=== PATIENT | female | born 1950 | race Caucasian/White ===

== ENCOUNTER 2017-06-20 18:29 | Inpatient (IN) ==
[2017-06-20] MEDS ORDERED: Vancomycin 1,000 MG VIAL IVPB ONE (18:57)
[2017-06-20] MEDS ORDERED: 0.9 % Sodium Chloride 1,000 ML IVC ONE (18:57)
--- NOTE | 2017-06-20 19:04 | Emergency Department Note ---
Disposition Clinical Impression: Cellulitis of left foot, Necrosis of toe Disposition: Admitted As Inpatient Condition: Fair Time of Disposition: 21:27 Extremity Problem HPI - General Chief complaint: ED Extremity Problem,Nontraumatic Stated complaint: LLE Problem Time Seen by Provider: 06/20/17 18:40 Source: patient Mode of arrival: wheelchair Limitations: no limitations Nursing Notes Reviewed: Yes Vital Signs Reviewed: Yes - History of Present Illness HPI Narrative: Mrs. Beltrán, 66 year old female, presents from home for evaluation of left toe infection. Onset 3 weeks ago. Started around the toenail of the second toe. Patient has been self caring at home with interbody ointment. It has never been evaluated by a caregiver. She is concerned as now the second and third toes are black and skin is being torn whenever she is removing adhesive from her bandaging. She has pain at rest and with any weightbearing. PMH: CAD with ACS status post CABG, diabetes with no peripheral neuropathy, hypertension, hyperlipidemia. No history of PAD. Habits: Prior 30+ pack-year history of smoking; quit 10 years ago. ROS: Positive: As above Negative: Fever, chills, ankle pain, knee pain. Pain Scale: 7 - Related Data Home Medications Medication Instructions Recorded Confirmed Alendronate Sodium 70 mg PO QWEEK 01/06/17 06/21/17 Aspirin [Lo-Dose Aspirin EC] 81 mg PO DAILY 01/06/17 06/21/17 Calcium Carbonate/Vitamin D3 1 each PO TID 01/06/17 06/21/17 [Calcium 500-Vit D3 200 Caplet] Clopidogrel Bisulfate [Plavix] 75 mg PO DAILY 01/06/17 06/21/17 Clotrimazole 1% CRM [Lotrimin 1%] 1 appl TD BID 01/06/17 06/21/17 Cyclobenzaprine [Flexeril] 10 mg PO DAILY 01/06/17 06/21/17 Enalapril Maleate [Vasotec] 10 mg PO DAILY 01/06/17 06/21/17 Ergocalciferol (VITAMIN D2) 50,000 unit PO QWEEK 01/06/17 06/21/17 [Vitamin D2] Folic Acid 1 mg PO DAILY 01/06/17 06/21/17 Furosemide [Lasix] 20 mg PO DAILY PRN 01/06/17 06/21/17 Gabapentin [Neurontin] 600 mg PO TID 01/06/17 06/21/17 HYDROcodone/Acet 5/325 mg [[place] 1 tab PO Q8H PRN 01/06/17 06/21/17 5-325 mg] Insulin Glargine,Hum.rec.anlog 43 unit SQ DAILY 01/06/17 06/21/17 [Basaglar Kwikpen U-100] Insulin LISPRO [HumaLOG] 0 units SQ TIDWM PRN 01/06/17 06/21/17 Lovastatin [Mevacor] 20 mg PO DAILY 01/06/17 06/21/17 Metoprolol Tartrate [Lopressor] 50 mg PO DAILY 01/06/17 06/21/17 Nitroglycerin [Nitrostat] 0.4 mg SL Q5-6MIN PRN 01/06/17 06/21/17 Omeprazole [PriLOSEC] 40 mg PO DAILY 01/06/17 06/21/17 Pioglitazone [Actos] 45 mg PO DAILY 01/06/17 06/21/17 SitaGLIPtin [Januvia] 100 mg PO DAILY 01/06/17 06/21/17 Citalopram Hydrobromide 10 mg PO DAILY 06/21/17 06/21/17 [Citalopram HBr] Ferrous Sulfate [Iron] 325 mg PO DAILY 06/21/17 06/21/17 LORazepam [Ativan] 0.5 mg PO DAILY 06/21/17 06/21/17 Meloxicam [Mobic] 7.5 mg PO BID 06/21/17 06/21/17 Metformin HCl [Metformin HCl ER] 1,000 mg PO BID 06/21/17 06/21/17 Previous Rx's Medication Instructions Recorded Isosorbide MONOnitrate (24 HR) 60 mg PO DAILY #30 tab.er.24h 01/06/17 [Imdur] Allergies Allergy/AdvReac Type Severity Reaction Status Date / Time cephalexin [From Keflex] Allergy Hives Verified 06/20/17 18:37 codeine Allergy Headache Verified 06/20/17 18:37 Iodinated Contrast- Oral and Allergy Hives Verified 06/20/17 18:37 IV Dye All systems ED: reviewed and negative except as stated. Review of Systems: As Per HPI Past Medical History - Past Medical History Medical history: Reports: CHF, coronary artery disease, diabetes, GERD, hyperlipidemia, hypertension, kidney stones, myocardial infarction, osteoporosis Surgical history: Reports: angioplasty/stent, appendectomy, cholecystectomy, coronary bypass (CABG) Psychiatric history: Reports: anxiety - Social History Smoking Status: Former smoker Alcohol use: Reports: none Drug use: Reports: none Physical Exam Vital Signs Reviewed General: Patient is alert, oriented, and in no acute distress. Head: atraumatic, normocephalic Eye: normal appearance, PERRL, EOMI, no scleral icterus, no conjunctival injection ENT: mucous membranes moist, normal external ear exam Neck: normal inspection, trachea midline, full ROM Chest: normal inspection, symmetric chest rise Respiratory: Good respiratory effort. Bilateral breath sounds are clear without wheezing, crackles, or rhonchi. Cardiovascular: Regular rate and rhythm. No clicks, rubs, gallops, or murmors. Normal heart sounds. Chronic venous stasis changes bilaterally. Right lower extremity 1+ pitting pedal edema. Abdomen: Bowel sounds present normoactive x-4 quadrants. Abdomen is soft, nondistended, and nontender. No guarding or rebound. No organomegaly noted. Musculoskeletal: Skin: Neuro: Alert and oriented x4. Sensation light touch intact. Psych: Patient's affect is appropriate for situation. - General General appearance: alert, in no apparent distress Course Course Narrative: History clinical exam concerning for infectious necrosis with cellulitis extending several centimeters proximally on the dorsum of her left foot. Will empirically cover for cellulitis and osteomyelitis. X-ray left foot shows no evidence of osteomyelitis. Patient is agreeable to admission for IV antibiotics as well as continued evaluation and management. I discussed the above with the admitting hospitalist, Dr. Connor. He is agreeable to accepting the patient for continued evaluation and management. He prefers to hold on CT left foot pending his evaluation. Foot X-Ray 06/20/17 20:30 IMPRESSION: No radiographic evidence of osteomyelitis. D/ / Nash Yepez MD / Nash Yepez MD Interpreting Provider: Nash Yepez MD Vital Signs Temperature 97.5 F L 06/20/17 18:34 Pulse Rate 95 06/20/17 18:34 Respiratory Rate 16 06/20/17 18:34 Blood Pressure 149/68 06/20/17 18:34 O2 Sat by Pulse Oximetry 95 06/20/17 18:34 Temperature 98.3 F 06/21/17 11:18 Pulse Rate 112 06/21/17 11:18 Respiratory Rate 17 06/21/17 11:18 Blood Pressure 96/60 06/21/17 11:18 O2 Sat by Pulse Oximetry 98 06/21/17 17:08 Oxygen Delivery Oxygen Delivery Room Air Extremity Problem, Nontraumati - Medical Records Medical records reviewed: Yes I reviewed the patient's medical records. - Lab Data Lab results reviewed: Yes I reviewed the patient's lab results. Result diagrams: 06/21/17 04:46 06/21/17 04:45 Lab Results 06/20/17 06/20/17 06/20/17 Range/Units 19:00 19:00 19:00 WBC 13.5 H (4.3-11.1) K/mcL RBC 4.66 (3.82-4.97) M/mcL Hgb 10.3 L (11.5-15.4) g/dL Hct 34.8 L (35.3-44.9) % MCV 74.7 L (83.0-100.0) fL MCH 22.1 L (28.0-33.3) pg MCHC 29.6 L (31.6-35.5) g/dL RDW 19.9 H (11.5-14.5) % Plt Count 355 (140-400) K/mcL MPV 11.0 (9.4-12.4) fL Immature Gran % 0.6 (0-4) % Seg Neutrophils % 82.6 % Lymphocytes % 9.6 % Monocytes % 6.1 % Eosinophils % 0.7 % Basophils % 0.4 % Neutrophils # 11.2 H (1.6-8.9) K/mcL Lymphocytes # 1.3 (0.6-4.6) K/mcL Monocytes # 0.8 (0.0-1.3) K/mcL Eosinophils # 0.1 (0.0-0.6) K/mcL Basophils # 0.1 (0.0-0.2) K/mcL ESR 125 H (0-15) mm/hr Sodium 133 L (136-145) mEq/L Potassium 4.1 (3.5-5.1) mEq/L Chloride 99 (98-107) mEq/L Carbon Dioxide 24 (23-29) mEq/L BUN 11 (8-23) mg/dL Creatinine 0.79 (0.60-1.20) mg/dL Est GFR ( Amer) > 60 (> 60) Est GFR (Non-Af Amer) > 60 (> 60) BUN/Creatinine Ratio 14 (6-26) Glucose 210 H (70-105) mg/dL Calculated Osmolality 282 (280-300) Lactic Acid (0.5-2.2) mmol/L Calcium 9.1 (8.6-10.3) mg/dL C-Reactive Protein (Less than 10) mg/L 06/20/17 06/20/17 Range/Units 19:00 19:00 WBC (4.3-11.1) K/mcL RBC (3.82-4.97) M/mcL Hgb (11.5-15.4) g/dL Hct (35.3-44.9) % MCV (83.0-100.0) fL MCH (28.0-33.3) pg MCHC (31.6-35.5) g/dL RDW (11.5-14.5) % Plt Count (140-400) K/mcL MPV (9.4-12.4) fL Immature Gran % (0-4) % Seg Neutrophils % % Lymphocytes % % Monocytes % % Eosinophils % % Basophils % % Neutrophils # (1.6-8.9) K/mcL Lymphocytes # (0.6-4.6) K/mcL Monocytes # (0.0-1.3) K/mcL Eosinophils # (0.0-0.6) K/mcL Basophils # (0.0-0.2) K/mcL ESR (0-15) mm/hr Sodium (136-145) mEq/L Potassium (3.5-5.1) mEq/L Chloride (98-107) mEq/L Carbon Dioxide (23-29) mEq/L BUN (8-23) mg/dL Creatinine (0.60-1.20) mg/dL Est GFR ( Amer) (> 60) Est GFR (Non-Af Amer) (> 60) BUN/Creatinine Ratio (6-26) Glucose (70-105) mg/dL Calculated Osmolality (280-300) Lactic Acid 2.1 (0.5-2.2) mmol/L Calcium (8.6-10.3) mg/dL C-Reactive Protein 39 H (Less than 10) mg/L - Radiology Data Radiology results reviewed: Yes I reviewed the patient's radiology results. Foot X-Ray 06/20/17 20:30 IMPRESSION: No radiographic evidence of osteomyelitis. D/ / Nash Yepez MD / Nash Yepez MD Interpreting Provider: Nash Yepez MD Attestation Statement - Attestation Attestation: I examined this patient and my medical decision-making was reviewed with the Resident Physician, Dr. Lezama. I agree with the documented findings, disposition and treatment plan as described except to the extent set forth below. Pt is 66 yo wf, hx DM with neuropathy who is brought to the ER by family for L foot infection/necrosis. Pt reports that she began having L toe pain which began at the base of the L 2nd toenail approx 3 weeks ago, and the area was painful and draining yellow DC which progressively worsened to involve multiple toes and the dorsum of the L foot. Pt denies any falls/trauma to the LLE. Pt has been ambulatory at home despite reported infection and has not had this evaluated by a doctor until tonight. Pt denies any F/C, no nausea, no SOB/CP, no diaphoresis, and no incr in her BS's with these foot changes. No LE pain, and only mild edema which is chronic. Pt has been putting dressings over her L foot and changing and cannot recall when her L toes turned black in color, she thinks maybe 3-5 d ago. Pt denies any other complaints. I agree with pt's PE findings as documented. VSS. Pt is in NAD, and denies any pain. Pt with dry necrosis of L toes 2,3,4 with erythema of LLE which extends prox to just below L knee joint. Pt with open ulceration to L dorsal foot with purulent drainage. NVI with palpable pulses in L foot, and dorsal foot TTP. An IV saline well-established vital signs are stable she was hemodynamically stable and are concerned about abscess, underlying osteomyelitis, as patient has erythema of her left lower extremity that extends into the lower leg. She has no calf tenderness she has no joint tenderness Eissler joint swelling or erythema, no fevers or chills and is in no acute distress on arrival here. Patient had lab evaluation including lactate, CRP and sedimentation rate. Labs show an elevated white count with left shift but other labs were unremarkable. Patient was sent for plain film imaging which was negative for any bony injury or early evidence of osteo-. Empiric antibiotics were started for osteomyelitis. Patient's lower extremities are neurovascularly intact she has good palpable pulses good skin color and perfusion with Refill less than 2 seconds. At this time patient will be admitted for ongoing antibiotics, orthopedic consultation and possible CT imaging for further evaluation of what look like necrotic changes on the left foot. Case was discussed with the hospitalist who accepted patient for admission.
[2017-06-20 19:42] LABS: Basophils # 0.1 K/mcL (0.0-0.2); Basophils % 0.4 %; Eosinophils # 0.1 K/mcL (0.0-0.6); Eosinophils % 0.7 %; Hematocrit 34.8 % (35.3-44.9); Hemoglobin 10.3 g/dL (11.5-15.4); Immature Granulocytes % 0.6 % (0-4); Lymphocytes # 1.3 K/mcL (0.6-4.6); Lymphocytes % 9.6 %; Mean Corpuscular HGB Conc 29.6 g/dL (31.6-35.5); Mean Corpuscular Hemoglobin 22.1 pg (28.0-33.3); Mean Corpuscular Volume 74.7 fL (83.0-100.0); Monocytes # 0.8 K/mcL (0.0-1.3); Monocytes % 6.1 %; Neutrophils # 11.2 K/mcL (1.6-8.9); Platelet Count 355 K/mcL (140-400); Red Blood Count 4.66 M/mcL (3.82-4.97); Red Cell Distribution Width 19.9 % (11.5-14.5); Segmented Neutrophils % 82.6 %
[2017-06-20] MEDS ORDERED: *HR* FentaNYL (PF) 100 MCG/2 ML VIAL IVP ONE (19:50)
[2017-06-20 19:56] LABS: BUN/Creatinine Ratio 14 (6-26); Blood Urea Nitrogen 11 mg/dL (8-23); Calcium 9.1 mg/dL (8.6-10.3); Carbon Dioxide 24 mEq/L (23-29); Chloride 99 mEq/L (98-107); Glucose 210 mg/dL (70-105); Osmolality,Calculated 282 (280-300); Potassium 4.1 mEq/L (3.5-5.1); Sodium 133 mEq/L (136-145); eGFR For African Americans > 60 (> 60); eGFR For Non-African Americans > 60 (> 60)
[2017-06-20] MEDS ORDERED: MetroNIDAZOLE 500 MG/100 ML 500 MG/100 ML BAG IVPB ONE (20:30)
--- NOTE | 2017-06-20 21:43 | Internal Med History&Physical ---
Date of Encounter: 06/20/17 Time of Encounter: 21:40 Assessment and Plan (1) Cellulitis of left foot Current visit: Yes Status: Acute IV vanco, trend level, pharmacy to assist IV cipro to cover GN given DM foot (2) Gangrene Current visit: Yes Status: Acute dry gangrene with early proximal injection. d/w dr loco who rec podiatry eval . 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 Beltrán is a 66 year old female of long standing DMII on insulin c/b peripheral neuropathy who presents with acute on subacute infection of left 2nd and 3rd toe with early cellulitis. She has a hx of CAD s/p 4 x, stents, DMII, peripheral neuropathy with numbness of foot and shooting pain. She has had at least several 3-4 weeks of worsening pain and swelling and erythema of left foot. She also had experiencing progressive blackening of the left 2nd and 3rd digits in the last month or so. XR/XR foot 3V LT IMPRESSION: No radiographic evidence of osteomyelitis. Past Med Surg Social Fam HX - Past Medical History Medical history: CHF, coronary artery disease, diabetes, GERD, hyperlipidemia, hypertension, kidney stones, myocardial infarction, osteoporosis Psychiatric history: anxiety - Past Surgical History Surgical History: angioplasty/stent, appendectomy, cholecystectomy, coronary bypass (CABG) - Social History Smoking Status: Former smoker Smokeless Tobacco Status: No Alcohol use: none Drug use: none - Family History Mother Adopted: [place]: Dary Cruz Age: 63 Family Member Ethnicity: Non- Twin of Family Member: Yes, Identical Living Status: Age at : 63 Cause of : Heart complications Hx Family Cardiac Disorders: Yes (MD,HTN, OPEN HEART SX) Hx Family Respiratory Disorders: No Hx Family Cancer: No Hx Family GI Disorders: No Hx Family Genitourinary Disorders: No Hx Family Endocrine Disorder: No Hx Family Musculoskeletal Disorders: No Hx Family Neuromuscular Disorders: No Hx Family Neurologic Disorders: No Hx Family HEENT Disorders: No Hx Family Autoimmune Disorders: No Hx Family Reproductive Disorders: No Hx Family Psychosocial Disorders: No Hx Family Medical Disorders: No Internal Medicine - H&P: Meds Alendronate Sodium 70 mg PO QWEEK 01/06/17 [History] Aspirin [Lo-Dose Aspirin EC] 81 mg PO DAILY 01/06/17 [History] Calcium Carbonate/Vitamin D3 [Calcium 500-Vit D3 200 Caplet] 1 each PO TID 01/06 [History] Clopidogrel Bisulfate [Plavix] 75 mg PO DAILY 01/06/17 [History] Clotrimazole 1% CRM [Lotrimin 1%] 1 appl TD BID 01/06/17 [History] Cyclobenzaprine [Flexeril] 10 mg PO DAILY 01/06/17 [History] Enalapril Maleate [Vasotec] 10 mg PO DAILY 01/06/17 [History] Ergocalciferol (VITAMIN D2) [Vitamin D2] 50,000 unit PO QWEEK 01/06/17 [History] Folic Acid 1 mg PO DAILY 01/06/17 [History] Furosemide [Lasix] 20 mg PO DAILY PRN 01/06/17 [History] Gabapentin [Neurontin] 600 mg PO TID 01/06/17 [History] HYDROcodone/Acet 5/325 mg [[place] 5-325 mg] 1 tab PO Q8H PRN 01/06/17 [History] Insulin Glargine,Hum.rec.anlog [Basaglar Kwikpen U-100] 43 unit SQ DAILY [History] Insulin LISPRO [HumaLOG] 0 units SQ TIDWM PRN 01/06/17 [History] Isosorbide MONOnitrate (24 HR) [Imdur] 60 mg PO DAILY #30 tab.er.24h 01/06/17 [ Rx] Lovastatin [Mevacor] 20 mg PO DAILY 01/06/17 [History] Metoprolol Tartrate [Lopressor] 50 mg PO DAILY 01/06/17 [History] Nitroglycerin [Nitrostat] 0.4 mg SL Q5-6MIN PRN 01/06/17 [History] Omeprazole [PriLOSEC] 40 mg PO DAILY 01/06/17 [History] Pioglitazone [Actos] 45 mg PO DAILY 01/06/17 [History] SitaGLIPtin [Januvia] 100 mg PO DAILY 01/06/17 [History] metFORMIN [Glucophage] 1,000 mg PO BIDWM 01/06/17 [History] 3 Allergy/AdvReac Type Severity Reaction Status Date / Time cephalexin [From Keflex] Allergy Hives Verified 06/20/17 18:37 codeine Allergy Headache Verified 06/20/17 18:37 Iodinated Contrast- Oral and Allergy Hives Verified 06/20/17 18:37 IV Dye All Systems PM: A 10-system review of systems was performed and is negative for pertinent findings except as documented above in the HPI. Review of systems: ROS 14 point review of systems reviewed as best as possible given presentation. Pertinent positive or negative as per HPI or otherwise reviewed as negative - Constitutional Vitals: Temp Pulse Resp BP Pulse Ox 97.5 F L 88 18 142/84 96 06/20/17 18:34 06/20/17 20:36 06/20/17 20:36 06/20/17 20:36 06/20/17 20:36 Exam: General - AAO x 3 Psych - Appropriate affect/speech. No agitation Eyes - KIRT. Eye lids intact. No scleral icterus Heart - Sinus. RRR. S1 and S2 present. No added HS/murmurs appreciated. No elevated JVD appreciated. Lung - Adequate air entry b/l, No crackles/wheezes appreciated GI - Soft, non-tender. No hepatosplenomegaly/ascites. BS+ - No CVA/suprapubic tenderness or palpable bladder distension Skin - Intact. No rash/petechiae/ecchymosis. Warm extremities MSK - Dry gangrene of left 2nd and 3rd toe with early infection changes Internal Med - H&P Results - Labs CBC & Chem 7: 02/11/18 19:00 06/20/17 19:00
[2017-06-20] MEDS ORDERED: *HR* Dextrose 50 % in Water (Syg) 50 ML SYRINGE IVP PRN (21:55)
[2017-06-20] MEDS ORDERED: D5% in Water 1,000 ML IVC PRN (21:55)
[2017-06-20] MEDS ORDERED: Dextrose Gel 15 GM/37.5 ML TUBE PO PRN ×2 (21:55)
[2017-06-20] MEDS ORDERED: Naloxone 0.4 MG/ML INJ IVP PRN (21:56)
[2017-06-20] MEDS ORDERED: Vancomycin 0 MG in D5% in Water 250 ML IVPB SCH (22:00)
[2017-06-20] MEDS ORDERED: NON-FORMULARY MEDICATION 1 EACH EACH (Insulin Glargine,Hum.Rec.Anlog [Basaglar Kwikpen U-1 SQ SCH (22:00)
[2017-06-20] MEDS: *HR* HYDROcodone/Acet 5/325 mg TABLET PO PRN (22:27)
[2017-06-20] MEDS: 0.9 % Sodium Chloride 1,000 ML IVC SCH (22:31)
[2017-06-20] MEDS: Insulin DETEMIR 100 UNIT/ML X5UNITS SQ SCH (22:52)
[2017-06-20] MEDS ORDERED: Vancomycin 1,250 MG in D5% in Water 250 ML IVPB ONE (23:00)
[2017-06-21] MEDS: *HR* FentaNYL (PF) 100 MCG/2 ML VIAL IVP PRN ×3 (00:35→22:23)
[2017-06-21] MEDS ORDERED: *HR* OxyCODONE Immed Rel 5 MG TABLET PO ONE (02:39)
[2017-06-21] MEDS ORDERED: *HR* Metoprolol 5 MG/5 ML VIAL IVP PRN (04:28)
[2017-06-21] MEDS ORDERED: Aspirin 325 MG TABLET PO ONE (04:30)
[2017-06-21] MEDS: Nitroglycerin 0.4 MG TAB.SUBL SL PRN (04:53)
[2017-06-21] MEDS ORDERED: *HR* Heparin 5,000 UNIT/ML VIAL IVP PRN ×2 (04:54)
[2017-06-21] MEDS ORDERED: *HR* Heparin 5,000 UNIT/ML VIAL IVP ONE (04:54)
[2017-06-21 05:14] LABS: Alanine Aminotransferase 6 Units/L (7-52); Albumin/Globulin Ratio 0.8 (1.1-2.2); Alkaline Phosphatase 54 Units/L (34-104); Aspartate Amino Transferase 10 Units/L (13-39); BUN/Creatinine Ratio 11 (6-26); Bilirubin,Total 0.2 mg/dL (0.3-1.0); Blood Urea Nitrogen 8 mg/dL (8-23); Calcium 8.7 mg/dL (8.6-10.3); Carbon Dioxide 23 mEq/L (23-29); Chloride 108 mEq/L (98-107); Globulin 3.9 g/dL (2.4-3.5); Glucose 78 mg/dL (70-105); Osmolality,Calculated 289 (280-300); Potassium 3.3 mEq/L (3.5-5.1); Sodium 141 mEq/L (136-145); Total Protein 6.9 g/dL (6.4-8.9); eGFR For African Americans > 60 (> 60); eGFR For Non-African Americans > 60 (> 60)
[2017-06-21] MEDS ORDERED: Nitroglycerin 25 MG/250 ML INFUS..BTL IVC SCH (05:15)
[2017-06-21 06:00] LABS: Basophils % 0.4 %; Hemoglobin 9.7 g/dL (11.5-15.4); Red Cell Distribution Width 19.5 % (11.5-14.5)
[2017-06-21] MEDS ORDERED: *HR* Enoxaparin 30 MG/0.3 ML SYRINGE SQ SCH (06:00)
[2017-06-21 06:02] LABS: Eosinophils # 0.1 K/mcL (0.0-0.6); Hematocrit 32.9 % (35.3-44.9); Immature Granulocytes % 0.4 % (0-4); Immature Platelets 5.3 % (1.1-6.1); Lymphocytes # 2.3 K/mcL (0.6-4.6); Lymphocytes % 22.4 %; Mean Corpuscular HGB Conc 29.5 g/dL (31.6-35.5); Mean Corpuscular Volume 74.8 fL (83.0-100.0); Mean Platelet Volume 10.8 fL (9.4-12.4); Monocytes # 0.8 K/mcL (0.0-1.3); Monocytes % 7.6 %; Neutrophils # 6.9 K/mcL (1.6-8.9); Platelet Count 335 K/mcL (140-400); Segmented Neutrophils % 68.2 %
[2017-06-21] MEDS: Heparin 25,000 UNIT/500 ML D5W 25,000 UNIT/500 ML BAG IVC SCH (06:39)
[2017-06-21 07:05] LABS: Hemoglobin A1C 6.5 %
[2017-06-21 07:36] LABS: Hypochromasia Present (Not Present); Macrocytosis Present (Not Present); Platelet Estimate Normal (Normal); Polychromasia 1+ (Not Present)
[2017-06-21] MEDS: Insulin LISPRO 300 UNITS/3 ML VIAL SQ SCH ×4 (07:44→22:14)
[2017-06-21] MEDS: Folic Acid 1 MG TABLET PO SCH (08:19)
[2017-06-21] MEDS: Gabapentin 300 MG CAPSULE PO SCH ×3 (08:19→22:13)
[2017-06-21] MEDS: *HR* SitaGLIPtin 100 MG TABLET PO SCH (08:19)
[2017-06-21] MEDS: Aspirin Enteric Coated 81 MG Tablet PO SCH (08:19)
[2017-06-21] MEDS: *HR* HYDROcodone/Acet 5/325 mg TABLET PO PRN ×2 (08:59→20:05)
[2017-06-21] MEDS ORDERED: Isosorbide MONOnitrate (24 HR) 60 MG TAB.ER.24H PO SCH ×2 (09:00→10:15)
[2017-06-21] MEDS ORDERED: Calcium 500-Vit D3 PO SCH (09:00)
[2017-06-21] MEDS: Cholecalciferol (D-3) 1,000 UNIT TABLET PO SCH (09:00)
--- NOTE | 2017-06-21 10:06 | Cardiology Consult Note ---
<Sumanth Alonzo - Last Filed: 06/21/17 10:56> Date of Encounter: 06/21/17 Time of Encounter: 09:30 Assessment and Plan (1) Cellulitis of left foot Current Visit: Yes Status: Acute Per Cardiology: Management per primary. Podiatry consult pending. (2) Necrosis of toe Current Visit: Yes Status: Acute Per Cardiology: Management per primary. Podiatry consult pending. Anticipate may need Vascular C /S. (3) Chest pain Current Visit: Yes Status: Acute Per Cardiology: Developed chest pain symptoms during the night in setting of tachycardia in the 130s and patient reported extreme left foot pain not well controlled. Initial troponins negative, now with troponin mild elevation of 0.07. Currently chest pain-free on IV nitroglycerin drip and heparin drip. ECG with ST depression reviewed with Dr. Elaine, now changes resolved and CP free. Reports better pain control with left foot. Do not suspect non-STEMI, suspected to be an ischemia in setting of tachycardia suspect due to pain. We'll wean off IV nitroglycerin drip. Will increase long-acting nitrate. Continue heparin drip for now. Check limited echo. Discussed with Dr. Elaine. Qualifiers: Qualified Code(s): R07.9 - Chest pain, unspecified (4) CAD (coronary artery disease) Current Visit: Yes Status: Chronic Per Cardiology: History of CAD with CABG x 4 2001 at [place]. Recent heart catheterization December 2016 showed patent GARAY to LAD, patent SVG to OM1, patent sequential SVG to OM 2 , occluded SVG to right PDA. [place] circulation to RCA showed proximal RCA 30%, mid RCA 25%, distal RCA 40% lesions. Abnormal nuclear stress test December 2016 showed findings consistent with reversible myocardial ischemia involving basal apical anterior wall and apical lateral wall. Echo from December 2016 showed EF 60 %, normal LV function, no significant valvular dysfunction, no pulmonary hypertension, NSWMA. On aspirin, Plavix, statin, beta eugenie, JOSE inhibitor, long-acting nitrates. Qualifiers: Coronary Disease-Associated Artery/Lesion type: bypass graft Associated angina: angina presence unspecified Qualified Code(s): I25.810 - Atherosclerosis of coronary artery bypass graft(s) without angina pectoris Discussion w patient/family: The assessment and plan as outlined above was discussed with the patient and/or family members who expressed understanding and agreement. All questions were answered. Thank you for involving us in the care of your patient. Please call with any questions. History of Present Illness Consult date: 06/21/17 Requesting physician: Nara Yadav Consult reason: CP Chief complaint: CP in setting of L foot pain with necrosis History of present illness: Ms. Beltrán is a 66 year old female with a relevant past medical history of CAD with CABG, hypertension, hyperlipidemia, DM2, diastolic dysfunction, GERD. Most recently seen by Dr. Salome Varela February 2017 with cardiology. Cardiology consult for chest pain symptoms. Patient reports extreme left foot pain over the past 3-4 weeks that she "had been ignoring ". Reports blackened second, third, and fourth toe. She reports she came to the ER because her son saw her foot and made her come in. Prior to arrival she denies any chest pain or palpitations. Reports left leg and foot pain. She reports sores of breath at rest about baseline. Yesterday evening around 3 AM she reports difficulty receiving pain medication experienced overall increased left foot pain. Patient reports rapid heart rate with palpitations and sharp stabbing chest pains. Currently chest pain-free and reports improvement with left foot pain control. She denies any active bleeding or blood loss. Denies any recent syncope or falls. Past Med Surg Social Fam HX - Past Medical History Attestation: Yes The following information was validated with the patient. Source: patient, old records reviewed Medical history: CHF, coronary artery disease, diabetes, GERD, hyperlipidemia, hypertension, kidney stones, myocardial infarction, osteoporosis Psychiatric history: anxiety - Past Surgical History Surgical History: angioplasty/stent, appendectomy, cholecystectomy, coronary bypass (CABG) - Social History Smoking Status: Former smoker Smokeless Tobacco Status: No Alcohol use: none Drug use: none - Family History Mother Adopted: [place]: Dary Cruz Age: 63 Family Member Ethnicity: Non- Twin of Family Member: Yes, Identical Living Status: Age at : 63 Cause of : Heart complications Hx Family Cardiac Disorders: Yes (IL,HTN, OPEN HEART SX) Hx Family Respiratory Disorders: No Hx Family Cancer: No Hx Family GI Disorders: No Hx Family Genitourinary Disorders: No Hx Family Endocrine Disorder: No Hx Family Musculoskeletal Disorders: No Hx Family Neuromuscular Disorders: No Hx Family Neurologic Disorders: No Hx Family HEENT Disorders: No Hx Family Autoimmune Disorders: No Hx Family Reproductive Disorders: No Hx Family Psychosocial Disorders: No Hx Family Medical Disorders: No Medications and Allergies Alendronate Sodium 70 mg PO QWEEK 01/06/17 [History] Aspirin [Lo-Dose Aspirin EC] 81 mg PO DAILY 01/06/17 [History] Calcium Carbonate/Vitamin D3 [Calcium 500-Vit D3 200 Caplet] 1 each PO TID 01/06 [History] Clopidogrel Bisulfate [Plavix] 75 mg PO DAILY 01/06/17 [History] Clotrimazole 1% CRM [Lotrimin 1%] 1 appl TD BID 01/06/17 [History] Cyclobenzaprine [Flexeril] 10 mg PO DAILY 01/06/17 [History] Enalapril Maleate [Vasotec] 10 mg PO DAILY 01/06/17 [History] Ergocalciferol (VITAMIN D2) [Vitamin D2] 50,000 unit PO QWEEK 01/06/17 [History] Folic Acid 1 mg PO DAILY 01/06/17 [History] Furosemide [Lasix] 20 mg PO DAILY PRN 01/06/17 [History] Gabapentin [Neurontin] 600 mg PO TID 01/06/17 [History] HYDROcodone/Acet 5/325 mg [[place] 5-325 mg] 1 tab PO Q8H PRN 01/06/17 [History] Insulin Glargine,Hum.rec.anlog [Basaglar Kwikpen U-100] 43 unit SQ DAILY [History] Insulin LISPRO [HumaLOG] 0 units SQ TIDWM PRN 01/06/17 [History] Isosorbide MONOnitrate (24 HR) [Imdur] 60 mg PO DAILY #30 tab.er.24h 01/06/17 [ Rx] Lovastatin [Mevacor] 20 mg PO DAILY 01/06/17 [History] Metoprolol Tartrate [Lopressor] 50 mg PO DAILY 01/06/17 [History] Nitroglycerin [Nitrostat] 0.4 mg SL Q5-6MIN PRN 01/06/17 [History] Omeprazole [PriLOSEC] 40 mg PO DAILY 01/06/17 [History] Pioglitazone [Actos] 45 mg PO DAILY 01/06/17 [History] SitaGLIPtin [Januvia] 100 mg PO DAILY 01/06/17 [History] Citalopram Hydrobromide [Citalopram HBr] 10 mg PO DAILY 06/21/17 [History] Ferrous Sulfate [Iron] 325 mg PO DAILY 06/21/17 [History] LORazepam [Ativan] 0.5 mg PO DAILY 06/21/17 [History] Meloxicam [Mobic] 7.5 mg PO BID 06/21/17 [History] Metformin HCl [Metformin HCl ER] 1,000 mg PO BID 06/21/17 [History] 3 Allergy/AdvReac Type Severity Reaction Status Date / Time cephalexin [From Keflex] Allergy Hives Verified 06/20/17 18:37 codeine Allergy Headache Verified 06/20/17 18:37 Iodinated Contrast- Oral and Allergy Hives Verified 06/20/17 18:37 IV Dye All Systems Review: A 10-system review of systems was performed and is negative for pertinent findings except as documented above in the HPI. - Constitutional Constitutional: fatigue - Cardiovascular Cardiovascular: as per HPI, chest pain at rest, palpitations, rapid heart rate - Musculoskeletal Musculoskeletal: other (Left foot and leg pain) Physical Examination Vital Signs, Last 4 Hours Temp Pulse Resp BP Pulse Ox 06/21/17 09:00 109 126/75 98 06/21/17 07:40 98.3 F 114 15 127/62 99 06/21/17 06:55 114 17 121/70 97 General: Conversant, No Apparent Distress HEENT: Atraumatic, Normocephaly, Mucus Membranes Moist Neck: No JVD, Normal carotid pulses Cardiac: Reg Rate and Rhythm, Normal S1 and S2, No Murmur Lungs: Normal Breath Sounds, No Wheeze, Rales, Rhonchi Neuro: Alert and responsive, No focal deficits noted Abdomen: Soft, Non-Tender Skin: No rashes noted on visualized skin Musculoskeletal: No Chest Wall Tenderness Extremities: No Clubbing, No Cyanosis, Other (Left foot with necrosis to 2nd, 3rd, and 4th toes, left leg erythematous, painful to touch, faint +1 pulses) Results 06/21/17 04:46 06/21/17 04:45 Lab Results Laboratory Tests 06/20/17 06/21/17 06/21/17 19:00 04:45 04:46 WBC 13.5 H AST 10 L ALT 6 L Troponin I < 0.03 06/21/17 09:50 WBC AST ALT Troponin I 0.07 H* ITS Impressions Foot X-Ray 06/20/17 20:30 IMPRESSION: No radiographic evidence of osteomyelitis. D/ / Nash Yepez MD / Nash Yepez MD Interpreting Provider: Nash Yepez MD Active Medications Hydrocodone Bitart/Acetaminophen ([place] 5-325 Mg) 1 tab PO Q4HR PRN PRN Reason: Pain Stop: 12/21/17 00:01 Last Admin: 06/21/17 08:59 Dose: 1 tab Aspirin (Aspirin Ec) 81 mg PO DAILY TINA Stop: 12/21/17 09:01 Last Admin: 06/21/17 08:19 Dose: 81 mg Calcium Carbonate (Tums) 500 mg PO TID TINA PRN Reason: Protocol Stop: 12/21/17 09:01 Last Admin: 06/21/17 08:59 Dose: 500 mg Clopidogrel Bisulfate (Plavix) 75 mg PO DAILY TINA Stop: 12/21/17 09:01 Last Admin: 06/21/17 07:52 Dose: Not Given Cyclobenzaprine HCl (Flexeril) 10 mg PO DAILY TINA Stop: 12/21/17 09:01 Last Admin: 06/21/17 08:19 Dose: 10 mg Dextrose/Water (Dextrose 50% (Syg)) 25 ml IVP AD PRN PRN Reason: Hypoglycemia Stop: 12/20/17 21:56 Fentanyl Citrate (Fentanyl (Pf)) 50 mcg IVP Q4HR PRN PRN Reason: Breakthrough Pain Stop: 06/23/17 21:59 Last Admin: 06/21/17 00:35 Dose: 50 mcg Folic Acid (Folic Acid) 1 mg PO DAILY TINA Stop: 12/21/17 09:01 Last Admin: 06/21/17 08:19 Dose: 1 mg Gabapentin (Neurontin) 600 mg PO TID TINA Stop: 12/21/17 09:01 Last Admin: 06/21/17 08:19 Dose: 600 mg Glucagon (Glucagen) 1 mg IM ONCE PRN PRN Reason: Hypoglycemia Stop: 12/20/17 21:56 Glucose (Gluctose) 15 gm PO ONCE PRN PRN Reason: Hypoglycemia Stop: 12/20/17 21:56 Glucose (Gluctose) 30 gm PO ONCE PRN PRN Reason: Hypoglycemia Stop: 12/20/17 21:56 Heparin Sodium (Porcine) (Heparin) 5,700 unit 70 unit/kg (5700 unit) IVP Q6HR PRN PRN Reason: SEE COMMENTS Stop: 12/21/17 04:55 Heparin Sodium (Porcine) (Heparin) 2,900 unit 35 unit/kg (2900 unit) IVP Q6H PRN PRN Reason: SEE COMMENTS Stop: 12/21/17 04:55 Sodium Chloride (0.9 % Sodium Chloride) 1,000 mls @ 75 mls/hr IVC .[id number] [facility] Stop: 06/22/17 00:39 Last Admin: 06/20/17 22:31 Dose: 75 mls/hr Ciprofloxacin Lactate (Cipro Premix 400 Mg/200 Ml) 400 mg in 200 mls @ 200 mls/ hr IVPB Q12H [facility] Stop: 12/21/17 08:01 Last Admin: 06/21/17 08:18 Dose: 200 mls/hr Dextrose (Dextrose 5%) 1,000 mls @ 100 mls/hr IVC .Q10H PRN PRN Reason: HYPOGLYCEMIA Stop: 12/20/17 21:56 Vancomycin HCl 1,000 mg/ (Dextrose) 250 mls @ 166.667 mls/hr IVPB Q12H [facility] Stop: 12/21/17 11:01 Last Admin: 06/21/17 10:37 Dose: 166.667 mls/hr Heparin Sodium/Dextrose (Heparin 25,000 Unit/500 Ml D5w) 25,000 unit in 500 mls @ 22.861 mls/hr IVC .[id number] [facility]; 14 UNIT/KG/HR PRN Reason: Protocol Stop: 12/21/17 04:46 Last Admin: 06/21/17 06:39 Dose: 14 unit/kg/hr, 22.861 mls/hr Insulin Detemir (Levemir) 43 unit SQ HS [facility] Stop: 12/20/17 22:16 Last Admin: 06/20/17 22:52 Dose: 43 unit Insulin Human Lispro (Humalog) 0 units SQ TIDAC TINA PRN Reason: Protocol Stop: 12/21/17 07:31 Last Admin: 06/21/17 07:44 Dose: Not Given Insulin Human Lispro (Humalog) 0 units SQ HS [facility] PRN Reason: Protocol Stop: 12/21/17 21:01 Isosorbide Mononitrate (Imdur) 120 mg PO DAILY [facility] Stop: 12/22/17 09:01 Lisinopril (Zestril) 10 mg PO DAILY [facility] Stop: 12/21/17 09:01 Last Admin: 06/21/17 07:52 Dose: Not Given Metoprolol Tartrate (Lopressor) 50 mg PO DAILY [facility] Stop: 12/21/17 09:01 Last Admin: 06/21/17 07:52 Dose: Not Given Metoprolol Tartrate (Lopressor) 10 mg IVP Q6HR PRN PRN Reason: Heart Rate- High Stop: 12/21/17 04:29 Last Admin: 06/21/17 04:53 Dose: 10 mg Naloxone HCl (Narcan) 0.4 mg IVP Q2MIN PRN PRN Reason: SEE COMMENTS Stop: 12/20/17 21:57 Nitroglycerin (Nitroglycerin) 0.4 mg SL Q5MIN PRN PRN Reason: Chest Pain Stop: 12/21/17 04:36 Last Admin: 06/21/17 04:53 Dose: 0.4 mg Omeprazole (Prilosec) 40 mg PO 0630 [facility] Stop: 12/21/17 06:31 Last Admin: 06/21/17 05:08 Dose: 40 mg Simvastatin (Zocor) 10 mg PO HS [facility] Stop: 12/21/17 21:01 Sitagliptin Phosphate (Januvia) 100 mg PO DAILY [facility] Stop: 12/21/17 09:01 Last Admin: 06/21/17 08:19 Dose: Not Given Vitamin D (Vitamin D) 1,000 unit PO DAILY [facility] Stop: 12/21/17 09:01 Last Admin: 06/21/17 09:00 Dose: 1,000 unit - Imaging and Cardiology Echo: pending - EKG Interpretation EKG results cardiology: personally reviewed (ST 130's with diffuse ST depression I, AVl, V4-V6, now resolved with SR-ST 90's 100's) Consult Discharge Plan - Plan Referrals: Sammy Pompa MD [Primary Care Provider] - <Daksha Elaine - Last Filed: 06/21/17 12:51> Date of Encounter: 06/21/17 - Attending Attestation I examined this patient and my medical decision-making was reviewed with the [employer]. I agree with the documented findings, disposition and treatment plan as described. Ms. Beltrán presented out of concern for toe pain and toe necrosis. Incidentally developed symptoms of chest discomfort in setting of palpitations and extreme left foot pain. Review of telemetry does not reveal any concerning dysthyrhmia at the time of her discomfort. Initial troponin negative, now at 0.07. Has been chest pain free since this event. Recent cath was performed - no intervention done. Doubt presentation represents ACS. Recommend an echo for review of structure and function. Would trend troponin. Continue medical therapy. Assessment and Plan Discussion w patient/family: The assessment and plan as outlined above was discussed with the patient and/or family members who expressed understanding and agreement. All questions were answered. Thank you for involving us in the care of your patient. Please call with any questions. History of Present Illness History of present illness: Ms. Beltrán is a 66 year old female All Systems Review: A 10-system review of systems was performed and is negative for pertinent findings except as documented above in the HPI. Physical Examination Vital Signs, Last 4 Hours Temp Pulse Resp BP Pulse Ox 06/21/17 11:18 98.3 F 112 17 96/60 98 06/21/17 09:00 109 126/75 98 Results 06/21/17 04:46 06/21/17 04:45 Lab Results 06/21/17 06/21/17 06/21/17 04:45 04:46 04:46 WBC 10.1 Hgb 9.7 L Hct 32.9 L Plt Count 335 APTT Sodium 141 Potassium 3.3 L Chloride 108 H Carbon Dioxide 23 BUN 8 Creatinine 0.71 Glucose 78 Calcium 8.7 Total Bilirubin 0.2 L AST 10 L ALT 6 L Alkaline Phosphatase 54 Troponin I < 0.03 06/21/17 06/21/17 05:03 09:50 WBC Hgb Hct Plt Count APTT 28.7 Sodium Potassium Chloride Carbon Dioxide BUN Creatinine Glucose Calcium Total Bilirubin AST ALT Alkaline Phosphatase Troponin I 0.07 H*
[2017-06-21] MEDS ORDERED: Isosorbide MONOnitrate (24 HR) 60 MG TAB.ER.24H PO ONE (10:30)
[2017-06-21] MEDS: Vancomycin 1,000 MG in D5% in Water 250 ML IVPB SCH ×2 (10:37→22:14)
[2017-06-21] MEDS ORDERED: tiZANidine 4 MG TABLET PO ONE (11:05)
--- NOTE | 2017-06-21 14:40 | Internal Med Progress Note ---
Date of Encounter: 06/21/17 Time of Encounter: 12:05 - Assessment and plan (1) Necrosis of toe Current Visit: Yes Status: Acute Assessment and plan: Podiatry and vascular surgery consulted. Will check ERICK Looks like dry gangrene w superimposed infection continue Abx till seen by podiatry and clear plan in place- will help w superimposed cellulitis as well Likely will need amputation pain control seems adequate (2) Cellulitis of left foot Current Visit: Yes Status: Acute Assessment and plan: Superimposed mild cellulitis of dorsum of foot. 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 Medical management for demand ischemia only at this time. Do not beleove to have true ACS- even though mild trop elevation seen. Pt did have mild Cp w tachycardia this AM which is now resolved will continue IV heparin but pt will e weaned from nitro gtt Per EMR documentation from cards- History of CAD with CABG x 4 2001 at [place]. Recent heart catheterization December 2016 showed patent GARAY to LAD, patent SVG to OM1, patent sequential SVG to OM 2 , occluded SVG to right PDA. [place] circulation to RCA showed proximal RCA 30%, mid RCA 25%, distal RCA 40% lesions. Abnormal nuclear stress test December 2016 showed findings consistent with reversible myocardial ischemia involving basal apical anterior wall and apical lateral wall. Echo from December 2016 showed EF 60 %, normal LV function, no significant valvular dysfunction, no pulmonary hypertension, NSWMA. On aspirin, Plavix, statin, beta eugenie, JOSE inhibitor, long-acting nitrates Qualifiers: Coronary Disease-Associated Artery/Lesion type: bypass graft Associated angina: angina presence unspecified Qualified Code(s): I25.810 - Atherosclerosis of coronary artery bypass graft(s) without angina pectoris - Time Spent With Patient Greater than 35 minutes (More than 50% face to face counselling) - Subjective Interval history: Denies any chest pain, shortness of breath. She does complain of pain in the left foot denies any new fevers chills - Constitutional Vitals: Temp Pulse Resp BP Pulse Ox 98.3 F 112 17 96/60 98 06/21/17 11:18 06/21/17 11:18 06/21/17 11:18 06/21/17 11:18 06/21/17 11:18 Exam: General , Alert , oriented, HEENT- PERRLA. EOMI CVS- S1S2 N, No Murmurs, Rubs, gallops, No JVD RS- CTA Bilaterally. No rales no Rhonchi heard Abdomen- Soft NT ND, bowel sounds heard across all 4 quadrants Neuro- soles of feet are numb, CN 2-12 intact, Motors- power 5/5 UE, 5/5 LE Bilaterally, Extremeties- left foot toes #2 , 3 and medial aspect of #4 gangrenous w some proximal spread of mottling over dorsum of foot. DP dopplerable. Erythema L > R foot. Mild 1+ edema appreciated Internal Medicine: Result - Labs CBC & Chem 7: 06/21/17 04:46 06/21/17 04:45 Labs: Short CBC 06/21/17 Range/Units 04:46 WBC 10.1 (4.3-11.1) K/mcL Hgb 9.7 L (11.5-15.4) g/dL Hct 32.9 L (35.3-44.9) % Plt Count 335 (140-400) K/mcL Neutrophils # 6.9 (1.6-8.9) K/mcL BMP 06/21/17 04:45 Sodium 141 Potassium 3.3 L Chloride 108 H Carbon Dioxide 23 BUN 8 Creatinine 0.71 Glucose 78 Calcium 8.7 Cardiac Enzymes 06/21/17 06/21/17 Range/Units 04:46 09:50 Troponin I < 0.03 0.07 H* (< 0.04) ng/mL Liver Function 06/21/17 Range/Units 04:45 Total Bilirubin 0.2 L (0.3-1.0) mg/dL AST 10 L (13-39) Units/L ALT 6 L (7-52) Units/L Alkaline Phosphatase 54 (34-104) Units/L Albumin 3.0 L (3.5-5.7) g/dL Consult Discharge Plan - Plan Referrals: Sammy Pompa MD [Primary Care Provider] -
--- NOTE | 2017-06-21 15:21 | Podiatry Consult Note ---
Date of Encounter: 06/21/17 Time of Encounter: 12:30 Assessment and Plan (1) Cellulitis of left foot Current visit: Yes Status: Acute Cellulitis of left foot and lower leg secondary to dry gangrene of toes #2, #3 left foot. WBC: 13.5 upon admission and trending down to 10.1 today. Xray of left foot: no evidence of osteomyelitis. Patient started on IV Cipro and Vancomycin. (2) Gangrene Current visit: Yes Status: Acute Dry gangrene to toes #2, #3, #4 left foot, pallor to toes #1 and #4 left foot. Plan: Recommend ABIs of BLE with TCPO2 levels and a Vascular Consult. Will await Vascular recommendations prior to any surgical intervention. Keep toes clean and dry, will write for wound care orders. Will continue to follow patient closely. History of Present Illness HPI: Ms. Beltrán is a 66 year old female admitted to [facility] for cellulitis of the left foot. Patient has a medical history significant for CHF, coronary artery disease, diabetes, GERD, hyperlipidemia, hypertension, kidney stones, myocardial infarction, osteoporosis, anxiety. Patient states she has had a CABG , denies any other surgeries to her legs or feet. Patient states three weeks ago she noticed toes #2 and #3 of the left foot were black. Patient states her left foot is painful. No known injury or trauma. Patient does have have 30 pack + history of smoking and quit 10 years ago. Patient states she lives at home by herself. States she has never been to a [facility]. Patient states she was evaluated in wound care by Dr. Justice in January of 2017 for a venous ulcer to the LLE. Patient states she no longer has an open ulcer to the left lower leg and just has a scab. No c/o fever or chills. Past Med Surg Social Fam HX - Past Medical History Medical history: CHF, coronary artery disease, diabetes, GERD, hyperlipidemia, hypertension, kidney stones, myocardial infarction, osteoporosis Psychiatric history: anxiety - Past Surgical History Surgical History: angioplasty/stent, appendectomy, cholecystectomy, coronary bypass (CABG) - Social History Smoking Status: Former smoker Smokeless Tobacco Status: No Alcohol use: none Drug use: none - Family History Mother Adopted: [place]: Dary Cruz Age: 63 Family Member Ethnicity: Non- Twin of Family Member: Yes, Identical Living Status: Age at : 63 Cause of : Heart complications Hx Family Cardiac Disorders: Yes (PR,HTN, OPEN HEART SX) Hx Family Respiratory Disorders: No Hx Family Cancer: No Hx Family GI Disorders: No Hx Family Genitourinary Disorders: No Hx Family Endocrine Disorder: No Hx Family Musculoskeletal Disorders: No Hx Family Neuromuscular Disorders: No Hx Family Neurologic Disorders: No Hx Family HEENT Disorders: No Hx Family Autoimmune Disorders: No Hx Family Reproductive Disorders: No Hx Family Psychosocial Disorders: No Hx Family Medical Disorders: No Medications and Allergies Alendronate Sodium 70 mg PO QWEEK 01/06/17 [History] Aspirin [Lo-Dose Aspirin EC] 81 mg PO DAILY 01/06/17 [History] Calcium Carbonate/Vitamin D3 [Calcium 500-Vit D3 200 Caplet] 1 each PO TID 01/06 [History] Clopidogrel Bisulfate [Plavix] 75 mg PO DAILY 01/06/17 [History] Clotrimazole 1% CRM [Lotrimin 1%] 1 appl TD BID 01/06/17 [History] Cyclobenzaprine [Flexeril] 10 mg PO DAILY 01/06/17 [History] Enalapril Maleate [Vasotec] 10 mg PO DAILY 01/06/17 [History] Ergocalciferol (VITAMIN D2) [Vitamin D2] 50,000 unit PO QWEEK 01/06/17 [History] Folic Acid 1 mg PO DAILY 01/06/17 [History] Furosemide [Lasix] 20 mg PO DAILY PRN 01/06/17 [History] Gabapentin [Neurontin] 600 mg PO TID 01/06/17 [History] HYDROcodone/Acet 5/325 mg [Van 5-325 mg] 1 tab PO Q8H PRN 01/06/17 [History] Insulin Glargine,Hum.rec.anlog [Basaglar Kwikpen U-100] 43 unit SQ DAILY [History] Insulin LISPRO [HumaLOG] 0 units SQ TIDWM PRN 01/06/17 [History] Isosorbide MONOnitrate (24 HR) [Imdur] 60 mg PO DAILY #30 tab.er.24h 01/06/17 [ Rx] Lovastatin [Mevacor] 20 mg PO DAILY 08/30/17 [History] Metoprolol Tartrate [Lopressor] 50 mg PO DAILY 01/06/17 [History] Nitroglycerin [Nitrostat] 0.4 mg SL Q5-6MIN PRN 01/06/17 [History] Omeprazole [PriLOSEC] 40 mg PO DAILY 01/06/17 [History] Pioglitazone [Actos] 45 mg PO DAILY 01/06/17 [History] SitaGLIPtin [Januvia] 100 mg PO DAILY 01/06/17 [History] Citalopram Hydrobromide [Citalopram HBr] 10 mg PO DAILY 06/21/17 [History] Ferrous Sulfate [Iron] 325 mg PO DAILY 06/21/17 [History] LORazepam [Ativan] 0.5 mg PO DAILY 06/21/17 [History] Meloxicam [Mobic] 7.5 mg PO BID 06/21/17 [History] Metformin HCl [Metformin HCl ER] 1,000 mg PO BID 06/21/17 [History] 3 Allergy/AdvReac Type Severity Reaction Status Date / Time cephalexin [From Keflex] Allergy Hives Verified 06/20/17 18:37 codeine Allergy Headache Verified 06/20/17 18:37 Iodinated Contrast- Oral and Allergy Hives Verified 06/20/17 18:37 IV Dye All Systems Reviewed: A 10-system review of systems was performed and is negative for pertinent findings except as documented above in the HPI. Physical Exam - Constitutional Vitals: Temp Pulse Resp BP Pulse Ox 98.3 F 112 17 96/60 98 06/21/17 11:18 06/21/17 11:18 06/21/17 11:18 06/21/17 11:18 06/21/17 11:18 Exam: General: alert awake oriented X 3. Calm and pleasant, no acute distress. Vascular: Left foot: Pedal pulses, DP palpable, unable to palpate a PT. Edema graded at 1+/4, Skin temperature: toes are cool, dry gangrene to toes #2, #3, medial aspect of toe #4 with pallor to toes #1 and #4. No varicosities or varicose veins noted, Homans Sign negative, capillary refill time is sluggish to the left foot. Neurological: sensation intact to light touch. Muscle strength 5/5 and equal bilaterally. Integument: Skin with decreased turgor, decreased subcutaneous tissue, skin thin and shiny with trophic changes associated with comorbidities as described in history. Dry gangrene to toes #2, #3, medial aspect of toe #4 left foot with pallor to toes #1 and #4, eschar to the dorsum of the left foot 2nd through 4th metatarsal. Periwound erythema ascending to the left anterior tibial region, warm to touch. Dried scab to the posterior left lower leg. Results - Labs Result Diagrams: 06/21/17 04:46 06/21/17 04:45 Labs: Abnormal lab results Hgb 9.7 g/dL (11.5-15.4) L 06/21/17 04:46 Hct 32.9 % (35.3-44.9) L 06/21/17 04:46 MCV 74.8 fL (83.0-100.0) L 06/21/17 04:46 MCH 22.0 pg (28.0-33.3) L 06/21/17 04:46 MCHC 29.5 g/dL (31.6-35.5) L 06/21/17 04:46 RDW 19.5 % (11.5-14.5) H 06/21/17 04:46 Polychromasia 1+ (Not Present) A 06/21/17 04:46 Hypochromasia Present (Not Present) A 06/21/17 04:46 Macrocytosis Present (Not Present) A 06/21/17 04:46 ESR 125 mm/hr (0-15) H 06/20/17 19:00 APTT 54.1 Seconds (26.0-36.0) H D 06/21/17 12:40 Potassium 3.3 mEq/L (3.5-5.1) L 06/21/17 04:45 Chloride 108 mEq/L (98-107) H 06/21/17 04:45 POC Glucose 156 (58-89) H 06/21/17 11:21 Hemoglobin A1c 6.5 % (-5.6) H 06/21/17 04:46 Total Bilirubin 0.2 mg/dL (0.3-1.0) L 06/21/17 04:45 AST 10 Units/L (13-39) L 06/21/17 04:45 ALT 6 Units/L (7-52) L 06/21/17 04:45 Troponin I 0.07 ng/mL (< 0.04) H* 06/21/17 09:50 C-Reactive Protein 39 mg/L (Less than 10) H 06/20/17 19:00 Albumin 3.0 g/dL (3.5-5.7) L 06/21/17 04:45 Globulin 3.9 g/dL (2.4-3.5) H 06/21/17 04:45 Albumin/Globulin Ratio 0.8 (1.1-2.2) L 06/21/17 04:45 H & H 06/21/17 Range/Units 04:46 Hgb 9.7 L (11.5-15.4) g/dL Hct 32.9 L (35.3-44.9) % All other labs normal. Consult Discharge Plan - Plan Referrals: Sammy Pompa MD [Primary Care Provider] -
--- NOTE | 2017-06-21 17:53 | Vascular/Endovasc Consult Note ---
Date of Encounter: 06/22/17 Time of Encounter: 13:20 Assessment and Plan (1) Atherosclerosis of left lower extremity with gangrene Current Visit: Yes Status: Chronic The patient has peripheral vascular disease with left foot gangrene. She has been scheduled for an angiogram tomorrow. The risks, benefits and alternatives were discussed and all questions were answered. She expressed understanding and wishes to proceed. Qualifiers: Peripheral atherosclerosis artery type: upper [place] artery Qualified Code(s): I70.262 - Atherosclerosis of upper [place] arteries of extremities with gangrene, left leg (2) Diabetes mellitus Current Visit: Yes Status: Acute Qualifiers: Diabetes mellitus type: type 2 Diabetes mellitus complication status: with neurologic complications Diabetes mellitus complication detail: with polyneuropathy Diabetes mellitus skilled nursing insulin use: with skilled nursing use Qualified Code(s): E11.42 - Type 2 diabetes mellitus with diabetic polyneuropathy; Z79.4 - longterm (current) use of insulin; Z79.4 - longterm ( current) use of insulin; Z79.4 - longterm (current) use of insulin; Z79.4 - longterm (current) use of insulin (3) CAD (coronary artery disease) Current Visit: Yes Status: Chronic Qualifiers: Coronary Disease-Associated Artery/Lesion type: bypass graft Associated angina: angina presence unspecified Qualified Code(s): I25.810 - Atherosclerosis of coronary artery bypass graft(s) without angina pectoris - History of Present Illness Consult date: 06/21/17 Requesting physician: Juan Mccall Consult reason: Peripheral vascular disease Chief complaint: gangrenous toes History of present illness: Ms. Beltrán is a 66 year old female with a history of coronary artery disease, diabetes, hypertension and hyperlipidemia. The patient presented to [facility] with a left foot infection. She was noted to have gangrene on her left forefoot as well. She was admitted and started on intravenous antibiotics. Vascular surgery was consulted for further evaluation. The patient states that her left foot became discolored several weeks ago. She states that she bandaged it and did not look at it regularly. Past Med Surg Social Fam HX - Past Medical History Medical history: CHF, coronary artery disease, diabetes, GERD, hyperlipidemia, hypertension, kidney stones, myocardial infarction, osteoporosis Psychiatric history: anxiety - Past Surgical History Surgical History: angioplasty/stent, appendectomy, cholecystectomy, coronary bypass (CABG) - Social History Smoking Status: Former smoker Smokeless Tobacco Status: No Alcohol use: none Drug use: none - Family History Mother Adopted: [place]: Dary Cruz Age: 63 Family Member Ethnicity: Non- Twin of Family Member: Yes, Identical Living Status: Age at : 63 Cause of : Heart complications Hx Family Cardiac Disorders: Yes (AZ,HTN, OPEN HEART SX) Hx Family Respiratory Disorders: No Hx Family Cancer: No Hx Family GI Disorders: No Hx Family Genitourinary Disorders: No Hx Family Endocrine Disorder: No Hx Family Musculoskeletal Disorders: No Hx Family Neuromuscular Disorders: No Hx Family Neurologic Disorders: No Hx Family HEENT Disorders: No Hx Family Autoimmune Disorders: No Hx Family Reproductive Disorders: No Hx Family Psychosocial Disorders: No Hx Family Medical Disorders: No Medications and Allergies Alendronate Sodium 70 mg PO QWEEK 01/06/17 [History] Aspirin [Lo-Dose Aspirin EC] 81 mg PO DAILY 01/06/17 [History] Calcium Carbonate/Vitamin D3 [Calcium 500-Vit D3 200 Caplet] 1 each PO TID 01/06 [History] Clopidogrel Bisulfate [Plavix] 75 mg PO DAILY 01/06/17 [History] Clotrimazole 1% CRM [Lotrimin 1%] 1 appl TD BID 01/06/17 [History] Cyclobenzaprine [Flexeril] 10 mg PO DAILY 01/06/17 [History] Enalapril Maleate [Vasotec] 10 mg PO DAILY 01/06/17 [History] Ergocalciferol (VITAMIN D2) [Vitamin D2] 50,000 unit PO QWEEK 01/06/17 [History] Folic Acid 1 mg PO DAILY 01/06/17 [History] Furosemide [Lasix] 20 mg PO DAILY PRN 01/06/17 [History] Gabapentin [Neurontin] 600 mg PO TID 01/06/17 [History] HYDROcodone/Acet 5/325 mg [Celoron 5-325 mg] 1 tab PO Q8H PRN 01/06/17 [History] Insulin Glargine,Hum.rec.anlog [Basaglar Kwikpen U-100] 43 unit SQ DAILY [History] Insulin LISPRO [HumaLOG] 0 units SQ TIDWM PRN 01/06/17 [History] Isosorbide MONOnitrate (24 HR) [Imdur] 60 mg PO DAILY #30 tab.er.24h 01/06/17 [ Rx] Lovastatin [Mevacor] 20 mg PO DAILY 01/06/17 [History] Metoprolol Tartrate [Lopressor] 50 mg PO DAILY 01/06/17 [History] Nitroglycerin [Nitrostat] 0.4 mg SL Q5-6MIN PRN 01/06/17 [History] Omeprazole [PriLOSEC] 40 mg PO DAILY 01/06/17 [History] Pioglitazone [Actos] 45 mg PO DAILY 01/06/17 [History] SitaGLIPtin [Januvia] 100 mg PO DAILY 01/06/17 [History] Citalopram Hydrobromide [Citalopram HBr] 10 mg PO DAILY 06/21/17 [History] Ferrous Sulfate [Iron] 325 mg PO DAILY 06/21/17 [History] LORazepam [Ativan] 0.5 mg PO DAILY 06/21/17 [History] Meloxicam [Mobic] 7.5 mg PO BID 06/21/17 [History] Metformin HCl [Metformin HCl ER] 1,000 mg PO BID 06/21/17 [History] Cszmwogpnlxb-Ozme-Mqyxxfqh,Iso [Zosyn 3.375 gm/50 ml Galaxy] 3.375 gm IV Q8HR # 30 [email or web address] 06/25/17 [Rx] 3 Allergy/AdvReac Type Severity Reaction Status Date / Time cephalexin [From Keflex] Allergy Hives Verified 06/23/17 16:06 codeine Allergy Headache Verified 06/20/17 18:37 Iodinated Contrast- Oral and Allergy Hives Verified 06/23/17 16:06 IV Dye All Systems Review: A 10-system review of systems was performed and is negative for pertinent findings except as documented above in the HPI. Exam Vital Signs, Last 4 Hours Pulse Ox 06/21/17 17:08 98 General: Present: Conversant, No Apparent Distress HEENT: Present: Normocephaly, Pupils equal Neck: Absent: JVD, Lymphadenopathy, Left Carotid bruit, Right Carotid bruit Cardiac: Present: Reg Rate and Rhythm Lungs: Present: Normal Breath Sounds, No Wheeze, Rales, Rhonchi Neuro: Present: Alert and responsive, No focal deficits noted, Motor nerves grossly intact, Sensory nerves grossly intact Abdomen: Present: Soft, Non-tender. Absent: Masses Vascular: Present: Pulse, diminished, Other (forefoot gangrene noted with cellulites in the left foot, no purulanece, no fluctuance). Absent: Edema Musculoskeletal: Present: No Chest Wall Tenderness Consult Discharge Plan - Plan Referrals: wound,care [Other] - 07/07/17 11:15 am (By ER entrance between the doors) Sammy Pompa MD [Primary Care Provider] - 06/28/17 2:15 pm Xu Centeno MD [Partnered Physician] - 07/07/17 9:45 am Prescriptions: Jdmcofkomrnx-Adsf-Dwgvwmzs,Iso [Zosyn 3.375 gm/50 ml Galaxy] 3.375 gm IV Q8HR # 30 [email or web address]
[2017-06-21] MEDS: 0.9 % Sodium Chloride 1,000 ML IVC SCH (20:06)
[2017-06-21] MEDS: Insulin DETEMIR 100 UNIT/ML X5UNITS SQ SCH (22:14)
[2017-06-22] MEDS ORDERED: Ketorolac 30 MG/ML VIAL IVP ONE (00:54)
[2017-06-22] MEDS: Hydrocortisone Sodium Succ 100 MG/2 ML VIAL IVP SCH ×3 (01:17→11:00)
[2017-06-22] MEDS: *HR* FentaNYL (PF) 100 MCG/2 ML VIAL IVP PRN (03:14)
[2017-06-22] MEDS: Heparin 25,000 UNIT/500 ML D5W 25,000 UNIT/500 ML BAG IVC SCH (03:19)
[2017-06-22] MEDS: Insulin LISPRO 300 UNITS/3 ML VIAL SQ SCH ×3 (07:58→17:57)
[2017-06-22] MEDS: Gabapentin 300 MG CAPSULE PO SCH ×3 (07:59→21:12)
[2017-06-22] MEDS: Cholecalciferol (D-3) 1,000 UNIT TABLET PO SCH (07:59)
[2017-06-22] MEDS: Aspirin Enteric Coated 81 MG Tablet PO SCH (08:00)
[2017-06-22] MEDS: Folic Acid 1 MG TABLET PO SCH (08:00)
[2017-06-22] MEDS: Isosorbide MONOnitrate (24 HR) 60 MG TAB.ER.24H PO SCH (08:00)
[2017-06-22] MEDS: *HR* SitaGLIPtin 100 MG TABLET PO SCH (08:00)
--- NOTE | 2017-06-22 08:31 | Cardiology Progress Note ---
Date of Encounter: 06/22/17 Time of Encounter: 08:30 Assessment and Plan (1) Cellulitis of left foot Current Visit: Yes Status: Acute Per Cardiology: Management per primary. Podiatry & Vasc following. (2) Necrosis of toe Current Visit: Yes Status: Acute Per Cardiology: Management per primary. Possible vascular angiogram pending today. Pain better controlled. (3) Chest pain Current Visit: Yes Status: Acute Per Cardiology: Developed chest pain symptoms during the night in setting of tachycardia in the 130s and patient reported extreme left foot pain not well controlled. Initial troponins negative, now with troponin mild elevation peak of 0.09. Currently chest pain-free. EF preserved on echo 60-65%, NSWMA. No further cardiac recommendations. Discussed and reviewed with Dr. Elaine, will s/o, reconsult as needed, follow-up scheduled. All questions answered. Qualifiers: Chest pain type: unspecified Qualified Code(s): R07.9 - Chest pain, unspecified (4) CAD (coronary artery disease) Current Visit: Yes Status: Chronic Per Cardiology: History of CAD with CABG x 4 2001 at [facility]. Abnormal nuclear stress test December 2016 showed findings consistent with reversible myocardial ischemia involving basal apical anterior wall and apical lateral wall. Echo from December 2016 showed EF 60%, normal LV function, no significant valvular dysfunction, no pulmonary hypertension, NSWMA. Recent heart catheterization December 2016 showed patent GARAY to LAD, patent SVG to OM1, patent sequential SVG to OM 2, occluded SVG to right PDA. Minto circulation to RCA showed proximal RCA 30%, mid RCA 25% , distal RCA 40% lesions. On aspirin, Plavix, statin, beta eugenie, JOSE inhibitor, long-acting nitrates. Qualifiers: Coronary Disease-Associated Artery/Lesion type: bypass graft Associated angina: angina presence unspecified Qualified Code(s): I25.810 - Atherosclerosis of coronary artery bypass graft(s) without angina pectoris Discussion w patient/family: The assessment and plan as outlined above was discussed with the patient and/or family members who expressed understanding and agreement. All questions were answered. Thank you for involving us in the care of your patient. Please call with any questions. Subjective Principal diagnosis: CP Interval history: Denies any further recurrence of chest pain. Reports better improvement of left foot pain. Patient to family report potential vascular procedure today. Objective Vital Signs, Last 4 Hours Temp Pulse Resp BP Pulse Ox 06/22/17 07:12 97.8 F 100 17 127/57 96 General: Conversant, No Apparent Distress HEENT: Atraumatic, Normocephaly, Mucus Membranes Moist Neck: No JVD, Normal carotid pulses Cardiac: Reg Rate and Rhythm, Normal S1 and S2, No Murmur Lungs: Normal Breath Sounds, No Wheeze, Rales, Rhonchi Neuro: Alert and responsive, No focal deficits noted Results 06/21/17 04:46 06/21/17 04:45 Lab Results Laboratory Tests 06/21/17 06/21/17 06/21/17 04:46 09:50 17:09 Troponin I < 0.03 0.07 H* 0.09 H* Impressions Echocardiogram Limited Views 06/21/17 10:08 Impressions: LVEF 60-65%. Normal LV chamber size, wall thickness and function. Atypical septal motion consistent with post-operative status. Aneurysmal appearing interatrial septum. Suboptimal image quality with agitated saline. There appeared to be a few bubbles in the left ventricle, which suggests a right to left shunt such as a small PFO. Left Ventricular Wall Motion: Rest Echo Findings All wall segments showed normal motion. Findings: Study Quality * Technically adequate exam. ECG Findings * Normal sinus rhythm. Left Ventricle * LVEF 60-65%. * Normal LV chamber size, wall thickness and function. * Atypical septal motion consistent with post-operative status. Right Ventricle * Normal right ventricular structure and function. Left Atrium * Mildly dilated left atrium. Right Atrium * Normal right atrial size. Interatrial Septum * Aneurysmal appearing interatrial septum. Suboptimal image quality. There appeared to be a few bubbles in the left ventricle, which suggests a right to left shunt such as a small PFO. Pericardium * The pericardium appears normal. IVC * Normal IVC dimensions and inspiratory collapse. Active Medications Hydrocodone Bitart/Acetaminophen ([place] 5-325 Mg) 1 tab PO Q4HR PRN PRN Reason: Pain Stop: 12/21/17 00:01 Last Admin: 06/21/17 20:05 Dose: 1 tab Aspirin (Aspirin Ec) 81 mg PO DAILY TINA Stop: 12/21/17 09:01 Last Admin: 06/22/17 08:00 Dose: 81 mg Calcium Carbonate (Tums) 500 mg PO TID TINA PRN Reason: Protocol Stop: 12/21/17 09:01 Last Admin: 06/22/17 07:59 Dose: 500 mg Clopidogrel Bisulfate (Plavix) 75 mg PO DAILY [facility] Stop: 12/21/17 09:01 Last Admin: 06/22/17 07:59 Dose: 75 mg Cyclobenzaprine HCl (Flexeril) 10 mg PO DAILY TINA Stop: 12/21/17 09:01 Last Admin: 06/22/17 07:59 Dose: 10 mg Dextrose/Water (Dextrose 50% (Syg)) 25 ml IVP AD PRN PRN Reason: Hypoglycemia Stop: 12/20/17 21:56 Diphenhydramine HCl (Benadryl) 50 mg IVP ONCE ONE Stop: 06/22/17 14:01 Fentanyl Citrate (Fentanyl (Pf)) 50 mcg IVP Q4HR PRN PRN Reason: Breakthrough Pain Stop: 06/23/17 21:59 Last Admin: 06/22/17 03:14 Dose: 50 mcg Folic Acid (Folic Acid) 1 mg PO DAILY [facility] Stop: 12/21/17 09:01 Last Admin: 06/22/17 08:00 Dose: 1 mg Gabapentin (Neurontin) 600 mg PO TID [facility] Stop: 12/21/17 09:01 Last Admin: 06/22/17 07:59 Dose: 600 mg Glucagon (Glucagen) 1 mg IM ONCE PRN PRN Reason: Hypoglycemia Stop: 12/20/17 21:56 Glucose (Gluctose) 15 gm PO ONCE PRN PRN Reason: Hypoglycemia Stop: 12/20/17 21:56 Glucose (Gluctose) 30 gm PO ONCE PRN PRN Reason: Hypoglycemia Stop: 12/20/17 21:56 Heparin Sodium (Porcine) (Heparin) 5,700 unit 70 unit/kg (5700 unit) IVP Q6HR PRN PRN Reason: SEE COMMENTS Stop: 12/21/17 04:55 Heparin Sodium (Porcine) (Heparin) 2,900 unit 35 unit/kg (2900 unit) IVP Q6H PRN PRN Reason: SEE COMMENTS Stop: 12/21/17 04:55 Last Admin: 06/21/17 13:16 Dose: 2,900 unit Hydrocortisone Sodium Succinate (Solu-Cortef) 100 mg IVP Q6H [facility] Stop: 06/22/17 14:01 Last Admin: 02/13/18 07:59 Dose: 100 mg Ciprofloxacin Lactate (Cipro Premix 400 Mg/200 Ml) 400 mg in 200 mls @ 200 mls/ hr IVPB Q12H [facility] Stop: 12/21/17 08:01 Last Admin: 06/22/17 07:59 Dose: 200 mls/hr Dextrose (Dextrose 5%) 1,000 mls @ 100 mls/hr IVC .Q10H PRN PRN Reason: HYPOGLYCEMIA Stop: 12/20/17 21:56 Vancomycin HCl 1,000 mg/ (Dextrose) 250 mls @ 166.667 mls/hr IVPB Q12H [facility] Stop: 12/21/17 11:01 Last Infusion: 06/21/17 23:50 Dose: Infused Heparin Sodium/Dextrose (Heparin 25,000 Unit/500 Ml D5w) 25,000 unit in 500 mls @ 22.861 mls/hr IVC .[id number] TINA; 14 UNIT/KG/HR PRN Reason: Protocol Stop: 12/21/17 04:46 Last Admin: 06/22/17 03:19 Dose: 15.79 unit/kg/hr, 25.8 mls/hr Insulin Detemir (Levemir) 43 unit SQ HS [facility] Stop: 12/20/17 22:16 Last Admin: 06/21/17 22:14 Dose: 43 unit Insulin Human Lispro (Humalog) 0 units SQ TIDAC [facility] PRN Reason: Protocol Stop: 12/21/17 07:31 Last Admin: 06/22/17 07:58 Dose: 4 units Insulin Human Lispro (Humalog) 0 units SQ HS [facility] PRN Reason: Protocol Stop: 12/21/17 21:01 Last Admin: 06/21/17 22:14 Dose: 4 units Isosorbide Mononitrate (Imdur) 120 mg PO DAILY [facility] Stop: 12/22/17 09:01 Last Admin: 06/22/17 08:00 Dose: 120 mg Lisinopril (Zestril) 10 mg PO DAILY [facility] Stop: 12/21/17 09:01 Last Admin: 06/22/17 07:59 Dose: 10 mg Metoprolol Tartrate (Lopressor) 50 mg PO DAILY [facility] Stop: 12/21/17 09:01 Last Admin: 06/22/17 07:59 Dose: 50 mg Metoprolol Tartrate (Lopressor) 10 mg IVP Q6HR PRN PRN Reason: Heart Rate- High Stop: 12/21/17 04:29 Last Admin: 06/21/17 04:53 Dose: 10 mg Naloxone HCl (Narcan) 0.4 mg IVP Q2MIN PRN PRN Reason: SEE COMMENTS Stop: 12/20/17 21:57 Nitroglycerin (Nitroglycerin) 0.4 mg SL Q5MIN PRN PRN Reason: Chest Pain Stop: 12/21/17 04:36 Last Admin: 06/21/17 04:53 Dose: 0.4 mg Omeprazole (Prilosec) 40 mg PO 0630 [facility] Stop: 12/21/17 06:31 Last Admin: 06/22/17 04:34 Dose: Not Given Simvastatin (Zocor) 10 mg PO HS [facility] Stop: 12/21/17 21:01 Last Admin: 06/21/17 22:13 Dose: 10 mg Sitagliptin Phosphate (Januvia) 100 mg PO DAILY [facility] Stop: 12/21/17 09:01 Last Admin: 06/22/17 08:00 Dose: 100 mg Vitamin D (Vitamin D) 1,000 unit PO DAILY [facility] Stop: 12/21/17 09:01 Last Admin: 06/22/17 07:59 Dose: 1,000 unit - Imaging and Cardiology Echo: report reviewed - EKG Interpretation EKG results cardiology: other (Telemetry reviewed with average heart rate 102 the past 12 hours currently sinus rhythm in the 90s, no significant events noted ) Consult Discharge Plan - Plan Referrals: Sammy Pompa MD [Primary Care Provider] -
[2017-06-22 09:30] LABS: INR 1.2
[2017-06-22 10:46] LABS: Alanine Aminotransferase 7 Units/L (7-52); Albumin 2.8 g/dL (3.5-5.7); Albumin/Globulin Ratio 0.8 (1.1-2.2); Alkaline Phosphatase 48 Units/L (34-104); Aspartate Amino Transferase 17 Units/L (13-39); BUN/Creatinine Ratio 7 (6-26); Bilirubin,Total 0.2 mg/dL (0.3-1.0); Blood Urea Nitrogen 4 mg/dL (8-23); Calcium 8.2 mg/dL (8.6-10.3); Carbon Dioxide 21 mEq/L (23-29); Chloride 111 mEq/L (98-107); Globulin 3.6 g/dL (2.4-3.5); Glucose 202 mg/dL (70-105); Osmolality,Calculated 295 (280-300); Potassium 3.1 mEq/L (3.5-5.1); Sodium 141 mEq/L (136-145); Total Protein 6.4 g/dL (6.4-8.9); eGFR For African Americans > 60 (> 60); eGFR For Non-African Americans > 60 (> 60)
[2017-06-22] MEDS ORDERED: 0.9 % Sodium Chloride 1,000 ML ONE ×2 (11:20→11:51)
[2017-06-22] MEDS ORDERED: Heparin 1,000 UNITS/500 mL 500 ML ONE ×2 (11:20→13:00)
[2017-06-22] MEDS ORDERED: *HR* Heparin 10,000 UNIT/10 ML VIAL ONE ×2 (11:20→12:33)
[2017-06-22] MEDS ORDERED: Isovue-300 200 mL Infus..BTL IV ONE ×3 (11:20→12:55)
[2017-06-22] MEDS ORDERED: *HR* FentaNYL (PF) 100 MCG/2 ML VIAL ONE ×2 (11:50→13:03)
[2017-06-22] MEDS ORDERED: *HR* Midazolam HCl 2 MG/2 ML VIAL ONE ×2 (11:50→12:34)
[2017-06-22] MEDS ORDERED: Acetaminophen 325 MG TABLET PO PRN (13:18)
[2017-06-22] MEDS ORDERED: Ondansetron 4 MG/2 ML VIAL IVP PRN (13:18)
--- NOTE | 2017-06-22 13:18 | Procedure Note ---
Date of procedure: 06/22/17 Pre-op diagnosis: PAD/gangrene Post-op diagnosis: same Procedure: Abdominal aortogram Aortogram with runoff bilaterally Balloon angioplasty of left proximal superficial femoral artery, proximal and mid popliteal artery, and distal posterior tibial artery Anesthesia: MAC Surgeon: Xu Centeno Was there an retail store assistant present: No Estimated blood loss (cc): 0 Specimen: 0 Condition: stable Disposition: floor
--- NOTE | 2017-06-22 15:33 | Internal Med Progress Note ---
Date of Encounter: 06/22/17 Time of Encounter: 10:00 - Assessment and plan (1) Necrosis of toe Current Visit: Yes Status: Acute Assessment and plan: Podiatry and vascular surgery consulted. Will check ERICK Looks like dry gangrene w superimposed infection continue Abx till seen by podiatry and clear plan in place- will help w superimposed cellulitis as well Likely will need amputation pain control seems adequate 06/22/17 await angiogram today as per vascular surgery podiatry to decide based on angiogram on the extent of amputation will follow closely. Pain control seems adequate. Continue current management with antibiotics (2) Cellulitis of left foot Current Visit: Yes Status: Acute Assessment and plan: Superimposed mild cellulitis of dorsum of foot. 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 Medical management for demand ischemia only at this time. Do not beleove to have true ACS- even though mild trop elevation seen. Pt did have mild Cp w tachycardia this AM which is now resolved will continue IV heparin but pt will e weaned from nitro gtt Per EMR documentation from cards- History of CAD with CABG x 4 2001 at [facility]. Recent heart catheterization December 2016 showed patent GARAY to LAD, patent SVG to OM1, patent sequential SVG to OM 2 , occluded SVG to right PDA. [place] circulation to RCA showed proximal RCA 30%, mid RCA 25%, distal RCA 40% lesions. Abnormal nuclear stress test December 2016 showed findings consistent with reversible myocardial ischemia involving basal apical anterior wall and apical lateral wall. Echo from December 2016 showed EF 60 %, normal LV function, no significant valvular dysfunction, no pulmonary hypertension, NSWMA. On aspirin, Plavix, statin, beta eugenie, JOSE inhibitor, long-acting nitrates Qualifiers: Coronary Disease-Associated Artery/Lesion type: bypass graft Associated angina: angina presence unspecified Qualified Code(s): I25.810 - Atherosclerosis of coronary artery bypass graft(s) without angina pectoris - Subjective Interval history: Denies any chest pain, shortness of breath. Denies any new fevers or chills. Awaiting vascular study - Constitutional Vitals: Temp Pulse Resp BP Pulse Ox 97.8 F 65 15 137/65 96 06/22/17 10:44 06/22/17 10:44 06/22/17 10:44 06/22/17 10:44 06/22/17 10:44 Exam: General , Alert , oriented, moderate distress HEENT- PERRLA. EOMI CVS- S1S2 N, No Murmurs, Rubs, gallops, No JVD RS- CTA Bilaterally. No rales no Rhonchi heard Abdomen- Soft NT ND, bowel sounds heard across all 4 quadrants Neuro- No Focal deficits appreciated, CN 2-12 intact, Motors- power 5/5 UE, 5/5 LE Bilaterally, Sensations intact Extremeties- left foot toes #2 , 3 and medial aspect of #4 gangrenous w some proximal spread of mottling over dorsum of foot. DP dopplerable. Erythema L > R foot. Mild 1+ edema appreciated Internal Medicine: Result - Labs CBC & Chem 7: 06/21/17 04:46 06/22/17 10:08 Labs: BMP 06/22/17 10:08 Sodium 141 Potassium 3.1 L Chloride 111 H Carbon Dioxide 21 L BUN 4 L Creatinine 0.61 Glucose 202 H Calcium 8.2 L Cardiac Enzymes 06/21/17 Range/Units 17:09 Troponin I 0.09 H* (< 0.04) ng/mL Liver Function 06/22/17 Range/Units 10:08 Total Bilirubin 0.2 L (0.3-1.0) mg/dL AST 17 (13-39) Units/L ALT 7 (7-52) Units/L Alkaline Phosphatase 48 (34-104) Units/L Albumin 2.8 L (3.5-5.7) g/dL - ABG Interpretation ABG results: PT/INR, D-dimer PT 13.0 Seconds (9.4-12.1) H 06/22/17 08:17 - Impressions Impressions Echocardiogram Limited Views 06/21/17 10:08 Impressions: LVEF 60-65%. Normal LV chamber size, wall thickness and function. Atypical septal motion consistent with post-operative status. Aneurysmal appearing interatrial septum. Suboptimal image quality with agitated saline. There appeared to be a few bubbles in the left ventricle, which suggests a right to left shunt such as a small PFO. Left Ventricular Wall Motion: Rest Echo Findings All wall segments showed normal motion. Findings: Study Quality * Technically adequate exam. ECG Findings * Normal sinus rhythm. Left Ventricle * LVEF 60-65%. * Normal LV chamber size, wall thickness and function. * Atypical septal motion consistent with post-operative status. Right Ventricle * Normal right ventricular structure and function. Left Atrium * Mildly dilated left atrium. Right Atrium * Normal right atrial size. Interatrial Septum * Aneurysmal appearing interatrial septum. Suboptimal image quality. There appeared to be a few bubbles in the left ventricle, which suggests a right to left shunt such as a small PFO. Pericardium * The pericardium appears normal. IVC * Normal IVC dimensions and inspiratory collapse. Consult Discharge Plan - Plan Referrals: Sammy Pompa MD [Primary Care Provider] -
--- NOTE | 2017-06-22 17:39 | Invasive Diagnostic Lab Proc ---
Name: Eileen Beltrán Date of Study: 06/22/2017 Date: 1950 Ht: 155.0 in Medical Record#: [id number] Age: 66 Wt: 98 lb Gender: Female BSA: 1.95 Order #: [id number] BMI: 40.79 Physicians Performing MD: Xu Centeno MD, FACS Referring MD: Sammy Pompa M.D. Referring MD: Salome Varela MD, MERGED WITH [facility] Staff Name Position Time In [place] Component Technician Ye Hanna RT (R) Monitor Sites, Allyssa RT (R) Scrub Indications Gangrene Procedures Performed AORTOGRAPHY, ABDOMINAL S&I AORTOGRAPHY EXT Bilat S&I FEM/POPL REVAS W/TLA TIB/PER REVASC W/TLA Pre-Procedure Checklist Informed consent is complete signed and on chart. H&P is on chart. ID band is on and ID verified with patient. Patient NPO for procedure The procedure was described for the patient and questions were answered. Blood Pressure: 180/84 ECG is on chart. Rhythm: NSR Plan of Care Patient will tolerate the procedure without complications. Adequate level of comfort will be maintained. Hemodynamics will remain stable Patient will recover from procedure without complications. Respiratory function will be maintained. Cardiac rhythm will remain stable. Patient temperature will be maintained. Patient and/or family have verbalized understanding of the procedure. Patient Education Chief Complaint/Reason for Test: Peripheral angiogram Developmental Category: Geriatric (65+ years) Learning Barriers: None Education Needs: Procedure Education Method: Verbal Information Taught: Peripheral angiogram Educational Evaluation: Able to repeat information Intravenous Access Time IV Size Location DC'd Fluid/Drip Rate Units RN 13:00 20g 1 1/4" Patent On Arrival Lt Antecubital 0.9NaCl ml/hr Bijal Perales RN 14:38 Started with 20g 1 1/4" Lt Wrist 0.9NaCl 25 ml/hr Helena Salas RN Allergies Iodinated Contrast- Oral and IV Dye codeine cephalexin KEFLEX, COEDINE, IVP DYE Vital Signs Time BP Systolic BP Diastolic HR O2 Sats ASA 11:55 AM 12:24 PM 171 84 96 97 12:29 PM 172 82 95 99 12:34 PM 175 87 95 99 12:39 PM 179 82 94 99 12:45 PM 174 79 95 93 12:49 PM 167 81 95 95 12:54 PM 177 80 96 97 12:59 PM 176 84 96 99 01:05 PM 176 85 96 99 01:09 PM 168 92 96 99 11:55 AM 180 84 97 96 11:59 AM 170 92 97 96 12:04 PM 165 79 95 95 12:09 PM 170 76 96 96 12:14 PM 166 81 96 97 12:19 PM 169 78 96 97 01:14 PM 168 138 98 01:35 PM 146 65 94 94 02:00 PM 160 70 93 97 02:15 PM 149 73 92 98 02:39 PM 144 69 90 99 02:45 PM 149 71 92 95 03:00 PM 146 71 92 95 03:45 PM 153 72 91 97 04:00 PM 150 71 92 97 04:39 PM 147 65 71 95 05:17 PM 135 62 99 96 Procedure Medications Time Medication Dose Units Method Route 11:55 AM Oxygen 2 L/min nasal cannula 11:56 AM Versed 1 mg Intravenous 11:56 AM Fentanyl 50 mcg Intravenous 12:00 PM Versed 1 mg Intravenous 12:01 PM Lidocaine 2% 10 ml Subcutaneous 12:04 PM Oxygen 4 L/min nasal cannula 12:31 PM Heparin 5000 units Intravenous 12:33 PM Versed 1 mg Intravenous 12:41 PM Fentanyl 50 mcg Intravenous 12:55 PM Versed 1 mg Intravenous 01:04 PM Fentanyl 50 mcg Intravenous 01:11 PM Plavix 75 mg Orally ASA Classification: CLASS III- Severe systemic disease (i.e. prior AMI, diabetes with vascular complications, morbid obesity) Yang Score Preprocedure Postprocedure Activity 2- Moves 4 extremities sustained head lift Activity 2- Moves 4 extremities sustained head lift Circulation 2- SBP +/= 20 points of pre-anesthetic level Circulation 2- SBP +/= 20 points of pre-anesthetic level Consciousness 2- Awake and alert oriented x 3 Consciousness 2- Awake and alert oriented x 3 O2 Saturation 2- Able to maintain O2 satruation of 92% on room air O2 Saturation 2- Able to maintain O2 satruation of 92% on room air Respiratory 2- Able to deep breathe and cough well Respiratory 2- Able to deep breathe and cough well Total Score 10 Total Score 10 Contrast: Isovue 300- 150ml Contrast Amount: 170 ml Fluoro Dose: 655 mGy Activated Clotting Time Time Drawn ACT (sec) 01:16 PM 230 02:45 PM 167 03:00 PM 140 Procedure Log Time Note Entered By 11:18 AM Bijal Perales RN Position: Component Technician Time in: :18 2 11:18 AM Ye Hanna RT (R) Position: Monitor Time in: :18 2 11:19 AM Allyssa Hanna RT (R) Position: Scrub Time in: 11:18 2 11:19 AM Patient charges- Angio tray pack, Pulse Oximetry and ACIST tubing and transducer [email or web address] 11:49 AM Pt arrived to hemodialysis lab technician 1 at 11:49 [email or web address] 11:49 AM Case delayed: No [email or web address] 11:49 AM Physician arrived 11:49 [email or web address] 11:49 AM Meet and milad completed [email or web address] 11:49 AM Sign in performed according to hospital policy. [email or web address] 11:50 AM Procedure start 11:49 [email or web address] 11:50 AM ASA Class CLASS III- Severe systemic disease (i.e. prior AMI, diabetes with vascular complications, morbid obesity) [facility] 11:55 AM Hair removed from procedure site in procedure lab using clippers. Bilateral groin prepped with Chloraprep by Zayra Gautam RT (R), safety strap applied then patient was draped. Skin intact. [email or web address] 11:55 AM 11:55 Oxygen at 2 L/min per nasal cannula by Bijal Perales RN [facility] 11:55 AM Time: 11:55 Is patient comfortable and pain free?: Yes [facility] 11:55 AM Time: 11:55LOC: 5 = Fully awake and oriented or at pre-proc level [email or web address] 11:56 AM 11:56 Versed 1 mg Intravenous Given by Bijal Perales RN [email or web address] 11:57 AM 11:56 Fentanyl 50 mcg Intravenous Given by Bijal Perales RN [email or web address] 12:00 PM 12:00 Versed 1 mg Intravenous Given by Bijal Perales RN [email or web address] 12:00 PM Time out perfomed [email or web address] 12:01 PM 12:01 10 ml Lidocaine 2% to right groin Subcutaneous Given By Xu Centeno MD, FACS [email or web address] 12:03 PM Access obtained in the right femoral artery by percutaneous puncture. 5 Fr. 10 cm Terumo [place] sheath placed in right femoral artery [email or web address] 12:04 PM 12:04 Oxygen at 4 L/min per nasal cannula by Bijal Perales RN [email or web address] 12:04 PM 0.035 145cm J-wire wire utilized to assist with catheter placement [email or web address] 12:05 PM 5Fr Short pigtail catheter [email or web address] 12:05 PM Abdominal aorta angiography performed in AP contrast injected 10/25 mls. [email or web address] 12:06 PM Abdominal aorta angiography performed in AP contrast injected 10/25 mls. [email or web address] 12:07 PM Catheter repositioned for runoff. [email or web address] 12:07 PM Setting up for stepping [email or web address] 12:07 PM Abdominal angiogram with runoff completed: 5 ml/sec for a total of 50 mls [email or web address] 12:10 PM Physician reviewing films. [email or web address] 12:11 PM Catheter removed [email or web address] 12:13 PM 5Fr Omniflush catheter inserted [email or web address] 12:17 PM Wire removed [email or web address] 12:17 PM 0.035 260cm [place]-angled wire utilized to assist with catheter placement [email or web address] 12:19 PM Wire removed [email or web address] 12:19 PM J-wire reinserted. [email or web address] 12:21 PM Abdominal angiogram with runoff completed: 4 ml/sec for a total of 20 mls [email or web address] 12:21 PM Wire removed [email or web address] 12:27 PM Phyician reviewing films. [email or web address] 12:28 PM Catheter removed [email or web address] 12:28 PM Intervention started at this time [email or web address] 12:29 PM Sheath exchanged for a 6 Fr 45 cm Terumo Destination sheath inserted into right femoral artery [email or web address] 12:30 PM Long glidewire re-inserted. [email or web address] 12:31 PM 12:31 Heparin 5000 units Intravenous by Bijal Perales RN [email or web address] 12:31 PM 3 mls of contrast injected into LCFA. [email or web address] 12:32 PM 4 mls of contrast injected into SFA. [email or web address] 12:33 PM Inflation device [email or web address] 12:33 PM 4 mm x 20 mm Cloth Shrinking Tester balloon catheter placed into left superficial femoral [email or web address] 12:33 PM 12:33 Versed 1 mg Intravenous Given by Bijal Perales RN [email or web address] 12:36 PM Balloon inflated @ 20 nalini for 60 seconds [email or web address] 12:38 PM Balloon removed intact [email or web address] 12:38 PM 3 mls of contrast injected into LSFA. [email or web address] 12:41 PM 12:41 Fentanyl 50 mcg Intravenous Given by Bijal Perales RN [email or web address] 12:43 PM Balloon inflated @ 16 nalini for 60 seconds [email or web address] 12:43 PM Balloon inflated @ 16 nalini for 60 seconds [email or web address] 12:49 PM 3 mls of contrast injected into Tibial Trunk [email or web address] 12:54 PM Balloon removed intact [email or web address] 12:54 PM 4Fr 150cm Mariner Berenstein guide catheter advanced to target vessel [email or web address] 12:55 PM 12:55 Versed 1 mg Intravenous Given by Bijal Perales RN [email or web address] 12:59 PM 0.014 Journey 300cm guidewire . [email or web address] 01:03 PM 3 mm x 20 mm [place] balloon catheter placed into left posterior tibial [email or web address] 01:04 PM 13:04 Fentanyl 50 mcg Intravenous Given by Bijal Perales RN [email or web address] 01:07 PM 3 mls of contrast injected into Lt distal AGENCY TRAINER. [email or web address] 01:08 PM Guide wire removed intact [email or web address] 01:08 PM Balloon removed intact [email or web address] 01:09 PM 2 mls of contrast [email or web address] 01:12 PM Time: 13:11 Plavix 75 mg Orally Given by Bijal Perales RN [email or web address] 01:14 PM Procedure completed at 13:14 [email or web address] 01:16 PM Sign Out completed: Radiation Dose 655.52 mGy Fluoro Time: 14.6 minutes. Isovue 300- 150ml contrast 160 ml given by Xu Centeno MD, FACS. Complications: None. Confirmed administered medications:Yes [email or web address] 01:16 PM Isovue 300- 150ml,1 bottle(s) used. [email or web address] 01:16 PM Sheath left in place to be pulled on floor/holding areaV+Pad [email or web address] 01:17 PM Estimated Blood Loss: minimal [email or web address] 01:18 PM Post Blood Pressure: 168/92 [email or web address] 01:18 PM Post EKG: NSR [email or web address] 01:18 PM Information taught: Peripheral angiogram and AGENCY TRAINER [email or web address] 01:18 PM Education needs: Procedure, Plan of Care, and Disease Process 01:18 PM Learning barriers: None :18 PM Education methods: Verbal :18 PM Education evaluation: Able to repeat information 01:18 PM Patient pain level 0/10 3 01:18 PM Site status No bleeding/hematoma - Rt Groin as reported by Ye Hanna RT (R) at 13:18 3 :18 PM Opsite applied :19 PM Delay to floor: Bed availability :19 PM Family placed in consult room. :19 PM Complications: None :19 PM Fluoro Time: 14.6 minutes :19 PM Isovue 300- 150ml contrast 170 ml given by Xu Centeno MD, FACS [facility]:19 PM Radiation Dose 655.52 mGy 01:22 PM Diagram Region: Lower Extremity Arteries Anatomical Region: LE-Art95% Lesion in Proximal Left Superficial Femoral Intervention done: 1 (1=yes, 0=no) 01:22 PM Diagram Region: Lower Extremity Arteries Anatomical Region: LE-Art80% Lesion in Mid Left Popliteal Intervention done: 1 (1=yes, 0=no) :22 PM Diagram Region: Lower Extremity Arteries Anatomical Region: LE-Art90% Lesion in Distal Left Post. Tibial Intervention done: 1 (1=yes, 0=no) [email or web address] 11:52 AM PVIStat 11:53 AM Vitals capture started with the following parameters, Patient=Adult, Interval=5 min, Initial Aeizvmxc=621 mmHg, Deflation Rate=5 mmHg, Cuff placed on Right Arm 11:54 AM Recorded ECG: HR=96 Condition=Condition 1 11:55 AM HR=97 bpm, ZHRP=013/84 mmhg, SpO2=96.0 %, Resp=17 B/min 11:59 AM HR=97 bpm, VBTE=277/92 mmhg, SpO2=96.0 %, Resp=20 B/min, Comment=nsr 12:00 PM Recorded ECG: HR=99 Condition=Condition 1 12:04 PM HR=95 bpm, RPJL=357/79 mmhg, SpO2=95.0 %, Resp=23 B/min 12:09 PM HR=96 bpm, PHEJ=460/76 mmhg, SpO2=96.0 %, Resp=20 B/min 12:14 PM HR=96 bpm, TWLJ=053/81 mmhg, SpO2=97.0 %, Resp=27 B/min, Comment=nsr 12:19 PM HR=96 bpm, GZHQ=729/78 mmhg, SpO2=97.0 %, Resp=17 B/min, Comment=nsr 12:24 PM HR=96 bpm, JSRD=360/84 mmhg, SpO2=97.0 %, Resp=31 B/min, Comment=nsr 12:27 PM Recorded ECG: HR=95 Condition=Condition 1 12:29 PM HR=95 bpm, EZNP=300/82 mmhg, SpO2=99.0 %, Resp=14 B/min, Comment=nsr 12:34 PM HR=95 bpm, UYRG=276/87 mmhg, SpO2=99.0 %, Resp=18 B/min, Comment=nsr 12:37 PM Recorded ECG: HR=96 Condition=Condition 1 12:39 PM HR=94 bpm, VYMB=596/82 mmhg, SpO2=99.0 %, Resp=12 B/min, Comment=nsr 12:45 PM HR=95 bpm, DNIW=711/79 mmhg, SpO2=93.0 %, Resp=22 B/min, Comment=nsr 12:49 PM HR=95 bpm, AADY=061/81 mmhg, SpO2=95.0 %, Resp=22 B/min, Comment=nsr 12:54 PM HR=96 bpm, INID=705/80 mmhg, SpO2=97.0 %, Resp=21 B/min, Comment=nsr 12:59 PM HR=96 bpm, DBYQ=987/84 mmhg, SpO2=99.0 %, Resp=21 B/min, Comment=nsr 01:05 PM HR=96 bpm, LWVQ=087/85 mmhg, SpO2=99.0 %, Resp=17 B/min, Comment=nsr 01:09 PM HR=96 bpm, AQRF=754/92 mmhg, SpO2=99.0 %, Resp=22 B/min, Comment=nsr 01:14 PM HR=98 bpm, WSLW=175/138 mmhg, Resp=18 B/min, Comment=nsr 01:25 PM Report given to Helena VALADEZ. Pt taken to Holding room, Room # 14 13:25 [email or web address] 01:25 PM Patient out of room 13:25 [email or web address] 01:25 PM Complications: None [email or web address] 01:33 PM voided approximately 300ml of urine per bedpan [email or web address] 02:37 PM pt voided per bedpan, pt got dizzy and started dry heaving after rolling. 4mg of IV Zofran give by ALLYSON [email or web address] 02:38 PM both IV's infiltrated, IVs removed and new IV started by ALLYSON [email or web address] 04:05 PM Arterial sheath pulled using manual compression and V+Pad for 15 minutes by Katiana Ruggiero [email or web address] 04:05 PM Opsite applied [email or web address] 04:05 PM Site status No bleeding/hematoma - Rt Groin as reported by Katiana Ruggiero RN at 16:05 [email or web address] 04:07 PM tray ordered [email or web address] 05:18 PM Report called to An VALADEZ. Pt transported to [address] [place] [address] Peripheral Anatomy Vessel Pathology Lesion Stenosis Aneurysm Diameter Thrombus Type Left Superficial Femoral Lesion 95 Left Popliteal Lesion 80 Left Post. Tibial Lesion 90 Left anterior tibial artery Lesion 100 Left dorsalis pedis artery Lesion 100 Right anterior tibial artery Lesion 100 Right dorsalis pedis artery Lesion 100 Right superficial femoral artery Lesion 80 Peripheral Intervention Anatomical Region:LE-Art Vessel Segment:Undefined Bookmark: [email or web address] Pathology Type:Lesion Pre-Stenosis:95 Post-Stenosis:10 Peripheral Intervention Anatomical Region:LE-Art Vessel Segment:Undefined Bookmark: [email or web address] Pathology Type:Lesion Pre-Stenosis:80 Post-Stenosis:0 Peripheral Intervention Anatomical Region:LE-Art Vessel Segment:Undefined Bookmark: [email or web address] Pathology Type:Lesion Pre-Stenosis:90 Post-Stenosis:0 Post Procedure Information Blood Pressure: 168/92 mmHg Rhythm: NSR Report Given To: Lazaro Espinosa Checks Time Location Status Staff Sheath In? Note 4:05:00 PM Rt Groin No bleeding/ No Hematoma Katiana Ruggiero RN 06/22/2017 1:34:00 PM Rt Groin No bleeding/ No Hematoma Jessie Echavarria RN 06/22/2017 1:45:00 PM Rt Groin No bleeding/ No Hematoma Helena Salas RN 06/22/2017 2:00:00 PM Rt Groin No bleeding/ No Hematoma Helena Salas RN 06/22/2017 2:15:00 PM Rt Groin No bleeding/ No Hematoma Katiana Ruggiero RN 06/22/2017 2:38:00 PM Rt Groin No bleeding/ No Hematoma Katiana Ruggiero RN 06/22/2017 2:45:00 PM Rt Groin No bleeding/ No Hematoma Helena Salas RN 06/22/2017 3:00:00 PM Rt Groin No bleeding/ No Hematoma Helena Salas RN 06/22/2017 3:15:00 PM Rt Groin No bleeding/ No Hematoma Helena Salas RN 06/22/2017 3:30:00 PM Rt Groin No bleeding/ No Hematoma Helena Salas RN 06/22/2017 3:45:00 PM Rt Groin No bleeding/ No Hematoma Katiana Ruggiero RN 06/22/2017 4:00:00 PM Rt Groin No bleeding/ No Hematoma Katiana Ruggiero RN 06/22/2017 4:38:00 PM Rt Groin No bleeding/ No Hematoma Katiana Ruggiero RN 06/22/2017 5:17:00 PM Rt Groin No bleeding/ No Hematoma Sites, Allyssa RT (R) Pulses Time Site Pre Procedure Post Procedure Note Bilateral radial 2+ Lt DP/pt Doppler Rt DP 1+ 06/22/2017 1:34:00 PM Rt DP 1+ 06/22/2017 1:35:00 PM Rt PT None 06/22/2017 4:38:00 PM Rt DP 1+ 06/22/2017 4:39:00 PM Rt PT None 06/22/2017 5:17:00 PM Rt PT None 06/22/2017 5:17:00 PM Rt DP 1+ Updated by Bijal Perales, ALLYSON on 06/22/2017 5:32:38 PM electronically signed on 06/22/2017 5:33:29 PM with status of Final
[2017-06-23] MEDS: Insulin LISPRO 300 UNITS/3 ML VIAL SQ SCH ×5 (00:30→20:25)
[2017-06-23] MEDS: Insulin DETEMIR 100 UNIT/ML X5UNITS SQ SCH ×2 (00:30→20:29)
[2017-06-23] MEDS: *HR* HYDROcodone/Acet 5/325 mg TABLET PO PRN ×3 (04:18→20:25)
[2017-06-23] MEDS: *HR* SitaGLIPtin 100 MG TABLET PO SCH (08:35)
[2017-06-23] MEDS: Cholecalciferol (D-3) 1,000 UNIT TABLET PO SCH (08:35)
[2017-06-23] MEDS: Aspirin Enteric Coated 81 MG Tablet PO SCH (08:35)
[2017-06-23] MEDS: Folic Acid 1 MG TABLET PO SCH (08:35)
[2017-06-23] MEDS: Gabapentin 300 MG CAPSULE PO SCH ×3 (08:35→20:26)
[2017-06-23] MEDS: Isosorbide MONOnitrate (24 HR) 60 MG TAB.ER.24H PO SCH (08:35)
[2017-06-23] MEDS: Heparin 25,000 UNIT/500 ML D5W 25,000 UNIT/500 ML BAG IVC SCH (08:36)
[2017-06-23 09:58] LABS: Basophils % 0.5 %; Immature Granulocytes % 0.7 % (0-4); Red Cell Distribution Width 19.7 % (11.5-14.5)
[2017-06-23 10:00] LABS: Eosinophils # 0.2 K/mcL (0.0-0.6); Eosinophils % 2.2 %; Hematocrit 32.9 % (35.3-44.9); Hemoglobin 9.4 g/dL (11.5-15.4); Lymphocytes # 1.6 K/mcL (0.6-4.6); Lymphocytes % 19.7 %; Mean Corpuscular HGB Conc 28.6 g/dL (31.6-35.5); Mean Corpuscular Volume 76.9 fL (83.0-100.0); Mean Platelet Volume 11.5 fL (9.4-12.4); Monocytes # 0.5 K/mcL (0.0-1.3); Monocytes % 6.4 %; Neutrophils # 5.7 K/mcL (1.6-8.9); Platelet Count 294 K/mcL (140-400); Red Blood Count 4.28 M/mcL (3.82-4.97); Segmented Neutrophils % 70.5 %
[2017-06-23 10:14] LABS: BUN/Creatinine Ratio 5 (6-26); Blood Urea Nitrogen 3 mg/dL (8-23); Calcium 8.3 mg/dL (8.6-10.3); Carbon Dioxide 23 mEq/L (23-29); Chloride 111 mEq/L (98-107); Glucose 116 mg/dL (70-105); Osmolality,Calculated 294 (280-300); Potassium 2.6 mEq/L (3.5-5.1); Sodium 143 mEq/L (136-145); eGFR For African Americans > 60 (> 60); eGFR For Non-African Americans > 60 (> 60)
[2017-06-23 10:55] LABS: Anisocytosis 1+ (Not Present); Platelet Estimate Normal (Normal); Polychromasia 1+ (Not Present); Toxic Granulation Present (Not Present)
--- NOTE | 2017-06-23 13:14 | Podiatry Progress Note ---
Date of Encounter: 06/23/17 Time of Encounter: 10:30 - Assessment and Plan (1) Cellulitis of left foot Current Visit: Yes Status: Acute continue current antibiotic therapy per internal medicine for cellulitis of the LLE (2) Necrosis of toe Current Visit: Yes Status: Acute After assessment today will continue local wound care with betadine and dry dressing and may send home when medically cleared Please provide post op shoe for protection and ambulation Will need follow up appointment with next week, wednesday, with in wound care center. Subjective Principal diagnosis: CP Interval history: Patient admitted for dry gangrene of left foot toes #2 #3 #4 of left. Patient underwent Abdominal aortogram, Aortogram with runoff bilaterally Balloon angioplasty of left proximal superficial femoral artery, proximal and mid popliteal artery, and distal posterior tibial artery per Jacobo on 06/22/17- per Jacobo patient does have sufficient blood flow to supply area- notes possible glynn bite as cause however patient states she has not been outside but is a poor historian and there is no family at bedside. Patient resting comfortably on arrival. States she has pain intermittently to toes. Denies any fevers or chills, n/v or flu like symptoms. WBC 8.3 today, afebrile Objective - Vital Signs Vital Signs: Vital Signs Temp Pulse Resp BP Pulse Ox 06/23/17 11:34 97.7 F 80 18 109/48 96 06/23/17 07:31 97.7 F 94 16 127/57 97 06/23/17 04:12 98.0 F 62 19 138/52 98 06/22/17 23:29 97.8 F 95 18 145/33 97 06/22/17 20:45 106 136/68 06/22/17 19:45 60 145/52 98 06/22/17 19:00 97.7 F 84 17 131/64 97 06/22/17 18:45 66 136/53 96 06/22/17 18:26 102 16 152/83 95 06/22/17 17:45 100 113/60 98 06/22/17 17:30 102 146/74 97 06/22/17 17:26 97.8 F 103 19 139/79 98 06/22/17 17:20 102 139/79 97 Intake and Output 0206/23/17 06/23/17 23:59 07:59 15:59 Intake Total 450 / 450 0 / 0 250 / 250 Output Total 1100 / 1100 Balance -650 / -650 0 / 0 250 / 250 Intake: IV Fluids 450 / 450 200 / 200 Cipro Premix 400 MG/200 ML 400 200 / 200 200 / 200 mg In 200 ml @ 200 mls/hr IVPB Q12H [facility] Rx#:[id number] Vancocin 1,500 MG In 0.9 % 250 / 250 Sodium Chloride 250 ML @ 166.67 mls/hr IVPB Q24H [facility] Rx#: [id number] Oral 0 / 0 0 / 0 50 / 50 Output: Urine 1100 / 1100 Other: Stool Size Small Stool Consistency loose Stool Characteristics Normal for Patient Stool Color Brown # Voids 1 Weight 96.8 kg Blood Glucose* 204 112 115 Patient Weight 06/23/17 23:59 Weight 96.8 kg - Exam Exam: Awake, alert and oriented Pedal pulses faintly palpable Warm toes to tibia with exception of necrotic toes. No calf pain with manual compression Cap refill <3 seconds with exception of necrotic toes Minimal sensation to foot Left foot- Necrosis, dry gangrene noted to toes #2 #3 and extending onto medial border of toe #4. Necrosis surrounding plantar aspect of toes as well. Does not extend past MTP joint of toes. There is also dry scaling skin and probable necrosis of dorsal aspect of foot just proximal to toes #2 #3 in area of [id number]. Warm and there are small areas of healthy tissue within wound. Will await demarcation of skin to determine extent of necrosis. Moderate surrounding edema and erythema of foot and leg which has regressed since initial assessment. Moderate warmth noted. All consistent with known cellulitis of foot. - Lab Result Diagrams: 06/28/17 01:20 06/28/17 01:20 Labs: Abnormal lab results Hgb 9.4 g/dL (11.5-15.4) L 06/23/17 09:04 Hct 32.9 % (35.3-44.9) L 06/23/17 09:04 MCV 76.9 fL (83.0-100.0) L 06/23/17 09:04 MCH 22.0 pg (28.0-33.3) L 06/23/17 09:04 MCHC 28.6 g/dL (31.6-35.5) L 06/23/17 09:04 RDW 19.7 % (11.5-14.5) H 06/23/17 09:04 Toxic Granulation Present (Not Present) A 06/23/17 09:04 Polychromasia 1+ (Not Present) A 06/23/17 09:04 Hypochromasia Present (Not Present) A 06/21/17 04:46 Anisocytosis 1+ (Not Present) A 06/23/17 09:04 Macrocytosis Present (Not Present) A 06/21/17 04:46 ESR 125 mm/hr (0-15) H 06/20/17 19:00 PT 13.0 Seconds (9.4-12.1) H 06/22/17 08:17 Potassium 2.6 mEq/L (3.5-5.1) L 06/23/17 09:04 Chloride 111 mEq/L (98-107) H 06/23/17 09:04 BUN 3 mg/dL (8-23) L 06/23/17 09:04 BUN/Creatinine Ratio 5 (6-26) L 06/23/17 09:04 Glucose 116 mg/dL (70-105) H 06/23/17 09:04 POC Glucose 204 (58-89) H 06/22/17 19:03 Hemoglobin A1c 6.5 % (-5.6) H 06/21/17 04:46 Calcium 8.3 mg/dL (8.6-10.3) L 06/23/17 09:04 Total Bilirubin 0.2 mg/dL (0.3-1.0) L 06/22/17 10:08 Troponin I 0.09 ng/mL (< 0.04) H* 06/21/17 17:09 C-Reactive Protein 39 mg/L (Less than 10) H 06/20/17 19:00 Albumin 2.8 g/dL (3.5-5.7) L 06/22/17 10:08 Globulin 3.6 g/dL (2.4-3.5) H 06/22/17 10:08 Albumin/Globulin Ratio 0.8 (1.1-2.2) L 06/22/17 10:08 Consult Discharge Plan - Plan Referrals: wound,care [Other] - 07/07/17 11:15 am (By ER entrance between the doors) Sammy Pmopa MD [Primary Care Provider] - 06/28/17 2:15 pm Xu Centeno MD [Partnered Physician] - 07/07/17 9:45 am Prescriptions: [id number]-Hlfg-Jcyfmfrs,Iso [Zosyn 3.375 gm/50 ml Galaxy] 3.375 gm IV Q8HR # 30 [email or web address]
--- NOTE | 2017-06-23 18:28 | Internal Med Progress Note ---
Date of Encounter: 06/23/17 Time of Encounter: 11:00 - Assessment and plan (1) Cellulitis of left foot Current Visit: Yes Status: Acute Assessment and plan: -Patient placed on vancomycin and Zosyn to cover for Pseudomonas (given diabetes ) and Staphylococcus -Will discuss with podiatry for further guidance of outpatient antibiotics. (2) Necrosis of toe Current Visit: Yes Status: Acute Assessment and plan: Podiatry recommendations for continued local wound care with betadine without any surgical intervention at this time (3) Atherosclerosis of left lower extremity with gangrene Current Visit: Yes Status: Chronic Assessment and plan: -Vascular surgery consulted and a Balloon angioplasty of left proximal superficial femoral artery, proximal and mid popliteal artery, and distal posterior tibial artery was done Qualifiers: Peripheral atherosclerosis artery type: [place] artery Qualified Code(s): I70.262 - Atherosclerosis of [place] arteries of extremities with gangrene, left leg (4) Diabetes mellitus Current Visit: Yes Status: Acute Assessment and plan: continue SSI and accuchecks q AC HS Qualifiers: Diabetes mellitus type: type 2 Diabetes mellitus complication status: with neurologic complications Diabetes mellitus complication detail: with polyneuropathy Diabetes mellitus trial paralegal insulin use: with senior living use Qualified Code(s): E11.42 - Type 2 diabetes mellitus with diabetic polyneuropathy; Z79.4 - speech professor (current) use of insulin; Z79.4 - speech professor ( current) use of insulin; Z79.4 - speech professor (current) use of insulin; Z79.4 - jail (current) use of insulin (5) CAD (coronary artery disease) Current Visit: Yes Status: Chronic Assessment and plan: cardiology with recommendations for medical management for demand ischemia; no further intervention Per EMR documentation from cards- History of CAD with CABG x 4 2001 at [place]. Recent heart catheterization December 2016 showed patent GARAY to LAD, patent SVG to OM1, patent sequential SVG to OM 2 , occluded SVG to right PDA. [place] circulation to RCA showed proximal RCA 30%, mid RCA 25%, distal RCA 40% lesions. Abnormal nuclear stress test December 2016 showed findings consistent with reversible myocardial ischemia involving basal apical anterior wall and apical lateral wall. Echo from December 2016 showed EF 60 %, normal LV function, no significant valvular dysfunction, no pulmonary hypertension, NSWMA. On aspirin, Plavix, statin, beta eugenie, JOSE inhibitor, long-acting nitrates Qualifiers: Coronary Disease-Associated Artery/Lesion type: bypass graft Associated angina: angina presence unspecified Qualified Code(s): I25.810 - Atherosclerosis of coronary artery bypass graft(s) without angina pectoris - Subjective Interval history: Patient without any complaints or issues overnight - Constitutional Vitals: Temp Pulse Resp BP Pulse Ox 97.7 F 83 18 120/60 92 06/23/17 16:10 06/23/17 16:10 06/23/17 16:10 06/23/17 16:10 06/23/17 16:10 - Respiratory Respiratory exam: Present: CTAB. Absent: accessory muscle use, rales, rhonchi, wheezes - Cardiovascular Cardiovascular exam: Present: RRR, +S1, +S2. Absent: diastolic murmur, gallop, rubs, systolic murmur Internal Medicine: Result - Labs CBC & Chem 7: 06/23/17 09:04 06/23/17 09:04 Labs: Short CBC 06/23/17 Range/Units 09:04 WBC 8.1 (4.3-11.1) K/mcL Hgb 9.4 L (11.5-15.4) g/dL Hct 32.9 L (35.3-44.9) % Plt Count 294 (140-400) K/mcL Neutrophils # 5.7 (1.6-8.9) K/mcL BMP 06/23/17 09:04 Sodium 143 Potassium 2.6 L Chloride 111 H Carbon Dioxide 23 BUN 3 L Creatinine 0.61 Glucose 116 H Calcium 8.3 L - ABG Interpretation ABG results: PT/INR, D-dimer PT 13.0 Seconds (9.4-12.1) H 06/22/17 08:17 Consult Discharge Plan - Plan Referrals: Sammy Pompa MD [Primary Care Provider] - 06/28/17 2:15 pm Xu Centeno MD [Partnered Physician] - 07/07/17 9:45 am
[2017-06-24] MEDS: Heparin 25,000 UNIT/500 ML D5W 25,000 UNIT/500 ML BAG IVC SCH (01:20)
[2017-06-24] MEDS: *HR* HYDROcodone/Acet 5/325 mg TABLET PO PRN ×5 (02:03→20:56)
[2017-06-24] MEDS: Gabapentin 300 MG CAPSULE PO SCH ×3 (07:55→20:56)
[2017-06-24] MEDS: Aspirin Enteric Coated 81 MG Tablet PO SCH (07:55)
[2017-06-24] MEDS: Cholecalciferol (D-3) 1,000 UNIT TABLET PO SCH (07:56)
[2017-06-24] MEDS: Isosorbide MONOnitrate (24 HR) 60 MG TAB.ER.24H PO SCH (07:56)
[2017-06-24] MEDS: *HR* SitaGLIPtin 100 MG TABLET PO SCH (07:56)
[2017-06-24] MEDS: Folic Acid 1 MG TABLET PO SCH (07:56)
[2017-06-24] MEDS: Insulin LISPRO 300 UNITS/3 ML VIAL SQ SCH ×4 (07:57→20:59)
[2017-06-24] MEDS ORDERED: Aminoglycoside Consult 1 EACH MC ONE (08:12)
[2017-06-24 10:31] LABS: Mean Platelet Volume 11.1 fL (9.4-12.4)
[2017-06-24 10:33] LABS: Hematocrit 32.2 % (35.3-44.9); Mean Corpuscular Hemoglobin 21.8 pg (28.0-33.3); Nucleated Red Blood Cells 0.6 /100 WBC (0); Platelet Count 354 K/mcL (140-400); Red Blood Count 4.13 M/mcL (3.82-4.97); Red Cell Distribution Width 19.7 % (11.5-14.5)
[2017-06-24 12:06] LABS: Eosinophils # 0.4 K/mcL (0.0-0.6); Lymphocytes # 1.6 K/mcL (0.6-4.6); Monocytes # 0.5 K/mcL (0.0-1.3); Neutrophils # 6.4 K/mcL (1.6-8.9)
[2017-06-24 12:07] LABS: Platelet Estimate Normal (Normal)
--- NOTE | 2017-06-24 15:35 | Internal Med History&Physical ---
Date of Encounter: 06/24/17 Assessment and Plan (1) Cellulitis of left foot Current visit: Yes Status: Acute (2) Gangrene Current visit: Yes Status: Acute (3) Diabetes mellitus Current visit: Yes Status: Acute Qualifiers: Diabetes mellitus type: type 2 Diabetes mellitus complication status: with neurologic complications Diabetes mellitus complication detail: with polyneuropathy Diabetes mellitus correction insulin use: with correction use Qualified Code(s): E11.42 - Type 2 diabetes mellitus with diabetic polyneuropathy; Z79.4 - manufacturing engineer supervisor (current) use of insulin; Z79.4 - manufacturing engineer supervisor ( current) use of insulin; Z79.4 - assisted (current) use of insulin; Z79.4 - manufacturing engineer supervisor (current) use of insulin (4) Peripheral neuropathy Current visit: Yes Status: Acute Qualifiers: Qualified Code(s): G62.9 - Polyneuropathy, unspecified Internal Medicine - H&P: HPI History of present illness: Ms. Beltrán is a 66 year old female Past Med Surg Social Fam HX - Past Medical History Medical history: CHF, coronary artery disease, diabetes, GERD, hyperlipidemia, hypertension, kidney stones, myocardial infarction, osteoporosis Psychiatric history: anxiety - Past Surgical History Surgical History: angioplasty/stent, appendectomy, cholecystectomy, coronary bypass (CABG) - Social History Smoking Status: Former smoker Smokeless Tobacco Status: No Alcohol use: none Drug use: none - Family History Mother Adopted: [place]: Dary Cruz Age: 63 Family Member Ethnicity: Non- Twin of Family Member: Yes, Identical Living Status: Age at : 63 Cause of : Heart complications Hx Family Cardiac Disorders: Yes (DC,HTN, OPEN HEART SX) Hx Family Respiratory Disorders: No Hx Family Cancer: No Hx Family GI Disorders: No Hx Family Genitourinary Disorders: No Hx Family Endocrine Disorder: No Hx Family Musculoskeletal Disorders: No Hx Family Neuromuscular Disorders: No Hx Family Neurologic Disorders: No Hx Family HEENT Disorders: No Hx Family Autoimmune Disorders: No Hx Family Reproductive Disorders: No Hx Family Psychosocial Disorders: No Hx Family Medical Disorders: No Internal Medicine - H&P: Meds Alendronate Sodium 70 mg PO QWEEK 01/06/17 [History] Aspirin [Lo-Dose Aspirin EC] 81 mg PO DAILY 01/06/17 [History] Calcium Carbonate/Vitamin D3 [Calcium 500-Vit D3 200 Caplet] 1 each PO TID 01/06 [History] Clopidogrel Bisulfate [Plavix] 75 mg PO DAILY 01/06/17 [History] Clotrimazole 1% CRM [Lotrimin 1%] 1 appl TD BID 01/06/17 [History] Cyclobenzaprine [Flexeril] 10 mg PO DAILY 01/06/17 [History] Enalapril Maleate [Vasotec] 10 mg PO DAILY 01/06/17 [History] Ergocalciferol (VITAMIN D2) [Vitamin D2] 50,000 unit PO QWEEK 01/06/17 [History] Folic Acid 1 mg PO DAILY 01/06/17 [History] Furosemide [Lasix] 20 mg PO DAILY PRN 01/06/17 [History] Gabapentin [Neurontin] 600 mg PO TID 01/06/17 [History] HYDROcodone/Acet 5/325 mg [[place] 5-325 mg] 1 tab PO Q8H PRN 01/06/17 [History] Insulin Glargine,Hum.rec.anlog [Basaglar Kwikpen U-100] 43 unit SQ DAILY [History] Insulin LISPRO [HumaLOG] 0 units SQ TIDWM PRN 01/06/17 [History] Isosorbide MONOnitrate (24 HR) [Imdur] 60 mg PO DAILY #30 tab.er.24h 01/06/17 [ Rx] Lovastatin [Mevacor] 20 mg PO DAILY 01/06/17 [History] Metoprolol Tartrate [Lopressor] 50 mg PO DAILY 01/06/17 [History] Nitroglycerin [Nitrostat] 0.4 mg SL Q5-6MIN PRN 01/06/17 [History] Omeprazole [PriLOSEC] 40 mg PO DAILY 01/06/17 [History] Pioglitazone [Actos] 45 mg PO DAILY 01/06/17 [History] SitaGLIPtin [Januvia] 100 mg PO DAILY 01/06/17 [History] Citalopram Hydrobromide [Citalopram HBr] 10 mg PO DAILY 06/21/17 [History] Ferrous Sulfate [Iron] 325 mg PO DAILY 06/21/17 [History] LORazepam [Ativan] 0.5 mg PO DAILY 06/21/17 [History] Meloxicam [Mobic] 7.5 mg PO BID 06/21/17 [History] Metformin HCl [Metformin HCl ER] 1,000 mg PO BID 06/21/17 [History] 3 Allergy/AdvReac Type Severity Reaction Status Date / Time cephalexin [From Keflex] Allergy Hives Verified 06/23/17 16:06 codeine Allergy Headache Verified 06/20/17 18:37 Iodinated Contrast- Oral and Allergy Hives Verified 06/23/17 16:06 IV Dye All Systems PM: A 10-system review of systems was performed and is negative for pertinent findings except as documented above in the HPI. - Constitutional Vitals: Temp Pulse Resp BP Pulse Ox 97.5 F L 91 18 99/43 93 06/24/17 10:56 06/24/17 10:56 06/24/17 10:56 06/24/17 10:56 06/24/17 10:56 Internal Med - H&P Results - Labs CBC & Chem 7: 06/24/17 10:13 06/23/17 09:04 Labs: Short CBC 06/24/17 Range/Units 10:13 WBC 8.9 (4.3-11.1) K/mcL Hgb 9.0 L (11.5-15.4) g/dL Hct 32.2 L (35.3-44.9) % Plt Count 354 (140-400) K/mcL Neutrophils # 6.4 (1.6-8.9) K/mcL - Impressions ITS Impressions Echocardiogram Limited Views 06/21/17 10:08 Impressions: LVEF 60-65%. Normal LV chamber size, wall thickness and function. Atypical septal motion consistent with post-operative status. Aneurysmal appearing interatrial septum. Suboptimal image quality with agitated saline. There appeared to be a few bubbles in the left ventricle, which suggests a right to left shunt such as a small PFO. Left Ventricular Wall Motion: Rest Echo Findings All wall segments showed normal motion. Findings: Study Quality * Technically adequate exam. ECG Findings * Normal sinus rhythm. Left Ventricle * LVEF 60-65%. * Normal LV chamber size, wall thickness and function. * Atypical septal motion consistent with post-operative status. Right Ventricle * Normal right ventricular structure and function. Left Atrium * Mildly dilated left atrium. Right Atrium * Normal right atrial size. Interatrial Septum * Aneurysmal appearing interatrial septum. Suboptimal image quality. There appeared to be a few bubbles in the left ventricle, which suggests a right to left shunt such as a small PFO. Pericardium * The pericardium appears normal. IVC * Normal IVC dimensions and inspiratory collapse.
[2017-06-24 15:52] LABS: BUN/Creatinine Ratio 10 (6-26); Blood Urea Nitrogen 9 mg/dL (8-23); Calcium 8.6 mg/dL (8.6-10.3); Carbon Dioxide 24 mEq/L (23-29); Chloride 111 mEq/L (98-107); Glucose 161 mg/dL (70-105); Osmolality,Calculated 298 (280-300); Potassium 3.4 mEq/L (3.5-5.1); Sodium 143 mEq/L (136-145); eGFR For African Americans > 60 (> 60); eGFR For Non-African Americans > 60 (> 60)
--- NOTE | 2017-06-24 18:47 | Internal Med Progress Note ---
Date of Encounter: 06/24/17 Time of Encounter: 11:00 - Assessment and plan (1) Cellulitis of left foot Current Visit: Yes Status: Acute Assessment and plan: -Patient placed on vancomycin and Zosyn to cover for Pseudomonas (given diabetes ) and Staphylococcus -Will set up for home IV antibiotic administration for total of 5 days with IV ceftriaxone for discharge on 06/25/17 (2) Necrosis of toe Current Visit: Yes Status: Acute Assessment and plan: Podiatry recommendations for continued local wound care with betadine without any surgical intervention at this time (3) Atherosclerosis of left lower extremity with gangrene Current Visit: Yes Status: Chronic Assessment and plan: -Vascular surgery consulted and a Balloon angioplasty of left proximal superficial femoral artery, proximal and mid popliteal artery, and distal posterior tibial artery was done Qualifiers: Peripheral atherosclerosis artery type: [place] artery Qualified Code(s): I70.262 - Atherosclerosis of [place] arteries of extremities with gangrene, left leg (4) Diabetes mellitus Current Visit: Yes Status: Acute Assessment and plan: continue SSI and accuchecks q AC HS Qualifiers: Diabetes mellitus type: type 2 Diabetes mellitus complication status: with neurologic complications Diabetes mellitus complication detail: with polyneuropathy Diabetes mellitus energy efficiency finance manager insulin use: with energy efficiency finance manager use Qualified Code(s): E11.42 - Type 2 diabetes mellitus with diabetic polyneuropathy; Z79.4 - regional geodetic advisor (current) use of insulin; Z79.4 - regional geodetic advisor ( current) use of insulin; Z79.4 - regional geodetic advisor (current) use of insulin; Z79.4 - snf (current) use of insulin (5) CAD (coronary artery disease) Current Visit: Yes Status: Chronic Assessment and plan: cardiology with recommendations for medical management for demand ischemia; no further intervention Per EMR documentation from cards- History of CAD with CABG x 4 2001 at [place]. Recent heart catheterization December 2016 showed patent GARAY to LAD, patent SVG to OM1, patent sequential SVG to OM 2 , occluded SVG to right PDA. [place] circulation to RCA showed proximal RCA 30%, mid RCA 25%, distal RCA 40% lesions. Abnormal nuclear stress test December 2016 showed findings consistent with reversible myocardial ischemia involving basal apical anterior wall and apical lateral wall. Echo from December 2016 showed EF 60 %, normal LV function, no significant valvular dysfunction, no pulmonary hypertension, NSWMA. On aspirin, Plavix, statin, beta eugenie, JOSE inhibitor, long-acting nitrates Qualifiers: Coronary Disease-Associated Artery/Lesion type: bypass graft Associated angina: angina presence unspecified Qualified Code(s): I25.810 - Atherosclerosis of coronary artery bypass graft(s) without angina pectoris - Subjective Interval history: Patient without any complaints or issues overnight Will set up for home IV antibiotic administration for total of 5 days with IV ceftriaxone for discharge on 06/25/17 - Constitutional Vitals: Temp Pulse Resp BP Pulse Ox 98.2 F 97 20 143/75 98 06/24/17 18:29 06/24/17 18:29 06/24/17 18:29 06/24/17 18:29 06/24/17 18:29 - Respiratory Respiratory exam: Present: CTAB. Absent: accessory muscle use, rales, rhonchi, wheezes - Cardiovascular Cardiovascular exam: Present: RRR, +S1, +S2. Absent: diastolic murmur, gallop, rubs, systolic murmur Internal Medicine: Result - Labs CBC & Chem 7: 06/24/17 10:13 06/24/17 14:39 Labs: Short CBC 06/24/17 Range/Units 10:13 WBC 8.9 (4.3-11.1) K/mcL Hgb 9.0 L (11.5-15.4) g/dL Hct 32.2 L (35.3-44.9) % Plt Count 354 (140-400) K/mcL Neutrophils # 6.4 (1.6-8.9) K/mcL BMP 06/24/17 14:39 Sodium 143 Potassium 3.4 L Chloride 111 H Carbon Dioxide 24 BUN 9 Creatinine 0.93 Glucose 161 H Calcium 8.6 - ABG Interpretation ABG results: PT/INR, D-dimer PT 13.0 Seconds (9.4-12.1) H 06/22/17 08:17 Consult Discharge Plan - Plan Referrals: wound,care [Other] - 07/07/17 11:15 am (By ER entrance between the doors) Sammy Pompa MD [Primary Care Provider] - 06/28/17 2:15 pm Xu Centeno MD [Partnered Physician] - 07/07/17 9:45 am
[2017-06-24] MEDS: Insulin DETEMIR 100 UNIT/ML X5UNITS SQ SCH (20:57)
[2017-06-25] MEDS: Gabapentin 300 MG CAPSULE PO SCH ×3 (07:58→21:19)
[2017-06-25] MEDS: Folic Acid 1 MG TABLET PO SCH (07:58)
[2017-06-25] MEDS: Isosorbide MONOnitrate (24 HR) 60 MG TAB.ER.24H PO SCH (07:58)
[2017-06-25] MEDS: Aspirin Enteric Coated 81 MG Tablet PO SCH (07:59)
[2017-06-25] MEDS: Cholecalciferol (D-3) 1,000 UNIT TABLET PO SCH (07:59)
[2017-06-25] MEDS: *HR* SitaGLIPtin 100 MG TABLET PO SCH (07:59)
[2017-06-25] MEDS: Insulin LISPRO 300 UNITS/3 ML VIAL SQ SCH ×3 (08:01→16:49)
[2017-06-25] MEDS: *HR* HYDROcodone/Acet 5/325 mg TABLET PO PRN ×2 (15:22→21:11)
--- NOTE | 2017-06-25 18:17 | Internal Med Progress Note ---
Date of Encounter: 06/25/17 Time of Encounter: 11:00 - Assessment and plan (1) Cellulitis of left foot Current Visit: Yes Status: Acute Assessment and plan: -Patient placed on vancomycin and Zosyn to cover for Pseudomonas (given diabetes ) and Staphylococcus -Will repeat a 5 day course of IV ceftriaxone (2) Necrosis of toe Current Visit: Yes Status: Acute Assessment and plan: Podiatry recommendations for continued local wound care with betadine without any surgical intervention at this time (3) Atherosclerosis of left lower extremity with gangrene Current Visit: Yes Status: Chronic Assessment and plan: -Vascular surgery consulted and a Balloon angioplasty of left proximal superficial femoral artery, proximal and mid popliteal artery, and distal posterior tibial artery was done Qualifiers: Peripheral atherosclerosis artery type: [place] artery Qualified Code(s): I70.262 - Atherosclerosis of [place] arteries of extremities with gangrene, left leg (4) Diabetes mellitus Current Visit: Yes Status: Acute Assessment and plan: continue SSI and accuchecks q AC HS Qualifiers: Diabetes mellitus type: type 2 Diabetes mellitus complication status: with neurologic complications Diabetes mellitus complication detail: with polyneuropathy Diabetes mellitus fdc insulin use: with personnel recruiter use Qualified Code(s): E11.42 - Type 2 diabetes mellitus with diabetic polyneuropathy; Z79.4 - [facility] (current) use of insulin; Z79.4 - [facility] ( current) use of insulin; Z79.4 - plumbing foreman (current) use of insulin; Z79.4 - [facility] (current) use of insulin (5) CAD (coronary artery disease) Current Visit: Yes Status: Chronic Assessment and plan: cardiology with recommendations for medical management for demand ischemia; no further intervention Per EMR documentation from cards- History of CAD with CABG x 4 2001 at [place]. Recent heart catheterization December 2016 showed patent GARAY to LAD, patent SVG to OM1, patent sequential SVG to OM 2 , occluded SVG to right PDA. [place] circulation to RCA showed proximal RCA 30%, mid RCA 25%, distal RCA 40% lesions. Abnormal nuclear stress test December 2016 showed findings consistent with reversible myocardial ischemia involving basal apical anterior wall and apical lateral wall. Echo from December 2016 showed EF 60 %, normal LV function, no significant valvular dysfunction, no pulmonary hypertension, NSWMA. On aspirin, Plavix, statin, beta eugenie, JOSE inhibitor, long-acting nitrates Qualifiers: Coronary Disease-Associated Artery/Lesion type: bypass graft Associated angina: angina presence unspecified Qualified Code(s): I25.810 - Atherosclerosis of coronary artery bypass graft(s) without angina pectoris - Subjective Interval history: Per nursing, family concern about patient going home and requesting evaluation for care home facility placement Will completed 5 day course of IV ceftriaxone for discharge - Constitutional Vitals: Temp Pulse Resp BP Pulse Ox 97.7 F 69 16 135/75 97 06/25/17 16:11 06/25/17 16:11 06/25/17 16:11 06/25/17 16:11 06/25/17 16:11 - Respiratory Respiratory exam: Present: CTAB. Absent: accessory muscle use, rales, rhonchi, wheezes - Cardiovascular Cardiovascular exam: Present: RRR, +S1, +S2. Absent: diastolic murmur, gallop, rubs, systolic murmur Internal Medicine: Result - Labs CBC & Chem 7: 06/24/17 10:13 06/24/17 14:39 - ABG Interpretation ABG results: PT/INR, D-dimer PT 13.0 Seconds (9.4-12.1) H 06/22/17 08:17 Consult Discharge Plan - Plan Referrals: wound,care [Other] - 07/07/17 11:15 am (By ER entrance between the doors) Sammy Pompa MD [Primary Care Provider] - 06/28/17 2:15 pm Xu Centeno MD [Partnered Physician] - 07/07/17 9:45 am Prescriptions: Gbjgzwgnpaku-Yrjb-Udefnydy,Iso [Zosyn 3.375 gm/50 ml Galaxy] 3.375 gm IV Q8HR # 30 nathalia
[2017-06-25] MEDS: Insulin DETEMIR 100 UNIT/ML X5UNITS SQ SCH (21:17)
[2017-06-26] MEDS: Insulin LISPRO 300 UNITS/3 ML VIAL SQ SCH ×5 (01:16→21:10)
[2017-06-26 08:59] LABS: Eosinophils % 4.2 %
[2017-06-26 09:00] LABS: Basophils % 0.4 %; Eosinophils # 0.4 K/mcL (0.0-0.6); Hematocrit 29.3 % (35.3-44.9); Hemoglobin 8.5 g/dL (11.5-15.4); Immature Granulocytes % 0.6 % (0-4); Lymphocytes # 1.5 K/mcL (0.6-4.6); Lymphocytes % 17.9 %; Mean Corpuscular Hemoglobin 22.2 pg (28.0-33.3); Mean Corpuscular Volume 76.5 fL (83.0-100.0); Mean Platelet Volume 10.9 fL (9.4-12.4); Monocytes # 0.7 K/mcL (0.0-1.3); Monocytes % 7.9 %; Neutrophils # 5.7 K/mcL (1.6-8.9); Platelet Count 289 K/mcL (140-400); Red Blood Count 3.83 M/mcL (3.82-4.97); Red Cell Distribution Width 19.4 % (11.5-14.5)
[2017-06-26 09:31] LABS: BUN/Creatinine Ratio 11 (6-26); Blood Urea Nitrogen 7 mg/dL (8-23); Calcium 8.3 mg/dL (8.6-10.3); Carbon Dioxide 27 mEq/L (23-29); Chloride 108 mEq/L (98-107); Glucose 83 mg/dL (70-105); Osmolality,Calculated 291 (280-300); Sodium 142 mEq/L (136-145); eGFR For African Americans > 60 (> 60); eGFR For Non-African Americans > 60 (> 60)
[2017-06-26] MEDS: *HR* SitaGLIPtin 100 MG TABLET PO SCH (09:34)
[2017-06-26] MEDS: Aspirin Enteric Coated 81 MG Tablet PO SCH (09:34)
[2017-06-26] MEDS: Cholecalciferol (D-3) 1,000 UNIT TABLET PO SCH (09:34)
[2017-06-26] MEDS: Folic Acid 1 MG TABLET PO SCH (09:34)
[2017-06-26] MEDS: Gabapentin 300 MG CAPSULE PO SCH ×3 (09:34→21:09)
[2017-06-26] MEDS: *HR* HYDROcodone/Acet 5/325 mg TABLET PO PRN ×3 (09:40→21:09)
[2017-06-26 09:50] LABS: Anisocytosis 1+ (Not Present); Hypochromasia Present (Not Present); Microcytosis Present (Not Present)
[2017-06-26 09:51] LABS: Platelet Estimate Normal (Normal); Polychromasia 1+ (Not Present)
[2017-06-26] MEDS: *HR* Heparin 5,000 UNIT/ML VIAL SQ SCH ×2 (14:52→21:09)
--- NOTE | 2017-06-26 15:11 | Internal Med Progress Note ---
Date of Encounter: 06/26/17 Time of Encounter: 11:00 - Assessment and plan (1) Cellulitis of left foot Current Visit: Yes Status: Acute Assessment and plan: Wound cultures on left foot positive for Pseudomonas aeruginosa, Escherichia coli and Staphylococcus aureus; sensitivities pending. Blood cultures negative Patient is afebrile and without leukocytosis Will continue Zosyn until sensitivities known Per nursing, family concern about patient going home and requesting evaluation for custodial facility placement (2) Necrosis of toe Current Visit: Yes Status: Acute Assessment and plan: Podiatry recommendations for continued local wound care with betadine without any surgical intervention at this time (3) Atherosclerosis of left lower extremity with gangrene Current Visit: Yes Status: Chronic Assessment and plan: -Vascular surgery consulted and a Balloon angioplasty of left proximal superficial femoral artery, proximal and mid popliteal artery, and distal posterior tibial artery was done Qualifiers: Peripheral atherosclerosis artery type: [place] artery Qualified Code(s): I70.262 - Atherosclerosis of [place] arteries of extremities with gangrene, left leg (4) Diabetes mellitus Current Visit: Yes Status: Acute Assessment and plan: Controlled; continue Januvia with SSI and accuchecks q AC HS Qualifiers: Diabetes mellitus type: type 2 Diabetes mellitus complication status: with neurologic complications Diabetes mellitus complication detail: with polyneuropathy Diabetes mellitus research and development scientist insulin use: with research and development scientist use Qualified Code(s): E11.42 - Type 2 diabetes mellitus with diabetic polyneuropathy; Z79.4 - mycologist (current) use of insulin; Z79.4 - detention ( current) use of insulin; Z79.4 - mycologist (current) use of insulin; Z79.4 - mycologist (current) use of insulin (5) CAD (coronary artery disease) Current Visit: Yes Status: Chronic Assessment and plan: cardiology with recommendations for medical management for demand ischemia; no further intervention Per EMR documentation from cards- History of CAD with CABG x 4 2001 at [place]. Recent heart catheterization December 2016 showed patent GARAY to LAD, patent SVG to OM1, patent sequential SVG to OM 2 , occluded SVG to right PDA. [place] circulation to RCA showed proximal RCA 30%, mid RCA 25%, distal RCA 40% lesions. Abnormal nuclear stress test December 2016 showed findings consistent with reversible myocardial ischemia involving basal apical anterior wall and apical lateral wall. Echo from December 2016 showed EF 60 %, normal LV function, no significant valvular dysfunction, no pulmonary hypertension, NSWMA. On aspirin, Plavix, statin, beta eugenie, JOSE inhibitor, long-acting nitrates Qualifiers: Coronary Disease-Associated Artery/Lesion type: bypass graft Associated angina: angina presence unspecified Qualified Code(s): I25.810 - Atherosclerosis of coronary artery bypass graft(s) without angina pectoris - Subjective Interval history: Wound cultures on left foot positive for Pseudomonas aeruginosa, Escherichia coli and Staphylococcus aureus; blood cultures negative Per nursing, family concern about patient going home and requesting evaluation for custodial facility placement - Constitutional Vitals: Temp Pulse Resp BP Pulse Ox 98.4 F 61 17 143/76 99 06/26/17 11:21 06/26/17 11:21 06/26/17 11:21 06/26/17 11:21 06/26/17 11:21 - Cardiovascular Cardiovascular exam: Present: RRR, +S1, +S2. Absent: diastolic murmur, gallop, rubs, systolic murmur Internal Medicine: Result - Labs CBC & Chem 7: 06/26/17 08:37 06/26/17 08:37 Labs: Short CBC 06/26/17 Range/Units 08:37 WBC 8.3 (4.3-11.1) K/mcL Hgb 8.5 L (11.5-15.4) g/dL Hct 29.3 L (35.3-44.9) % Plt Count 289 (140-400) K/mcL Neutrophils # 5.7 (1.6-8.9) K/mcL BMP 06/26/17 08:37 Sodium 142 Potassium 3.0 L Chloride 108 H Carbon Dioxide 27 BUN 7 L Creatinine 0.63 Glucose 83 Calcium 8.3 L - ABG Interpretation ABG results: PT/INR, D-dimer PT 13.0 Seconds (9.4-12.1) H 06/22/17 08:17 - VTE Documentation of Mechanical Device: Venous foot pump, device Consult Discharge Plan - Plan Referrals: wound,care [Other] - 07/07/17 11:15 am (By ER entrance between the doors) Sammy Pompa MD [Primary Care Provider] - 06/28/17 2:15 pm Xu Centeno MD [Partnered Physician] - 02/28/18 9:45 am Prescriptions: Mciqlpbshqyb-Putd-Ohocxhwd,Iso [Zosyn 3.375 gm/50 ml Galaxy] 3.375 gm IV Q8HR # 30 nathalia
[2017-06-26] MEDS: Isosorbide MONOnitrate (24 HR) 60 MG TAB.ER.24H PO SCH (17:05)
[2017-06-26] MEDS: Insulin DETEMIR 100 UNIT/ML X5UNITS SQ SCH (21:10)
[2017-06-27] MEDS: *HR* Heparin 5,000 UNIT/ML VIAL SQ SCH ×3 (06:24→22:27)
[2017-06-27] MEDS: Nitroglycerin 0.4 MG TAB.SUBL SL PRN ×2 (06:28→06:36)
[2017-06-27 06:59] LABS: Hemoglobin 8.8 g/dL (11.5-15.4); Mean Corpuscular HGB Conc 28.4 g/dL (31.6-35.5)
[2017-06-27 07:00] LABS: Mean Corpuscular Hemoglobin 21.6 pg (28.0-33.3); Platelet Count 305 K/mcL (140-400); Red Blood Count 4.08 M/mcL (3.82-4.97); Red Cell Distribution Width 19.5 % (11.5-14.5)
[2017-06-27 07:05] LABS: BUN/Creatinine Ratio 9 (6-26); Blood Urea Nitrogen 7 mg/dL (8-23); Calcium 8.4 mg/dL (8.6-10.3); Carbon Dioxide 30 mEq/L (23-29); Chloride 106 mEq/L (98-107); Glucose 72 mg/dL (70-105); Osmolality,Calculated 291 (280-300); Potassium 2.9 mEq/L (3.5-5.1); Sodium 142 mEq/L (136-145); eGFR For African Americans > 60 (> 60); eGFR For Non-African Americans > 60 (> 60)
[2017-06-27] MEDS: Insulin LISPRO 300 UNITS/3 ML VIAL SQ SCH ×4 (07:43→22:28)
[2017-06-27] MEDS: Isosorbide MONOnitrate (24 HR) 60 MG TAB.ER.24H PO SCH (08:10)
[2017-06-27] MEDS: Cholecalciferol (D-3) 1,000 UNIT TABLET PO SCH (08:11)
[2017-06-27] MEDS: *HR* SitaGLIPtin 100 MG TABLET PO SCH (08:11)
[2017-06-27] MEDS: Aspirin Enteric Coated 81 MG Tablet PO SCH (08:11)
[2017-06-27] MEDS: Gabapentin 300 MG CAPSULE PO SCH ×3 (08:11→22:27)
[2017-06-27] MEDS: Folic Acid 1 MG TABLET PO SCH (08:11)
[2017-06-27 08:53] LABS: Eosinophils # 0.4 K/mcL (0.0-0.6); Lymphocytes # 2.6 K/mcL (0.6-4.6); Monocytes # 0.5 K/mcL (0.0-1.3); Neutrophils # 5.3 K/mcL (1.6-8.9); Platelet Estimate Normal (Normal)
[2017-06-27 08:54] LABS: Anisocytosis 1+ (Not Present); Polychromasia 1+ (Not Present)
[2017-06-27 08:55] LABS: Reactive Lymphocytes Present (Not Present)
[2017-06-27] MEDS: *HR* HYDROcodone/Acet 5/325 mg TABLET PO PRN ×3 (09:55→18:35)
--- NOTE | 2017-06-27 16:16 | Internal Med Progress Note ---
Date of Encounter: 06/27/17 Time of Encounter: 11:00 - Assessment and plan (1) Cellulitis of left foot Current Visit: Yes Status: Acute Assessment and plan: Patient presented with left lower extremity cellulitis and found to have necrotic toe Wound cultures on left foot positive for Pseudomonas aeruginosa, Escherichia coli and Staphylococcus aureus; sensitivities pending Blood cultures negative Per nursing, family concern about patient going home and requesting evaluation for snf facility placement (2) Necrosis of toe Current Visit: Yes Status: Acute Assessment and plan: Podiatry recommendations for continued local wound care with betadine without any surgical intervention at this time (3) Atherosclerosis of left lower extremity with gangrene Current Visit: Yes Status: Chronic Assessment and plan: -Vascular surgery consulted and a Balloon angioplasty of left proximal superficial femoral artery, proximal and mid popliteal artery, and distal posterior tibial artery was done Qualifiers: Peripheral atherosclerosis artery type: [place] artery Qualified Code(s): I70.262 - Atherosclerosis of [place] arteries of extremities with gangrene, left leg (4) Diabetes mellitus Current Visit: Yes Status: Acute Assessment and plan: Controlled; continue Januvia with SSI and accuchecks q AC HS Qualifiers: Diabetes mellitus type: type 2 Diabetes mellitus complication status: with neurologic complications Diabetes mellitus complication detail: with polyneuropathy Diabetes mellitus terminal carman insulin use: with terminal carman use Qualified Code(s): E11.42 - Type 2 diabetes mellitus with diabetic polyneuropathy; Z79.4 - technician terminal and repeater (current) use of insulin; Z79.4 - technician terminal and repeater ( current) use of insulin; Z79.4 - penitentiary (current) use of insulin; Z79.4 - penitentiary (current) use of insulin (5) CAD (coronary artery disease) Current Visit: Yes Status: Chronic Assessment and plan: cardiology with recommendations for medical management for demand ischemia; no further intervention History of CAD with CABG x 4 2001 at [place]. Recent heart catheterization December 2016 showed patent GARAY to LAD, patent SVG to OM1, patent sequential SVG to OM 2 , occluded SVG to right PDA. [place] circulation to RCA showed proximal RCA 30%, mid RCA 25%, distal RCA 40% lesions. Abnormal nuclear stress test December 2016 showed findings consistent with reversible myocardial ischemia involving basal apical anterior wall and apical lateral wall. Echo from December 2016 showed EF 60 %, normal LV function, no significant valvular dysfunction, no pulmonary hypertension, NSWMA. On aspirin, Plavix, statin, beta eugenie, JOSE inhibitor, long-acting nitrates Qualifiers: Coronary Disease-Associated Artery/Lesion type: bypass graft Associated angina: angina presence unspecified Qualified Code(s): I25.810 - Atherosclerosis of coronary artery bypass graft(s) without angina pectoris (6) Hypertension Current Visit: Yes Status: Acute Assessment and plan: Controlled; continue JOSE inhibitor and beta eugenie Qualifiers: Hypertension type: essential hypertension Qualified Code(s): I10 - Essential (primary) hypertension (7) GERD (gastroesophageal reflux disease) Current Visit: Yes Status: Acute Assessment and plan: Continue PPI Qualifiers: Esophagitis presence: esophagitis presence not specified Qualified Code(s) : K21.9 - Gastro-esophageal reflux disease without esophagitis (8) DVT prophylaxis Current Visit: Yes Status: Acute Assessment and plan: Subcutaneous heparin - Subjective Interval history: Patient presented with left lower extremity cellulitis and found to have necrotic toe Wound cultures on left foot positive for Pseudomonas aeruginosa, Escherichia coli and Staphylococcus aureus; sensitivities pending Blood cultures negative Per nursing, family concern about patient going home and requesting evaluation for snf facility placement - Constitutional Vitals: Temp Pulse Resp BP Pulse Ox 98.2 F 73 15 127/84 97 06/27/17 15:52 06/27/17 15:52 06/27/17 15:52 06/27/17 15:52 06/27/17 15:52 General appearance: Present: A&O X 3 - Respiratory Respiratory exam: Present: CTAB. Absent: accessory muscle use, rales, rhonchi, wheezes - Cardiovascular Cardiovascular exam: Present: RRR, +S1, +S2. Absent: diastolic murmur, gallop, rubs, systolic murmur Internal Medicine: Result - Labs CBC & Chem 7: 06/27/17 06:30 06/27/17 06:30 Labs: Short CBC 06/27/17 Range/Units 06:30 WBC 8.8 (4.3-11.1) K/mcL Hgb 8.8 L (11.5-15.4) g/dL Hct 31.0 L (35.3-44.9) % Plt Count 305 (140-400) K/mcL Neutrophils # 5.3 (1.6-8.9) K/mcL BMP 06/27/17 06:30 Sodium 142 Potassium 2.9 L Chloride 106 Carbon Dioxide 30 H BUN 7 L Creatinine 0.74 Glucose 72 Calcium 8.4 L Cardiac Enzymes 06/27/17 Range/Units 06:39 Troponin I < 0.03 (< 0.04) ng/mL - ABG Interpretation ABG results: PT/INR, D-dimer PT 13.0 Seconds (9.4-12.1) H 06/22/17 08:17 - VTE Documentation of Mechanical Device: Venous foot pump, device Consult Discharge Plan - Plan Referrals: wound,care [Other] - 07/07/17 11:15 am (By ER entrance between the doors) Sammy Pompa MD [Primary Care Provider] - 06/28/17 2:15 pm Xu Centeno MD [Partnered Physician] - 07/07/17 9:45 am Prescriptions: Sneyalodmkuv-Shhf-Mqyrbvvd,Iso [Zosyn 3.375 gm/50 ml Galaxy] 3.375 gm IV Q8HR # 30 nathalia
[2017-06-27] MEDS: Insulin DETEMIR 100 UNIT/ML X5UNITS SQ SCH (22:28)
[2017-06-28] MEDS ORDERED: GuaiFENesin Liq 200 MG/10 ML UDC PO PRN (01:11)
[2017-06-28] MEDS: Ipratropium/Albuterol Neb 3 ML IH PRN (01:29)
[2017-06-28 01:30] LABS: Basophils % 0.4 %; Eosinophils # 0.4 K/mcL (0.0-0.6); Eosinophils % 4.8 %; Hematocrit 29.1 % (35.3-44.9); Hemoglobin 8.5 g/dL (11.5-15.4); Immature Granulocytes % 0.7 % (0-4); Lymphocytes % 11.4 %; Mean Corpuscular HGB Conc 29.2 g/dL (31.6-35.5); Mean Corpuscular Volume 75.4 fL (83.0-100.0); Mean Platelet Volume 10.3 fL (9.4-12.4); Monocytes # 0.7 K/mcL (0.0-1.3); Monocytes % 7.5 %; Neutrophils # 6.9 K/mcL (1.6-8.9); Platelet Count 287 K/mcL (140-400); Red Blood Count 3.86 M/mcL (3.82-4.97); Red Cell Distribution Width 19.3 % (11.5-14.5); Segmented Neutrophils % 75.2 %
[2017-06-28] MEDS: Nitroglycerin 0.4 MG TAB.SUBL SL PRN ×2 (01:53→01:58)
[2017-06-28 02:05] LABS: BUN/Creatinine Ratio 11 (6-26); Blood Urea Nitrogen 8 mg/dL (8-23); Calcium 8.2 mg/dL (8.6-10.3); Carbon Dioxide 30 mEq/L (23-29); Chloride 104 mEq/L (98-107); Glucose 132 mg/dL (70-105); Osmolality,Calculated 288 (280-300); Potassium 3.5 mEq/L (3.5-5.1); Sodium 139 mEq/L (136-145); eGFR For African Americans > 60 (> 60); eGFR For Non-African Americans > 60 (> 60)
[2017-06-28] MEDS: GI Cocktail 40 ML EACH PO ONE ×2 (02:25→02:46)
[2017-06-28] MEDS ORDERED: *HR* HYDROcodone/Acet 10/325 mg TABLET PO ONE (02:28)
[2017-06-28] MEDS: *HR* Heparin 5,000 UNIT/ML VIAL SQ SCH ×3 (06:26→23:39)
[2017-06-28] MEDS: Cholecalciferol (D-3) 1,000 UNIT TABLET PO SCH (08:39)
[2017-06-28] MEDS: Gabapentin 300 MG CAPSULE PO SCH ×3 (08:39→23:39)
[2017-06-28] MEDS: Aspirin Enteric Coated 81 MG Tablet PO SCH (08:40)
[2017-06-28] MEDS: Isosorbide MONOnitrate (24 HR) 60 MG TAB.ER.24H PO SCH (08:40)
[2017-06-28] MEDS: Folic Acid 1 MG TABLET PO SCH (08:40)
[2017-06-28] MEDS: Insulin LISPRO 300 UNITS/3 ML VIAL SQ SCH ×4 (08:43→23:44)
[2017-06-28] MEDS: *HR* SitaGLIPtin 100 MG TABLET PO SCH (08:57)
[2017-06-28] MEDS: *HR* HYDROcodone/Acet 5/325 mg TABLET PO PRN ×2 (16:28→23:57)
--- NOTE | 2017-06-28 17:10 | Infectious Disease Consult ---
Date of Encounter: 06/28/17 Time of Encounter: 17:04 Assessment and Plan (1) Sepsis Status: Acute Assessment and plan: The patient had two SIRS criteria on admission. Likely secondary to left foot cellulitis and wound infection. Improved. WBC has normalized. Tachycardia has improved. Blood cultures drawn 06/20/17 are negative x 2 sets. Lactic acid on admission normal. The patient has started to spike low-grade fevers. Repeat blood cultures x 2 sets now. Check flu PCR stat. Qualifiers: Sepsis type: sepsis due to unspecified organism Qualified Code(s): A41.9 - Sepsis, unspecified organism (2) Left foot infection Status: Acute Assessment and plan: Causative organism: MSSA, E. coli, PSEA. Secondary to left foot second toe wound. Foot x-ray negative for OM, but ESR and CRP are very elevated. ESR 125, CRP 39. Podiatry consulted and following. No surgical intervention at this time. Concerned that the lack of blood flow to the toes will hinder the patient's ability to get adequate antibiotic penetration to the tissue and will therefore not clear the infection. Will discuss with podiatry. Wound care and activity restrictions per the podiatry team. Continue Zosyn 3.375 grams IV Q8H for now. Duration of treatment depends on the clinical picture. Monitor renal function and dose-adjust antibiotics. (3) Cellulitis of left foot Status: Acute Assessment and plan: Location: Left foot. Causative organism: MSSA, E. coli, and PSEA. Likely secondary to left foot wound infection. Improved per patient report. Continue antibiotics as above. (4) Necrosis of toe Status: Acute Assessment and plan: Location: Left foot toe #3 and #4 with some necrosis noted to the 1st and 4th toes. Secondary to infection vs. ischemia. Podiatry consulted and following. No surgical intervention at this time. Wound care per the podiatry team. (5) Gangrene Status: Acute (6) Diabetes mellitus Status: Acute Assessment and plan: Controlled. HgbA1C 6.5%. Recommend aggressive glucose monitoring and control to promote wound healing and prevent re-infection. Management per the primary team. Qualifiers: Diabetes mellitus type: type 2 Diabetes mellitus complication status: with neurologic complications Diabetes mellitus complication detail: with polyneuropathy Diabetes mellitus half-way insulin use: with intermission coordinator use Qualified Code(s): E11.42 - Type 2 diabetes mellitus with diabetic polyneuropathy; Z79.4 - intermission coordinator (current) use of insulin; Z79.4 - halfway ( current) use of insulin; Z79.4 - halfway (current) use of insulin; Z79.4 - intermission coordinator (current) use of insulin (7) Peripheral neuropathy Status: Acute Assessment and plan: Secondary to diabetes. Qualifiers: Peripheral neuropathy type: polyneuropathy, unspecified Qualified Code(s): G62.9 - Polyneuropathy, unspecified (8) CAD (coronary artery disease) Status: Chronic Assessment and plan: Cardiology consulted and following. Qualifiers: Coronary Disease-Associated Artery/Lesion type: bypass graft Associated angina: angina presence unspecified Qualified Code(s): I25.810 - Atherosclerosis of coronary artery bypass graft(s) without angina pectoris (9) Chest pain Status: Acute Assessment and plan: Cardiology consulted. Likely demand ischemia from tachycardia d/t pain. Troponins mildly elevated initially, but now normal. CXR this AM negative. Qualifiers: Chest pain type: unspecified Qualified Code(s): R07.9 - Chest pain, unspecified (10) Atherosclerosis of left lower extremity with gangrene Status: Chronic Assessment and plan: Vascular surgery consulted. Status post angiogram 06/22/[address] Centeno with balloon angioplasty of the left SFA, left popliteal, and left posterior tibial. Right anterior tibial, left anterior tibial, right dorsalis pedis, and left dorsalis pedis occluded. Qualifiers: Peripheral atherosclerosis artery type: [place] artery Qualified Code(s): I70.262 - Atherosclerosis of [place] arteries of extremities with gangrene, left leg (11) Hypertension Status: Acute Qualifiers: Hypertension type: essential hypertension Qualified Code(s): I10 - Essential (primary) hypertension Infectious Disease HPI - Data of Consult Patient: new to practice Consult date: 06/28/17 Requesting Physician: Farhad Casas Primary Care Provider: Sammy Pompa MD - Consult Narrative Reason for consult: Left foot infection History of present illness: Ms. Beltrán is a 66 year old female with a past medical of CAD with ACS s/p CABG, DM on oral antihyperglycemics and insulin, HTN, HLD, and DC. The patient was admitted to the hospital 06/20/17 for left foot necrosis and cellulitis. We are consulted 06/28/17 for antibiotic recommendations for left foot infection. Briefly, the patient is a 66-year-old female with a past medical history as stated above. The patient presented to the emergency department with complaints of left foot second and third toe necrosis that started about 3 weeks prior to presentation. She states she noticed an ulceration to the nail bed of her second toe and she has been treating it with antibiotic salve home, but it continued to worsen and her toes began to turn [place] she came to the emergency department. Upon arrival, the patient was afebrile, was tachycardic and had leukocytosis. Her ESR was elevated at 125 with a CRP of 39. Showed a left foot x-ray that was negative. A wound culture obtained in the emergency department grew out Pseudomonas, Escherichia coli, and MSSA. She was started empiric Willie IV antibiotics and admitted to the hospital for further evaluation. Since admission, the patient has been evaluated by podiatry who has opted to not pursue surgical intervention at this time. She underwent TCP O2 monitoring that was consistent with healing bilaterally. Vascular surgery was consulted and performed an angiogram on June 22. She had angioplasty to the left SFA and left popliteal and left posterior tibial. Angiogram showed occlusion of the right anterior tibial, left anterior tibial, right dorsalis pedis, and left dorsalis pedis. The patient was also evaluated by cardiology due to positive troponins and chest pain, but this was deemed likely due to ischemia from tachycardia secondary to left foot pain. A transthoracic echo showed an EF of 60-65% and findings consistent with a possible small PFO. Since being in the hospital, the patient's leukocytosis has resolved. She did have a low-grade fever this morning of 100. She has also developed some congestion and a cough, but chest x-ray was negative. Currently, the patient is on IV Zosyn. We have been asked to evaluate and make further recommendations. During my exam today, the patient endorses a history as stated above. She states that she was not feeling well overall home, but denies any fevers or chills or rigors. She denies a headache or neck pain. She reports congestion with clear drainage and nonproductive cough. She denies any chest pain or shortness of breath. She denies any earache or sore throat. She denies any nausea or vomiting. She does report some diarrhea since starting on the antibiotics, but C. difficile was negative. She complains of pain in the left foot. She states that the ulceration to the dorsal aspect of her foot is from the tape peeling off her skin. She denies any pain up the leg or in the ankle. She denies oral thrush or new skin lesions. The patient lives at home alone. She denies any tobacco, alcohol, or illicit drug use. She denies any recent travel. She does not currently work outside the home. CC: Farhad Casas Past Med Surg Social Fam HX - Past Medical History Attestation: Yes The following information was validated with the patient. Source: patient, old records reviewed, nursing notes reviewed Medical history: CHF, coronary artery disease, diabetes, GERD, hyperlipidemia, hypertension, kidney stones, myocardial infarction, osteoporosis Psychiatric history: anxiety - Past Surgical History Surgical History: angioplasty/stent, appendectomy, cholecystectomy, coronary bypass (CABG) - Social History Smoking Status: Former smoker Smokeless Tobacco Status: No Alcohol use: none Drug use: none Occupational status: retired Current living situation: Home - Independent Activity Level: Independent ambulation Recent Out of Country Travel Within the Last 8 Weeks: No Exposure or Possible Exposure to Illness During Travel: No - Family History Mother Adopted: [place]: Dary Cruz Age: 63 Family Member Ethnicity: Non- Twin of Family Member: Yes, Identical Living Status: Age at : 63 Cause of : Heart complications Hx Family Cardiac Disorders: Yes (DC,HTN, OPEN HEART SX) Hx Family Respiratory Disorders: No Hx Family Cancer: No Hx Family GI Disorders: No Hx Family Genitourinary Disorders: No Hx Family Endocrine Disorder: No Hx Family Musculoskeletal Disorders: No Hx Family Neuromuscular Disorders: No Hx Family Neurologic Disorders: No Hx Family HEENT Disorders: No Hx Family Autoimmune Disorders: No Hx Family Reproductive Disorders: No Hx Family Psychosocial Disorders: No Hx Family Medical Disorders: No Infectious Disease-CN:Meds Alendronate Sodium 70 mg PO QWEEK 01/06/17 [History] Aspirin [Lo-Dose Aspirin EC] 81 mg PO DAILY 01/06/17 [History] Calcium Carbonate/Vitamin D3 [Calcium 500-Vit D3 200 Caplet] 1 each PO TID 01/06 [History] Clopidogrel Bisulfate [Plavix] 75 mg PO DAILY 01/06/17 [History] Clotrimazole 1% CRM [Lotrimin 1%] 1 appl TD BID 01/06/17 [History] Cyclobenzaprine [Flexeril] 10 mg PO DAILY 01/06/17 [History] Enalapril Maleate [Vasotec] 10 mg PO DAILY 01/06/17 [History] Ergocalciferol (VITAMIN D2) [Vitamin D2] 50,000 unit PO QWEEK 01/06/17 [History] Folic Acid 1 mg PO DAILY 01/06/17 [History] Furosemide [Lasix] 20 mg PO DAILY PRN 01/06/17 [History] Gabapentin [Neurontin] 600 mg PO TID 01/06/17 [History] HYDROcodone/Acet 5/325 mg [Anson 5-325 mg] 1 tab PO Q8H PRN 01/06/17 [History] Insulin Glargine,Hum.rec.anlog [Basaglar Kwikpen U-100] 43 unit SQ DAILY [History] Insulin LISPRO [HumaLOG] 0 units SQ TIDWM PRN 01/06/17 [History] Isosorbide MONOnitrate (24 HR) [Imdur] 60 mg PO DAILY #30 tab.er.24h 01/06/17 [ Rx] Lovastatin [Mevacor] 20 mg PO DAILY 01/06/17 [History] Metoprolol Tartrate [Lopressor] 50 mg PO DAILY 01/06/17 [History] Nitroglycerin [Nitrostat] 0.4 mg SL Q5-6MIN PRN 01/06/17 [History] Omeprazole [PriLOSEC] 40 mg PO DAILY 01/06/17 [History] Pioglitazone [Actos] 45 mg PO DAILY 01/06/17 [History] SitaGLIPtin [Januvia] 100 mg PO DAILY 01/06/17 [History] Citalopram Hydrobromide [Citalopram HBr] 10 mg PO DAILY 06/21/17 [History] Ferrous Sulfate [Iron] 325 mg PO DAILY 06/21/17 [History] LORazepam [Ativan] 0.5 mg PO DAILY 06/21/17 [History] Meloxicam [Mobic] 7.5 mg PO BID 06/21/17 [History] Metformin HCl [Metformin HCl ER] 1,000 mg PO BID 06/21/17 [History] Ecgyjagrpoyl-Yvsp-Luhmibvi,Iso [Zosyn 3.375 gm/50 ml Galaxy] 3.375 gm IV Q8HR # 30 frovanessagy 06/25/17 [Rx] 3 Allergy/AdvReac Type Severity Reaction Status Date / Time cephalexin [From Keflex] Allergy Hives Verified 06/23/17 16:06 codeine Allergy Headache Verified 06/20/17 18:37 Iodinated Contrast- Oral and Allergy Hives Verified 06/23/17 16:06 IV Dye All systems: reviewed and no additional remarkable complaints except as stated Exam - Constitutional Vitals: Temp Pulse Resp BP Pulse Ox 100.6 F H 97 16 132/75 93 06/28/17 16:18 06/28/17 16:18 06/28/17 16:18 06/28/17 16:18 06/28/17 16:18 General appearance: average body habitus, cooperative, no acute distress - Head Head exam: Present: atraumatic, normal inspection, normocephalic - Eye Eye exam: Present: EOMI, normal appearance, PERRL Pupils: Present: normal accommodation - ENT ENT exam: Present: mucous membranes moist - Neck Neck exam: Present: normal inspection - Respiratory Respiratory exam: Present: wheezes ( Fine expiratory wheezes throughout). Absent: rales, respiratory distress, rhonchi - Cardiovascular Cardiovascular exam: Present: RRR, +S1, +S2 - GI/Abdominal GI/Abdominal exam: Present: normal bowel sounds, soft. Absent: distended, tenderness - Extremities Exam Extremities exam: Present: tenderness (Left foot). Absent: pedal edema Additional comments: Necrosis noted to the lateral aspect of left toe #1, toes #2, toe #3, and medial aspect of toe #4. Necrotic, scabbed lesion noted to the dorsal aspect of the left foot. Purulent drainage noted to an ulceration on the medial aspect of the toe #2. Foul odor noted. - Neurological Exam Neurological exam: Present: alert, oriented X3, no focal deficits - Psychiatric Psychiatric exam: Present: normal affect, normal mood - Skin Skin exam: Present: dry, intact, normal color, warm Infectious Disease CN: Results - Labs CBC & Chem 7: 06/28/17 01:20 06/28/17 01:20 Cultures: Cultures 06/20/17 19:27 Blood Culture - Final Peripheral Venipuncture No growth. 06/20/17 19:00 Blood Culture - Final Peripheral Venipuncture No growth. 06/20/17 19:20 Wound Culture - Final Left Foot Pseudomonas aeruginosa Escherichia coli Staphylococcus aureus Serology: Serology 06/24/17 Range/Units 19:53 Stl C. diff Tox B Gene Negative (Negative) - VTE Documentation of Mechanical Device: Venous foot pump, device Consult Discharge Plan - Plan Referrals: wound,care [Other] - 07/07/17 11:15 am (By ER entrance between the doors) Sammy Pompa MD [Primary Care Provider] - 06/28/17 2:15 pm Xu Centeno MD [Partnered Physician] - 07/07/17 9:45 am Prescriptions: Cpqehecqnxac-Avsv-Wmmjfsdl,Iso [Zosyn 3.375 gm/50 ml Galaxy] 3.375 gm IV Q8HR # 30 froz.piggy - Attending Attestation I examined this patient and my medical decision-making was reviewed with the Resident Physician. I agree with the documented findings, disposition and treatment plan as described except to the extent set forth below. Patient is a 66-year-old woman who has an extensive past medical history mentioned below including diabetes mellitus, hypertension, hyperlipidemia and coronary artery disease who came into the ER on Wednesday with left foot cellulitis and necrotic toes 1 through 4. Patient apparently had no fever in the emergency department had to SIRS criteria including leukocytosis and tachycardia and labs revealed a ESR of 125 and a CRP of 31. Patient had a foot x -ray in the emergency department which was negative. Wound cultures were obtained and there were positive for pseudomonas aeruginosa that was pansensitive, Escherichia coli and MSSA. Patient was initially started on vancomycin and Cipro. Patient also had chest pain during the hospital stay and with EKG changes and mild troponin leak. Currently patient is comfortable sitting up at the side of the bed. No acute distress. Patient is having loose stool. She had 3 loose movements a day. Patient denies any current chest pain or shortness of breath or dyspnea on exertion. Patient had an angioplasty done on 06/22/2017 left SFA, left popliteal and left posterior tibial. Patient also has a lot of occlusion in the anterior side. Patient's antibiotics were switched to Zosyn. She also chest x-ray which was negative and his C. difficile which was negative. We were asked to evaluate the patient and make further recommendation Assessment and plan: #1 sepsis #2 left foot gangrene #3 Severe peripheral vascular disease At this point we will continue with Zosyn which should cover MSSA, Pseudomonas and Escherichia coli. Patient is allergic to cephalexin but has tolerated Zosyn so far I will have to discuss with podiatry because I am worried that if she doesn't have adequate perfusion to the foot then Zosyn will not work effectively. I understand that they did not want to do any surgery at this time but we will discuss with them and go further. Monitor labs and for drug toxicity, dose adjust Zosyn based on creatinine clearance.
--- NOTE | 2017-06-28 19:13 | Internal Med Progress Note ---
Date of Encounter: 06/28/17 Time of Encounter: 11:00 - Assessment and plan (1) Cellulitis of left foot Current Visit: Yes Status: Acute Assessment and plan: Patient presented with left lower extremity cellulitis and found to have necrotic toe Wound cultures on left foot positive for Pseudomonas aeruginosa, Escherichia coli and Staphylococcus aureus Blood cultures negative Infectious disease consult for recommendations for IV antibiotic and duration Per nursing, family concern about patient going home and requesting evaluation for fpc facility placement (2) Necrosis of toe Current Visit: Yes Status: Acute Assessment and plan: Podiatry recommendations for continued local wound care with betadine without any surgical intervention at this time (3) Atherosclerosis of left lower extremity with gangrene Current Visit: Yes Status: Chronic Assessment and plan: -Vascular surgery consulted and a Balloon angioplasty of left proximal superficial femoral artery, proximal and mid popliteal artery, and distal posterior tibial artery was done Qualifiers: Peripheral atherosclerosis artery type: [place] artery Qualified Code(s): I70.262 - Atherosclerosis of [place] arteries of extremities with gangrene, left leg (4) Diabetes mellitus Current Visit: Yes Status: Acute Assessment and plan: Controlled; continue Januvia with SSI and accuchecks q AC HS Qualifiers: Diabetes mellitus type: type 2 Diabetes mellitus complication status: with neurologic complications Diabetes mellitus complication detail: with polyneuropathy Diabetes mellitus chcf insulin use: with chcf use Qualified Code(s): E11.42 - Type 2 diabetes mellitus with diabetic polyneuropathy; Z79.4 - [facility] (current) use of insulin; 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 Recent heart catheterization December 2016 showed patent GARAY to LAD, patent SVG to OM1, patent sequential SVG to OM 2 , occluded SVG to right PDA. [place] circulation to RCA showed proximal RCA 30%, mid RCA 25%, distal RCA 40% lesions. Abnormal nuclear stress test December 2016 showed findings consistent with reversible myocardial ischemia involving basal apical anterior wall and apical lateral wall. Echo from December 2016 showed EF 60 %, normal LV function, no significant valvular dysfunction, no pulmonary hypertension, NSWMA. On aspirin, Plavix, statin, beta eugenie, JOSE inhibitor, long-acting nitrates Qualifiers: Coronary Disease-Associated Artery/Lesion type: bypass graft Associated angina: angina presence unspecified Qualified Code(s): I25.810 - Atherosclerosis of coronary artery bypass graft(s) without angina pectoris (6) Hypertension Current Visit: Yes Status: Acute Assessment and plan: Controlled; continue JOSE inhibitor and beta eugenie Qualifiers: Hypertension type: essential hypertension Qualified Code(s): I10 - Essential (primary) hypertension (7) GERD (gastroesophageal reflux disease) Current Visit: Yes Status: Acute Assessment and plan: Continue PPI Qualifiers: Esophagitis presence: esophagitis presence not specified Qualified Code(s) : K21.9 - Gastro-esophageal reflux disease without esophagitis (8) DVT prophylaxis Current Visit: Yes Status: Acute Assessment and plan: Subcutaneous heparin - Subjective Interval history: Patient presented with left lower extremity cellulitis and found to have necrotic toe Wound cultures on left foot positive for Pseudomonas aeruginosa, Escherichia coli and Staphylococcus aureus; sensitivities pending Blood cultures negative Per nursing, family concern about patient going home and requesting evaluation for fpc facility placement - Constitutional Vitals: Temp Pulse Resp BP Pulse Ox 100.6 F H 97 16 132/75 93 06/28/17 16:18 06/28/17 16:18 06/28/17 16:18 06/28/17 16:18 06/28/17 16:18 General appearance: Present: A&O X 3 - Respiratory Respiratory exam: Present: CTAB. Absent: accessory muscle use, rales, rhonchi, wheezes - Cardiovascular Cardiovascular exam: Present: RRR, +S1, +S2. Absent: diastolic murmur, gallop, rubs, systolic murmur Internal Medicine: Result - Labs CBC & Chem 7: 06/28/17 01:20 06/28/17 01:20 Labs: Short CBC 06/28/17 Range/Units 01:20 WBC 9.1 (4.3-11.1) K/mcL Hgb 8.5 L (11.5-15.4) g/dL Hct 29.1 L (35.3-44.9) % Plt Count 287 (140-400) K/mcL Neutrophils # 6.9 (1.6-8.9) K/mcL BMP 06/27/17 06/28/17 20:03 01:20 Sodium 139 Potassium 3.7 D 3.5 Chloride 104 Carbon Dioxide 30 H BUN 8 Creatinine 0.76 Glucose 132 H Calcium 8.2 L Cardiac Enzymes 06/28/17 06/28/17 Range/Units 01:20 03:45 Troponin I < 0.03 < 0.03 (< 0.04) ng/mL - ABG Interpretation ABG results: PT/INR, D-dimer PT 13.0 Seconds (9.4-12.1) H 06/22/17 08:17 - Impressions Impressions Chest X-Ray 06/28/17 01:10 IMPRESSION: No acute disease. D/ / Vik Gayle MD / Vik Gayle MD Interpreting Provider: Vik Gayle MD - VTE Documentation of Mechanical Device: Venous foot pump, device Consult Discharge Plan - Plan Referrals: wound,care [Other] - 07/07/17 11:15 am (By ER entrance between the doors) Sammy Pompa MD [Primary Care Provider] - 06/28/17 2:15 pm Xu Centeno MD [Partnered Physician] - 07/07/17 9:45 am Prescriptions: Zvnamfbnedqc-Qttr-Qnclbugc,Iso [Zosyn 3.375 gm/50 ml Galaxy] 3.375 gm IV Q8HR # 30 frozbrad
[2017-06-28] MEDS: Insulin DETEMIR 100 UNIT/ML X5UNITS SQ SCH (23:43)
[2017-06-29] MEDS: *HR* Heparin 5,000 UNIT/ML VIAL SQ SCH ×3 (06:39→21:51)
[2017-06-29] MEDS: Insulin LISPRO 300 UNITS/3 ML VIAL SQ SCH ×4 (07:25→21:52)
[2017-06-29] MEDS: Aspirin Enteric Coated 81 MG Tablet PO SCH (09:26)
[2017-06-29] MEDS: Folic Acid 1 MG TABLET PO SCH (09:27)
[2017-06-29] MEDS: Cholecalciferol (D-3) 1,000 UNIT TABLET PO SCH (09:27)
[2017-06-29] MEDS: Isosorbide MONOnitrate (24 HR) 60 MG TAB.ER.24H PO SCH (09:27)
[2017-06-29] MEDS: *HR* SitaGLIPtin 100 MG TABLET PO SCH (09:27)
[2017-06-29] MEDS: Gabapentin 300 MG CAPSULE PO SCH ×3 (09:27→21:50)
[2017-06-29] MEDS: *HR* HYDROcodone/Acet 5/325 mg TABLET PO PRN ×3 (09:32→22:30)
--- NOTE | 2017-06-29 12:00 | Infectious Disease Progress No ---
Date of Encounter: 06/29/17 Time of Encounter: 11:58 - Assessment and Plan (1) Sepsis Current Visit: Yes Status: Acute The patient had two SIRS criteria on admission. Likely secondary to left foot cellulitis and wound infection. Improved. WBC has normalized. She started having fevers and tachycardia again overnight. Blood cultures drawn 06/20/17 are negative x 2 sets. Lactic acid on admission normal. Repeat blood cultures x 2 sets drawn 06/28/17 are pending. Flu A antigen positive. Qualifiers: Sepsis type: sepsis due to unspecified organism Qualified Code(s): A41.9 - Sepsis, unspecified organism (2) Influenza A Current Visit: Yes Status: Acute Influenza A antigen positive. Droplet precautions. Continue Tamiflu 75mg PO BID x 5 days. Supportive care. (3) Left foot infection Current Visit: Yes Status: Acute Causative organism: MSSA, E. coli, PSEA. Secondary to left foot second toe wound. Foot x-ray negative for OM, but ESR and CRP are very elevated. ESR 125, CRP 39. Podiatry consulted and following. No surgical intervention at this time. Concerned that the lack of blood flow to the toes will hinder the patient's ability to get adequate antibiotic penetration to the tissue and will therefore not clear the infection. Will discuss with podiatry. Wound care and activity restrictions per the podiatry team. Continue Zosyn 3.375 grams IV Q8H for now. Duration of treatment depends on the clinical picture. Monitor renal function and dose-adjust antibiotics. (4) Cellulitis of left foot Current Visit: Yes Status: Acute Location: Left foot. Causative organism: MSSA, E. coli, and PSEA. Likely secondary to left foot wound infection. Improved per patient report. Continue antibiotics as above. (5) Necrosis of toe Current Visit: Yes Status: Acute Location: Left foot toe #3 and #4 with some necrosis noted to the 1st and 4th toes. Secondary to infection vs. ischemia. Podiatry consulted and following. No surgical intervention at this time. Wound care per the podiatry team. (6) Gangrene Current Visit: Yes Status: Acute (7) Diabetes mellitus Current Visit: Yes Status: Acute Controlled. HgbA1C 6.5%. Recommend aggressive glucose monitoring and control to promote wound healing and prevent re-infection. Management per the primary team. Qualifiers: Diabetes mellitus type: type 2 Diabetes mellitus complication status: with neurologic complications Diabetes mellitus complication detail: with polyneuropathy Diabetes mellitus nursing home insulin use: with nursing home use Qualified Code(s): E11.42 - Type 2 diabetes mellitus with diabetic polyneuropathy; Z79.4 - intermediate accountant (current) use of insulin; Z79.4 - intermediate accountant ( current) use of insulin; Z79.4 - intermediate accountant (current) use of insulin; Z79.4 - assisted (current) use of insulin (8) Peripheral neuropathy Current Visit: Yes Status: Acute Qualifiers: Peripheral neuropathy type: polyneuropathy, unspecified Qualified Code(s): G62.9 - Polyneuropathy, unspecified (9) CAD (coronary artery disease) Current Visit: Yes Status: Chronic Qualifiers: Coronary Disease-Associated Artery/Lesion type: bypass graft Associated angina: angina presence unspecified Qualified Code(s): I25.810 - Atherosclerosis of coronary artery bypass graft(s) without angina pectoris (10) Chest pain Current Visit: Yes Status: Acute Cardiology consulted. Likely demand ischemia from tachycardia d/t pain. Troponins mildly elevated initially, but now normal. CXR negative. Qualifiers: Chest pain type: unspecified Qualified Code(s): R07.9 - Chest pain, unspecified (11) Atherosclerosis of left lower extremity with gangrene Current Visit: Yes Status: Chronic Vascular surgery consulted. Status post angiogram 06/22/[address] Centeno with balloon angioplasty of the left SFA, left popliteal, and left posterior tibial. Right anterior tibial, left anterior tibial, right dorsalis pedis, and left dorsalis pedis occluded. Qualifiers: Peripheral atherosclerosis artery type: [place] artery Qualified Code(s): I70.262 - Atherosclerosis of [place] arteries of extremities with gangrene, left leg (12) Hypertension Current Visit: Yes Status: Acute Qualifiers: Hypertension type: essential hypertension Qualified Code(s): I10 - Essential (primary) hypertension - Subjective Interval history: He should seen and examined. No acute events noted overnight. Patient continues to have fevers and tachycardia. She does test positive for influenza A. She continues to report some chills overnight. She also complains of chest congestion causing discomfort in her chest and her back. She denies any shortness of breath. She reports a cough productive of clear sputum. She denies any nausea or vomiting, however she states she doesn't have much of an appetite. She does report diarrhea and states she had 2 loose stools yesterday. She denies any abdominal pain or urinary complaints. She does not report any pain in her left foot today. She denies any oral thrush or new skin lesions. Infect Dis PN-Objective Data - Labs CBC & Chem 7: 06/28/17 01:20 06/28/17 01:20 Labs: Laboratory Results - last 24 hr 06/28/17 06/28/17 06/28/17 06:35 12:30 16:21 POC Glucose 148 H 87 99 H 06/28/17 06/29/17 06/29/17 21:15 06:46 09:25 POC Glucose 109 H 67 93 H Cultures: Cultures 06/28/17 18:45 Influenza Types A,B Antigen (ISABELA) - Final Nasopharyngeal Serology 06/24/17 Range/Units 19:53 Stl C. diff Tox B Gene Negative (Negative) Exam - Constitutional Vitals: Temp Pulse Resp BP Pulse Ox 99.2 F 106 16 161/76 93 06/29/17 06:42 06/29/17 06:42 06/29/17 06:42 06/29/17 06:42 06/29/17 06:42 General appearance: average body habitus, cooperative, no acute distress - Head Head exam: Present: atraumatic, normal inspection, normocephalic - Eye Eye exam: Present: EOMI, normal appearance, PERRL Pupils: Present: normal accommodation - ENT ENT exam: Present: mucous membranes moist - Neck Neck exam: Present: normal inspection - Respiratory Respiratory exam: Present: wheezes (Fine expiratory wheezes throughout). Absent : rales, respiratory distress, rhonchi - Cardiovascular Cardiovascular exam: Present: RRR, +S1, +S2 - GI/Abdominal GI/Abdominal exam: Present: normal bowel sounds, soft. Absent: distended, tenderness - Extremities Exam Extremities exam: Absent: joint swelling, pedal edema, tenderness Additional comments: Left foot dressing C/D/I. - Neurological Exam Neurological exam: Present: alert, oriented X3, no focal deficits - Psychiatric Psychiatric exam: Present: normal affect, normal mood - Skin Skin exam: Present: dry, intact, normal color, warm - VTE Documentation of Mechanical Device: Venous foot pump, device Consult Discharge Plan - Plan Referrals: wound,care [Other] - 07/07/17 11:15 am (By ER entrance between the doors) Sammy Pompa MD [Primary Care Provider] - 06/28/17 2:15 pm Xu Centeno MD [Partnered Physician] - 07/07/17 9:45 am Prescriptions: Ljstcvtfvmvi-Loio-Hwjdbqlm,Iso [Zosyn 3.375 gm/50 ml Galaxy] 3.375 gm IV Q8HR # 30 [email or web address] - Attending Attestation I examined this patient and my medical decision-making was reviewed with the Resident Physician. I agree with the documented findings, disposition and treatment plan as described except to the extent set forth below.
--- NOTE | 2017-06-29 17:00 | Internal Med Progress Note ---
<Tramaine Hammer Yoni - Last Filed: 06/29/17 18:08> Date of Encounter: 06/29/17 - Constitutional Vitals: Temp Pulse Resp BP Pulse Ox 100.1 F H 78 15 124/65 96 06/29/17 16:04 06/29/17 16:04 06/29/17 16:04 06/29/17 16:04 06/29/17 16:04 Internal Medicine: Result - Labs CBC & Chem 7: 06/28/17 01:20 06/28/17 01:20 - ABG Interpretation ABG results: PT/INR, D-dimer PT 13.0 Seconds (9.4-12.1) H 06/22/17 08:17 Consult Discharge Plan - Plan Referrals: wound,care [Other] - 07/07/17 11:15 am (By ER entrance between the doors) Sammy Pompa MD [Primary Care Provider] - 06/28/17 2:15 pm Xu Centeno MD [Partnered Physician] - 07/07/17 9:45 am Prescriptions: Alucslcjrwde-Cmft-Hxavjplv,Iso [Zosyn 3.375 gm/50 ml Galaxy] 3.375 gm IV Q8HR # 30 [email or web address] - Attending Attestation I personally interviewed and examined this patient. I agree with the findings, assessment, and plan of Dr. Harper, internal medicine internal combustion engine subassembler. Infectious disease input also appreciated, as well as podiatry. She continues on Zosyn for now. Cultures are pending. All else as outlined above. <Rafael Harper - Last Filed: 06/29/17 18:58> Date of Encounter: 06/29/17 Time of Encounter: 18:49 - Assessment and plan (1) Cellulitis of left foot Current Visit: Yes Status: Acute Assessment and plan: Patient presented with left lower extremity cellulitis and found to have necrotic toe Wound cultures on left foot positive for Pseudomonas aeruginosa, Escherichia coli and Staphylococcus aureus Initial blood cultures negative Infectious disease consult for recommendations for IV antibiotic and duration. Repeat blood cultures drawn on 06/28/17 are pending. Recommend continuing Zosyn. Duration of tx depends on clinical picture. ID to discuss with podiatry concern for antibiotic penetration to the toes. Continue wound care per podiatry. Monitor Renal function and dose-adjust antibiotics Per nursing, family concern about patient going home and requesting evaluation for senior living facility placement (2) Necrosis of toe Current Visit: Yes Status: Acute Assessment and plan: Podiatry recommendations for continued local wound care with betadine without any surgical intervention at this time. (3) Atherosclerosis of left lower extremity with gangrene Current Visit: Yes Status: Chronic Assessment and plan: -Vascular surgery consult in the balloon angioplasty of the left proximal superficial femoral artery, proximal and mid popliteal artery, and distal posterior tibial artery. According to note by podiatry Dr. Centeno with Vascular Surgery states that this patient does have sufficient blood flow to supply the area. Qualifiers: Peripheral atherosclerosis artery type: [place] artery Qualified Code(s): I70.262 - Atherosclerosis of [place] arteries of extremities with gangrene, left leg (4) Diabetes mellitus Current Visit: Yes Status: Acute Assessment and plan: Controlled; continue Januvia with sliding scale insulin patient is on medium dose. Qualifiers: Diabetes mellitus type: type 2 Diabetes mellitus complication status: with neurologic complications Diabetes mellitus complication detail: with polyneuropathy Diabetes mellitus joint terminal attack controller insulin use: with fpc use Qualified Code(s): E11.42 - Type 2 diabetes mellitus with diabetic polyneuropathy; Z79.4 - emt intermediate (current) use of insulin; Z79.4 - correction ( current) use of insulin; Z79.4 - emt intermediate (current) use of insulin; Z79.4 - emt intermediate (current) use of insulin (5) CAD (coronary artery disease) Current Visit: Yes Status: Chronic Assessment and plan: Patient has history of CAD with CABG 4 in 2001 at [place]. Abnormal nuclear stress test in 2017 consistent with reversible myocardial ischemia. Echo done in December 2016 showed an EF of 60%, normal LV function, no significant valvular dysfunction, no pulmonary hypertension,NSWMA. Recent heart catheter done in Recent heart cath in December of 2016. On aspirin, Plavix, statin, beta eugenie, JOSE inhibitor, long-acting nitrates. Patient experienced an episode of chest pain symptoms during the night on 06/20/17 and the setting of tachycardia which she attributed to her extreme left foot pain. She did have a troponin with mild elevation peak of 0.09. Limited echo was ordered and showed LVEF of 60-65 % with normal LV chamber size with all wall segment showing normal motion. She is chest pain-free. Cardiology saw the patient, no further recommendations were made at this time. Attributed elevated troponin to demand ischemia secondary to the pain the patient was experiencing. Plan for f/u outpatient.. Qualifiers: Coronary Disease-Associated Artery/Lesion type: bypass graft [place] vs. transplanted heart: [place] heart Associated angina: angina presence unspecified Qualified Code(s): I25.810 - Atherosclerosis of coronary artery bypass graft(s) without angina pectoris (6) Hypertension Current Visit: Yes Status: Acute Assessment and plan: Controlled; continue JOSE inhibitor and beta eugenie Qualifiers: Hypertension type: essential hypertension Qualified Code(s): I10 - Essential (primary) hypertension (7) GERD (gastroesophageal reflux disease) Current Visit: Yes Status: Acute Assessment and plan: Continue PPI Qualifiers: Esophagitis presence: esophagitis presence not specified Qualified Code(s) : K21.9 - Gastro-esophageal reflux disease without esophagitis (8) DVT prophylaxis Current Visit: Yes Status: Acute Assessment and plan: Subcutaneous heparin (9) Influenza A Current Visit: Yes Status: Acute Assessment and plan: Influenza A positive. Droplet precautions. Continue Tamiflu 75 mg by mouth twice a day 5 days. - Subjective Interval history: Patient is a 66 her old female with long sitting history of, CAD status post 4 stents, CABG, CHF, hyperlipidemia, hypertension type 2 diabetes on insulin and peripheral neuropathy who presents for infection of the second and third left toe. The toe was evaluated by podiatry and cultures were sent with sensitivities returned. The patient was initiated on appropriate antibiotics. Vascular surgery was also consulted to evaluate the arterial support for the affected toes and it was determined that the patient is receiving enough blood supply to the toes for treatment. The patient also experienced an episode of chest pain during her stay in which she had an elevated troponin and some ST elevation, however this was evaluated by cardiology and it was attributed to demand ischemia. Patient was educated for follow-up with photo printer outpatient. At this time repeat blood cultures are pending. Infectious disease was consulted for duration of antibiotic treatment and estimated that will depend on clinical picture and every consulted podiatry with the concern that the toes will not receive enough vascular supply for antibiotic penetration. - Constitutional Vitals: Temp Pulse Resp BP Pulse Ox 100.1 F H 78 15 124/65 96 06/29/17 16:04 06/29/17 16:04 06/29/17 16:04 06/29/17 16:04 06/29/17 16:04 General appearance: Present: A&O X 3, pleasant, no acute distress Exam: Upon entry to the room the patient is sitting up eating dinner. Her vital signs are currently stable. She is on 2 L of nasal cannula satting at 95%. States she has oxygen at home and uses it intermittently - Head Head exam: Present: atraumatic, normal inspection, normocephalic - Eye Eye exam: Present: normal appearance, PERRL - Neck Neck exam general surgery: Present: normal inspection - Respiratory Respiratory exam: Present: CTAB. Absent: rales, rhonchi, stridor, wheezes - Cardiovascular Cardiovascular exam: Present: RRR, +S1, +S2 - GI/Abdominal GI/Abdominal exam: Present: normal bowel sounds, soft, no peritoneal signs. Absent: guarding - Extremities Exam Extremities exam: Present: normal capillary refill. Absent: calf tenderness Additional comments: Patient's LLE was evaluated by podiatry and vascular surgery. Patient foot recently bandaged. Patient does have some erythema surrounding the top of her sock line, however she states of these are chronic changes may occur whenever she is sitting upwards with her feet on the ground. Consistent with chronic venous stasis changes. - Back Exam Back exam: Present: full ROM, normal inspection - Neurological Exam Neurological exam: Present: alert, oriented X3, no focal deficits - Psychiatric Psychiatric exam: Present: normal affect, normal mood - Skin Skin exam: Present: dry, intact, normal color. Absent: rash Internal Medicine: Result - Labs CBC & Chem 7: 06/28/17 01:20 06/28/17 01:20 - ABG Interpretation ABG results: PT/INR, D-dimer PT 13.0 Seconds (9.4-12.1) H 06/22/17 08:17 - VTE Documentation of Mechanical Device: Venous foot pump, device
[2017-06-29] MEDS: Insulin DETEMIR 100 UNIT/ML X5UNITS SQ SCH (22:07)
[2017-06-29 22:17] LABS: Bilirubin,Urine Negative (Negative); Blood,Urine Negative (Negative); Clarity,Urine Clear (Clear); Color,Urine Yellow (Yellow); Glucose,Urine (UA) Normal (Normal); Ketones,Urine Negative (Negative); Leukocyte Esterase,Urine Negative (Negative); Nitrite,Urine Negative (Negative); Protein,Urine 30 mg/dL (Neg-Trace); Specific Gravity,Urine 1.022 (1.010-1.025); Urobilinogen,Urine Normal (Normal)
[2017-06-29 22:24] LABS: Bacteria,Urine None Seen per hpf (None-Few); Hyaline Casts,Urine None Seen per lpf (None-Few); RBC,Urine 0-3 per hpf (0-3); Squamous Epithelial Cell,Urine Many per lpf (None-Few)
[2017-06-30] MEDS: *HR* HYDROcodone/Acet 5/325 mg TABLET PO PRN ×3 (05:02→22:00)
[2017-06-30] MEDS: *HR* Heparin 5,000 UNIT/ML VIAL SQ SCH ×3 (05:03→22:00)
[2017-06-30] MEDS: Isosorbide MONOnitrate (24 HR) 60 MG TAB.ER.24H PO SCH (07:53)
[2017-06-30] MEDS: Aspirin Enteric Coated 81 MG Tablet PO SCH (07:53)
[2017-06-30] MEDS: Gabapentin 300 MG CAPSULE PO SCH ×3 (07:54→22:00)
[2017-06-30] MEDS: *HR* SitaGLIPtin 100 MG TABLET PO SCH (07:54)
[2017-06-30] MEDS: Insulin LISPRO 300 UNITS/3 ML VIAL SQ SCH ×4 (07:54→22:05)
[2017-06-30] MEDS: Cholecalciferol (D-3) 1,000 UNIT TABLET PO SCH (07:54)
[2017-06-30] MEDS: Folic Acid 1 MG TABLET PO SCH (07:54)
--- NOTE | 2017-06-30 12:52 | Podiatry Progress Note ---
Date of Encounter: 06/30/17 Time of Encounter: 12:00 - Assessment and Plan (1) Cellulitis of left foot Current Visit: Yes Status: Acute Infectious disease following and appreciated WBC 9.2 today and afebrile Admit ESR 125 CRP 39 Currently on Zosyn Q8H Cellulitis has improved in appearance (2) Necrosis of toe Current Visit: Yes Status: Acute Assessed at bedside There is worsening of appearance of necrosis, most notably to the dorsal foot wound. There is noted white drainage to wound margins. There is also expansion of necrosis extending unto toe #1 and further unto toe #4. Spoke with , states he is going to contact jacobo regarding findings in angiogram and inquire about healing of possible TMA Erlinda will go to bedside tonight to speak with patient about options, options of : 1)follow medically and see in wound care next week 2) amputation of toes # 2 #3 #4 with graft jacket placement, 3)TMA possible BKA in future if non healing is a issue. If patient opts not to have surgery, will be clear for discharge and follow in wound care center with in clinic next wednesday. Continue daily betadine and dry dressing changes daily Cleanse with mild soap and water Keep elevated. Call with any increased erythema or edema, fevers chills n/v or flu like symptoms. Subjective Principal diagnosis: CP Interval history: Patient admitted for dry gangrene of left foot toes #2 #3 #4 of left. Patient underwent Abdominal aortogram, Aortogram with runoff bilaterally Balloon angioplasty of left proximal superficial femoral artery, proximal and mid popliteal artery, and distal posterior tibial artery per Jacobo on 06/22/17- per Jacobo patient does have sufficient blood flow to supply area- Patient resting comfortably on arrival. States she has pain intermittently to toes. Denies any fevers or chills, n/v or flu like symptoms. WBC 9.2 today, afebrile. Patient was last seen last week and cleared for discharge to follow up in wound care center with . patient has stayed inpatient due to the flu. Dry dressing intact to foot. Objective - Vital Signs Vital Signs: Vital Signs Temp Pulse Resp BP Pulse Ox 06/30/17 11:20 98.0 F 67 101/50 95 06/30/17 08:07 94 06/30/17 06:34 98.4 F 83 16 134/83 98 06/30/17 04:57 98.7 F 86 16 136/76 97 06/30/17 00:35 98.3 F 78 16 117/61 94 06/29/17 19:51 98.8 F 79 18 122/68 93 06/29/17 18:12 98.2 F 06/29/17 16:04 100.1 F H 78 15 124/65 96 Intake and Output 06/29/17 06/30/17 06/30/17 23:59 07:59 15:59 Intake Total 280 / 280 550 / 550 240 / 240 Output Total 0 / 0 450 / 450 400 / 400 Balance 280 / 280 100 / 100 -160 / -160 Intake: IV Fluids 100 / 100 100 / 100 Zosyn 3.375 GM In 0.9 % Sodium 100 / 100 100 / 100 Chloride 100 ML @ 25 mls/hr IVPB Q8H [facility] Rx#:[id number] Oral 180 / 180 450 / 450 240 / 240 Output: Urine 0 / 0 450 / 450 400 / 400 Other: Meal Dinner Breakfast Percent of Meal Consumed 55% 60% Stool Size Small Small Stool Consistency loose soft Stool Color Brown Brown # Voids 1 1 # Bowel Movements 1 1 Blood Glucose* 144 60 148 - Exam Exam: Awake, alert and oriented x3 Foot warm toes to tibia excluding toes #2 #3 Cap refill <3 seconds to dorsal aspect of foot, sluggish to toes #1 #4 and absent to #2 #3 which are necrotic Movement to ankle intact- minimal movement of toes No sensation to moderate touch Wound appearance There is complete necrosis/dry gangrene to toes #2 #3 with expanding necrosis to more than 50% of toe #4 and now extending unto medial aspect of toe #1. Necrosis to plantar aspect of toes does not extend past MTP joint. There is noted yellow drainage to wound margins surrounding toes. Patients great toe nail has avulsed and there is now white drainage noted to nail base. There is dry unstageable necrosis noted to dorsal aspect of foot which has worsened in appearance since last assessed. There is lifting of wound margins with white drainage noted under. No odor. Erythema and edema has improved in appearance surrounding wound. No pain with palpation. - Lab Result Diagrams: 06/28/17 01:20 06/28/17 01:20 Labs: Abnormal lab results Hgb 8.5 g/dL (11.5-15.4) L 06/28/17 01:20 Hct 29.1 % (35.3-44.9) L 06/28/17 01:20 MCV 75.4 fL (83.0-100.0) L 06/28/17 01:20 MCH 22.0 pg (28.0-33.3) L 06/28/17 01:20 MCHC 29.2 g/dL (31.6-35.5) L 06/28/17 01:20 RDW 19.3 % (11.5-14.5) H 06/28/17 01:20 Nucleated RBCs/100 WBC 0.6 /100 WBC (0) H 06/24/17 10:13 Reactive Lymphocytes Present (Not Present) A 06/27/17 06:30 Toxic Granulation Present (Not Present) A 06/23/17 09:04 Polychromasia 1+ (Not Present) A 06/27/17 06:30 Hypochromasia Present (Not Present) A 06/26/17 08:37 Anisocytosis 1+ (Not Present) A 06/27/17 06:30 Microcytosis Present (Not Present) A 06/26/17 08:37 Macrocytosis Present (Not Present) A 06/21/17 04:46 ESR 125 mm/hr (0-15) H 06/20/17 19:00 PT 13.0 Seconds (9.4-12.1) H 06/22/17 08:17 Carbon Dioxide 30 mEq/L (23-29) H 06/28/17 01:20 Glucose 132 mg/dL (70-105) H 06/28/17 01:20 POC Glucose 144 (58-89) H 06/29/17 20:49 Hemoglobin A1c 6.5 % (-5.6) H 06/21/17 04:46 Calcium 8.2 mg/dL (8.6-10.3) L 06/28/17 01:20 Total Bilirubin 0.2 mg/dL (0.3-1.0) L 06/22/17 10:08 C-Reactive Protein 39 mg/L (Less than 10) H 06/20/17 19:00 Albumin 2.8 g/dL (3.5-5.7) L 06/22/17 10:08 Globulin 3.6 g/dL (2.4-3.5) H 06/22/17 10:08 Albumin/Globulin Ratio 0.8 (1.1-2.2) L 06/22/17 10:08 Urine Protein 30 mg/dL (Neg-Trace) H 06/29/17 21:50 Urine Microscopic WBC 5-15 per hpf (0-3) H 06/29/17 21:50 Ur Squamous Epith Cells Many per lpf (None-Few) H 06/29/17 21:50 Microbiology, Last 48 Hours 06/28/17 18:50 Blood Culture - Preliminary Peripheral Venipuncture No growth. 06/28/17 18:47 Blood Culture - Preliminary Peripheral Venipuncture No growth. 06/28/17 18:45 Influenza Types A,B Antigen (ISABELA) - Final Nasopharyngeal - VTE Documentation of Mechanical Device: Venous foot pump, device Consult Discharge Plan - Plan Referrals: wound,care [Other] - 07/07/17 11:15 am (By ER entrance between the doors) Sammy Pompa MD [Primary Care Provider] - 06/28/17 2:15 pm Xu Centeno MD [Partnered Physician] - 07/07/17 9:45 am Prescriptions: Yodiypjstrcy-Qiyw-Eldxfbwt,Iso [Zosyn 3.375 gm/50 ml Galaxy] 3.375 gm IV Q8HR # 30 [email or web address]
--- NOTE | 2017-06-30 14:53 | Infectious Disease Progress No ---
Date of Encounter: 06/30/17 Time of Encounter: 14:51 - Assessment and Plan (1) Sepsis Current Visit: Yes Status: Acute The patient had two SIRS criteria on admission. Likely secondary to left foot cellulitis and wound infection. Improved. WBC has normalized. She has been afebrile. Tachycardia has resolved. Blood cultures drawn 06/20/17 are negative x 2 sets. Lactic acid on admission normal. Repeat blood cultures x 2 sets drawn 06/28/17 are NGTD. Flu A antigen positive. Qualifiers: Sepsis type: sepsis due to unspecified organism Qualified Code(s): A41.9 - Sepsis, unspecified organism (2) Influenza A Current Visit: Yes Status: Acute Influenza A antigen positive. Droplet precautions. Continue Tamiflu 75mg PO BID x 5 days. Supportive care. (3) Left foot infection Current Visit: Yes Status: Acute Causative organism: MSSA, E. coli, PSEA. Secondary to left foot second toe wound. Foot x-ray negative for OM, but ESR and CRP are very elevated. ESR 125, CRP 39. Podiatry consulted and following. No surgical intervention at this time. Concerned that the lack of blood flow to the toes will hinder the patient's ability to get adequate antibiotic penetration to the tissue and will therefore not clear the infection, but she did have balloon angioplasty. Will discuss with podiatry. Wound care and activity restrictions per the podiatry team. Continue Zosyn 3.375 grams IV Q8H for now. Duration of treatment depends on the clinical picture. Monitor renal function and dose-adjust antibiotics. (4) Cellulitis of left foot Current Visit: Yes Status: Acute Location: Left foot. Causative organism: MSSA, E. coli, and PSEA. Likely secondary to left foot wound infection. Improved per patient report. Continue antibiotics as above. (5) Necrosis of toe Current Visit: Yes Status: Acute Location: Left foot toe #3 and #4 with some necrosis noted to the 1st and 4th toes. Secondary to infection vs. ischemia. Podiatry consulted and following. No surgical intervention at this time. Wound care per the podiatry team. (6) Gangrene Current Visit: Yes Status: Acute (7) Diabetes mellitus Current Visit: Yes Status: Acute Controlled. HgbA1C 6.5%. Recommend aggressive glucose monitoring and control to promote wound healing and prevent re-infection. Management per the primary team. Qualifiers: Diabetes mellitus type: type 2 Diabetes mellitus complication status: with neurologic complications Diabetes mellitus complication detail: with polyneuropathy Diabetes mellitus extermination supervisor insulin use: with group home use Qualified Code(s): E11.42 - Type 2 diabetes mellitus with diabetic polyneuropathy; Z79.4 - snf (current) use of insulin; Z79.4 - snf ( current) use of insulin; Z79.4 - supervisor intermediates (current) use of insulin; Z79.4 - snf (current) use of insulin (8) Peripheral neuropathy Current Visit: Yes Status: Acute Qualifiers: Peripheral neuropathy type: polyneuropathy, unspecified Qualified Code(s): G62.9 - Polyneuropathy, unspecified (9) CAD (coronary artery disease) Current Visit: Yes Status: Chronic Qualifiers: Coronary Disease-Associated Artery/Lesion type: bypass graft [place] vs. transplanted heart: [place] heart Associated angina: angina presence unspecified Qualified Code(s): I25.810 - Atherosclerosis of coronary artery bypass graft(s) without angina pectoris (10) Chest pain Current Visit: Yes Status: Resolved Cardiology consulted. Likely demand ischemia from tachycardia d/t pain. Troponins mildly elevated initially, but now normal. CXR negative. Qualifiers: Chest pain type: unspecified Qualified Code(s): R07.9 - Chest pain, unspecified (11) Atherosclerosis of left lower extremity with gangrene Current Visit: Yes Status: Chronic Vascular surgery consulted. Status post angiogram 06/22/[address] Centeno with balloon angioplasty of the left SFA, left popliteal, and left posterior tibial. Right anterior tibial, left anterior tibial, right dorsalis pedis, and left dorsalis pedis occluded. Qualifiers: Peripheral atherosclerosis artery type: [place] artery Qualified Code(s): I70.262 - Atherosclerosis of [place] arteries of extremities with gangrene, left leg (12) Hypertension Current Visit: Yes Status: Acute Qualifiers: Hypertension type: essential hypertension Qualified Code(s): I10 - Essential (primary) hypertension - Subjective Interval history: Patient seen and examined. No acute events noted overnight. Patient was afebrile overnight and tachycardia has resolved. She states she feels a little better this morning. States she still has chest congestion, but denies chest or back pain. She denies any shortness of breath. She reports a cough productive of clear sputum. She denies any nausea or vomiting and states her appetite is better. She does report diarrhea and states she had 3 loose stools yesterday. She denies any abdominal pain or urinary complaints. She does report pain in her left foot today. She denies any oral thrush or new skin lesions. Infect Dis PN-Objective Data - Labs CBC & Chem 7: 06/28/17 01:20 06/28/17 01:20 Labs: Laboratory Results - last 24 hr 06/29/17 06/29/17 06/29/17 16:07 20:49 21:50 POC Glucose 116 H 144 H Urine Color Yellow Urine Clarity Clear Urine pH 6.0 Ur Specific [place] 1.022 Urine Protein 30 H Urine Glucose (UA) Normal Urine Ketones Negative Urine Blood Negative Urine Nitrite Negative Urine Bilirubin Negative Urine Urobilinogen Normal Ur Leukocyte Esterase Negative Urine Microscopic RBC 0-3 Urine Microscopic WBC 5-15 H Ur Squamous Epith Cells Many H Urine Bacteria None Seen Hyaline Casts None Seen Ur Culture Indicated? NO Cultures: Cultures 06/28/17 18:50 Blood Culture - Preliminary Peripheral Venipuncture No growth. 06/28/17 18:47 Blood Culture - Preliminary Peripheral Venipuncture No growth. 06/28/17 18:45 Influenza Types A,B Antigen (ISABELA) - Final Nasopharyngeal Serology 06/29/17 06/24/17 Range/Units 21:50 19:53 Urine Color Yellow (Yellow) Urine Clarity Clear (Clear) Urine pH 6.0 (5.0-8.0) pH Units Ur Specific [place] 1.022 (1.010-1.025) Urine Protein 30 H (Neg-Trace) mg/dL Urine Glucose (UA) Normal (Normal) mg/dL Urine Ketones Negative (Negative) mg/dL Urine Blood Negative (Negative) Urine Nitrite Negative (Negative) Urine Bilirubin Negative (Negative) Urine Urobilinogen Normal (Normal) mg/dL Ur Leukocyte Esterase Negative (Negative) Urine Microscopic RBC 0-3 (0-3) per hpf Urine Microscopic WBC 5-15 H (0-3) per hpf Ur Squamous Epith Cells Many H (None-Few) per lpf Urine Bacteria None Seen (None-Few) per hpf Hyaline Casts None Seen (None-Few) per lpf Ur Culture Indicated? NO (NO) Stl C. diff Tox B Gene Negative (Negative) Exam - Constitutional Vitals: Temp Pulse Resp BP Pulse Ox 98.0 F 67 16 101/50 95 06/30/17 11:20 06/30/17 11:20 06/30/17 06:34 06/30/17 11:20 06/30/17 11:20 General appearance: average body habitus, cooperative, no acute distress - Head Head exam: Present: atraumatic, normal inspection, normocephalic - Eye Eye exam: Present: EOMI, normal appearance, PERRL Pupils: Present: normal accommodation - ENT ENT exam: Present: mucous membranes moist - Neck Neck exam: Present: normal inspection - Respiratory Respiratory exam: Present: CTAB. Absent: rales, respiratory distress, rhonchi, wheezes - Cardiovascular Cardiovascular exam: Present: RRR, +S1, +S2 - GI/Abdominal GI/Abdominal exam: Present: normal bowel sounds, soft. Absent: distended, tenderness - Extremities Exam Extremities exam: Present: normal inspection. Absent: joint swelling, pedal edema, tenderness Additional comments: Left foot dressing C/D/I. - Neurological Exam Neurological exam: Present: alert, oriented X3, no focal deficits - Psychiatric Psychiatric exam: Present: normal affect, normal mood - Skin Skin exam: Present: dry, intact, normal color, warm - VTE Documentation of Mechanical Device: Venous foot pump, device Consult Discharge Plan - Plan Referrals: wound,care [Other] - 07/07/17 11:15 am (By ER entrance between the doors) Sammy Pompa MD [Primary Care Provider] - 06/28/17 2:15 pm Xu Centeno MD [Partnered Physician] - 07/07/17 9:45 am Prescriptions: Npwlwbnvepin-Pxmn-Hisyyabj,Iso [Zosyn 3.375 gm/50 ml Galaxy] 3.375 gm IV Q8HR # 30 [email or web address]
--- NOTE | 2017-06-30 16:00 | Internal Med Progress Note ---
<Rafael Harper - Last Filed: 06/30/17 15:58> Date of Encounter: 06/30/17 Time of Encounter: 15:59 - Assessment and plan (1) Cellulitis of left foot Current Visit: Yes Status: Acute (2) Necrosis of toe Current Visit: Yes Status: Acute (3) Atherosclerosis of left lower extremity with gangrene Current Visit: Yes Status: Chronic Qualifiers: Peripheral atherosclerosis artery type: [place] artery Qualified Code(s): I70.262 - Atherosclerosis of [place] arteries of extremities with gangrene, left leg (4) Diabetes mellitus Current Visit: Yes Status: Acute Qualifiers: Diabetes mellitus type: type 2 Diabetes mellitus complication status: with neurologic complications Diabetes mellitus complication detail: with polyneuropathy Diabetes mellitus technician terminal and repeater insulin use: with technician terminal and repeater use Qualified Code(s): E11.42 - Type 2 diabetes mellitus with diabetic polyneuropathy; Z79.4 - local company intermodal truck driver (current) use of insulin; Z79.4 - [facility] ( current) use of insulin; Z79.4 - [facility] (current) use of insulin; Z79.4 - 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 transplanted heart: [place] heart Associated angina: angina presence unspecified Qualified Code(s): I25.810 - Atherosclerosis of coronary artery bypass graft(s) without angina pectoris (6) Hypertension Current Visit: Yes Status: Acute Qualifiers: Hypertension type: essential hypertension Qualified Code(s): I10 - Essential (primary) hypertension (7) GERD (gastroesophageal reflux disease) Current Visit: Yes Status: Acute Qualifiers: Esophagitis presence: esophagitis presence not specified Qualified Code(s) : K21.9 - Gastro-esophageal reflux disease without esophagitis (8) DVT prophylaxis Current Visit: Yes Status: Acute (9) Influenza A Current Visit: Yes Status: Acute - Subjective Interval history: Patient is a 66 her old female with long sitting history of, CAD status post 4 stents, CABG, CHF, hyperlipidemia, hypertension type 2 diabetes on insulin and peripheral neuropathy who presents for infection of the second and third left toe. The toe was evaluated by podiatry and cultures were sent with sensitivities returned. The patient was initiated on appropriate antibiotics. Vascular surgery was also consulted to evaluate the arterial support for the affected toes and it was determined that the patient is receiving enough blood supply to the toes for treatment. The patient also experienced an episode of chest pain during her stay in which she had an elevated troponin and some ST elevation, however this was evaluated by cardiology and it was attributed to demand ischemia. Patient was educated for follow-up with supervisor printing shop outpatient. At this time repeat blood cultures are pending. Infectious disease was consulted for duration of antibiotic treatment and estimated that will depend on clinical picture and every consulted podiatry with the concern that the toes will not receive enough vascular supply for antibiotic penetration. - Constitutional Vitals: Temp Pulse Resp BP Pulse Ox 98.3 F 79 16 104/58 95 06/30/17 14:15 06/30/17 14:15 06/30/17 14:15 06/30/17 14:15 06/30/17 14:15 General appearance: Present: A&O X 3, pleasant, no acute distress Internal Medicine: Result - Labs CBC & Chem 7: 06/28/17 01:20 06/28/17 01:20 Labs: Urine 06/29/17 Range/Units 21:50 Urine Color Yellow (Yellow) Urine Clarity Clear (Clear) Urine pH 6.0 (5.0-8.0) pH Units Ur Specific [place] 1.022 (1.010-1.025) Urine Protein 30 H (Neg-Trace) mg/dL Urine Glucose (UA) Normal (Normal) mg/dL - ABG Interpretation ABG results: PT/INR, D-dimer PT 13.0 Seconds (9.4-12.1) H 06/22/17 08:17 - VTE Documentation of Mechanical Device: Venous foot pump, device Consult Discharge Plan - Plan Referrals: wound,care [Other] - 07/07/17 11:15 am (By ER entrance between the doors) Sammy Pompa MD [Primary Care Provider] - 06/28/17 2:15 pm Xu Centeno MD [Partnered Physician] - 07/07/17 9:45 am Prescriptions: Cyhrqqfueoyn-Mogp-Gjpxltom,Iso [Zosyn 3.375 gm/50 ml Galaxy] 3.375 gm IV Q8HR # 30 froz.piggy <Tramaine Hammer R - Last Filed: 06/30/17 17:17> Date of Encounter: 06/30/17 - Constitutional Vitals: Temp Pulse Resp BP Pulse Ox 98.3 F 79 16 104/58 95 06/30/17 14:15 06/30/17 14:15 06/30/17 14:15 06/30/17 14:15 06/30/17 14:15 Internal Medicine: Result - Labs CBC & Chem 7: 06/28/17 01:20 06/28/17 01:20 Labs: Urine 06/29/17 Range/Units 21:50 Urine Color Yellow (Yellow) Urine Clarity Clear (Clear) Urine pH 6.0 (5.0-8.0) pH Units Ur Specific [place] 1.022 (1.010-1.025) Urine Protein 30 H (Neg-Trace) mg/dL Urine Glucose (UA) Normal (Normal) mg/dL - ABG Interpretation ABG results: PT/INR, D-dimer PT 13.0 Seconds (9.4-12.1) H 06/22/17 08:17 - Attending Attestation I personally interviewed and examined this patient. I reviewed with the findings, assessment, and plan of Dr. Harper, internal medicine process engineering intern. Infection was disease input is appreciated and patient continues on Zosyn for now. Duration of therapy yet to be determined. We will pursue disposition with long-term IV antibiotics. All else as outlined above.
--- NOTE | 2017-06-30 17:25 | Internal Med Progress Note ---
Date of Encounter: 06/30/17 Time of Encounter: 09:00 - Assessment and plan (1) Cellulitis of left foot Current Visit: Yes Status: Acute Assessment and plan: Patient presented with left lower extremity cellulitis and found to have necrotic toe Wound cultures on left foot positive for Pseudomonas aeruginosa, Escherichia coli and Staphylococcus aureus Initial blood cultures negative Infectious disease consult for recommendations for IV antibiotic and duration, currently agree with Zosyn. Repeat blood cultures drawn on 06/28/17 are negative. Recommend continuing Zosyn. Duration of tx depends on clinical picture. Continue wound care per podiatry. Monitor Renal function and dose-adjust antibiotics Per nursing, family concern about patient going home and requesting evaluation for penitentiary facility placement (2) Necrosis of toe Current Visit: Yes Status: Acute Assessment and plan: Podiatry recommendations for continued local wound care with betadine without any surgical intervention at this time. Podiatry to speak with patient tonight regarding options for further management and treatment of the patient's left second and third necrotic toes. (3) Atherosclerosis of left lower extremity with gangrene Current Visit: Yes Status: Chronic Assessment and plan: -Vascular surgery consult in the balloon angioplasty of the left proximal superficial femoral artery, proximal and mid popliteal artery, and distal posterior tibial artery. According to note by podiatry Dr. Centeno with Vascular Surgery states that this patient does have sufficient blood flow to supply the area. Qualifiers: Peripheral atherosclerosis artery type: [place] artery Qualified Code(s): I70.262 - Atherosclerosis of [place] arteries of extremities with gangrene, left leg (4) Diabetes mellitus Current Visit: Yes Status: Acute Assessment and plan: Controlled; continue Januvia with sliding scale insulin patient is on medium dose. Qualifiers: Diabetes mellitus type: type 2 Diabetes mellitus complication status: with neurologic complications Diabetes mellitus complication detail: with polyneuropathy Diabetes mellitus termination clerk insulin use: with termination clerk use Qualified Code(s): E11.42 - Type 2 diabetes mellitus with diabetic polyneuropathy; Z79.4 - detention (current) use of insulin; Z79.4 - detention ( current) use of insulin; Z79.4 - long term care phlebotomist (current) use of insulin; Z79.4 - long term care phlebotomist (current) use of insulin (5) CAD (coronary artery disease) Current Visit: Yes Status: Chronic Assessment and plan: Patient has history of CAD with CABG 4 in 2001 at [place]. Abnormal nuclear stress test in 2017 consistent with reversible myocardial ischemia. Echo done in December 2016 showed an EF of 60%, normal LV function, no significant valvular dysfunction, no pulmonary hypertension,NSWMA. Recent heart catheter done in Recent heart cath in December of 2016. On aspirin, Plavix, statin, beta eugenie, JOSE inhibitor, long-acting nitrates. Patient experienced an episode of chest pain symptoms during the night on 06/20/17 and the setting of tachycardia which she attributed to her extreme left foot pain. She did have a troponin with mild elevation peak of 0.09. Limited echo was ordered and showed LVEF of 60-65 % with normal LV chamber size with all wall segment showing normal motion. She is chest pain-free. Cardiology saw the patient, no further recommendations were made at this time. Attributed elevated troponin to demand ischemia secondary to the pain the patient was experiencing. Plan for f/u outpatient.. Qualifiers: Coronary Disease-Associated Artery/Lesion type: bypass graft [place] vs. transplanted heart: [place] heart Associated angina: angina presence unspecified Qualified Code(s): I25.810 - Atherosclerosis of coronary artery bypass graft(s) without angina pectoris (6) Hypertension Current Visit: Yes Status: Acute Assessment and plan: Controlled; continue JOSE inhibitor and beta eugenie Qualifiers: Hypertension type: essential hypertension Qualified Code(s): I10 - Essential (primary) hypertension (7) GERD (gastroesophageal reflux disease) Current Visit: Yes Status: Acute Assessment and plan: Continue PPI Qualifiers: Esophagitis presence: esophagitis presence not specified Qualified Code(s) : K21.9 - Gastro-esophageal reflux disease without esophagitis (8) Influenza A Current Visit: Yes Status: Acute Assessment and plan: Influenza A positive. Droplet precautions. Continue Tamiflu 75 mg by mouth twice a day 5 days. (9) DVT prophylaxis Current Visit: Yes Status: Acute Assessment and plan: Subcutaneous heparin - Subjective Interval history: Patient is a 66 her old female with long sitting history of, CAD status post 4 stents, CABG, CHF, hyperlipidemia, hypertension type 2 diabetes on insulin and peripheral neuropathy who presents for infection of the second and third left toe. The toe was evaluated by podiatry and cultures were sent with sensitivities returned. The patient was initiated on appropriate antibiotics. Vascular surgery was also consulted to evaluate the arterial support for the affected toes and it was determined that the patient is receiving enough blood supply to the toes for treatment. The patient also experienced an episode of chest pain during her stay in which she had an elevated troponin and some ST elevation, however this was evaluated by cardiology and it was attributed to demand ischemia. Patient was educated for follow-up with inseam trimmer outpatient. At this time repeat blood cultures are pending. Infectious disease was consulted for duration of antibiotic treatment and estimated that will depend on clinical picture and every consulted podiatry with the concern that the toes will not receive enough vascular supply for antibiotic penetration. Patient was seen by infectious disease and podiatry today. Plan is for podiatry to have a discussion with the patient this evening to determine the course of treatment whether it will be to follow medically with wound care or surgical amputation of her toes. - Constitutional Vitals: Temp Pulse Resp BP Pulse Ox 98.3 F 79 16 104/58 95 06/30/17 14:15 06/30/17 14:15 06/30/17 14:15 06/30/17 14:15 06/30/17 14:15 General appearance: Present: A&O X 3, pleasant, no acute distress - Head Head exam: Present: atraumatic, normal inspection, normocephalic - Eye Eye exam: Present: normal appearance, PERRL - Neck Neck exam general surgery: Present: normal inspection - Respiratory Respiratory exam: Present: CTAB - Cardiovascular Cardiovascular exam: Present: RRR, +S1, +S2 - GI/Abdominal GI/Abdominal exam: Present: soft, no peritoneal signs. Absent: distended, guarding, rebound, tenderness - Extremities Exam Extremities exam: Present: normal inspection, warm. Absent: tenderness Additional comments: Dorsum is evaluated by podiatry today. Patient has worsening necrosis of the left toe plan for discussions with patient tonight on definitive management. - Back Exam Back exam: Present: full ROM, normal inspection - Neurological Exam Neurological exam: Present: alert, oriented X3, no focal deficits - Psychiatric Psychiatric exam: Present: normal affect, normal mood - Skin Skin exam: Present: intact, warm Internal Medicine: Result - Labs CBC & Chem 7: 06/28/17 01:20 06/28/17 01:20 Labs: Urine 06/29/17 Range/Units 21:50 Urine Color Yellow (Yellow) Urine Clarity Clear (Clear) Urine pH 6.0 (5.0-8.0) pH Units Ur Specific [place] 1.022 (1.010-1.025) Urine Protein 30 H (Neg-Trace) mg/dL Urine Glucose (UA) Normal (Normal) mg/dL - ABG Interpretation ABG results: PT/INR, D-dimer PT 13.0 Seconds (9.4-12.1) H 06/22/17 08:17 - VTE Documentation of Mechanical Device: Venous foot pump, device Consult Discharge Plan - Plan Referrals: wound,care [Other] - 07/07/17 11:15 am (By ER entrance between the doors) Sammy Pompa MD [Primary Care Provider] - 06/28/17 2:15 pm Xu Centeno MD [Partnered Physician] - 07/07/17 9:45 am Prescriptions: Xprtgsvxsqlv-Oofv-Nlwhinop,Iso [Zosyn 3.375 gm/50 ml Galaxy] 3.375 gm IV Q8HR # 30 nathalia
[2017-06-30] MEDS: Insulin DETEMIR 100 UNIT/ML X5UNITS SQ SCH (22:24)
[2017-07-01] MEDS: *HR* Heparin 5,000 UNIT/ML VIAL SQ SCH ×3 (06:27→20:40)
[2017-07-01 06:36] LABS: Hemoglobin 8.7 g/dL (11.5-15.4)
[2017-07-01 06:37] LABS: Hematocrit 29.7 % (35.3-44.9); Mean Corpuscular HGB Conc 29.3 g/dL (31.6-35.5); Mean Corpuscular Hemoglobin 22.1 pg (28.0-33.3); Mean Corpuscular Volume 75.6 fL (83.0-100.0); Mean Platelet Volume 10.8 fL (9.4-12.4); Platelet Count 257 K/mcL (140-400); Red Blood Count 3.93 M/mcL (3.82-4.97); Red Cell Distribution Width 19.7 % (11.5-14.5)
[2017-07-01 06:44] LABS: BUN/Creatinine Ratio 7 (6-26); Blood Urea Nitrogen 5 mg/dL (8-23); Calcium 8.6 mg/dL (8.6-10.3); Carbon Dioxide 29 mEq/L (23-29); Chloride 103 mEq/L (98-107); Glucose 54 mg/dL (70-105); Osmolality,Calculated 287 (280-300); Potassium 2.7 mEq/L (3.5-5.1); Sodium 141 mEq/L (136-145); eGFR For African Americans > 60 (> 60); eGFR For Non-African Americans > 60 (> 60)
[2017-07-01] MEDS: Aspirin Enteric Coated 81 MG Tablet PO SCH (08:14)
[2017-07-01] MEDS: Isosorbide MONOnitrate (24 HR) 60 MG TAB.ER.24H PO SCH (08:14)
[2017-07-01] MEDS: Cholecalciferol (D-3) 1,000 UNIT TABLET PO SCH (08:14)
[2017-07-01] MEDS: Gabapentin 300 MG CAPSULE PO SCH ×3 (08:14→20:40)
[2017-07-01] MEDS: Folic Acid 1 MG TABLET PO SCH (08:15)
[2017-07-01] MEDS: *HR* SitaGLIPtin 100 MG TABLET PO SCH (08:15)
[2017-07-01] MEDS: Insulin LISPRO 300 UNITS/3 ML VIAL SQ SCH ×4 (08:16→20:39)
[2017-07-01 08:36] LABS: Anisocytosis 1+ (Not Present); Monocytes # 0.4 K/mcL (0.0-1.3); Reactive Lymphocytes Present (Not Present)
[2017-07-01 08:37] LABS: Hypochromasia Present (Not Present); Microcytosis Present (Not Present)
[2017-07-01 08:38] LABS: Platelet Estimate Normal (Normal); Polychromasia 1+ (Not Present)
--- NOTE | 2017-07-01 09:23 | Internal Med Progress Note ---
<Tramaine Hammer - Last Filed: 07/01/17 15:56> Date of Encounter: 07/01/17 - Subjective Interval history: Other than HPI a 10 pt ROS is negative - Constitutional Vitals: Temp Pulse Resp BP Pulse Ox 98.4 F 65 16 131/67 95 07/01/17 11:41 07/01/17 11:41 07/01/17 11:41 07/01/17 11:41 07/01/17 11:41 Internal Medicine: Result - Labs CBC & Chem 7: 07/01/17 06:00 07/01/17 06:00 Labs: Short CBC 07/01/17 Range/Units 06:00 WBC 5.4 (4.3-11.1) K/mcL Hgb 8.7 L (11.5-15.4) g/dL Hct 29.7 L (35.3-44.9) % Plt Count 257 (140-400) K/mcL Neutrophils # 4.0 (1.6-8.9) K/mcL BMP 07/01/17 06:00 Sodium 141 Potassium 2.7 L Chloride 103 Carbon Dioxide 29 BUN 5 L Creatinine 0.69 Glucose 54 L Calcium 8.6 - ABG Interpretation ABG results: PT/INR, D-dimer PT 13.0 Seconds (9.4-12.1) H 06/22/17 08:17 Consult Discharge Plan - Plan Referrals: wound,care [Other] - 07/07/17 11:15 am (By ER entrance between the doors) Sammy Pompa MD [Primary Care Provider] - 07/08/17 2:15 pm Xu Centeno MD [Partnered Physician] - 07/07/17 9:45 am Prescriptions: Ajuondwhtmol-Rbvf-Clyienwh,Iso [Zosyn 3.375 gm/50 ml Galaxy] 3.375 gm IV Q8HR # 30 froz.piggy - Attending Attestation I personally interviwed and examined this pt. I agree wiht the findings, assessment and plan of Dr. Harper, Internal Medicine Crankshaft Balancer. Infectious disease input is appreciated. Patient continues on Zosyn for left foot infection, as of yet for an indeterminate amount of time. Still awaiting final decision on for future surgery. All other issues are stable at this point. All else as outlined above <Rafael Harper - Last Filed: 07/01/17 17:15> Date of Encounter: 07/01/17 Time of Encounter: 17:12 - Assessment and plan (1) Cellulitis of left foot Current Visit: Yes Status: Acute Assessment and plan: Patient presented with left lower extremity cellulitis and found to have necrotic toe Wound cultures on left foot positive for Pseudomonas aeruginosa, Escherichia coli and Staphylococcus aureus Initial blood cultures and repeat blood cultures were negative. Continuing on Zosyn, duration of treatment to be determined Continue wound care per podiatry. Monitor Renal function and dose-adjust antibiotics Per nursing, family concern about patient going home and requesting evaluation for [facility] facility placement (2) Necrosis of toe Current Visit: Yes Status: Acute Assessment and plan: Podiatry recommendations for continued local wound care with betadine without any surgical intervention at this time. Podiatry to speak with patient today regarding options for further management and treatment of the patient's left second and third necrotic toes. (3) Atherosclerosis of left lower extremity with gangrene Current Visit: Yes Status: Chronic Assessment and plan: Vascular surgery consult patient underwent balloon angioplasty of the left lower extremity. According to note by podiatry Dr. Centeno with Vascular Surgery states that this patient does have sufficient blood flow to supply the area. 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 transplanted heart: [place] heart Associated angina: angina presence unspecified Qualified Code(s): I25.810 - Atherosclerosis of coronary artery bypass graft(s) without angina pectoris (6) Hypertension Current Visit: Yes Status: Acute Qualifiers: Hypertension type: essential hypertension Qualified Code(s): I10 - Essential (primary) hypertension (7) GERD (gastroesophageal reflux disease) Current Visit: Yes Status: Acute Qualifiers: Esophagitis presence: esophagitis presence not specified Qualified Code(s) : K21.9 - Gastro-esophageal reflux disease without esophagitis (8) Influenza A Current Visit: Yes Status: Acute (9) DVT prophylaxis Current Visit: Yes Status: Acute - Subjective Interval history: Patient is a 66 her old female with long sitting history of, CAD status post 4 stents, CABG, CHF, hyperlipidemia, hypertension type 2 diabetes on insulin and peripheral neuropathy who presents for infection of the second and third left toe. The toe was evaluated by podiatry and cultures were sent with sensitivities returned. The patient was initiated on appropriate antibiotics. Vascular surgery was also consulted to evaluate the arterial support for the affected toes and it was determined that the patient is receiving enough blood supply to the toes for treatment. The patient also experienced an episode of chest pain during her stay in which she had an elevated troponin and some ST elevation, however this was evaluated by cardiology and it was attributed to demand ischemia. Patient was educated for follow-up with new home sales consultant outpatient. At this time repeat blood cultures are pending. Infectious disease was consulted for duration of antibiotic treatment and estimated that will depend on clinical picture and every consulted podiatry with the concern that the toes will not receive enough vascular supply for antibiotic penetration. Awaiting podiatry to consult with patient for treatment options. Patient is continuing to do well. - Constitutional Vitals: Temp Pulse Resp BP Pulse Ox 97.6 F 75 20 144/61 96 07/01/17 07:07 07/01/17 07:07 07/01/17 07:07 07/01/17 07:07 07/01/17 08:32 General appearance: Present: A&O X 3, pleasant, no acute distress - Head Head exam: Present: atraumatic, normal inspection, normocephalic - Eye Eye exam: Present: normal appearance, PERRL - Neck Neck exam general surgery: Present: normal inspection - Respiratory Respiratory exam: Present: CTAB. Absent: rales, respiratory distress, wheezes - Cardiovascular Cardiovascular exam: Present: RRR, +S1, +S2 - GI/Abdominal GI/Abdominal exam: Present: normal bowel sounds, soft, no peritoneal signs - Extremities Exam Extremities exam: Present: normal capillary refill, normal inspection Additional comments: Lower extremities is wrapped. Evaluated by podiatry today. See Podiatry note. - Back Exam Back exam: Present: normal inspection - Neurological Exam Neurological exam: Present: alert, oriented X3, no focal deficits - Psychiatric Psychiatric exam: Present: normal affect, normal mood - Skin Skin exam: Present: intact, normal color, rash Internal Medicine: Result - Labs CBC & Chem 7: 07/01/17 06:00 07/01/17 06:00 Labs: Short CBC 07/01/17 Range/Units 06:00 WBC 5.4 (4.3-11.1) K/mcL Hgb 8.7 L (11.5-15.4) g/dL Hct 29.7 L (35.3-44.9) % Plt Count 257 (140-400) K/mcL Neutrophils # 4.0 (1.6-8.9) K/mcL BMP 07/01/17 06:00 Sodium 141 Potassium 2.7 L Chloride 103 Carbon Dioxide 29 BUN 5 L Creatinine 0.69 Glucose 54 L Calcium 8.6 - ABG Interpretation ABG results: PT/INR, D-dimer PT 13.0 Seconds (9.4-12.1) H 06/22/17 08:17 - VTE Documentation of Mechanical Device: Venous foot pump, device
[2017-07-01] MEDS ORDERED: Potassium Chloride Elixir 20 MEQ/15 ML UDC PO ONE ×4 (09:25→16:00)
[2017-07-01] MEDS: *HR* HYDROcodone/Acet 5/325 mg TABLET PO PRN ×3 (12:12→20:40)
--- NOTE | 2017-07-01 13:38 | Infectious Disease Progress No ---
Date of Encounter: 07/01/17 Time of Encounter: 13:36 - Assessment and Plan (1) Sepsis Current Visit: Yes Status: Acute The patient had two SIRS criteria on admission. Likely secondary to left foot cellulitis and wound infection. Improved. WBC has normalized. She has been afebrile. Tachycardia has resolved. Blood cultures drawn 06/20/17 are negative x 2 sets. Lactic acid on admission normal. Repeat blood cultures x 2 sets drawn 06/28/17 are NGTD. Flu A antigen positive. Qualifiers: Sepsis type: sepsis due to unspecified organism Qualified Code(s): A41.9 - Sepsis, unspecified organism (2) Influenza A Current Visit: Yes Status: Acute Influenza A antigen positive. Droplet precautions. Continue Tamiflu 75mg PO BID x 5 days. Supportive care. (3) Left foot infection Current Visit: Yes Status: Acute Causative organism: MSSA, E. coli, PSEA. Secondary to left foot second toe wound. Foot x-ray negative for OM, but ESR and CRP are very elevated. ESR 125, CRP 39. Podiatry consulted and following. No surgical intervention at this time. Concerned that the lack of blood flow to the toes will hinder the patient's ability to get adequate antibiotic penetration to the tissue and will therefore not clear the infection, but she did have balloon angioplasty. Case discussed with Dr. Coffey and Dr. Centeno. Await their final recommendations regarding further surgical intervention. Wound care and activity restrictions per the podiatry team. Continue Zosyn 3.375 grams IV Q8H for now. Duration of treatment depends on the clinical picture. Monitor renal function and dose-adjust antibiotics. (4) Cellulitis of left foot Current Visit: Yes Status: Acute Location: Left foot. Causative organism: MSSA, E. coli, and PSEA. Likely secondary to left foot wound infection. Improved per patient report. Continue antibiotics as above. (5) Necrosis of toe Current Visit: Yes Status: Acute Location: Left foot toe #3 and #4 with some necrosis noted to the 1st and 4th toes. Secondary to infection vs. ischemia. Podiatry consulted and following. No surgical intervention at this time. Wound care per the podiatry team. (6) Gangrene Current Visit: Yes Status: Acute (7) Diabetes mellitus Current Visit: Yes Status: Acute Controlled. HgbA1C 6.5%. Recommend aggressive glucose monitoring and control to promote wound healing and prevent re-infection. Management per the primary team. 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: with intermediate use Qualified Code(s): E11.42 - Type 2 diabetes mellitus with diabetic polyneuropathy; Z79.4 - long term (current) use of insulin; Z79.4 - long term ( current) use of insulin; Z79.4 - long term (current) use of insulin; Z79.4 - long term (current) use of insulin (8) Peripheral neuropathy Current Visit: Yes Status: Acute Qualifiers: Peripheral neuropathy type: polyneuropathy, unspecified Qualified Code(s): G62.9 - Polyneuropathy, unspecified (9) CAD (coronary artery disease) Current Visit: Yes Status: Chronic Qualifiers: Coronary Disease-Associated Artery/Lesion type: bypass graft [place] vs. transplanted heart: [place] heart Associated angina: angina presence unspecified Qualified Code(s): I25.810 - Atherosclerosis of coronary artery bypass graft(s) without angina pectoris (10) Chest pain Current Visit: Yes Status: Resolved Cardiology consulted. Likely demand ischemia from tachycardia d/t pain. Troponins mildly elevated initially, but now normal. CXR negative. Qualifiers: Chest pain type: unspecified Qualified Code(s): R07.9 - Chest pain, unspecified (11) Atherosclerosis of left lower extremity with gangrene Current Visit: Yes Status: Chronic Vascular surgery consulted. Status post angiogram 06/22/[address] Centeno with balloon angioplasty of the left SFA, left popliteal, and left posterior tibial. Right anterior tibial, left anterior tibial, right dorsalis pedis, and left dorsalis pedis occluded. Qualifiers: Peripheral atherosclerosis artery type: [place] artery Qualified Code(s): I70.262 - Atherosclerosis of [place] arteries of extremities with gangrene, left leg (12) Hypertension Current Visit: Yes Status: Acute Qualifiers: Hypertension type: essential hypertension Qualified Code(s): I10 - Essential (primary) hypertension - Subjective Interval history: Patient seen and examined. No acute events noted overnight. Patient was afebrile overnight and tachycardia has resolved. She states she feels a little better this morning. States she still has chest congestion, but denies chest or back pain. She denies any shortness of breath. She reports a cough productive of clear sputum. She denies any nausea or vomiting and states her appetite is better. She does report diarrhea and states she had 2 loose stools yesterday. She denies any abdominal pain or urinary complaints. She does reports pain in her left foot today. She denies any oral thrush or new skin lesions. Infect Dis PN-Objective Data - Labs CBC & Chem 7: 07/02/17 09:35 07/02/17 09:35 Labs: Laboratory Results - last 24 hr 06/30/17 06/30/17 06/30/17 07:52 09:18 11:19 WBC RBC Hgb Hct MCV MCH MCHC RDW Plt Count MPV Seg Neutrophils % Band Neutrophils % Lymphocytes % Monocytes % Neutrophils # Lymphocytes # Monocytes # Reactive Lymphocytes Platelet Estimate Polychromasia Hypochromasia Anisocytosis Microcytosis Sodium Potassium Chloride Carbon Dioxide BUN Creatinine Est GFR ( Amer) Est GFR (Non-Af Amer) BUN/Creatinine Ratio Glucose POC Glucose 60 137 H 148 H Calculated Osmolality Calcium 06/30/17 06/30/17 07/01/17 16:31 21:14 06:00 WBC 5.4 RBC 3.93 Hgb 8.7 L Hct 29.7 L MCV 75.6 L MCH 22.1 L MCHC 29.3 L RDW 19.7 H Plt Count 257 MPV 10.8 Seg Neutrophils % 70.0 Band Neutrophils % 4.0 Lymphocytes % 18.0 Monocytes % 8.0 Neutrophils # 4.0 Lymphocytes # 1.0 Monocytes # 0.4 Reactive Lymphocytes Present A Platelet Estimate Normal Polychromasia 1+ A Hypochromasia Present A Anisocytosis 1+ A Microcytosis Present A Sodium Potassium Chloride Carbon Dioxide BUN Creatinine Est GFR ( Amer) Est GFR (Non-Af Amer) BUN/Creatinine Ratio Glucose POC Glucose 89 126 H Calculated Osmolality Calcium 07/01/17 07/01/17 07/01/17 06:00 07:18 11:44 WBC RBC Hgb Hct MCV MCH MCHC RDW Plt Count MPV Seg Neutrophils % Band Neutrophils % Lymphocytes % Monocytes % Neutrophils # Lymphocytes # Monocytes # Reactive Lymphocytes Platelet Estimate Polychromasia Hypochromasia Anisocytosis Microcytosis Sodium 141 Potassium 2.7 L Chloride 103 Carbon Dioxide 29 BUN 5 L Creatinine 0.69 Est GFR ( Amer) > 60 Est GFR (Non-Af Amer) > 60 BUN/Creatinine Ratio 7 Glucose 54 L POC Glucose 62 120 H Calculated Osmolality 287 Calcium 8.6 Cultures: Cultures 06/28/17 18:50 Blood Culture - Preliminary Peripheral Venipuncture No growth. 06/28/17 18:47 Blood Culture - Preliminary Peripheral Venipuncture No growth. 06/28/17 18:45 Influenza Types A,B Antigen (ISABELA) - Final Nasopharyngeal Serology 06/29/17 06/24/17 Range/Units 21:50 19:53 Urine Color Yellow (Yellow) Urine Clarity Clear (Clear) Urine pH 6.0 (5.0-8.0) pH Units Ur Specific [place] 1.022 (1.010-1.025) Urine Protein 30 H (Neg-Trace) mg/dL Urine Glucose (UA) Normal (Normal) mg/dL Urine Ketones Negative (Negative) mg/dL Urine Blood Negative (Negative) Urine Nitrite Negative (Negative) Urine Bilirubin Negative (Negative) Urine Urobilinogen Normal (Normal) mg/dL Ur Leukocyte Esterase Negative (Negative) Urine Microscopic RBC 0-3 (0-3) per hpf Urine Microscopic WBC 5-15 H (0-3) per hpf Ur Squamous Epith Cells Many H (None-Few) per lpf Urine Bacteria None Seen (None-Few) per hpf Hyaline Casts None Seen (None-Few) per lpf Ur Culture Indicated? NO (NO) Stl C. diff Tox B Gene Negative (Negative) Exam - Constitutional Vitals: Temp Pulse Resp BP Pulse Ox 98.4 F 65 16 131/67 95 07/01/17 11:41 07/01/17 11:41 07/01/17 11:41 07/01/17 11:41 07/01/17 11:41 General appearance: average body habitus, cooperative, no acute distress - Head Head exam: Present: atraumatic, normal inspection, normocephalic - Eye Eye exam: Present: EOMI, normal appearance, PERRL Pupils: Present: normal accommodation - ENT ENT exam: Present: mucous membranes moist - Neck Neck exam: Present: normal inspection - Respiratory Respiratory exam: Present: CTAB. Absent: rales, respiratory distress, rhonchi, wheezes - Cardiovascular Cardiovascular exam: Present: RRR, +S1, +S2 - GI/Abdominal GI/Abdominal exam: Present: normal bowel sounds, soft. Absent: distended, tenderness - Extremities Exam Extremities exam: Absent: joint swelling, pedal edema, tenderness Additional comments: Left foot dressing C/D/I. - Neurological Exam Neurological exam: Present: alert, oriented X3, no focal deficits - Psychiatric Psychiatric exam: Present: normal affect, normal mood - Skin Skin exam: Present: dry, intact, normal color, warm - VTE Documentation of Mechanical Device: Venous foot pump, device Consult Discharge Plan - Plan Referrals: wound,care [Other] - 07/07/17 11:15 am (By ER entrance between the doors) Sammy Pompa MD [Primary Care Provider] - 07/08/17 2:15 pm Xu Centeno MD [Partnered Physician] - 07/07/17 9:45 am Prescriptions: Wigemyqaufrq-Iipa-Occpxqrr,Iso [Zosyn 3.375 gm/50 ml Galaxy] 3.375 gm IV Q8HR # 30 froz.piggy - Attending Attestation I examined this patient and my medical decision-making was reviewed with the Resident Physician. I agree with the documented findings, disposition and treatment plan as described except to the extent set forth below.
--- NOTE | 2017-07-01 16:36 | Podiatry Progress Note ---
Date of Encounter: 07/01/17 Time of Encounter: 16:20 - Assessment and Plan (1) Cellulitis of left foot Current Visit: Yes Status: Acute Infectious disease following and appreciated WBC 5.4 today and afebrile Admit ESR 125 CRP 39 Microbiology 06/20/17 19:27 Peripheral Venipuncture Blood Culture - Final No growth. 06/20/17 19:00 Peripheral Venipuncture Blood Culture - Final No growth. 06/20/17 19:20 Left Foot Wound Culture - Final Pseudomonas aeruginosa Escherichia coli Staphylococcus aureus Currently on Zosyn Q8H (2) Gangrene Current Visit: Yes Status: Acute (3) Necrosis of toe Current Visit: Yes Status: Acute Dr. Coffey spoke with patient this morning in regards to treatment plan. Patients options: 1) follow medically and see in wound care next week 2) TMA, possible BKA in future if non healing is a issue. Discussed with patient that she will ultimately need to have surgery, if not during this admission it would be at a later date. Patient states she will wait until her son arrives this evening and discuss it with him If patient moves forward with surgery during this admission, Dr. Coffey can take her to the OR tomorrow (07/02/17) later afternoon or Wednesday (07/03/17) in the morning. If patient opts not to have surgery, will be clear for discharge and follow in wound care center with in clinic next Wednesday. Continue daily betadine and dry dressing changes daily Cleanse with mild soap and water Keep elevated. Call with any increased erythema or edema, fevers chills n/v or flu like symptoms. (4) Atherosclerosis of left lower extremity with gangrene Current Visit: Yes Status: Chronic S/p Abdominal aortogram, Aortogram with runoff bilaterally, Balloon angioplasty of left proximal superficial femoral artery, proximal and mid popliteal artery, and distal posterior tibial artery by Dr. Centeno on 06/22/17. Qualifiers: Peripheral atherosclerosis artery type: [place] artery Qualified Code(s): I70.262 - Atherosclerosis of [place] arteries of extremities with gangrene, left leg Subjective Principal diagnosis: CP Interval history: Patient is s/p Abdominal aortogram, Aortogram with runoff bilaterally, Balloon angioplasty of left proximal superficial femoral artery, proximal and mid popliteal artery, and distal posterior tibial artery by Dr. Centeno on 06/22/17. Patient sitting up in bed. Denies any fevers or chills. Patient states she spoke with Dr. Coffey this morning about her treatment options for the necrosis of her left foot. Patient states she was concerned because another Doctor came in today and told her she would need to have a BKA and she states she became very tearful when she was told that. Discussed patients options: 1) follow medically and see in wound care next week 2) TMA, possible BKA in future if non healing is a issue. Discussed with patient that she will ultimately need to have surgery, if not during this admission it would be at a later date. Patient states she will wait until her son arrives this evening and discuss it with him. Dry dressing intact to left foot. Objective - Vital Signs Vital Signs: Vital Signs Temp Pulse Resp BP Pulse Ox 07/01/17 16:10 97.5 F L 70 16 121/70 96 07/01/17 11:41 98.4 F 65 16 131/67 95 07/01/17 08:32 96 07/01/17 07:07 97.6 F 75 20 144/61 96 07/01/17 03:49 98.5 F 68 14 124/68 97 06/30/17 23:07 99.5 F 81 18 133/72 96 06/30/17 19:01 99.1 F 77 16 153/70 97 Intake and Output 07/01/17 07/01/17 07/01/17 07:59 15:59 23:59 Intake Total 700 / 700 100 / 100 Balance 700 / 700 100 / 100 Intake: IV Fluids 100 / 100 100 / 100 Zosyn 3.375 GM In 0.9 % Sodium 100 / 100 100 / 100 Chloride 100 ML @ 25 mls/hr IVPB Q8H [facility] Rx#:[id number] Oral 600 / 600 Other: Stool Size Small Stool Consistency loose Stool Characteristics Normal for Patient Stool Color Brown # Voids 1 # Bowel Movements 1 Blood Glucose* 62 120 88 - Exam Exam: General: A&O x3, calm and cooperative. Integument: Dressing dry and intact to the left foot. No erythema ascending from dressing. - Lab Result Diagrams: 07/01/17 06:00 07/01/17 06:00 Labs: Abnormal lab results Hgb 8.7 g/dL (11.5-15.4) L 07/01/17 06:00 Hct 29.7 % (35.3-44.9) L 07/01/17 06:00 MCV 75.6 fL (83.0-100.0) L 07/01/17 06:00 MCH 22.1 pg (28.0-33.3) L 07/01/17 06:00 MCHC 29.3 g/dL (31.6-35.5) L 07/01/17 06:00 RDW 19.7 % (11.5-14.5) H 07/01/17 06:00 Nucleated RBCs/100 WBC 0.6 /100 WBC (0) H 06/24/17 10:13 Reactive Lymphocytes Present (Not Present) A 07/01/17 06:00 Toxic Granulation Present (Not Present) A 06/23/17 09:04 Polychromasia 1+ (Not Present) A 07/01/17 06:00 Hypochromasia Present (Not Present) A 07/01/17 06:00 Anisocytosis 1+ (Not Present) A 07/01/17 06:00 Microcytosis Present (Not Present) A 07/01/17 06:00 Macrocytosis Present (Not Present) A 06/21/17 04:46 ESR 125 mm/hr (0-15) H 06/20/17 19:00 PT 13.0 Seconds (9.4-12.1) H 06/22/17 08:17 Potassium 2.7 mEq/L (3.5-5.1) L 07/01/17 06:00 BUN 5 mg/dL (8-23) L 07/01/17 06:00 Glucose 54 mg/dL (70-105) L 07/01/17 06:00 Hemoglobin A1c 6.5 % (-5.6) H 06/21/17 04:46 Total Bilirubin 0.2 mg/dL (0.3-1.0) L 06/22/17 10:08 C-Reactive Protein 39 mg/L (Less than 10) H 06/20/17 19:00 Albumin 2.8 g/dL (3.5-5.7) L 06/22/17 10:08 Globulin 3.6 g/dL (2.4-3.5) H 06/22/17 10:08 Albumin/Globulin Ratio 0.8 (1.1-2.2) L 06/22/17 10:08 Urine Protein 30 mg/dL (Neg-Trace) H 06/29/17 21:50 Urine Microscopic WBC 5-15 per hpf (0-3) H 06/29/17 21:50 Ur Squamous Epith Cells Many per lpf (None-Few) H 06/29/17 21:50 Microbiology, Last 48 Hours 06/28/17 18:50 Blood Culture - Preliminary Peripheral Venipuncture No growth. 06/28/17 18:47 Blood Culture - Preliminary Peripheral Venipuncture No growth. - VTE Documentation of Mechanical Device: Venous foot pump, device Consult Discharge Plan - Plan Referrals: wound,care [Other] - 07/07/17 11:15 am (By ER entrance between the doors) Sammy Pompa MD [Primary Care Provider] - 07/08/17 2:15 pm Xu Centeno MD [Partnered Physician] - 07/07/17 9:45 am Prescriptions: Wledzjxmuvnp-Qhxk-Ficpqygc,Iso [Zosyn 3.375 gm/50 ml Galaxy] 3.375 gm IV Q8HR # 30 [email or web address]
[2017-07-01 18:07] LABS: Magnesium 1.7 mg/dL (1.6-2.6)
[2017-07-01] MEDS: Insulin DETEMIR 100 UNIT/ML X5UNITS SQ SCH (20:41)
[2017-07-02] MEDS: Ipratropium/Albuterol Neb 3 ML IH PRN ×2 (05:28→18:10)
[2017-07-02] MEDS: *HR* Heparin 5,000 UNIT/ML VIAL SQ SCH ×2 (05:41→12:20)
[2017-07-02] MEDS: Insulin LISPRO 300 UNITS/3 ML VIAL SQ SCH ×3 (07:31→16:42)
[2017-07-02] MEDS: Isosorbide MONOnitrate (24 HR) 60 MG TAB.ER.24H PO SCH (08:00)
[2017-07-02] MEDS: Aspirin Enteric Coated 81 MG Tablet PO SCH (08:01)
[2017-07-02] MEDS: Folic Acid 1 MG TABLET PO SCH (08:01)
[2017-07-02] MEDS: Cholecalciferol (D-3) 1,000 UNIT TABLET PO SCH (08:01)
[2017-07-02] MEDS: *HR* HYDROcodone/Acet 5/325 mg TABLET PO PRN (08:01)
[2017-07-02] MEDS: *HR* SitaGLIPtin 100 MG TABLET PO SCH (08:02)
[2017-07-02] MEDS: Gabapentin 300 MG CAPSULE PO SCH ×2 (08:02→14:28)
--- NOTE | 2017-07-02 09:16 | Electrocardiograph Report ---
[address] [place], [place] [address] Test Date: 2017-06-27 Pat Name: Eileen Beltrán Department: 114 [facility] Gender: F Batter Mixer: : [id number] Requested By: Farhad Casas Order Number: [id number] Reading MD: Quinn Frausto DO Measurements Intervals [place] Rate: 105 P: 78 MO: 170 QRS: -4 QRSD: 104 T: -60 QT: 341 QTc: 402 Interpretive Statements SINUS TACHYCARDIA INCOMPLETE RIGHT BUNDLE BRANCH BLOCK ST DEVIATION AND MODERATE T-WAVE ABNORMALITY, CONSIDER ANTEROLATERAL ISCHEMIA Electronically Signed On 07-02-2017 9:14:19 EST by Quinn Frausto DO
--- NOTE | 2017-07-02 09:46 | Podiatry Consult Note ---
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 Those options include autoamputation provided she does not convert to what gangrene which may take a size 6 months to a year #3 transmetatarsal amputation with placement of graft if necessary and wound VAC. This may or may not heal depending upon her perfusion and that we cannot predict us to the success rate given her history and recent arteriogram #4 discussed the possibility of below-knee amputation which she has flatly refused. I explained to her that this may be an option if she proceeds with transmetatarsal amputation and it is not successful the only option left would be to perform a below-knee amputation as a life-saving measure versus limb salvage of the remainder of her leg. #5 discussed the risks versus the benefits as well as alternatives to surgical intervention. Those risks include but are not limited to bleeding, infection, pain, need for further surgery, failure of procedure to produce desired results. DVT/blood clots. Patient had ample opportunity to ask questions about those options. Those questions are answered her satisfaction. Patient will be given 24 hours 2 discussed this with family members and come to a decision as to course of treatment has been recommended and options. Qualifiers: Peripheral atherosclerosis artery type: [place]' artery Qualified Code(s): I70.262 - Atherosclerosis of [place] arteries of extremities with gangrene, left leg History of Present Illness Chief complaint: Necrotic left forefoot HPI: Ms. Beltrán is a 66 year old female, who was admitted with ischemic necrosis of the left forefoot with long history of diabetes and remote history of smoking. The patient subsequently underwent evaluation and angiogram per past surgical services. She is placed on empiric antibiotic therapy has undergone local wound care since admission. She is essentially maximized/optimized her arterial perfusion. Endo vascular intervention per Dr. Centeno. They have nothing more to offer her. Past Med Surg Social Fam HX - Past Medical History Medical history: CHF, coronary artery disease, diabetes, GERD, hyperlipidemia, hypertension, kidney stones, myocardial infarction, osteoporosis Psychiatric history: anxiety - Past Surgical History Surgical History: angioplasty/stent, appendectomy, cholecystectomy, coronary bypass (CABG) - Social History Smoking Status: Former smoker Smokeless Tobacco Status: No Alcohol use: none Drug use: none - Family History Mother Adopted: [place]: Dary Cruz Age: 63 Family Member Ethnicity: Non- Twin of Family Member: Yes, Identical Living Status: Age at : 63 Cause of : Heart complications Hx Family Cardiac Disorders: Yes (GA,HTN, OPEN HEART SX) Hx Family Respiratory Disorders: No Hx Family Cancer: No Hx Family GI Disorders: No Hx Family Genitourinary Disorders: No Hx Family Endocrine Disorder: No Hx Family Musculoskeletal Disorders: No Hx Family Neuromuscular Disorders: No Hx Family Neurologic Disorders: No Hx Family HEENT Disorders: No Hx Family Autoimmune Disorders: No Hx Family Reproductive Disorders: No Hx Family Psychosocial Disorders: No Hx Family Medical Disorders: No Medications and Allergies Alendronate Sodium 70 mg PO QWEEK 01/06/17 [History] Aspirin [Lo-Dose Aspirin EC] 81 mg PO DAILY 01/06/17 [History] Calcium Carbonate/Vitamin D3 [Calcium 500-Vit D3 200 Caplet] 1 each PO TID 01/06 [History] Clopidogrel Bisulfate [Plavix] 75 mg PO DAILY 01/06/17 [History] Clotrimazole 1% CRM [Lotrimin 1%] 1 appl TD BID 01/06/17 [History] Cyclobenzaprine [Flexeril] 10 mg PO DAILY 01/06/17 [History] Enalapril Maleate [Vasotec] 10 mg PO DAILY 01/06/17 [History] Ergocalciferol (VITAMIN D2) [Vitamin D2] 50,000 unit PO QWEEK 01/06/17 [History] Folic Acid 1 mg PO DAILY 01/06/17 [History] Furosemide [Lasix] 20 mg PO DAILY PRN 01/06/17 [History] Gabapentin [Neurontin] 600 mg PO TID 01/06/17 [History] HYDROcodone/Acet 5/325 mg [[place] 5-325 mg] 1 tab PO Q8H PRN 01/06/17 [History] Insulin Glargine,Hum.rec.anlog [Basaglar Kwikpen U-100] 43 unit SQ DAILY [History] Insulin LISPRO [HumaLOG] 0 units SQ TIDWM PRN 01/06/17 [History] Isosorbide MONOnitrate (24 HR) [Imdur] 60 mg PO DAILY #30 tab.er.24h 01/06/17 [ Rx] Lovastatin [Mevacor] 20 mg PO DAILY 01/06/17 [History] Metoprolol Tartrate [Lopressor] 50 mg PO DAILY 01/06/17 [History] Nitroglycerin [Nitrostat] 0.4 mg SL Q5-6MIN PRN 01/06/17 [History] Omeprazole [PriLOSEC] 40 mg PO DAILY 01/06/17 [History] Pioglitazone [Actos] 45 mg PO DAILY 01/06/17 [History] SitaGLIPtin [Januvia] 100 mg PO DAILY 01/06/17 [History] Citalopram Hydrobromide [Citalopram HBr] 10 mg PO DAILY 06/21/17 [History] Ferrous Sulfate [Iron] 325 mg PO DAILY 06/21/17 [History] LORazepam [Ativan] 0.5 mg PO DAILY 06/21/17 [History] Meloxicam [Mobic] 7.5 mg PO BID 06/21/17 [History] Metformin HCl [Metformin HCl ER] 1,000 mg PO BID 06/21/17 [History] Zjomjnmspest-Qula-Pqrtyvwt,Iso [Zosyn 3.375 gm/50 ml Galaxy] 3.375 gm IV Q8HR # 30 froz.piggy 06/25/17 [Rx] 3 Allergy/AdvReac Type Severity Reaction Status Date / Time cephalexin [From Keflex] Allergy Hives Verified 06/23/17 16:06 codeine Allergy Headache Verified 06/20/17 18:37 Iodinated Contrast- Oral and Allergy Hives Verified 06/23/17 16:06 IV Dye All Systems Reviewed: The remainder of the systems were reviewed and are negative Physical Exam - Constitutional Vitals: Temp Pulse Resp BP Pulse Ox 98.0 F 91 16 118/70 100 07/02/17 06:49 07/02/17 06:49 07/02/17 06:49 07/02/17 06:49 07/02/17 06:49 General appearance: average body habitus, cooperative, no acute distress - Expanded Lower Extremities Exam Foot/Toe exam: Present: deformity (Necrosis of toes #123 and 4 and necrotic ulceration of the dorsal aspect of her left foot of uncertain depth) - Neurological Exam Neurological exam: Present: abnormal gait Additional comments: Neurologically she has loss of protective sensation 2 pt discrimination, light touch and vibration from toes to tibia bilaterally - Vascular Capillary Refill: sluggish Lower Extremity Vascular: pulse deficit, sensory deficit Results - Labs Result Diagrams: 07/01/17 06:00 07/01/17 06:00 Labs: Abnormal lab results Hgb 8.7 g/dL (11.5-15.4) L 07/01/17 06:00 Hct 29.7 % (35.3-44.9) L 07/01/17 06:00 MCV 75.6 fL (83.0-100.0) L 07/01/17 06:00 MCH 22.1 pg (28.0-33.3) L 07/01/17 06:00 MCHC 29.3 g/dL (31.6-35.5) L 07/01/17 06:00 RDW 19.7 % (11.5-14.5) H 07/01/17 06:00 Nucleated RBCs/100 WBC 0.6 /100 WBC (0) H 06/24/17 10:13 Reactive Lymphocytes Present (Not Present) A 07/01/17 06:00 Toxic Granulation Present (Not Present) A 06/23/17 09:04 Polychromasia 1+ (Not Present) A 07/01/17 06:00 Hypochromasia Present (Not Present) A 07/01/17 06:00 Anisocytosis 1+ (Not Present) A 07/01/17 06:00 Microcytosis Present (Not Present) A 07/01/17 06:00 Macrocytosis Present (Not Present) A 06/21/17 04:46 ESR 125 mm/hr (0-15) H 06/20/17 19:00 PT 13.0 Seconds (9.4-12.1) H 06/22/17 08:17 Potassium 2.7 mEq/L (3.5-5.1) L 07/01/17 06:00 BUN 5 mg/dL (8-23) L 07/01/17 06:00 Glucose 54 mg/dL (70-105) L 07/01/17 06:00 Hemoglobin A1c 6.5 % (-5.6) H 06/21/17 04:46 Total Bilirubin 0.2 mg/dL (0.3-1.0) L 06/22/17 10:08 C-Reactive Protein 39 mg/L (Less than 10) H 06/20/17 19:00 Albumin 2.8 g/dL (3.5-5.7) L 06/22/17 10:08 Globulin 3.6 g/dL (2.4-3.5) H 06/22/17 10:08 Albumin/Globulin Ratio 0.8 (1.1-2.2) L 06/22/17 10:08 Urine Protein 30 mg/dL (Neg-Trace) H 06/29/17 21:50 Urine Microscopic WBC 5-15 per hpf (0-3) H 06/29/17 21:50 Ur Squamous Epith Cells Many per lpf (None-Few) H 06/29/17 21:50 All other labs normal. - Diagnostic results Ankle/Foot x-ray: image reviewed Consult Discharge Plan - Plan Referrals: wound,care [Other] - 07/07/17 11:15 am (By ER entrance between the doors) Sammy Pompa MD [Primary Care Provider] - 07/08/17 2:15 pm Xu Centeno MD [Partnered Physician] - 07/07/17 9:45 am Prescriptions: [id number]-Mzsr-Jnrtkxda,Iso [Zosyn 3.375 gm/50 ml Galaxy] 3.375 gm IV Q8HR # 30 froz.piggy
--- NOTE | 2017-07-02 09:47 | Infectious Disease Progress No ---
Date of Encounter: 07/02/17 Time of Encounter: 09:45 - Assessment and Plan (1) Sepsis Current Visit: Yes Status: Acute The patient had two SIRS criteria on admission. Likely secondary to left foot cellulitis and wound infection. Improved. WBC has normalized. She has been afebrile. Tachycardia has resolved. Blood cultures drawn 06/20/17 are negative x 2 sets. Lactic acid on admission normal. Repeat blood cultures x 2 sets drawn 06/28/17 are NGTD. Flu A antigen positive. Qualifiers: Qualified Code(s): A41.9 - Sepsis, unspecified organism (2) Influenza A Current Visit: Yes Status: Acute Influenza A antigen positive. Droplet precautions. Continue Tamiflu 75mg PO BID x 5 days (day 4). Supportive care. (3) Left foot infection Current Visit: Yes Status: Acute Causative organism: MSSA, E. coli, PSEA. Secondary to left foot second toe wound. Foot x-ray negative for OM, but ESR and CRP are very elevated. ESR 125, CRP 39. Podiatry consulted and following. Patient has opted for TMA and will go to surgery today. If wound healing is impaired, the patient will likely need a BKA. Wound care and activity restrictions per the podiatry team. Continue Zosyn 3.375 grams IV Q8H for now. Duration of treatment depends on the clinical picture. Will await intra-op findings before we decide if the patient will need antibiotics post-op. Monitor renal function and dose-adjust antibiotics. (4) Cellulitis of left foot Current Visit: Yes Status: Acute Location: Left foot. Causative organism: MSSA, E. coli, and PSEA. Likely secondary to left foot wound infection. Improved per patient report. Continue antibiotics as above. (5) Necrosis of toe Current Visit: Yes Status: Acute Location: Left foot toe #3 and #4 with some necrosis noted to the 1st and 4th toes. Secondary to infection vs. ischemia. Podiatry consulted and following. Planning for TMA later today. Wound care per the podiatry team. (6) Gangrene Current Visit: Yes Status: Acute (7) Diabetes mellitus Current Visit: Yes Status: Acute Controlled. HgbA1C 6.5%. Recommend aggressive glucose monitoring and control to promote wound healing and prevent re-infection. Management per the primary team. Qualifiers: Qualified Code(s): E11.42 - Type 2 diabetes mellitus with diabetic polyneuropathy; Z79.4 - care home (current) use of insulin; Z79.4 - long term care administrator ( current) use of insulin; Z79.4 - care home (current) use of insulin; Z79.4 - care home (current) use of insulin (8) Peripheral neuropathy Current Visit: Yes Status: Acute Qualifiers: Qualified Code(s): G62.9 - Polyneuropathy, unspecified (9) CAD (coronary artery disease) Current Visit: Yes Status: Chronic Qualifiers: Qualified Code(s): I25.810 - Atherosclerosis of coronary artery bypass graft( s) without angina pectoris (10) Chest pain Current Visit: Yes Status: Resolved Cardiology consulted. Likely demand ischemia from tachycardia d/t pain. Troponins mildly elevated initially, but now normal. CXR negative. Qualifiers: Qualified Code(s): R07.9 - Chest pain, unspecified (11) Atherosclerosis of left lower extremity with gangrene Current Visit: Yes Status: Chronic Vascular surgery consulted. Status post angiogram 06/22/[address] Centeno with balloon angioplasty of the left SFA, left popliteal, and left posterior tibial. Right anterior tibial, left anterior tibial, right dorsalis pedis, and left dorsalis pedis occluded. Qualifiers: Qualified Code(s): I70.262 - Atherosclerosis of [place] arteries of extremities with gangrene, left leg (12) Hypertension Current Visit: Yes Status: Acute Qualifiers: Qualified Code(s): I10 - Essential (primary) hypertension - Subjective Interval history: Patient seen and examined. No acute events noted overnight. Patient was afebrile overnight and tachycardia has resolved. She states she feels a little better this morning, but is nervous about her surgery. States she still has chest congestion, but denies chest or back pain. She denies any shortness of breath. She reports a cough that is now non-productive. She denies any nausea or vomiting and states her appetite is better. She does report diarrhea and states she had 3 loose stools yesterday. She denies any abdominal pain or urinary complaints. She does reports pain in her left foot today. She denies any oral thrush or new skin lesions. Infect Dis PN-Objective Data - Labs CBC & Chem 7: 07/02/17 09:35 07/02/17 09:35 Labs: Laboratory Results - last 24 hr 06/30/17 06/30/17 06/30/17 07:52 09:18 11:19 Sodium Potassium Chloride Carbon Dioxide BUN Creatinine Est GFR ( Amer) Est GFR (Non-Af Amer) BUN/Creatinine Ratio Glucose POC Glucose 60 137 H 148 H Calculated Osmolality Calcium Magnesium 06/30/17 07/01/17 07/01/17 16:31 06:00 11:44 Sodium 141 Potassium 2.7 L Chloride 103 Carbon Dioxide 29 BUN 5 L Creatinine 0.69 Est GFR ( Amer) > 60 Est GFR (Non-Af Amer) > 60 BUN/Creatinine Ratio 7 Glucose 54 L POC Glucose 89 120 H Calculated Osmolality 287 Calcium 8.6 Magnesium 1.7 07/01/17 16:12 Sodium Potassium Chloride Carbon Dioxide BUN Creatinine Est GFR ( Amer) Est GFR (Non-Af Amer) BUN/Creatinine Ratio Glucose POC Glucose 88 Calculated Osmolality Calcium Magnesium Cultures: Cultures 06/28/17 18:50 Blood Culture - Preliminary Peripheral Venipuncture No growth. 06/28/17 18:47 Blood Culture - Preliminary Peripheral Venipuncture No growth. 06/28/17 18:45 Influenza Types A,B Antigen (ISABELA) - Final Nasopharyngeal Serology 06/29/17 06/24/17 Range/Units 21:50 19:53 Urine Color Yellow (Yellow) Urine Clarity Clear (Clear) Urine pH 6.0 (5.0-8.0) pH Units Ur Specific [place] 1.022 (1.010-1.025) Urine Protein 30 H (Neg-Trace) mg/dL Urine Glucose (UA) Normal (Normal) mg/dL Urine Ketones Negative (Negative) mg/dL Urine Blood Negative (Negative) Urine Nitrite Negative (Negative) Urine Bilirubin Negative (Negative) Urine Urobilinogen Normal (Normal) mg/dL Ur Leukocyte Esterase Negative (Negative) Urine Microscopic RBC 0-3 (0-3) per hpf Urine Microscopic WBC 5-15 H (0-3) per hpf Ur Squamous Epith Cells Many H (None-Few) per lpf Urine Bacteria None Seen (None-Few) per hpf Hyaline Casts None Seen (None-Few) per lpf Ur Culture Indicated? NO (NO) Stl C. diff Tox B Gene Negative (Negative) Exam - Constitutional Vitals: Temp Pulse Resp BP Pulse Ox 98.0 F 91 16 118/70 100 07/02/17 06:49 07/02/17 06:49 07/02/17 06:49 07/02/17 06:49 07/02/17 06:49 General appearance: average body habitus, cooperative, no acute distress - Head Head exam: Present: atraumatic, normal inspection, normocephalic - Eye Eye exam: Present: EOMI, normal appearance, PERRL Pupils: Present: normal accommodation - ENT ENT exam: Present: mucous membranes moist - Neck Neck exam: Present: normal inspection - Respiratory Respiratory exam: Present: CTAB, wheezes (Fine expiratory wheezes, RUL). Absent : rales, respiratory distress, rhonchi - Cardiovascular Cardiovascular exam: Present: RRR, +S1, +S2 - GI/Abdominal GI/Abdominal exam: Present: normal bowel sounds, soft. Absent: distended, tenderness - Extremities Exam Extremities exam: Present: pedal edema (1+ LLE), tenderness (left foot) Additional comments: Left foot dressing C/D/I. - Neurological Exam Neurological exam: Present: alert, oriented X3, no focal deficits - Psychiatric Psychiatric exam: Present: normal affect, normal mood - Skin Skin exam: Present: dry, intact, normal color, warm - VTE Documentation of Mechanical Device: Venous foot pump, device Consult Discharge Plan - Plan Referrals: wound,care [Other] - 07/07/17 11:15 am (By ER entrance between the doors) Sammy Pompa MD [Primary Care Provider] - 07/08/17 2:15 pm Xu Centeno MD [Partnered Physician] - 07/07/17 9:45 am Prescriptions: [id number]-[id number],Iso [Zosyn 3.375 gm/50 ml Galaxy] 3.375 gm IV Q8HR # 30 froz.piggy - Attending Attestation I examined this patient and my medical decision-making was reviewed with the Resident Physician. I agree with the documented findings, disposition and treatment plan as described except to the extent set forth below.
[2017-07-02 09:49] LABS: Basophils % 0.3 %; Eosinophils # 0.2 K/mcL (0.0-0.6); Eosinophils % 3.6 %; Hematocrit 26.7 % (35.3-44.9); Hemoglobin 7.8 g/dL (11.5-15.4); Immature Granulocytes % 0.5 % (0-4); Lymphocytes % 14.9 %; Mean Corpuscular HGB Conc 29.2 g/dL (31.6-35.5); Mean Corpuscular Hemoglobin 22.2 pg (28.0-33.3); Mean Corpuscular Volume 75.9 fL (83.0-100.0); Mean Platelet Volume 10.1 fL (9.4-12.4); Monocytes # 0.4 K/mcL (0.0-1.3); Monocytes % 6.3 %; Platelet Count 230 K/mcL (140-400); Red Blood Count 3.52 M/mcL (3.82-4.97); Red Cell Distribution Width 19.9 % (11.5-14.5); Segmented Neutrophils % 74.4 %
[2017-07-02 10:05] LABS: BUN/Creatinine Ratio 5 (6-26); Blood Urea Nitrogen 4 mg/dL (8-23); Calcium 8.4 mg/dL (8.6-10.3); Carbon Dioxide 32 mEq/L (23-29); Chloride 105 mEq/L (98-107); Glucose 66 mg/dL (70-105); Osmolality,Calculated 291 (280-300); Potassium 2.9 mEq/L (3.5-5.1); Sodium 143 mEq/L (136-145); eGFR For African Americans > 60 (> 60); eGFR For Non-African Americans > 60 (> 60)
--- NOTE | 2017-07-02 10:16 | Internal Med Progress Note ---
<Rafael Harper - Last Filed: 07/02/17 15:14> Date of Encounter: 07/02/17 Time of Encounter: 10:10 - Assessment and plan (1) Cellulitis of left foot Current Visit: Yes Status: Acute Assessment and plan: Patient presented with left lower extremity cellulitis and found to have necrotic toe Wound cultures on left foot positive for Pseudomonas aeruginosa, Escherichia coli and Staphylococcus aureus Initial blood cultures and repeat blood cultures were negative. Continuing on Zosyn, Day 7. ID to determine length of antibiotic course S/P surgery Most recent hemoglobin was 7.8, patient has been very slowly downtrending over the past few days. We will recheck status post surgery. Pending BMP result will replace electrolytes if needed. Podiatry to take patient to surgery later this afternoon, nothing by mouth. Plan for SNF status post surgery. (2) Necrosis of toe Current Visit: Yes Status: Acute Assessment and plan: Plan for TMA this afternoon with Dr. Coffey. Replacing electrolytes will recheck in the morning. (3) Atherosclerosis of left lower extremity with gangrene Current Visit: Yes Status: Chronic Assessment and plan: Vascular surgery consult patient underwent balloon angioplasty of the left lower extremity. According to note by podiatry Dr. Centeno with Vascular Surgery states that this patient does have sufficient blood flow to supply the area. Qualifiers: Peripheral atherosclerosis artery type: ute artery Qualified Code(s): I70.262 - Atherosclerosis of ute arteries of extremities with gangrene, left leg (4) Diabetes mellitus Current Visit: Yes Status: Acute Assessment and plan: Controlled; continue Januvia with sliding scale insulin patient is on medium dose. Qualifiers: Diabetes mellitus type: type 2 Diabetes mellitus complication status: with neurologic complications Diabetes mellitus complication detail: with polyneuropathy Diabetes mellitus fdc insulin use: with fdc use Qualified Code(s): E11.42 - Type 2 diabetes mellitus with diabetic polyneuropathy; Z79.4 - lobsterman (current) use of insulin; Z79.4 - lobsterman ( current) use of insulin; Z79.4 - custodial (current) use of insulin; Z79.4 - custodial (current) use of insulin (5) CAD (coronary artery disease) Current Visit: Yes Status: Chronic Assessment and plan: Patient has history of CAD with CABG 4 in 2001 at [facility]. Abnormal nuclear stress test in 2017 consistent with reversible myocardial ischemia. Echo done in December 2016 showed an EF of 60%, normal LV function, no significant valvular dysfunction, no pulmonary hypertension,NSWMA. Recent heart catheter done in Recent heart cath in December of 2016. On aspirin, Plavix, statin, beta eugenie, JOSE inhibitor, long-acting nitrates. Patient experienced an episode of chest pain symptoms during the night on 06/20/17 and the setting of tachycardia which she attributed to her extreme left foot pain. She did have a troponin with mild elevation peak of 0.09. Limited echo was ordered and showed LVEF of 60-65 % with normal LV chamber size with all wall segment showing normal motion. She is chest pain-free. Cardiology saw the patient, no further recommendations were made at this time. Attributed elevated troponin to demand ischemia secondary to the pain the patient was experiencing. Plan for f/u outpatient. Qualifiers: Coronary Disease-Associated Artery/Lesion type: bypass graft [place] vs. transplanted heart: ute heart Associated angina: angina presence unspecified Qualified Code(s): I25.810 - Atherosclerosis of coronary artery bypass graft(s) without angina pectoris (6) Hypertension Current Visit: Yes Status: Acute Assessment and plan: Controlled; continue JOSE inhibitor and beta eugenie Qualifiers: Hypertension type: essential hypertension Qualified Code(s): I10 - Essential (primary) hypertension (7) GERD (gastroesophageal reflux disease) Current Visit: Yes Status: Acute Assessment and plan: Continue PPI Qualifiers: Esophagitis presence: esophagitis presence not specified Qualified Code(s) : K21.9 - Gastro-esophageal reflux disease without esophagitis (8) Influenza A Current Visit: Yes Status: Acute Assessment and plan: Influenza A positive. Droplet precautions. Continue Tamiflu 75 mg by mouth twice a day 5 days. Currently on day 4. (9) DVT prophylaxis Current Visit: Yes Status: Acute Assessment and plan: Subcutaneous heparin - Subjective Interval history: Patient is a 66 her old female with long sitting history of, CAD status post 4 stents, CABG, CHF, hyperlipidemia, hypertension type 2 diabetes on insulin and peripheral neuropathy who presents for infection of the second and third left toe. The toe was evaluated by podiatry and cultures were sent with sensitivities returned. The patient was initiated on appropriate antibiotics. Vascular surgery was also consulted to evaluate the arterial support for the affected toes and it was determined that the patient is receiving enough blood supply to the toes for treatment. The patient also experienced an episode of chest pain during her stay in which she had an elevated troponin and some ST elevation, however this was evaluated by cardiology and it was attributed to demand ischemia. Patient was educated for follow-up with color finisher outpatient. At this time repeat blood cultures are pending. Patient had discussions with podiatry this morning in which they decided to go forward with a transmetatarsal amputation of the left foot. I spoke with CMAILLE Saab with infectious disease and she states the antibiotic course will be determined status post surgery today. Patient states she otherwise feels fine at this time no concerns. Patient will be nothing by mouth. Other than HPI a 10 pt ROS is negative - Constitutional Vitals: Temp Pulse Resp BP Pulse Ox 98.0 F 91 16 118/70 100 07/02/17 06:49 07/02/17 06:49 07/02/17 06:49 07/02/17 06:49 07/02/17 06:49 General appearance: Present: A&O X 3, pleasant, no acute distress - Head Head exam: Present: atraumatic, normal inspection - Eye Eye exam: Present: normal appearance, PERRL - Neck Neck exam general surgery: Present: normal inspection - Respiratory Respiratory exam: Present: CTAB. Absent: respiratory distress - Cardiovascular Cardiovascular exam: Present: RRR, +S1, +S2 - GI/Abdominal GI/Abdominal exam: Present: normal bowel sounds - Extremities Exam Extremities exam: Absent: pedal edema, tenderness, warm Additional comments: Skin around the lower extremity appears normal for patient. No signs of erythema or infection. Patient is complaining of tenderness to the distal toes of her left foot, however surgery for transmetatarsal amputation is occurring later today. Followed by podiatry. - Back Exam Back exam: Present: normal inspection - Neurological Exam Neurological exam: Present: alert, oriented X3 - Psychiatric Psychiatric exam: Present: normal affect, normal mood - Skin Skin exam: Present: dry, intact, normal color, warm Internal Medicine: Result - Labs CBC & Chem 7: 07/02/17 09:35 07/02/17 09:35 Labs: Short CBC 07/02/17 Range/Units 09:35 WBC 6.7 (4.3-11.1) K/mcL Hgb 7.8 L (11.5-15.4) g/dL Hct 26.7 L (35.3-44.9) % Plt Count 230 (140-400) K/mcL Neutrophils # 5.0 (1.6-8.9) K/mcL [facility] 07/01/17 07/02/17 06:00 09:35 Sodium 141 143 Potassium 2.7 L 2.9 L Chloride 103 105 Carbon Dioxide 29 32 H BUN 5 L 4 L Creatinine 0.69 0.73 Glucose 54 L 66 L Calcium 8.6 8.4 L - ABG Interpretation ABG results: PT/INR, D-dimer PT 13.0 Seconds (9.4-12.1) H 06/22/17 08:17 - VTE Documentation of Mechanical Device: Venous foot pump, device Consult Discharge Plan - Plan Referrals: wound,care [Other] - 07/07/17 11:15 am (By ER entrance between the doors) Sammy Pompa MD [Primary Care Provider] - 07/08/17 2:15 pm Xu Centeno MD [Partnered Physician] - 07/07/17 9:45 am Prescriptions: Tifblsqhnzzr-Wlna-Svgcplua,Iso [Zosyn 3.375 gm/50 ml Galaxy] 3.375 gm IV Q8HR # 30 froz.piggy <Tramaine Hammer R - Last Filed: 07/02/17 15:22> Date of Encounter: 07/02/17 - Constitutional Vitals: Temp Pulse Resp BP Pulse Ox 98.8 F 67 16 124/64 95 07/02/17 11:22 07/02/17 11:22 07/02/17 11:22 07/02/17 11:22 07/02/17 11:22 Internal Medicine: Result - Labs CBC & Chem 7: 07/02/17 09:35 07/02/17 09:35 Labs: Short CBC 07/02/17 Range/Units 09:35 WBC 6.7 (4.3-11.1) K/mcL Hgb 7.8 L (11.5-15.4) g/dL Hct 26.7 L (35.3-44.9) % Plt Count 230 (140-400) K/mcL Neutrophils # 5.0 (1.6-8.9) K/mcL [facility] 07/01/17 07/02/17 06:00 09:35 Sodium 141 143 Potassium 2.7 L 2.9 L Chloride 103 105 Carbon Dioxide 29 32 H BUN 5 L 4 L Creatinine 0.69 0.73 Glucose 54 L 66 L Calcium 8.6 8.4 L - ABG Interpretation ABG results: PT/INR, D-dimer PT 13.0 Seconds (9.4-12.1) H 06/22/17 08:17 - Attending Attestation I personally interviewed and examined this patient. I agree with the findings, assessment, and plan of Dr. Harper, internal medicine regulatory intern. Infectious disease input appreciated. Dietary input appreciated. Patient to have a TMA this afternoon. Further decision on antibiotics pending outcome of surgery. All else as outlined above.
[2017-07-02] MEDS ORDERED: Bupivacaine/Clonidine Syringe 1 EACH SYRINGE ONE ×2 (16:33→19:12)
--- NOTE | 2017-07-02 18:03 | Anesthesia Evaluation PreOp ---
Date of Encounter: 07/02/17 Time of Encounter: 18:01 - Past History Planned Operation: Left foot transmetatarsal amputation Cardiac History: HTN, Hyperlipidemia, Cardiac Surgery (CABD), Cardiac Stent (x2 Indications: Abnormal Test - Stress Impressions: There is severe three vessel coronary artery disease. The left ventricle is normal and has normal contractility EF 55% Severely elevated LVEDP. S/P CABG 3 of 4 patent bypass grafts. Previously stented RCA patent. Recommendations: Optimal medical therapy of patient's disease. Aggressive risk factor modification.), Other (ER #: [id number] EV/EV limited echocardiogram Impressions: LVEF 60-65%. Normal LV chamber size, wall thickness and function. Atypical septal motion consistent with post-operative status. Aneurysmal appearing interatrial septum. Suboptimal image quality with agitated saline. There appeared to be a few bubbles in the left ventricle, which suggests a right to left shunt such as a small PFO.) Pulmonary History: Former smoker, Asthma, COPD [employer] History: Denies Any Significant HX Other Medical History: Renal (stones), Diabetes Type II, Other (anemia) Anesthesia History: No Prior Anesthetic Complications, Past Anesthesia ( angioplasty/stent, appendectomy, cholecystectomy, coronary bypass (CABG)) Alcohol Use: none Drug use: none Medications and Allergies Alendronate Sodium 70 mg PO QWEEK 01/06/17 [History] Aspirin [Lo-Dose Aspirin EC] 81 mg PO DAILY 01/06/17 [History] Calcium Carbonate/Vitamin D3 [Calcium 500-Vit D3 200 Caplet] 1 each PO TID 01/06 [History] Clopidogrel Bisulfate [Plavix] 75 mg PO DAILY 01/06/17 [History] Clotrimazole 1% CRM [Lotrimin 1%] 1 appl TD BID 01/06/17 [History] Cyclobenzaprine [Flexeril] 10 mg PO DAILY 01/06/17 [History] Enalapril Maleate [Vasotec] 10 mg PO DAILY 01/06/17 [History] Ergocalciferol (VITAMIN D2) [Vitamin D2] 50,000 unit PO QWEEK 01/06/17 [History] Folic Acid 1 mg PO DAILY 01/06/17 [History] Furosemide [Lasix] 20 mg PO DAILY PRN 01/06/17 [History] Gabapentin [Neurontin] 600 mg PO TID 01/06/17 [History] HYDROcodone/Acet 5/325 mg [[place] 5-325 mg] 1 tab PO Q8H PRN 01/06/17 [History] Insulin Glargine,Hum.rec.anlog [Basaglar Kwikpen U-100] 43 unit SQ DAILY [History] Insulin LISPRO [HumaLOG] 0 units SQ TIDWM PRN 01/06/17 [History] Isosorbide MONOnitrate (24 HR) [Imdur] 60 mg PO DAILY #30 tab.er.24h 01/06/17 [ Rx] Lovastatin [Mevacor] 20 mg PO DAILY 01/06/17 [History] Metoprolol Tartrate [Lopressor] 50 mg PO DAILY 01/06/17 [History] Nitroglycerin [Nitrostat] 0.4 mg SL Q5-6MIN PRN 01/06/17 [History] Omeprazole [PriLOSEC] 40 mg PO DAILY 01/06/17 [History] Pioglitazone [Actos] 45 mg PO DAILY 01/06/17 [History] SitaGLIPtin [Januvia] 100 mg PO DAILY 01/06/17 [History] Citalopram Hydrobromide [Citalopram HBr] 10 mg PO DAILY 06/21/17 [History] Ferrous Sulfate [Iron] 325 mg PO DAILY 06/21/17 [History] LORazepam [Ativan] 0.5 mg PO DAILY 06/21/17 [History] Meloxicam [Mobic] 7.5 mg PO BID 06/21/17 [History] Metformin HCl [Metformin HCl ER] 1,000 mg PO BID 06/21/17 [History] Rxeikqngpish-Zarg-Zebxxaxn,Iso [Zosyn 3.375 gm/50 ml Galaxy] 3.375 gm IV Q8HR # 30 froz.piggy 06/25/17 [Rx] 3 Allergy/AdvReac Type Severity Reaction Status Date / Time cephalexin [From Keflex] Allergy Hives Verified 06/23/17 16:06 codeine Allergy Headache Verified 06/20/17 18:37 Iodinated Contrast- Oral and Allergy Hives Verified 06/23/17 16:06 IV Dye - Meds/Allergy Pre-op Review Medications Reviewed: Yes Allergies Reviewed: Yes Beta Blockers on Current Med List: No Anesthesia Results - Labs 07/02/17 09:35 07/02/17 09:35 - Imaging EKG: report reviewed ( Interpretive Statements SINUS TACHYCARDIA INCOMPLETE RIGHT BUNDLE BRANCH BLOCK ST DEVIATION AND MODERATE T-WAVE ABNORMALITY, CONSIDER ANTEROLATERAL ISCHEMIA Electronically Signed On 07-02-2017 9:14:19 EST by Quinn Frausto DO) Anesthesia Exam Vital Signs/O2 Sat, Most Current Temp Pulse Resp BP Pulse Ox 98.1 F 76 15 127/61 93 07/02/17 15:06 07/02/17 15:06 07/02/17 15:06 07/02/17 15:06 07/02/17 15:06 Height: 1.55m Weight: 66kg NPO (# of Hours): >8 - HEENT Pupil (Motor): Pupils equal, EOMI Mallampati: II Teeth: Edentulous Oral Opening: Greater than 3 - [employer] LOC: Oriented [employer] Motor: Normal RUE, Normal LUE, Normal Face, Deficit RLE (numbness and tingling), Deficit LLE (numbness and tingling) [employer] Sensory: Normal: RUE, LUE, RLE, LLE, Face - Cardiac Rhythm: Regular - Pulmonary Respiratory Effort: Symmetrical (wheezes saad) Anesthesia Assess/Plan ASA Score: 3 Anesthetic Plan: General (plan b), MAC Monitoring Plan: Standard Monitors Recovery Plan: PACU
[2017-07-02] MEDS ORDERED: Albuterol 2.5 MG/3 ML NEBULIZER IH ONE (18:05)
[2017-07-02] MEDS ORDERED: Ondansetron 4 MG/2 ML VIAL ONE (19:09)
[2017-07-02] MEDS ORDERED: Lidocaine -MPF 2% 2 ML VIAL ONE (19:09)
[2017-07-02] MEDS ORDERED: Propofol 500 MG/50 ML INFUS..BTL ONE (19:09)
[2017-07-02] MEDS ORDERED: *HR* FentaNYL (PF) 100 MCG/2 ML VIAL ONE (19:21)
--- NOTE | 2017-07-02 21:39 | Orthopedic Operative Note ---
Date of procedure: 07/02/17 Pre-op diagnosis: Gangrene left forefoot Post-op diagnosis: same Procedure: 07/02/17 21:32 #1 transmetatarsal amputation #2 surgical wound bed preparation of ulcer dorsal aspect of left foot with application of skin substitute/graft jacket and wound VAC Implants: Graft jacket Complications: None Anesthesia: MAC, local Local Anesthetics: 0.25% Sensorcaine HCL SubQ (cc) Surgeon: Rivera Coffey Was there an assistant professor of mathematics present: No Estimated blood loss (cc): 30 Tourniquet Time (Minutes): 0 Specimen: Left forefoot toes in respective metatarsal Condition: stable Disposition: floor Procedure in Detail: 07/02/17 21:33 Details in summary of procedure. The patient was brought to the surgical suite. A sign in procedure was performed. The patient was then transferred to the surgical table and positioned properly safely securely. Anesthetic timeout was taken. Left foot was elevated on a foam block. No tourniquet was used. The left ankle was prepped with alcohol 3 times. A ankle block was then carried out without difficulty or complication. The left foot was then prepped and draped usual sterile manner. Surgical timeout was taken. Large eschar proximally 5 cm x 5 cm was noted over the central dorsal portion of the left foot. This eschar was should debrided down to the subcutaneous tissue. Underlying tissue was noted to bleed freely without necessitating use of Bovie ligature. At that point we transmetatarsal amputation incisions were drawn with a skin scribe. Satisfied that we had adequate skin margins #15 scalpel blade was then used to make an incision on the medial aspect first metatarsal directly down to the bone and brought distally and then transversely just proximal to the toes at the level of the MTPJ's to the lateral aspect of the fifth metatarsal and a linear fashion along the lateral midline of the metatarsal. The second incision was then begun medial aspect of the first metatarsal phalangeal joint and brought plantarly and then transversely just proximal to the sulcus to the level of the fifth metatarsal on the lateral aspect of distal metatarsal conjoining the dorsal incision. Incision was deepened through sharp dissection with a #15 scalpel blade dividing the capsular structures dorsally medially and laterally and then plantarly. Flexor extensor tendons were divided cleanly. Forefoot was then disarticulated placed in a basin. At that point periosteal dissection was carried out first second third fourth and fifth metatarsals from distal to proximal with a #15 scalpel blade dorsally and plantarly. A McGlamry elevator was then used to reflect soft tissue away from the metatarsals #1 through 5 respectively and in that order. At that juncture a TPS sagittal saw was used to divide metatarsals in sequence #1 through 5 from distal dorsal to plantar proximal. Metatarsals were then resected from proximal to distal without difficulty using a Quintana scissor. At that point the wound was flushed with copious sterile saline. There is no active bleeding necessitated use of Bovie ligature. The wound did bleed and so to the skin edges. Was thoroughly irrigated. At that point a [employer] ultrasonic debrider was used to debride the wound on the dorsal aspect of the foot . Dimensions of the wound 5 cm x 5 cm x 0.2 cm deep down to the subcutaneous level, saline soaked-soaked sponge was placed over the wound. The sesamoid apparatus was also removed without difficulty. The flexor hallucis tendon was then sewn to the periosteum of the first metatarsal, with 3-0 Vicryl sutures were then placed in the second and fourth plantar capsular structures were sewn to the respective metatarsals 2 and 4 of the periosteum to create less stress on the incision postoperatively and to close the wound deeply to avoid hematoma. At that point a TLS drain was placed proximal and plantar and exiting the distal dorsal medial aspect of the dorsal flap. That point his skin was sutured with 3-0 Prolene. The graft jacket 5 cm by 5 cm, then pie crusted and placed on the wound of the dorsal aspect of the left foot covering the ulceration this was anchored with 3-0 Prolene as well. At that point the wound was sprayed with PRP. Graft jacket was rehydrated was more sterile saline and then PRP as well prior to placement. At that juncture Adaptic was placed over the graft and a wound VAC was then applied over the graft itself and then along the incision medially and laterally. Soft tissue was protected with drape. The wound VAC was noted to function properly. TLS drain was functioning properly. Estimated blood loss less than 30 mL. Complications none. The patient tolerated the anesthesia and the procedure without difficulty. Patient was then sent to holding room in good condition and onto the floor. 07/07/17 07:41
[2017-07-02] MEDS ORDERED: GuaiFENesin Liq 200 MG/10 ML UDC PO PRN (22:08)
[2017-07-02] MEDS ORDERED: D5% in Water 1,000 ML IVC PRN (22:08)
[2017-07-02] MEDS ORDERED: Dextrose Gel 15 GM/37.5 ML TUBE PO PRN ×2 (22:08)
[2017-07-02] MEDS ORDERED: Ipratropium/Albuterol Neb 3 ML IH PRN (22:08)
[2017-07-02] MEDS ORDERED: Naloxone 0.4 MG/ML INJ IVP PRN (22:08)
[2017-07-02] MEDS ORDERED: Ondansetron 4 MG/2 ML VIAL IVP PRN (22:08)
[2017-07-02] MEDS ORDERED: *HR* Dextrose 50 % in Water (Syg) 50 ML SYRINGE IVP PRN (22:08)
[2017-07-02] MEDS ORDERED: Nitroglycerin 0.4 MG TAB.SUBL SL PRN (22:08)
[2017-07-02] MEDS ORDERED: Nitroglycerin 1 INCH/GM PACKET TP ONE (22:12)
--- NOTE | 2017-07-02 23:00 | Event Note ---
<Anjum Rader - Last Filed: 07/03/17 01:12> Date of Encounter: 07/03/17 Time of Encounter: 22:59 at 21:50 alerted by nursing that patient had returned from PACU s/p partial amputation L foot and that en route to [facility] patient developed chest pain and tightness. Anesthesiologist present in room upon arrival. He had ordered a type and cross and an EKG as the patient was anemic prior to surgery and had soem blood loss during surgery. I reveiwed EKG which showed some ischemic changes in the lateral leads. Patient's chest pain was resolving. Ordered 2 units of PRBC to be transfused, ordered a stat troponin and a second to be drawn in 6 hours. Ordered NG paste, but patient's chest pain resolved prior to administration. Patient was also noted to be hypokalemic to 2.9 but did not receive her repletion prior to surgery because she was NPO. Ordered 40mg PO stat and another 40mg for an hour later. Also ordered repeat EKG for an hour after the stat one. Reviewed second EKG which showed slight improvement from prior. At this time patient is asymptomatic and first unit is of PRBC is being transfused. Orders given for lasix after transfusion 2/2 to CHF. H/H to be checked after transfusion. <Ashish Rae - Last Filed: 07/03/17 22:27> Date of Encounter: 07/03/[address] Rader and I saw patient independently as well. When I saw her, she was chest pain free. I agree with his care.
[2017-07-03] LABS: Hematocrit 26.5 % (35.3-44.9); Hemoglobin 7.5 g/dL (11.5-15.4)
[2017-07-03] MEDS: Piperacillin/Tazobactam 3.375 GM in 0.9 % Sodium Chloride Mini Bag 100 ML IVPB SCH ×3 (00:33→17:03)
[2017-07-03] MEDS ORDERED: Piperacillin/Tazobactam 3.375 GM in 0.9 % Sodium Chloride Mini Bag 100 ML IVPB SCH ×2 (01:00)
[2017-07-03] MEDS ORDERED: 0.9 % Sodium Chloride 250 ML ONE ×2 (01:03→05:02)
[2017-07-03] MEDS: *HR* HYDROcodone/Acet 5/325 mg TABLET PO PRN ×5 (02:31→20:06)
[2017-07-03] MEDS ORDERED: *HR* HYDROmorphone 2 MG TABLET PO PRN ×2 (03:41→03:47)
[2017-07-03] MEDS ORDERED: *HR* OxyCODONE Immed Rel 5 MG TABLET PO PRN (03:45)
[2017-07-03] MEDS: Furosemide 20 MG/2 ML VIAL IVP PRN ×2 (05:28→09:43)
[2017-07-03] MEDS: *HR* Heparin 5,000 UNIT/ML VIAL SQ SCH ×3 (05:29→22:07)
[2017-07-03] MEDS: Cholecalciferol (D-3) 1,000 UNIT TABLET PO SCH (07:23)
[2017-07-03] MEDS: Isosorbide MONOnitrate (24 HR) 60 MG TAB.ER.24H PO SCH (07:23)
[2017-07-03] MEDS: Aspirin Enteric Coated 81 MG Tablet PO SCH (07:23)
[2017-07-03] MEDS: Gabapentin 300 MG CAPSULE PO SCH ×3 (07:23→19:58)
[2017-07-03] MEDS: Acetaminophen 325 MG TABLET PO PRN (07:24)
[2017-07-03] MEDS: Folic Acid 1 MG TABLET PO SCH (07:24)
[2017-07-03 07:39] LABS: BUN/Creatinine Ratio 6 (6-26); Blood Urea Nitrogen 4 mg/dL (8-23); Calcium 8.6 mg/dL (8.6-10.3); Carbon Dioxide 26 mEq/L (23-29); Chloride 102 mEq/L (98-107); Glucose 117 mg/dL (70-105); Osmolality,Calculated 286 (280-300); Sodium 139 mEq/L (136-145); eGFR For African Americans > 60 (> 60); eGFR For Non-African Americans > 60 (> 60)
[2017-07-03] MEDS: Insulin LISPRO 300 UNITS/3 ML VIAL SQ SCH ×4 (07:47→22:06)
--- NOTE | 2017-07-03 08:57 | Internal Med Progress Note ---
<Kimberly Guzman - Last Filed: 07/03/17 10:34> Date of Encounter: 07/03/17 Time of Encounter: 09:45 - Assessment and plan (1) Cellulitis of left foot Current Visit: Yes Status: Acute Assessment and plan: Patient presented with left lower extremity cellulitis and found to have necrotic toe. Wound cultures on left foot positive for Pseudomonas aeruginosa, Escherichia coli and Staphylococcus aureus. Initial blood cultures and repeat blood cultures were negative.ID to determine length of antibiotic course S/P surgery. Plan: - Continuing on Zosyn, Day 8, discuss with surgery about continuing antibiotic use -Plan for SNF status post surgery. (2) Necrosis of toe Current Visit: Yes Status: Acute Assessment and plan: POD#1 of transmet[address]arsal amputation with Dr. Coffey. Will discuss with Dr. Coffey about desire for continued antibiotics or not. Plan: - pain control: Enigma 5-325 Q4hr, - for now continue zosyn day 8 (3) Diabetes mellitus Current Visit: Yes Status: Acute Assessment and plan: Controlled; continue Januvia with sliding scale insulin patient is on medium dose. 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 Abnormal nuclear stress test in 2017 consistent with reversible myocardial ischemia. Echo done in December 2016 showed an EF of 60%, normal LV function, no significant valvular dysfunction, no pulmonary hypertension,NSWMA. Recent heart catheter done in Recent heart cath in December of 2016. On aspirin, Plavix, statin, beta eugenie, JOSE inhibitor, long-acting nitrates. Patient experienced an episode of chest pain symptoms during the night on 06/20/17 and the setting of tachycardia which she attributed to her extreme left foot pain. She did have a troponin with mild elevation peak of 0.09 at admission. Limited echo was ordered and showed LVEF of 60-65% with normal LV chamber size with all wall segment showing normal motion. Cardiology saw the patient, no further recommendations were made at this time. Attributed elevated troponin to demand ischemia secondary to the pain the patient was experiencing. Plan for f/u outpatient. Overnight (07/02/17) patient was having chest pain s/p surgery, Troponin neg, EKG showed lateral ischemia and had a hemoglobin 7.5 therefore patient was transfused 2 units. Patient is currently not have chest pain, sob, dizziness. Continue to monitor. Plan: - continue Asa, plavix, statin, beta eugenie, JOSE, long-acting nitrates - f/u with cardiology outpatient Qualifiers: Coronary Disease-Associated Artery/Lesion type: bypass graft [place] vs. 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 Droplet precautions. Continue Tamiflu 75 mg by mouth twice a day 5 days. Currently on day 4. (7) DVT prophylaxis Current Visit: Yes Status: Acute Assessment and plan: Subcutaneous heparin (8) Anemia following surgery Current Visit: Yes Status: Acute Assessment and plan: Given 2 units of PRBC. Repeat CBC this morning pending. Asymptomatic at this time. - Subjective Interval history: Ms. Beltrán is a 66 y/o female who was admitted for left lower extremity infection with necrosis of her second and third toe who is POD#1 transmetatarsal amputation. Overnight had an episode of chest pain as patient was being transferred from the PACU to the room, EKG showed lateral ischemic changes but troponin was negative, so this was attributed to demand ischemia. Hemoglobin was 7.7 s/p surgery, so patient was transfused with 2 units fo PRBCs. Potassium was also given as patient's K = 2.9. Stay patient states she is not having any chest pain, shortness of breath, dizziness, lightheadedness. Does admit to loose stool since arrival in the hospital. She has not noted and new symptoms difference after having 2 units of packed red blood cells. Her foot pain as a 10/10. She admits to positive flatus, voiding. No BM since surgery. Patient has been able to eat without N/V. - Constitutional Vitals: Temp Pulse Resp BP Pulse Ox 97.4 F L 85 18 128/61 94 07/03/17 07:31 07/03/17 07:31 07/03/17 07:31 07/03/17 07:31 07/03/17 07:31 General appearance: Present: A&O X 3, pleasant, no acute distress Exam: Constitutional: Alert, in no acute distress Head: Normocephalic, atraumatic, Heart: Normal, regular rate and rhythm, no murmurs Lungs: Clear to auscultation, no wheezes, rales, or rhonchi Abdomen: Soft, nondistended, nontender, , no guarding or rigidity. Extremities: left foot dressed with serosanguinous fluid drainage, no signs of infection around dressing, powerglide present in R arm radial pulse +2/4, capillary refill <2sec. Skin: Skin warm and dry, no jaundice Neurologic: Cranial nerves II through XII grossly intact, no focal deficits, strength 5/5 in all extremities Psych: Cooperative with exam, good eye contact, cognitive function intact, judgment good insight good, speech clear, thought process logical, and goal directed Internal Medicine: Result - Labs CBC & Chem 7: 07/02/17 22:05 07/03/17 06:44 Labs: Short CBC 07/02/17 07/02/17 Range/Units 09:35 22:05 WBC 6.7 (4.3-11.1) K/mcL Hgb 7.8 L 7.5 L (11.5-15.4) g/dL Hct 26.7 L 26.5 L (35.3-44.9) % Plt Count 230 (140-400) K/mcL Neutrophils # 5.0 (1.6-8.9) K/mcL BMP 07/02/17 07/03/17 09:35 06:44 Sodium 143 139 Potassium 2.9 L 4.0 D Chloride 105 102 Carbon Dioxide 32 H 26 BUN 4 L 4 L Creatinine 0.73 0.72 Glucose 66 L 117 H Calcium 8.4 L 8.6 Cardiac Enzymes 07/02/17 07/03/17 Range/Units 22:05 06:44 Troponin I < 0.03 < 0.03 (< 0.04) ng/mL - ABG Interpretation ABG results: PT/INR, D-dimer PT 13.0 Seconds (9.4-12.1) H 06/22/17 08:17 - Impressions Impressions Foot X-Ray 07/02/17 21:27 IMPRESSION: Postoperative changes related to transmetatarsal amputation of the left foot. No acute osseous abnormality. D/ / Lior Mckinney MD / Lior Mckinney MD Interpreting Provider: Lior Mckinney MD - VTE Documentation of Mechanical Device: Intermittent pneumatic compression device Consult Discharge Plan - Plan Referrals: wound,care [Other] - 07/07/17 11:15 am (By ER entrance between the doors) Sammy Pompa MD [Primary Care Provider] - 07/08/17 2:15 pm Xu Centeno MD [Partnered Physician] - 07/07/17 9:45 am Prescriptions: Hiapjvuluqbl-Niue-Xcqgddwp,Iso [Zosyn 3.375 gm/50 ml Galaxy] 3.375 gm IV Q8HR # 30 [email or web address] <Tramaine Hammer - Last Filed: 07/03/17 16:04> Date of Encounter: 07/03/17 - Constitutional Vitals: Temp Pulse Resp BP Pulse Ox 97.7 F 70 18 107/65 94 07/03/17 14:32 07/03/17 14:32 07/03/17 14:32 07/03/17 14:32 07/03/17 14:32 Internal Medicine: Result - Labs CBC & Chem 7: 07/03/17 11:03 07/03/17 06:44 Labs: Short CBC 07/02/17 07/03/17 Range/Units 22:05 11:03 WBC 8.9 (4.3-11.1) K/mcL Hgb 7.5 L 10.1 L D (11.5-15.4) g/dL Hct 26.5 L 33.0 L (35.3-44.9) % Plt Count 237 (140-400) K/mcL Neutrophils # 6.8 (1.6-8.9) K/mcL BMP 07/03/17 06:44 Sodium 139 Potassium 4.0 D Chloride 102 Carbon Dioxide 26 BUN 4 L Creatinine 0.72 Glucose 117 H Calcium 8.6 Cardiac Enzymes 07/02/17 07/03/17 Range/Units 22:05 06:44 Troponin I < 0.03 < 0.03 (< 0.04) ng/mL - ABG Interpretation ABG results: PT/INR, D-dimer PT 13.0 Seconds (9.4-12.1) H 06/22/17 08:17 - Impressions Impressions Foot X-Ray 07/02/17 21:27 IMPRESSION: Postoperative changes related to transmetatarsal amputation of the left foot. No acute osseous abnormality. D/ / Lior Mckinney MD / Lior Mckinney MD Interpreting Provider: Lior Mckinney MD - Attending Attestation I performed an independent interview and examination of this patient. I agree with the findings, assessment, and plan of Dr. Ahn, internal medicine manufacturing intern. Physiatry input is also noted. We are awaiting infectious disease input regarding antibiotic decision. Patient remains hemodynamically stable. She is having pain and we did increase her Enigma today. Overnight patient did have acute blood loss anemia, likely related to perioperative losses for which she received 2 units of packed red blood cells. Her repeat hemoglobin came back at 10.1. She remains hemodynamically stable. Will repeat hemoglobin in the morning, monitor. Patient is currently day 4 of a planned 5 day course of Tamiflu for influenza A infection. All else as outlined above.
[2017-07-03] MEDS: *HR* SitaGLIPtin 100 MG TABLET PO SCH (09:42)
[2017-07-03 11:12] LABS: Basophils % 0.3 %; Eosinophils # 0.2 K/mcL (0.0-0.6); Eosinophils % 2.5 %; Immature Granulocytes % 0.7 % (0-4); Lymphocytes # 1.1 K/mcL (0.6-4.6); Lymphocytes % 11.9 %; Mean Corpuscular HGB Conc 30.6 g/dL (31.6-35.5); Mean Corpuscular Hemoglobin 24.2 pg (28.0-33.3); Mean Corpuscular Volume 79.1 fL (83.0-100.0); Mean Platelet Volume 10.6 fL (9.4-12.4); Monocytes # 0.7 K/mcL (0.0-1.3); Monocytes % 7.6 %; Neutrophils # 6.8 K/mcL (1.6-8.9); Platelet Count 237 K/mcL (140-400); Red Blood Count 4.17 M/mcL (3.82-4.97); Red Cell Distribution Width 19.3 % (11.5-14.5)
[2017-07-03 11:32] LABS: Hemoglobin 10.1 g/dL (11.5-15.4)
--- NOTE | 2017-07-03 13:52 | Podiatry Progress Note ---
Date of Encounter: 07/03/17 Time of Encounter: 11:30 - Assessment and Plan (1) Gangrene Current Visit: Yes Status: Acute s/p Left TMA with application of graft and wound vac. next wound vac change will be wednesday. leave drain in place. patient appears stable at this time. Subjective Principal diagnosis: CP Interval history: s/p left TMA and application of graft and wound vac. drain is in place. says her foot hurts. she has also had a transfusion overnight and overnight complained of chest pain managed by medical team and currently she is not having chest pain and is afebrile. Objective - Vital Signs Vital Signs: Vital Signs Temp Pulse Resp BP Pulse Ox 07/03/17 11:23 97.6 F 65 16 132/74 95 07/03/17 08:40 97.9 F 82 16 123/72 94 07/03/17 07:31 97.4 F L 85 18 128/61 94 07/03/17 05:28 98.3 F 85 20 158/78 92 07/03/17 04:55 98.1 F 82 19 135/70 93 07/03/17 04:30 98.1 F 82 19 135/70 93 07/03/17 01:38 97.6 F 78 16 155/73 95 07/03/17 01:23 98.9 F 77 18 156/70 95 07/02/17 23:47 98.4 F 84 17 147/71 92 07/02/17 22:00 98.5 F 72 18 135/67 93 07/02/17 15:06 98.1 F 76 15 127/61 93 Intake and Output 07/02/17 07/03/17 07/03/17 23:59 07:59 15:59 Intake Total 865 / 865 300 / 300 Output Total 855 / 855 5 / 5 Balance -30 / -30 10 295 / 295 Intake: IV Fluids 100 / 100 Zosyn 3.375 GM In 0.9 % Sodium 100 / 100 Chloride (Mini-Bag +) 100 ML @ 25 mls/hr IVPB Q8H [facility] Rx#: [id number] Oral 500 / 500 Blood Product 265 / 265 300 / 300 Rbcs Leuko Poor As-1 Unit 265 / 265 [id number] Rbcs Leuko Poor As-1 Unit 0 / 0 300 / 300 [id number] Output: Urine 850 / 850 Estimated Blood Loss 30 / 30 Wound Drainage 0 / 0 5 / 5 5 / 5 Left Foot 5 / 5 0 / 0 Left Foot 2 0 / 0 0 / 0 5 / 5 Other: Stool Size Moderate Stool Consistency liquid Stool Characteristics Foamy # Bowel Movements 1 Blood Glucose* 104 125 178 - Exam Exam: ankle is warm to touch. wound vac in place and functioning at 125 mm Hg, no leak. the drain is about 25% full with bloody drainage. - Lab Result Diagrams: 07/03/17 11:03 07/03/17 06:44 Labs: Abnormal lab results Hgb 10.1 g/dL (11.5-15.4) L D 07/03/17 11:03 Hct 33.0 % (35.3-44.9) L 07/03/17 11:03 MCV 79.1 fL (83.0-100.0) L 07/03/17 11:03 MCH 24.2 pg (28.0-33.3) L 07/03/17 11:03 MCHC 30.6 g/dL (31.6-35.5) L 07/03/17 11:03 RDW 19.3 % (11.5-14.5) H 07/03/17 11:03 Nucleated RBCs/100 WBC 0.6 /100 WBC (0) H 06/24/17 10:13 Reactive Lymphocytes Present (Not Present) A 07/01/17 06:00 Toxic Granulation Present (Not Present) A 06/23/17 09:04 Polychromasia 1+ (Not Present) A 07/01/17 06:00 Hypochromasia Present (Not Present) A 07/01/17 06:00 Anisocytosis 1+ (Not Present) A 07/01/17 06:00 Microcytosis Present (Not Present) A 07/01/17 06:00 Macrocytosis Present (Not Present) A 06/21/17 04:46 ESR 125 mm/hr (0-15) H 06/20/17 19:00 PT 13.0 Seconds (9.4-12.1) H 06/22/17 08:17 BUN 4 mg/dL (8-23) L 07/03/17 06:44 Glucose 117 mg/dL (70-105) H 07/03/17 06:44 POC Glucose 125 (58-89) H 07/03/17 07:35 Hemoglobin A1c 6.5 % (-5.6) H 06/21/17 04:46 Total Bilirubin 0.2 mg/dL (0.3-1.0) L 06/22/17 10:08 C-Reactive Protein 39 mg/L (Less than 10) H 06/20/17 19:00 Albumin 2.8 g/dL (3.5-5.7) L 06/22/17 10:08 Globulin 3.6 g/dL (2.4-3.5) H 06/22/17 10:08 Albumin/Globulin Ratio 0.8 (1.1-2.2) L 06/22/17 10:08 Urine Protein 30 mg/dL (Neg-Trace) H 06/29/17 21:50 Urine Microscopic WBC 5-15 per hpf (0-3) H 06/29/17 21:50 Ur Squamous Epith Cells Many per lpf (None-Few) H 06/29/17 21:50 - VTE Documentation of Mechanical Device: Intermittent pneumatic compression device Consult Discharge Plan - Plan Referrals: wound,care [Other] - 07/07/17 11:15 am (By ER entrance between the doors) Sammy Pompa MD [Primary Care Provider] - 07/08/17 2:15 pm Xu Centeno MD [Partnered Physician] - 07/07/17 9:45 am Prescriptions: Rtxoetdemisv-Wxpj-Xxngzhya,Iso [Zosyn 3.375 gm/50 ml Galaxy] 3.375 gm IV Q8HR # 30 [email or web address]
[2017-07-03] MEDS ORDERED: Insulin DETEMIR 100 UNIT/ML X5UNITS SQ SCH (21:00)
[2017-07-04] MEDS: Piperacillin/Tazobactam 3.375 GM in 0.9 % Sodium Chloride Mini Bag 100 ML IVPB SCH ×3 (00:45→16:28)
[2017-07-04] MEDS: *HR* HYDROcodone/Acet 5/325 mg TABLET PO PRN ×5 (00:51→20:48)
[2017-07-04 01:55] LABS: Bilirubin,Urine Negative (Negative); Blood,Urine Negative (Negative); Clarity,Urine Clear (Clear); Color,Urine Yellow (Yellow); Glucose,Urine (UA) Normal (Normal); Ketones,Urine Negative (Negative); Leukocyte Esterase,Urine Negative (Negative); Nitrite,Urine Negative (Negative); PH,Urine 6.5 pH Units (5.0-8.0); Protein,Urine Negative (Neg-Trace); Specific Gravity,Urine 1.016 (1.010-1.025); Urobilinogen,Urine Normal (Normal)
[2017-07-04 04:38] LABS: Basophils % 0.3 %; Eosinophils # 0.3 K/mcL (0.0-0.6); Eosinophils % 3.1 %; Hematocrit 32.6 % (35.3-44.9); Hemoglobin 9.7 g/dL (11.5-15.4); Immature Granulocytes % 0.6 % (0-4); Lymphocytes # 1.2 K/mcL (0.6-4.6); Lymphocytes % 13.5 %; Mean Corpuscular HGB Conc 29.8 g/dL (31.6-35.5); Mean Corpuscular Hemoglobin 23.5 pg (28.0-33.3); Mean Corpuscular Volume 78.9 fL (83.0-100.0); Mean Platelet Volume 10.7 fL (9.4-12.4); Monocytes # 0.6 K/mcL (0.0-1.3); Monocytes % 7.2 %; Neutrophils # 6.5 K/mcL (1.6-8.9); Platelet Count 222 K/mcL (140-400); Red Blood Count 4.13 M/mcL (3.82-4.97); Red Cell Distribution Width 19.9 % (11.5-14.5); Segmented Neutrophils % 75.3 %
[2017-07-04 04:50] LABS: BUN/Creatinine Ratio 9 (6-26); Blood Urea Nitrogen 8 mg/dL (8-23); Calcium 8.4 mg/dL (8.6-10.3); Carbon Dioxide 31 mEq/L (23-29); Chloride 104 mEq/L (98-107); Glucose 46 mg/dL (70-105); Osmolality,Calculated 283 (280-300); Potassium 3.9 mEq/L (3.5-5.1); Sodium 139 mEq/L (136-145); eGFR For African Americans > 60 (> 60); eGFR For Non-African Americans > 60 (> 60)
[2017-07-04] MEDS: *HR* Heparin 5,000 UNIT/ML VIAL SQ SCH ×3 (06:14→20:49)
[2017-07-04] MEDS: Gabapentin 300 MG CAPSULE PO SCH ×3 (07:33→20:49)
[2017-07-04] MEDS: Cholecalciferol (D-3) 1,000 UNIT TABLET PO SCH (07:33)
[2017-07-04] MEDS: Aspirin Enteric Coated 81 MG Tablet PO SCH (07:34)
[2017-07-04] MEDS: Isosorbide MONOnitrate (24 HR) 60 MG TAB.ER.24H PO SCH (07:34)
[2017-07-04] MEDS: Folic Acid 1 MG TABLET PO SCH (07:34)
[2017-07-04] MEDS: Insulin LISPRO 300 UNITS/3 ML VIAL SQ SCH ×4 (07:37→20:49)
[2017-07-04] MEDS: *HR* SitaGLIPtin 100 MG TABLET PO SCH (07:37)
--- NOTE | 2017-07-04 09:05 | Internal Med Progress Note ---
<Tramaine Hammer R - Last Filed: 07/04/17 12:24> Date of Encounter: 07/04/17 - Constitutional Vitals: Temp Pulse Resp BP Pulse Ox 97.9 F 78 16 91/54 96 07/04/17 10:48 07/04/17 10:48 07/04/17 10:48 07/04/17 10:48 07/04/17 10:48 Internal Medicine: Result - Labs CBC & Chem 7: 07/04/17 04:09 07/04/17 04:09 Labs: Short CBC 07/04/17 Range/Units 04:09 WBC 8.6 (4.3-11.1) K/mcL Hgb 9.7 L (11.5-15.4) g/dL Hct 32.6 L (35.3-44.9) % Plt Count 222 (140-400) K/mcL Neutrophils # 6.5 (1.6-8.9) K/mcL BMP 07/04/17 04:09 Sodium 139 Potassium 3.9 Chloride 104 Carbon Dioxide 31 H BUN 8 Creatinine 0.93 Glucose 46 L Calcium 8.4 L Urine 07/04/17 Range/Units 01:30 Urine Color Yellow (Yellow) Urine Clarity Clear (Clear) Urine pH 6.5 (5.0-8.0) pH Units Ur Specific [place] 1.016 (1.010-1.025) Urine Protein Negative (Neg-Trace) mg/dL Urine Glucose (UA) Normal (Normal) mg/dL - ABG Interpretation ABG results: PT/INR, D-dimer PT 13.0 Seconds (9.4-12.1) H 06/22/17 08:17 Consult Discharge Plan - Plan Referrals: wound,care [Other] - 07/07/17 11:15 am (By ER entrance between the doors) Sammy Pompa MD [Primary Care Provider] - 07/08/17 2:15 pm Xu Centeno MD [Partnered Physician] - 07/07/17 9:45 am Prescriptions: Erkollxtppij-Heen-Gcllemfu,Iso [Zosyn 3.375 gm/50 ml Galaxy] 3.375 gm IV Q8HR # 30 [email or web address] - Attending Attestation I performed an independent history and examination of this patient. I am in agreement with the findings, assessment, and plan of Dr. Guzman, internal medicine rn internship. Podiatry input noted. Patient is currently day 9 of IV Zosyn. Exercise he is is following and will need to discuss with them further recommendations for antibiotics if at all. Await further podiatry input. Patient has completed Tamiflu for influenza infection. Patient's hemoglobin has remained stable since transfusion on every 2017. This was likely due to perioperative blood loss anemia. No obvious other source of bleeding identified. Patient remained hemodynamically stable. All else as outlined above. Disposition once further surgical plans are known, and decision regarding need for further IV antibiotics. <Kimberly Guzman - Last Filed: 07/04/17 13:56> Date of Encounter: 07/04/17 Time of Encounter: 09:40 - Assessment and plan (1) Cellulitis of left foot Current Visit: Yes Status: Acute Assessment and plan: Patient presented with left lower extremity cellulitis and found to have necrotic toe. Wound cultures on left foot positive for Pseudomonas aeruginosa, Escherichia coli and Staphylococcus aureus. Initial blood cultures and repeat blood cultures were negative.ID to determine length of antibiotic course S/P surgery. Plan: - Continuing on Zosyn, Day 9, discuss with surgery about continuing antibiotic use -wound vac change on wednesday, possible discharge after that -Plan for SNF status post surgery (2) Necrosis of toe Current Visit: Yes Status: Acute Assessment and plan: POD#1 of transmetatarsal amputation with Dr. Coffey. Will discuss with Dr. Coffey about desire for continued antibiotics or not. Plan: - pain control: Fellows 5-325 Q4hr, - for now continue zosyn day 9 (3) Diabetes mellitus Current Visit: Yes Status: Acute Assessment and plan: Controlled; continue Januvia with sliding scale insulin patient is on medium dose. Qualifiers: Diabetes mellitus type: type 2 Diabetes mellitus complication status: with neurologic complications Diabetes mellitus complication detail: with polyneuropathy Diabetes mellitus senior living insulin use: with senior living use Qualified Code(s): E11.42 - Type 2 diabetes mellitus with diabetic polyneuropathy; Z79.4 - rn psych (current) use of insulin; Z79.4 - jail ( current) use of insulin; Z79.4 - jail (current) use of insulin; Z79.4 - rn psych (current) use of insulin (4) CAD (coronary artery disease) Current Visit: Yes Status: Chronic Assessment and plan: Patient has history of CAD with CABG 4 in 2001 at [place]. Abnormal nuclear stress test in 2017 consistent with reversible myocardial ischemia. Echo done in December 2016 showed an EF of 60%, normal LV function, no significant valvular dysfunction, no pulmonary hypertension,NSWMA. Recent heart catheter done in Recent heart cath in December of 2016. On aspirin, Plavix, statin, beta eugenie, JOSE inhibitor, long-acting nitrates. Patient experienced an episode of chest pain symptoms during the night on 06/20/17 and the setting of tachycardia which she attributed to her extreme left foot pain. She did have a troponin with mild elevation peak of 0.09 at admission. Limited echo was ordered and showed LVEF of 60-65% with normal LV chamber size with all wall segment showing normal motion. Cardiology saw the patient, no further recommendations were made at this time. Attributed elevated troponin to demand ischemia secondary to the pain the patient was experiencing. Plan for f/u outpatient. Overnight (07/02/17) patient was having chest pain s/p surgery, Troponin neg, EKG showed lateral ischemia and had a hemoglobin 7.5 therefore patient was transfused 2 units. Patient is currently not have chest pain, sob, dizziness. Continue to monitor. Plan: - continue Asa, plavix, statin, beta eugenie, JOSE, long-acting nitrates - f/u with cardiology outpatient Qualifiers: Coronary Disease-Associated Artery/Lesion type: bypass graft [place] vs. 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 Droplet precautions. Completed full course of Tamiflu x5 days.. (7) DVT prophylaxis Current Visit: Yes Status: Acute Assessment and plan: Subcutaneous heparin (8) Anemia following surgery Current Visit: Yes Status: Acute Assessment and plan: Given 2 units of PRBC 07/03/17. Asymptomatic at this time. stable hemoglobin. - Subjective Interval history: Ms. Beltrán is a 66 y/o female who was admitted for left lower extremity infection with necrosis of her second and third toe who is POD#1 transmetatarsal amputation. 07/02/17: Overnighthad an episode of chest pain as patient was being transferred from the PACU to the room, EKG showed lateral ischemic changes but troponin was negative, so this was attributed to demand ischemia. Hemoglobin was 7.7 s/p surgery, so patient was transfused with 2 units fo PRBCs. Potassium was also given as patient's K = 2.9. Today, patient says she is doing better as pain is well-controlled. Patient states she is not having any chest pain, shortness of breath, dizziness, lightheadedness. Does admit to loose stool since arrival in the hospital. - Constitutional Vitals: Temp Pulse Resp BP Pulse Ox 98.2 F 76 18 129/68 94 07/04/17 06:35 07/04/17 06:35 07/04/17 06:35 07/04/17 06:35 07/04/17 06:35 General appearance: Present: A&O X 3, pleasant, no acute distress Exam: Constitutional: Alert, in no acute distress Head: Normocephalic, atraumatic, Heart: Normal, regular rate and rhythm, no murmurs Lungs: Clear to auscultation, no wheezes, rales, or rhonchi Abdomen: Soft, nondistended, nontender, , no guarding or rigidity. Extremities: left foot dressed with serosanguinous fluid drainage, no signs of infection around dressing, powerglide present in R arm radial pulse +2/4, capillary refill <2sec. Skin: Skin warm and dry, no jaundice Neurologic: Cranial nerves II through XII grossly intact, no focal deficits, strength 5/5 in all extremities Psych: Cooperative with exam, good eye contact, cognitive function intact, judgment good insight good, speech clear, thought process logical, and goal directed Internal Medicine: Result - Labs CBC & Chem 7: 07/04/17 04:09 07/04/17 04:09 Labs: Short CBC 07/03/17 07/04/17 Range/Units 11:03 04:09 WBC 8.9 8.6 (4.3-11.1) K/mcL Hgb 10.1 L D 9.7 L (11.5-15.4) g/dL Hct 33.0 L 32.6 L (35.3-44.9) % Plt Count 237 222 (140-400) K/mcL Neutrophils # 6.8 6.5 (1.6-8.9) K/mcL BMP 07/04/17 04:09 Sodium 139 Potassium 3.9 Chloride 104 Carbon Dioxide 31 H BUN 8 Creatinine 0.93 Glucose 46 L Calcium 8.4 L Urine 07/04/17 Range/Units 01:30 Urine Color Yellow (Yellow) Urine Clarity Clear (Clear) Urine pH 6.5 (5.0-8.0) pH Units Ur Specific [place] 1.016 (1.010-1.025) Urine Protein Negative (Neg-Trace) mg/dL Urine Glucose (UA) Normal (Normal) mg/dL - ABG Interpretation ABG results: PT/INR, D-dimer PT 13.0 Seconds (9.4-12.1) H 06/22/17 08:17 - VTE Documentation of Mechanical Device: Intermittent pneumatic compression device
[2017-07-04] MEDS ORDERED: Insulin DETEMIR 100 UNIT/ML X5UNITS SQ SCH (15:05)
[2017-07-04] MEDS: Acetaminophen 325 MG TABLET PO PRN (18:39)
[2017-07-05] MEDS: Piperacillin/Tazobactam 3.375 GM in 0.9 % Sodium Chloride Mini Bag 100 ML IVPB SCH ×2 (01:58→07:46)
[2017-07-05] MEDS: *HR* HYDROcodone/Acet 5/325 mg TABLET PO PRN ×4 (02:01→18:28)
[2017-07-05 05:57] LABS: Hematocrit 32.3 % (35.3-44.9); Hemoglobin 9.5 g/dL (11.5-15.4); Mean Corpuscular HGB Conc 29.4 g/dL (31.6-35.5); Mean Corpuscular Hemoglobin 23.6 pg (28.0-33.3); Mean Corpuscular Volume 80.1 fL (83.0-100.0); Platelet Count 235 K/mcL (140-400); Red Blood Count 4.03 M/mcL (3.82-4.97); Red Cell Distribution Width 20.9 % (11.5-14.5)
[2017-07-05] MEDS: *HR* Heparin 5,000 UNIT/ML VIAL SQ SCH ×2 (06:44→14:27)
[2017-07-05] MEDS: Insulin LISPRO 300 UNITS/3 ML VIAL SQ SCH ×3 (07:42→16:10)
[2017-07-05] MEDS: Isosorbide MONOnitrate (24 HR) 60 MG TAB.ER.24H PO SCH (07:44)
[2017-07-05] MEDS: Gabapentin 300 MG CAPSULE PO SCH ×2 (07:45→14:27)
[2017-07-05] MEDS: Aspirin Enteric Coated 81 MG Tablet PO SCH (07:45)
[2017-07-05] MEDS: Folic Acid 1 MG TABLET PO SCH (07:45)
[2017-07-05] MEDS: Cholecalciferol (D-3) 1,000 UNIT TABLET PO SCH (07:46)
[2017-07-05] MEDS ORDERED: *HR* SitaGLIPtin 25 MG TABLET PO SCH (09:00)
--- NOTE | 2017-07-05 12:02 | Infectious Disease Progress No ---
Date of Encounter: 07/05/17 Time of Encounter: 12:00 - Assessment and Plan (1) Sepsis Current Visit: Yes Status: Acute The patient had two SIRS criteria on admission. Likely secondary to left foot cellulitis and wound infection. Improved. WBC has normalized. She has been afebrile. Tachycardia has resolved. Blood cultures drawn 06/20/17 are negative x 2 sets. Lactic acid on admission normal. Repeat blood cultures x 2 sets drawn 06/28/17 are negative. Flu A antigen positive. Qualifiers: Sepsis type: sepsis due to unspecified organism Qualified Code(s): A41.9 - Sepsis, unspecified organism (2) Influenza A Current Visit: Yes Status: Resolved Influenza A antigen positive. Completed 5 days of Tamiflu. Clinically improved. Supportive care. (3) Left foot infection Current Visit: Yes Status: Acute Causative organism: MSSA, E. coli, PSEA. Secondary to left foot second toe wound. Foot x-ray negative for OM, but ESR and CRP are very elevated. ESR 125, CRP 39. Podiatry consulted and following. Status post left TMA 07/02/[address] Coffey. Operative note reviewed. Discussed with Dr. Coffey. No evidence on infection intra-op, only dry necrosis. Wound care and activity restrictions per the podiatry team. The patient has received 13 days of IV antibiotics. Given that there was no evidence of infection intra-op and the patient had an aggressive amputation of all the necrotic tissue, will discontinue antibiotics today. Discontinue Zosyn. (4) Cellulitis of left foot Current Visit: Yes Status: Resolved Location: Left foot. Causative organism: MSSA, E. coli, and PSEA. Likely secondary to left foot wound infection. Resolved. (5) Necrosis of toe Current Visit: Yes Status: Acute Location: Left foot toe #3 and #4 with some necrosis noted to the 1st and 4th toes. Secondary to infection vs. ischemia. Podiatry consulted and following. Status post left TMA 07/02/[address] Coffey. Wound care per the podiatry team. (6) Gangrene Current Visit: Yes Status: Acute (7) Diabetes mellitus Current Visit: Yes Status: Acute Controlled. HgbA1C 6.5%. Recommend aggressive glucose monitoring and control to promote wound healing and prevent re-infection. Management per the primary team. Qualifiers: Diabetes mellitus type: type 2 Diabetes mellitus complication status: with neurologic complications Diabetes mellitus complication detail: with polyneuropathy Diabetes mellitus terminal operator insulin use: with longterm use Qualified Code(s): E11.42 - Type 2 diabetes mellitus with diabetic polyneuropathy; Z79.4 - medical terminologist (current) use of insulin; Z79.4 - medical terminologist ( current) use of insulin; Z79.4 - intermediate (current) use of insulin; Z79.4 - intermediate (current) use of insulin (8) Peripheral neuropathy Current Visit: Yes Status: Acute Qualifiers: Peripheral neuropathy type: polyneuropathy, unspecified Qualified Code(s): G62.9 - Polyneuropathy, unspecified (9) CAD (coronary artery disease) Current Visit: Yes Status: Chronic Qualifiers: Coronary Disease-Associated Artery/Lesion type: bypass graft [place] vs. transplanted heart: [place] heart Associated angina: angina presence unspecified Qualified Code(s): I25.810 - Atherosclerosis of coronary artery bypass graft(s) without angina pectoris (10) Chest pain Current Visit: Yes Status: Resolved Cardiology consulted. Likely demand ischemia from tachycardia d/t pain. Troponins mildly elevated initially, but now normal. CXR negative. Qualifiers: Chest pain type: unspecified Qualified Code(s): R07.9 - Chest pain, unspecified (11) Atherosclerosis of left lower extremity with gangrene Current Visit: Yes Status: Chronic Vascular surgery consulted. Status post angiogram 06/22/[address] Centeno with balloon angioplasty of the left SFA, left popliteal, and left posterior tibial. Right anterior tibial, left anterior tibial, right dorsalis pedis, and left dorsalis pedis occluded. Qualifiers: Peripheral atherosclerosis artery type: [place] artery Qualified Code(s): I70.262 - Atherosclerosis of [place] arteries of extremities with gangrene, left leg (12) Hypertension Current Visit: Yes Status: Acute Qualifiers: Hypertension type: essential hypertension Qualified Code(s): I10 - Essential (primary) hypertension - Subjective Interval history: Patient seen and examined. Weekend notes reviewed. No acute events noted overnight. Patient sitting up in bedside chair. She states she feels a little better this morning. States she still has a dry cough and some chest congestion , but denies chest or back pain. She denies any shortness of breath. She denies any nausea or vomiting and states her appetite is better. She does report diarrhea and states she had 3 loose stools yesterday. She denies any abdominal pain or urinary complaints. She does reports pain in her left foot today. She denies any oral thrush or new skin lesions. Infect Dis PN-Objective Data - Labs CBC & Chem 7: 07/05/17 04:29 07/04/17 04:09 Labs: Laboratory Results - last 24 hr 07/04/17 07/04/17 07/05/17 16:27 20:04 04:29 WBC 7.1 RBC 4.03 Hgb 9.5 L Hct 32.3 L MCV 80.1 L MCH 23.6 L MCHC 29.4 L RDW 20.9 H Plt Count 235 MPV 11.0 POC Glucose 76 135 H Cultures: Cultures 06/28/17 18:47 Blood Culture - Final Peripheral Venipuncture No growth. 06/28/17 18:50 Blood Culture - Final Peripheral Venipuncture No growth. 06/28/17 18:45 Influenza Types A,B Antigen (ISABELA) - Final Nasopharyngeal Serology 07/04/17 06/29/17 06/24/17 Range/Units 01:30 21:50 19:53 Urine Color Yellow Yellow (Yellow) Urine Clarity Clear Clear (Clear) Urine pH 6.5 6.0 (5.0-8.0) pH Units Ur Specific [place] 1.016 1.022 (1.010-1.025) Urine Protein Negative 30 H (Neg-Trace) mg/dL Urine Glucose (UA) Normal Normal (Normal) mg/dL Urine Ketones Negative Negative (Negative) mg/dL Urine Blood Negative Negative (Negative) Urine Nitrite Negative Negative (Negative) Urine Bilirubin Negative Negative (Negative) Urine Urobilinogen Normal Normal (Normal) mg/dL Ur Leukocyte Esterase Negative Negative (Negative) Urine Microscopic RBC 0-3 (0-3) per hpf Urine Microscopic WBC 5-15 H (0-3) per hpf Ur Squamous Epith Cells Many H (None-Few) per lpf Urine Bacteria None Seen (None-Few) per hpf Hyaline Casts None Seen (None-Few) per lpf Ur Culture Indicated? NO NO (NO) Stl C. diff Tox B Gene Negative (Negative) Exam - Constitutional Vitals: Temp Pulse Resp BP Pulse Ox 98.0 F 69 18 130/79 96 07/05/17 11:08 07/05/17 11:08 07/05/17 11:08 07/05/17 11:08 07/05/17 11:08 General appearance: average body habitus, cooperative, no acute distress - Head Head exam: Present: atraumatic, normal inspection, normocephalic - Eye Eye exam: Present: EOMI, normal appearance, PERRL Pupils: Present: normal accommodation - ENT ENT exam: Present: mucous membranes moist - Neck Neck exam: Present: normal inspection - Respiratory Respiratory exam: Present: CTAB. Absent: rales, respiratory distress, rhonchi, wheezes - Cardiovascular Cardiovascular exam: Present: RRR, +S1, +S2 - GI/Abdominal GI/Abdominal exam: Present: normal bowel sounds, soft. Absent: distended, tenderness - Extremities Exam Extremities exam: Present: normal inspection. Absent: joint swelling, pedal edema, tenderness Additional comments: Left foot dressing intact with wound VAC noted. Scant serosanguinous drainage noted in the wound VAC canister. - Neurological Exam Neurological exam: Present: alert, oriented X3, no focal deficits - Psychiatric Psychiatric exam: Present: normal affect, normal mood - Skin Skin exam: Present: dry, intact, normal color, warm - VTE Documentation of Mechanical Device: Intermittent pneumatic compression device Consult Discharge Plan - Plan Referrals: wound,care [Other] - 07/07/17 11:15 am (By ER entrance between the doors) Sammy Pompa MD [Primary Care Provider] - 07/08/17 2:15 pm Xu Centeno MD [Partnered Physician] - 07/07/17 9:45 am Prescriptions: [id number]-[id number],Iso [Zosyn 3.375 gm/50 ml Galaxy] 3.375 gm IV Q8HR # 30 [email or web address] - Attending Attestation I examined this patient and my medical decision-making was reviewed with the Resident Physician. I agree with the documented findings, disposition and treatment plan as described except to the extent set forth below.
--- NOTE | 2017-07-05 13:03 | Podiatry Progress Note ---
Date of Encounter: 07/05/17 Time of Encounter: 12:30 - Assessment and Plan (1) Cellulitis of left foot Current Visit: Yes Status: Resolved S/p transmetatarsal amputation and surgical wound bed preparation of ulcer dorsal aspect of left foot with application of skin substitute/graft jacket and wound VAC by Dr. Coffey on 07/02/17. WBC 7.1 today and afebrile, H&H: 9.5, 32.3 Admit ESR 125 CRP 39 Microbiology 06/20/17 19:27 Peripheral Venipuncture Blood Culture - Final No growth. 06/20/17 19:00 Peripheral Venipuncture Blood Culture - Final No growth. 06/20/17 19:20 Left Foot Wound Culture - Final Pseudomonas aeruginosa Escherichia coli Staphylococcus aureus Zosyn discontinued by Infectious Disease. No evidence of infection intra -op, all necrotic tissue removed in surgery. (2) Gangrene Current Visit: Yes Status: Acute (3) Necrosis of toe Current Visit: Yes Status: Acute S/p transmetatarsal amputation and surgical wound bed preparation of ulcer dorsal aspect of left foot with application of skin substitute/graft jacket and wound VAC by Dr. Coffey on 07/02/17. WBC 7.1 today and afebrile. H&H: 9.5, 32.3 Admit ESR 125 CRP 39 Microbiology 06/20/17 19:27 Peripheral Venipuncture Blood Culture - Final No growth. 06/20/17 19:00 Peripheral Venipuncture Blood Culture - Final No growth. 06/20/17 19:20 Left Foot Wound Culture - Final Pseudomonas aeruginosa Escherichia coli Staphylococcus aureus Plan: Zosyn discontinued by Infectious Disease. No evidence of infection intra -op, all necrotic tissue removed in surgery. Wound vac removed and TLS drain discontinued. Patient will require a wound vac upon discharge to full thickness wound of the left foot. Full thickness wound to the dorsum of the left foot measuring 5cm in length x 5 cm in width x 0.2 cm in depth with a graft jacket in place. Apply small black [place] wound vac sponge over adaptic to the wound on the dorsum of the left foot. Please apply adaptic to graft jacket prior to application of black sponge. Prep all surrounding skin with Allkare protective barrier wipe. Avoid drape to incision line. Connect sponge to low continuous suction at 125 mmhg. Apply adaptic to incision line with 4x4 dry sterile gauze and wrap with kerlix. Change every M-W-. Follow up with Dr. Coffey in wound care one week after discharge from the hospital. NWB to left foot. Patient accepted at [facility]. (4) Atherosclerosis of left lower extremity with gangrene Current Visit: Yes Status: Chronic S/p Abdominal aortogram, Aortogram with runoff bilaterally, Balloon angioplasty of left proximal superficial femoral artery, proximal and mid popliteal artery, and distal posterior tibial artery by Dr. Centeno on 06/22/17. Qualifiers: Peripheral atherosclerosis artery type: [place] artery Qualified Code(s): I70.262 - Atherosclerosis of [place] arteries of extremities with gangrene, left leg Subjective Principal diagnosis: CP Interval history: Patient is s/p Abdominal aortogram, Aortogram with runoff bilaterally, Balloon angioplasty of left proximal superficial femoral artery, proximal and mid popliteal artery, and distal posterior tibial artery by Dr. Centeno on 06/22/17. S /p transmetatarsal amputation and surgical wound bed preparation of ulcer dorsal aspect of left foot with application of skin substitute/graft jacket and wound VAC by Dr. Coffey on 07/02/17. Patient sitting up in chair eating lunch with family at bedside. Denies any fevers or chills. Rates pain to left foot at a 7 out of 10. Patient has been accepted to [facility]. Objective - Vital Signs Vital Signs: Vital Signs Temp Pulse Resp BP Pulse Ox 07/05/17 11:08 98.0 F 69 18 130/79 96 07/05/17 08:03 93 07/05/17 06:41 98.5 F 77 18 134/73 93 07/05/17 04:13 98.3 F 73 15 128/75 96 07/05/17 00:02 98.1 F 73 18 120/80 98 07/04/17 20:14 98.0 F 76 18 121/80 98 07/04/17 14:52 98.3 F 71 20 102/61 93 Intake and Output 07/04/17 07/05/17 07/05/17 23:59 07:59 15:59 Intake Total 500 / 500 100 / 100 200 / 200 Output Total 0 / 0 0 / 0 0 / 0 Balance 500 / 500 100 / 100 200 / 200 Intake: IV Fluids 100 / 100 100 / 100 Zosyn 3.375 GM In 0.9 % Sodium 100 / 100 100 / 100 Chloride (Mini-Bag +) 100 ML @ 25 mls/hr IVPB Q8H [facility] Rx#: [id number] Oral 400 / 400 200 / 200 Output: Wound Drainage 0 / 0 0 / 0 0 / 0 Left Foot 2 0 / 0 0 / 0 0 / 0 Other: Meal Breakfast Percent of Meal Consumed 95% # Voids 1 # Bowel Movements 1 Blood Glucose* 135 51 125 - Exam Exam: General appearance: alert awake oriented X 3. Calm and pleasant, no acute distress.. Vascular: pedal pulses faintly palpable. No evidence of cyanosis, pallor or rubor, Edema graded at 1+/4, Skin Temperature warm, No calf pain with manual compression. capillary refill time is immediate. Neurologic: Sensation intact with light touch to foot. . Postop Exam: S/P Wound vac removed, Sutures intact to incision line, no signs of dehiscence. Full thickness wound to the dorsum of the left foot measuring 5 cm in length x 5 cm in width x 0.2 cm in depth with graft jacket in place, light periwound erythema, no streaking. Minimal edema. No pus, odor. TLS drain intact with 4 cc of serosanguineous drainage observed to vacutainer. No drainage observe to canister. - Lab Result Diagrams: 07/05/17 04:29 07/04/17 04:09 Labs: Abnormal lab results Hgb 9.5 g/dL (11.5-15.4) L 07/05/17 04:29 Hct 32.3 % (35.3-44.9) L 07/05/17 04:29 MCV 80.1 fL (83.0-100.0) L 07/05/17 04:29 MCH 23.6 pg (28.0-33.3) L 07/05/17 04:29 MCHC 29.4 g/dL (31.6-35.5) L 07/05/17 04:29 RDW 20.9 % (11.5-14.5) H 07/05/17 04:29 Nucleated RBCs/100 WBC 0.6 /100 WBC (0) H 06/24/17 10:13 Reactive Lymphocytes Present (Not Present) A 07/01/17 06:00 Toxic Granulation Present (Not Present) A 06/23/17 09:04 Polychromasia 1+ (Not Present) A 07/01/17 06:00 Hypochromasia Present (Not Present) A 07/01/17 06:00 Anisocytosis 1+ (Not Present) A 07/01/17 06:00 Microcytosis Present (Not Present) A 07/01/17 06:00 Macrocytosis Present (Not Present) A 06/21/17 04:46 ESR 125 mm/hr (0-15) H 06/20/17 19:00 PT 13.0 Seconds (9.4-12.1) H 06/22/17 08:17 Carbon Dioxide 31 mEq/L (23-29) H 07/04/17 04:09 Glucose 46 mg/dL (70-105) L 07/04/17 04:09 POC Glucose 135 (58-89) H 07/04/17 20:04 Hemoglobin A1c 6.5 % (-5.6) H 06/21/17 04:46 Calcium 8.4 mg/dL (8.6-10.3) L 07/04/17 04:09 Total Bilirubin 0.2 mg/dL (0.3-1.0) L 06/22/17 10:08 C-Reactive Protein 39 mg/L (Less than 10) H 06/20/17 19:00 Albumin 2.8 g/dL (3.5-5.7) L 06/22/17 10:08 Globulin 3.6 g/dL (2.4-3.5) H 06/22/17 10:08 Albumin/Globulin Ratio 0.8 (1.1-2.2) L 06/22/17 10:08 Urine Microscopic WBC 5-15 per hpf (0-3) H 06/29/17 21:50 Ur Squamous Epith Cells Many per lpf (None-Few) H 06/29/17 21:50 Microbiology, Last 48 Hours 06/28/17 18:47 Blood Culture - Final Peripheral Venipuncture No growth. 06/28/17 18:50 Blood Culture - Final Peripheral Venipuncture No growth. - VTE Documentation of Mechanical Device: Intermittent pneumatic compression device Consult Discharge Plan - Plan Referrals: wound,care [Other] - 07/07/17 11:15 am (By ER entrance between the doors) Sammy Pompa MD [Primary Care Provider] - 07/08/17 2:15 pm Xu Centeno MD [Partnered Physician] - 07/07/17 9:45 am
[2017-07-05 14:59] VITALS: BP 124/74
[2017-07-05] MEDS ORDERED: Furosemide 20 MG/2 ML VIAL IVP ONE (15:59)
--- NOTE | 2017-07-05 16:16 | Discharge Summary ---
- NOTES TO OUTPATIENT PROVIDER Notes to Outpatient Provider: Follow up JAJA, SATNAM Date of Encounter: 07/05/17 Time of Encounter: 16:01 - Discharge Diagnosis (1) Cellulitis of left foot Priority: Primary Status: Resolved (2) Necrosis of toe Priority: Primary Status: Acute (3) Diabetes mellitus Priority: Secondary Status: Acute Qualifiers: Diabetes mellitus type: type 2 Diabetes mellitus complication status: with neurologic complications Diabetes mellitus complication detail: with polyneuropathy Diabetes mellitus intermediate insulin use: with intermediate project manager use Qualified Code(s): E11.42 - Type 2 diabetes mellitus with diabetic polyneuropathy; Z79.4 - termite inspector (current) use of insulin; Z79.4 - shelter ( current) use of insulin; Z79.4 - termite inspector (current) use of insulin; Z79.4 - shelter (current) use of insulin (4) Peripheral neuropathy Priority: Secondary Status: Acute Qualifiers: Peripheral neuropathy type: polyneuropathy associated with underlying disease Qualified Code(s): G63 - Polyneuropathy in diseases classified elsewhere (5) CAD (coronary artery disease) Priority: Secondary Status: Chronic Qualifiers: Coronary Disease-Associated Artery/Lesion type: bypass graft [place] vs. transplanted heart: [place] heart Associated angina: angina presence unspecified Qualified Code(s): I25.810 - Atherosclerosis of coronary artery bypass graft(s) without angina pectoris (6) Chest pain Priority: Secondary Status: Resolved Qualifiers: Chest pain type: chest pain due to myocardial ischemia Qualified Code(s): I20.9 - Angina pectoris, unspecified (7) Atherosclerosis of left lower extremity with gangrene Priority: Secondary Status: Chronic Qualifiers: Peripheral atherosclerosis artery type: [place] artery Qualified Code(s): I70.262 - Atherosclerosis of [place] arteries of extremities with gangrene, left leg (8) Anemia following surgery Priority: Secondary Status: Acute Hospital course: Ms. Beltrán is a 66 year old female was admitted with left orbital cellulitis and gangrene. He was seen by orthopedics and had anterior metatarsal amputation done on 07/02/17. She was on IV Zosyn. She was followed by infectious disease. IV Zosyn was discontinued on the day of discharge since no cultures are positive. She is being discharged to SNF. She has diabetes mellitus type 2 with diabetic peripheral neuropathy which made her "ulcer and infection get worse. She had evidence of atherosclerosis of the lower extremity. Post surgery she had a drop in her hemoglobin and received 2 units of blood transfusion. She also had an episode of chest pain after surgery which was felt secondary to demand ischemia associated with open precipitated by anemia. She is on home oxygen 2 L/m and she is being discharged on 2 L/m oxygen. She did have a prolonged hospital stay because of the initial left foot cellulitis treatment and then she had amputation, with complicated postop blood loss anemia and may not due to demand ischemia. Please review the daily progress notes for detail. - Time Spent with Patient Total time spent providing and/or coordinating discharge services: - Discharge Medications Home Medications: Alendronate Sodium 70 mg PO QWEEK 01/06/17 [History] Calcium Carbonate/Vitamin D3 [Calcium 500-Vit D3 200 Caplet] 1 each PO TID 01/06 [History] Clopidogrel Bisulfate [Plavix] 75 mg PO DAILY 01/06/17 [History] Clotrimazole 1% CRM [Lotrimin 1%] 1 appl TD BID 01/06/17 [History] Cyclobenzaprine [Flexeril] 10 mg PO DAILY 01/06/17 [History] Enalapril Maleate [Vasotec] 10 mg PO DAILY 01/06/17 [History] Ergocalciferol (VITAMIN D2) [Vitamin D2] 50,000 unit PO QWEEK 01/06/17 [History] Folic Acid 1 mg PO DAILY 01/06/17 [History] Furosemide [Lasix] 20 mg PO DAILY PRN 01/06/17 [History] Gabapentin [Neurontin] 600 mg PO TID 01/06/17 [History] HYDROcodone/Acet 5/325 mg [[place] 5-325 mg] 1 tab PO Q8H PRN 01/06/17 [History] Insulin LISPRO [HumaLOG] 0 units SQ TIDWM PRN 01/06/17 [History] Isosorbide MONOnitrate (24 HR) [Imdur] 60 mg PO DAILY #30 tab.er.24h 01/06/17 [ Rx] Lovastatin [Mevacor] 20 mg PO DAILY 01/06/17 [History] Metoprolol Tartrate [Lopressor] 50 mg PO DAILY 01/06/17 [History] Nitroglycerin [Nitrostat] 0.4 mg SL Q5-6MIN PRN 01/06/17 [History] Omeprazole [PriLOSEC] 40 mg PO DAILY 01/06/17 [History] Citalopram Hydrobromide [Citalopram HBr] 10 mg PO DAILY 06/21/17 [History] Ferrous Sulfate [Iron] 325 mg PO DAILY 06/21/17 [History] LORazepam [Ativan] 0.5 mg PO DAILY 06/21/17 [History] Metformin HCl [Metformin HCl ER] 1,000 mg PO BID 06/21/17 [History] Aspirin Enteric Coated [Aspirin EC] 81 mg PO DAILY tablet. 07/05/17 [Rx] Glucagon, Human Recombinant [Glucagen] 1 mg IM ONCE PRN vial 07/05/17 [Rx] Heparin 5,000 unit SQ Q8HCO vial 07/05/17 [Rx] Insulin DETEMIR [Levemir] 25 unit SQ HS [id number] 07/05/17 [Rx] Ipratropium/Albuterol Neb [Duoneb] 3 ml IH [id number] PRN inhsol 07/05/17 [Rx] SitaGLIPtin [Januvia] 50 mg PO DAILY tablet 07/05/17 [Rx] Allergies/Adverse Reactions: 3 Allergy/AdvReac Type Severity Reaction Status Date / Time cephalexin [From Keflex] Allergy Hives Verified 06/23/17 16:06 codeine Allergy Headache Verified 06/20/17 18:37 Iodinated Contrast- Oral and Allergy Hives Verified 06/23/17 16:06 IV Dye Date of admission: 06/20/17 21:56 Primary care physician: Sammy Pompa MD Consults: 06/20/17 21:58 Consult to Podiatry [CONS] Routine Consulting Provider: Pod[facility] Reason for Consult: foot gangrene dry Call Completed: Yes 06/21/17 05:13 Consult to Cardiology [CONS] Routine Comment: Consulting Provider: [facility] Reason for Consult: NSTEMI Call Completed: Yes 06/21/17 12:12 Consult to Vascular Surgery [CONS] Routine Consulting Provider: [facility] Reason for Consult: Dry Gangrene of left 2 toes Time Notified: 12:12 Call Completed: Yes 06/22/17 12:50 Consult to Occupational Therapy [CONS] Routine Comment: Evaluate, develop and implement POC Reason for Consult: PT vs ECF Consult to Physical Therapy [CONS] Routine Comment: Evaluate, develop and implement POC Reason for Consult: PT vs ECF, no weight to incision of left foot. May use weight to the left heel only to prevent fall 06/25/17 12:30 Consult to Invasive Line Access Team [CONS] Routine Reason for Consult: Group Home IV antibiotics Line Type: EPIV 06/28/17 09:51 Consult to Infectious Diseases [CONS] Routine Consulting Provider: Infectious Disease [facility] Reason for Consult: Lower extremity cellulitis with growth for Pseudomonas Escherichia coli and staph Time Notified: 10:00 Call Completed: Yes 07/05/17 13:14 OT [Consult to Occupational Therapy] [CONS] Routine Comment: Evaluate, develop and implement POC Reason for Consult: eval - Constitutional Vitals: Temp Pulse Resp BP Pulse Ox 99.6 F 79 18 124/74 94 07/05/17 14:58 07/05/17 14:58 07/05/17 14:58 07/05/17 14:58 07/05/17 14:58 General appearance: Present: A&O X 3, pleasant, no acute distress Exam: Middle-aged female no distress. No dyspnea at rest. She is on 2 L/m oxygen. She has Pallo. No cyanosis. CVS S1-S2 regular. No murmur. RS decreased entry. Has basal crepitations. Abdomen soft nontender. Extremities left leg swelling. Has dressing on the left foot. - Patient Status Disposition: Transfer SNF Condition: Fair - Discharge Instructions Follow Up With: wound,care [Other] - 07/07/17 11:15 am (By ER entrance between the doors) Sammy Pompa MD [Primary Care Provider] - 07/08/17 2:15 pm Xu Centeno MD [Partnered Physician] - 07/07/17 9:45 am - VTE Documentation of Mechanical Device: Intermittent pneumatic compression device
--- NOTE | 2017-07-05 16:23 | Physician Discharge Referral ---
ExtendedCare Referral Info Transfer To: SNF Provider in Charge after Transfer: Other Institutional Level of Care: Skilled - Diagnosis (1) Left foot infection Status: Acute (2) Gangrene Status: Acute (3) Anemia following surgery Status: Acute (4) Diabetes mellitus Status: Acute (5) Peripheral neuropathy Status: Acute (6) CAD (coronary artery disease) Status: Chronic (7) Influenza A Status: Resolved - Transfer Medications Home Medications: Alendronate Sodium 70 mg PO QWEEK 01/06/17 [History] Calcium Carbonate/Vitamin D3 [Calcium 500-Vit D3 200 Caplet] 1 each PO TID 01/06 [History] Clopidogrel Bisulfate [Plavix] 75 mg PO DAILY 01/06/17 [History] Clotrimazole 1% CRM [Lotrimin 1%] 1 appl TD BID 01/06/17 [History] Cyclobenzaprine [Flexeril] 10 mg PO DAILY 01/06/17 [History] Enalapril Maleate [Vasotec] 10 mg PO DAILY 01/06/17 [History] Ergocalciferol (VITAMIN D2) [Vitamin D2] 50,000 unit PO QWEEK 01/06/17 [History] Folic Acid 1 mg PO DAILY 01/06/17 [History] Furosemide [Lasix] 20 mg PO DAILY PRN 01/06/17 [History] Gabapentin [Neurontin] 600 mg PO TID 01/06/17 [History] HYDROcodone/Acet 5/325 mg [[place] 5-325 mg] 1 tab PO Q8H PRN 01/06/17 [History] Insulin LISPRO [HumaLOG] 0 units SQ TIDWM PRN 01/06/17 [History] Isosorbide MONOnitrate (24 HR) [Imdur] 60 mg PO DAILY #30 tab.er.24h 01/06/17 [ Rx] Lovastatin [Mevacor] 20 mg PO DAILY 01/06/17 [History] Metoprolol Tartrate [Lopressor] 50 mg PO DAILY 01/06/17 [History] Nitroglycerin [Nitrostat] 0.4 mg SL Q5-6MIN PRN 01/06/17 [History] Omeprazole [PriLOSEC] 40 mg PO DAILY 01/06/17 [History] Citalopram Hydrobromide [Citalopram HBr] 10 mg PO DAILY 06/21/17 [History] Ferrous Sulfate [Iron] 325 mg PO DAILY 06/21/17 [History] LORazepam [Ativan] 0.5 mg PO DAILY 06/21/17 [History] Metformin HCl [Metformin HCl ER] 1,000 mg PO BID 06/21/17 [History] Aspirin Enteric Coated [Aspirin EC] 81 mg PO DAILY tablet. 07/05/17 [Rx] Glucagon, Human Recombinant [Glucagen] 1 mg IM ONCE PRN vial 07/05/17 [Rx] Heparin 5,000 unit SQ Q8HCO vial 07/05/17 [Rx] Insulin DETEMIR [Levemir] 25 unit SQ HS [id number] 07/05/17 [Rx] Ipratropium/Albuterol Neb [Duoneb] 3 ml IH [id number] PRN inhsol 07/05/17 [Rx] SitaGLIPtin [Januvia] 50 mg PO DAILY tablet 07/05/17 [Rx] Allergies/Adverse Reactions: 3 Allergy/AdvReac Type Severity Reaction Status Date / Time cephalexin [From Keflex] Allergy Hives Verified 06/23/17 16:06 codeine Allergy Headache Verified 06/20/17 18:37 Iodinated Contrast- Oral and Allergy Hives Verified 06/23/17 16:06 IV Dye - Respiratory Orders Oxygen / L per min Smoking Cessation: Smoking cessation has been advised. For more information, call the [place] Tobacco Quit Line at 5-311-GUNU-NOW. - Ancillary Orders May use pressure relief devices daily prn - Advance Directives Code Status: Full Code - Mobility Orders Other - Rehabiliation Orders Rehab Potential: Fair Rehab Orders: ROM Exercises, Evaluation for Physical Therapy, Evaluation for Occupational Therapy - Treatments Skin tear care topically daily PRN per policy - Diet Orders Regular, No Concentrated Sweets, Cardiac (Follow up CBC, BMP in 5 days, Contonue 2L/Min O2) CERTIFICATION: I certify that the transfer of the above named patient to an Extended Care Facility is necessary for the continuing treatment of the diagnosis listed. The above information is true and accurate reflection of patient's current condition. Confidential - Redisclosure prohibited without a patient's written consent.
--- NOTE | 2017-07-06 17:59 | Electrocardiograph Report ---
[address] [place], [place] [address] Test Date: 2017-07-02 Pat Name: Eileen Beltrán Department: 114 Room: [facility] Gender: F Supervisor Weaving: ILAN : 1950 Requested By: Farhad Casas Order Number: [id number] Reading MD: Rivera Vaerla Measurements Intervals [place] Rate: 86 P: 35 [place]: 160 QRS: 33 QRSD: 106 T: 60 QT: 398 QTc: 441 Interpretive Statements SINUS RHYTHM INCOMPLETE RIGHT BUNDLE BRANCH BLOCK ST DEVIATION AND MODERATE T-WAVE ABNORMALITY, CONSIDER LATERAL ISCHEMIA Electronically Signed On 07-06-2017 17:57:40 EST by Rivera Varela
--- NOTE | 2017-07-06 18:01 | Electrocardiograph Report ---
[address] [place], [place] [address] Test Date: 2017-07-02 Pat Name: Eileen Beltrán Department: 114 Room: [facility] Gender: F Water Quality Specialist: : 1950 Requested By: Anjum Rader Order Number: [id number] Reading MD: Rivera Varela Measurements Intervals [place] Rate: 80 P: 37 [place]: 161 QRS: 38 QRSD: 97 T: 98 QT: 399 QTc: 435 Interpretive Statements SINUS RHYTHM INCOMPLETE RIGHT BUNDLE BRANCH BLOCK ST DEVIATION AND MODERATE T-WAVE ABNORMALITY, CONSIDER ANTEROLATERAL ISCHEMIA Electronically Signed On 07-06-2017 17:59:45 EST by Rivera Varela
== END 2017-07-05 18:45 | DRG 710 ==
LOC: 3NENU 18:29 → EMEROO 18:29 → 3NENU 21:11 → SUATTDRO 21:56 → 3ANU 06-21 15:45 → 2NNU 06-22 15:59 → 3NENU 06-24 19:57
PROVIDERS: ADMIT Family Medicine; ATTEND Hospitalist

== ENCOUNTER 2017-08-20 14:16 | Inpatient (IN) ==
--- NOTE | 2017-08-20 14:57 | Emergency Department Note ---
Disposition Clinical Impression: Cellulitis Qualifiers: Site of cellulitis: unspecified site Qualified Code(s): L03.90 - Cellulitis, unspecified Chronic kidney disease Qualifiers: Chronic kidney disease stage: unspecified stage Qualified Code(s): N18.9 - Chronic kidney disease, unspecified Anemia Qualifiers: Anemia type: unspecified type Qualified Code(s): D64.9 - Anemia, unspecified Disposition: Admitted As Inpatient Condition: Fair Referrals: Joshua Avila MD [Non-Partnered Physician] - Forms: ED Satisfaction Letter Time of Disposition: 16:47 Lower Extremity Injury HPI - General Chief Complaint: ED Extremity Injury, Lower Stated Complaint: Redness & Swelling on L knee Time Seen by Provider: 08/20/17 14:40 Source: patient, EMS Mode of arrival: ambulatory Limitations: no limitations Nursing Notes Reviewed: Yes Vital Signs Reviewed: Yes - History of Present Illness HPI Narrative: 66-year-old female history of diabetes with chronic diabetic feet falls in the wound care with Dr. Coffey presents for evaluation of left lower leg redness and warmth. Patient states symptom onsets been over the past 2 days. States worsening redness and pain. Patient states she has been on 3 antibiotics is now patient but is not able to recall antibiotics. Patient denies any chest pain or shortness of breath. Patient reports subjective fevers. No nausea or vomiting. Patient does have a history of left toe amputations. - Related Data Home Medications Medication Instructions Recorded Confirmed Alendronate Sodium 70 mg PO QWEEK 01/06/17 08/20/17 Calcium Carbonate/Vitamin D3 1 each PO TID 01/06/17 08/20/17 [Calcium 500-Vit D3 200 Caplet] Clopidogrel Bisulfate [Plavix] 75 mg PO DAILY 01/06/17 08/20/17 Clotrimazole 1% CRM [Lotrimin 1%] 1 appl TD BID 01/06/17 08/20/17 Cyclobenzaprine [Flexeril] 10 mg PO DAILY 01/06/17 08/20/17 Ergocalciferol (VITAMIN D2) 50,000 unit PO QWEEK 01/06/17 08/20/17 [Vitamin D2] Folic Acid 1 mg PO DAILY 01/06/17 08/20/17 Furosemide [Lasix] 20 mg PO DAILY PRN 01/06/17 08/20/17 Gabapentin [Neurontin] 600 mg PO TID 01/06/17 08/20/17 HYDROcodone/Acet 5/325 mg [[place] 1 tab PO Q8H PRN 01/06/17 08/20/17 5-325 mg] Insulin LISPRO [HumaLOG] 0 units SQ TIDWM PRN 01/06/17 08/20/17 Lovastatin [Mevacor] 20 mg PO DAILY 01/06/17 08/20/17 Nitroglycerin [Nitrostat] 0.4 mg SL Q5-6MIN PRN 01/06/17 08/20/17 Citalopram Hydrobromide 10 mg PO DAILY 06/21/17 08/20/17 [Citalopram HBr] Ferrous Sulfate [Iron] 325 mg PO DAILY 06/21/17 08/20/17 LORazepam [Ativan] 0.5 mg PO DAILY 06/21/17 08/20/17 Metformin HCl [Metformin HCl ER] 1,000 mg PO BID 06/21/17 08/20/17 Furosemide [Lasix] 20 mg PO DAILY 08/20/17 08/20/17 Gabapentin [Neurontin] 600 mg PO TID 08/20/17 08/20/17 Glucagon,Human Recombinant 1 mg SQ ONCE PRN 08/20/17 08/20/17 [Glucagen] HYDROcodone/Acet 5/325 mg [[place] 1 tab PO Q4H PRN 08/20/17 08/20/17 5-325 mg] Heparin 5,000 unit SQ Q8HR 08/20/17 08/20/17 Insulin DETEMIR [Levemir] 25 unit SQ HS 08/20/17 08/20/17 Lisinopril [Zestril] 10 mg PO DAILY 08/20/17 08/20/17 Metoprolol Succinate [Toprol Xl] 50 mg PO DAILY 08/20/17 08/20/17 Pantoprazole Sodium [Protonix] 40 mg PO DAILY 08/20/17 08/20/17 Sulfamethoxazole/Trimeth DS 2 tab PO BID 08/20/17 08/20/17 [Bactrim DS] levoFLOXacin [Levaquin] 500 mg PO DAILY 08/20/17 08/20/17 Previous Rx's Medication Instructions Recorded Isosorbide MONOnitrate (24 HR) 60 mg PO DAILY #30 tab.er.24h 01/06/17 [Imdur] Aspirin Enteric Coated [Aspirin EC] 81 mg PO DAILY tablet. 07/05/17 Glucagon, Human Recombinant 1 mg IM ONCE PRN vial 07/05/17 [Glucagen] Heparin 5,000 unit SQ Q8HCO vial 07/05/17 Insulin DETEMIR [Levemir] 25 unit SQ HS [id number] 07/05/17 Ipratropium/Albuterol Neb [Duoneb] 3 ml IH [id number] PRN inhsol 07/05/17 SitaGLIPtin [Januvia] 50 mg PO DAILY tablet 07/05/17 Allergies Allergy/AdvReac Type Severity Reaction Status Date / Time cephalexin [From Keflex] Allergy Hives Verified 07/19/17 16:33 codeine Allergy Headache Verified 07/19/17 16:33 Iodinated Contrast- Oral and Allergy Hives Verified 07/19/17 16:33 IV Dye All systems ED: reviewed and negative except as stated. Constitutional: Reports: fever Cardiovascular: Denies: chest pain Respiratory: Denies: cough, dyspnea Gastrointestinal: Denies: abdominal pain, nausea, vomiting Past Medical History - Past Medical History Source: patient Medical history: Reports: CHF, coronary artery disease, diabetes, GERD, hyperlipidemia, hypertension, kidney stones, myocardial infarction, osteoporosis Surgical history: Reports: angioplasty/stent, appendectomy, cholecystectomy, coronary bypass (CABG), orthopedic, other Psychiatric history: Reports: anxiety - Social History Smoking Status: Former smoker Smokeless Tobacco Status: No Alcohol use: Reports: none Drug use: Reports: none Physical Exam - General Limitations: no limitations General appearance: alert, in no apparent distress, obese - Head Head exam: atraumatic, normocephalic, normal inspection - Eye Eye exam: Present: normal appearance, PERRL, EOMI - ENT ENT exam: normal exam - Neck Neck exam: Present: normal inspection, trachea midline - Chest Chest inspection: Present: normal inspection, symmetric chest wall rise - Respiratory Respiratory exam: Present: normal lung sounds bilaterally. Absent: respiratory distress, prolonged expiratory phase - Cardiovascular Cardiovascular exam: Present: regular rate, normal rhythm - Abdominal Exam Abdominal exam: Present: soft - Expanded Lower Extremity Exam Hip/Pelvis exam: Present: normal inspection Upper leg exam: Present: normal inspection Knee exam: Present: other (Erythema with warmth on the medial aspect of the left knee. No crepitus. Consistent with cellulitis.) Foot/toe exam: Present: other (Bandage and wound care to the left foot with distal amputations of the toes.) Neurovascular/Tendon exam: Present: normal capillary refill - Neurological Exam Neurological exam: Present: alert, oriented X3 - Skin Skin exam: Present: warm, dry, intact, normal color Course Course Narrative: It appears that the patient's antibiotics in the past for Bactrim as well as Levaquin. She does have cultures of her lower leg wound which showed Proteus as well as strep allergies. Appears to be resistant to those antibiotics. Patient will be started on Zosyn which is sensitive per culture. - Reevaluation(s) Reevaluation #1: Patient seen and examined. Patient's resting comfortably. Patient denies any chest pain. No short of breath. Patient's Doppler of her lower leg is unremarkable for DVT. Patient was started on antibiotics. Plan of care updated and discussed. Time: 16:28 Reevaluation #2: Patient's resting comfortably. No acute distress. Bedside ultrasound performed by me does not show any organized fluid collection over the area of concern. Patients receiving IV antibiotics. Time: 17:19 - Consultations Consultation #1: Spoke with podiatry and made them aware that the patient will be admitted for IV antibiotics. Time: 17:32 Vital Signs Temperature 98.4 F 08/20/17 14:24 Pulse Rate 82 08/20/17 14:24 Respiratory Rate 17 08/20/17 14:24 Blood Pressure 109/56 08/20/17 14:24 O2 Sat by Pulse Oximetry 98 08/20/17 14:24 Temperature 97.8 F 08/20/17 16:28 Pulse Rate 60 08/20/17 16:28 Respiratory Rate 16 08/20/17 16:28 Blood Pressure 101/67 08/20/17 16:28 O2 Sat by Pulse Oximetry 97 08/20/17 16:28 Oxygen Delivery Oxygen Delivery Room Air Extremity Injury, Lower - MDM Narrative Medical decision making narrative: Patient presents with concerns of cellulitis. Patient did have a wound culture of her left foot from the wound clinic which showed Proteus as well as strep endogenous. Patient likely has strep allergies infection. Patient was on outpatient biotics which were resistant to set culture. Patient was started on appropriate antibiotics. Given the location in the degree of the patient's cellulitis the patient will require admission with IV antibiotics. Patient had a Doppler ultrasound of the lower leg which does not reveal any acute DVT. Patient does have risk factors include diabetes. Appears that the infection is not located within the joint. Patient's pain is not out of proportion. There is low suspicion or concerns for necrotizing fasciitis. Patient's leg shows there is no crepitus. Patient will be admitted to the hospital service for further evaluation and monitoring. Patient does have an element of chronic kidney disease. - Lab Data Lab results reviewed: Yes I reviewed the patient's lab results. Result diagrams: 08/20/17 15:10 08/20/17 15:10 Lab Results 08/20/17 08/20/17 08/20/17 Range/Units 15:10 15:10 15:10 WBC 9.6 (4.3-11.1) K/mcL RBC 4.04 (3.82-4.97) M/mcL Hgb 10.4 L (11.5-15.4) g/dL Hct 33.6 L (35.3-44.9) % MCV 83.2 (83.0-100.0) fL MCH 25.7 L (28.0-33.3) pg MCHC 31.0 L (31.6-35.5) g/dL RDW 19.1 H (11.5-14.5) % Plt Count 218 (140-400) K/mcL MPV 11.6 (9.4-12.4) fL Immature Gran % 0.9 (0-4) % Seg Neutrophils % 76.6 % Lymphocytes % 11.6 % Monocytes % 8.6 % Eosinophils % 1.8 % Basophils % 0.5 % Neutrophils # 7.3 (1.6-8.9) K/mcL Lymphocytes # 1.1 (0.6-4.6) K/mcL Monocytes # 0.8 (0.0-1.3) K/mcL Eosinophils # 0.2 (0.0-0.6) K/mcL Basophils # 0.1 (0.0-0.2) K/mcL Sodium 130 L (136-145) mEq/L Potassium 5.3 H (3.5-5.1) mEq/L Chloride 99 (98-107) mEq/L Carbon Dioxide 19 L (23-29) mEq/L BUN 27 H (8-23) mg/dL Creatinine 1.33 H (0.60-1.20) mg/dL Est GFR ( Amer) 48 L (> 60) Est GFR (Non-Af Amer) 40 L (> 60) BUN/Creatinine Ratio 20 (6-26) Glucose 121 H (70-105) mg/dL Calculated Osmolality 276 L (280-300) Lactic Acid 3.0 H (0.5-2.2) mmol/L Calcium 8.8 (8.6-10.3) mg/dL Total Bilirubin 0.3 (0.3-1.0) mg/dL AST 16 (13-39) Units/L ALT 6 L (7-52) Units/L Alkaline Phosphatase 48 (34-104) Units/L Serum Total Protein 7.7 (6.4-8.9) g/dL Albumin 3.9 (3.5-5.7) g/dL Globulin 3.8 H (2.4-3.5) g/dL Albumin/Globulin Ratio 1.0 L (1.1-2.2) - EKG Data EKG attestation: Yes I reviewed and interpreted this EKG. EKG shows normal: sinus rhythm Rate: normal Rhythm: NSR [place]/QRS: normal Q waves: III T wave inversions noted in: v1, v2 Interpretation: no acute changes, nonspecific ST-T wave changes S.B.A.RDaniela - S.B.A.RDaniela Situation: Demographics Background: Presenting Complaint Assessment: Vital Signs, Course and respsone to treatment, Patient/Family Expectation Recommendation: Barrier(s) to disposition, Recommendation based on pending studies, treatments, or consults S.B.A.RDaniela Report Given to: Dr. Ginette Abdul Repor Time: 17:33
[2017-08-20] MEDS ORDERED: Piperacillin/Tazobactam 3.375 GM in 0.9 % Sodium Chloride Mini Bag 100 ML IVPB ONE (15:00)
--- NOTE | 2017-08-20 15:03 | Emergency Department Note ---
Disposition Clinical Impression: Cellulitis Qualifiers: Site of cellulitis: unspecified site Qualified Code(s): L03.90 - Cellulitis, unspecified Chronic kidney disease Qualifiers: Chronic kidney disease stage: unspecified stage Qualified Code(s): N18.9 - Chronic kidney disease, unspecified Anemia Qualifiers: Anemia type: unspecified type Qualified Code(s): D64.9 - Anemia, unspecified Disposition: Admitted As Inpatient Condition: Fair Referrals: Joshua Avila MD [Non-Partnered Physician] - Forms: ED Satisfaction Letter General Adult HPI - General Chief complaint: ED Extremity Injury, Lower Stated complaint: Redness & Swelling on L knee Time Seen by Provider: 08/20/17 14:40 Source: patient, EMS Mode of arrival: ambulatory Limitations: no limitations - History of Present Illness Pain Scale: 6 - Related Data Home Medications Medication Instructions Recorded Confirmed Alendronate Sodium 70 mg PO QWEEK 01/06/17 08/20/17 Calcium Carbonate/Vitamin D3 1 each PO TID 01/06/17 08/20/17 [Calcium 500-Vit D3 200 Caplet] Clopidogrel Bisulfate [Plavix] 75 mg PO DAILY 01/06/17 08/20/17 Clotrimazole 1% CRM [Lotrimin 1%] 1 appl TD BID 01/06/17 08/20/17 Cyclobenzaprine [Flexeril] 10 mg PO DAILY 01/06/17 08/20/17 Ergocalciferol (VITAMIN D2) 50,000 unit PO QWEEK 01/06/17 08/20/17 [Vitamin D2] Folic Acid 1 mg PO DAILY 01/06/17 08/20/17 Furosemide [Lasix] 20 mg PO DAILY PRN 01/06/17 08/20/17 Gabapentin [Neurontin] 600 mg PO TID 01/06/17 08/20/17 HYDROcodone/Acet 5/325 mg [[place] 1 tab PO Q8H PRN 01/06/17 08/20/17 5-325 mg] Insulin LISPRO [HumaLOG] 0 units SQ TIDWM PRN 01/06/17 08/20/17 Lovastatin [Mevacor] 20 mg PO DAILY 01/06/17 08/20/17 Nitroglycerin [Nitrostat] 0.4 mg SL Q5-6MIN PRN 01/06/17 08/20/17 Citalopram Hydrobromide 10 mg PO DAILY 06/21/17 08/20/17 [Citalopram HBr] Ferrous Sulfate [Iron] 325 mg PO DAILY 06/21/17 08/20/17 LORazepam [Ativan] 0.5 mg PO DAILY 06/21/17 08/20/17 Metformin HCl [Metformin HCl ER] 1,000 mg PO BID 06/21/17 08/20/17 Furosemide [Lasix] 20 mg PO DAILY 08/20/17 08/20/17 Gabapentin [Neurontin] 600 mg PO TID 08/20/17 08/20/17 Glucagon,Human Recombinant 1 mg SQ ONCE PRN 08/20/17 08/20/17 [Glucagen] HYDROcodone/Acet 5/325 mg [[place] 1 tab PO Q4H PRN 08/20/17 08/20/17 5-325 mg] Heparin 5,000 unit SQ Q8HR 08/20/17 08/20/17 Insulin DETEMIR [Levemir] 25 unit SQ HS 08/20/17 08/20/17 Lisinopril [Zestril] 10 mg PO DAILY 08/20/17 08/20/17 Metoprolol Succinate [Toprol Xl] 50 mg PO DAILY 08/20/17 08/20/17 Pantoprazole Sodium [Protonix] 40 mg PO DAILY 08/20/17 08/20/17 Sulfamethoxazole/Trimeth DS 2 tab PO BID 08/20/17 08/20/17 [Bactrim DS] levoFLOXacin [Levaquin] 500 mg PO DAILY 08/20/17 08/20/17 Previous Rx's Medication Instructions Recorded Isosorbide MONOnitrate (24 HR) 60 mg PO DAILY #30 tab.er.24h 01/06/17 [Imdur] Aspirin Enteric Coated [Aspirin EC] 81 mg PO DAILY tablet. 07/05/17 Glucagon, Human Recombinant 1 mg IM ONCE PRN vial 07/05/17 [Glucagen] Heparin 5,000 unit SQ Q8HCO vial 07/05/17 Insulin DETEMIR [Levemir] 25 unit SQ HS [id number] 07/05/17 Ipratropium/Albuterol Neb [Duoneb] 3 ml IH [id number] PRN inhsol 07/05/17 SitaGLIPtin [Januvia] 50 mg PO DAILY tablet 07/05/17 Allergies Allergy/AdvReac Type Severity Reaction Status Date / Time cephalexin [From Keflex] Allergy Hives Verified 07/19/17 16:33 codeine Allergy Headache Verified 07/19/17 16:33 Iodinated Contrast- Oral and Allergy Hives Verified 07/19/17 16:33 IV Dye Constitutional: Reports: fever Cardiovascular: Denies: chest pain Respiratory: Denies: cough, dyspnea Gastrointestinal: Denies: abdominal pain, nausea, vomiting Past Medical History - Past Medical History Medical history: Reports: CHF, coronary artery disease, diabetes, GERD, hyperlipidemia, hypertension, kidney stones, myocardial infarction, osteoporosis Surgical history: Reports: angioplasty/stent, appendectomy, cholecystectomy, coronary bypass (CABG), orthopedic, other Psychiatric history: Reports: anxiety - Social History Smoking Status: Former smoker Smokeless Tobacco Status: No Alcohol use: Reports: none Drug use: Reports: none Physical Exam - General Limitations: no limitations General appearance: alert, in no apparent distress, obese Course Vital Signs Temperature 98.4 F 08/20/17 14:24 Pulse Rate 82 08/20/17 14:24 Respiratory Rate 17 08/20/17 14:24 Blood Pressure 109/56 08/20/17 14:24 O2 Sat by Pulse Oximetry 98 08/20/17 14:24 Temperature 97.8 F 08/20/17 16:28 Pulse Rate 60 08/20/17 16:28 Respiratory Rate 16 08/20/17 16:28 Blood Pressure 101/67 08/20/17 16:28 O2 Sat by Pulse Oximetry 97 08/20/17 16:28 Oxygen Delivery Oxygen Delivery Room Air Medical Decision Making - Lab Data Result diagrams: 08/20/17 15:10 08/20/17 15:10 Lab Results 08/20/17 08/20/17 08/20/17 Range/Units 15:10 15:10 15:10 WBC 9.6 (4.3-11.1) K/mcL RBC 4.04 (3.82-4.97) M/mcL Hgb 10.4 L (11.5-15.4) g/dL Hct 33.6 L (35.3-44.9) % MCV 83.2 (83.0-100.0) fL MCH 25.7 L (28.0-33.3) pg MCHC 31.0 L (31.6-35.5) g/dL RDW 19.1 H (11.5-14.5) % Plt Count 218 (140-400) K/mcL MPV 11.6 (9.4-12.4) fL Immature Gran % 0.9 (0-4) % Seg Neutrophils % 76.6 % Lymphocytes % 11.6 % Monocytes % 8.6 % Eosinophils % 1.8 % Basophils % 0.5 % Neutrophils # 7.3 (1.6-8.9) K/mcL Lymphocytes # 1.1 (0.6-4.6) K/mcL Monocytes # 0.8 (0.0-1.3) K/mcL Eosinophils # 0.2 (0.0-0.6) K/mcL Basophils # 0.1 (0.0-0.2) K/mcL Sodium 130 L (136-145) mEq/L Potassium 5.3 H (3.5-5.1) mEq/L Chloride 99 (98-107) mEq/L Carbon Dioxide 19 L (23-29) mEq/L BUN 27 H (8-23) mg/dL Creatinine 1.33 H (0.60-1.20) mg/dL Est GFR ( Amer) 48 L (> 60) Est GFR (Non-Af Amer) 40 L (> 60) BUN/Creatinine Ratio 20 (6-26) Glucose 121 H (70-105) mg/dL Calculated Osmolality 276 L (280-300) Lactic Acid 3.0 H (0.5-2.2) mmol/L Calcium 8.8 (8.6-10.3) mg/dL Total Bilirubin 0.3 (0.3-1.0) mg/dL AST 16 (13-39) Units/L ALT 6 L (7-52) Units/L Alkaline Phosphatase 48 (34-104) Units/L Serum Total Protein 7.7 (6.4-8.9) g/dL Albumin 3.9 (3.5-5.7) g/dL Globulin 3.8 H (2.4-3.5) g/dL Albumin/Globulin Ratio 1.0 L (1.1-2.2) Attestation Statement - Attestation Attestation: I examined this patient and my medical decision-making was reviewed with the Resident Physician. I agree with the documented findings, disposition and treatment plan as described except to the extent set forth below. Patient presents to the ED with chief complaint of redness to the left eye. Patient is status post a recent surgery on that foot. She sees wound care. She had a recent culture done that was reviewed. Patient grew Proteus and group A strep. Patient's been on Levaquin and Bactrim. On examination the patient has a moderate size area over the left medial thigh that extends posteriorly that is erythematous and warm. It does not extend over the joint. She has full range of motion of the knee. Plan. The patient Proteus was resistant to both the medications that she is on. Patient has worsening infection. We will check an ultrasound rule out a DVT. Patient will likely need admitted for IV antibiotic.
[2017-08-20] MEDS ORDERED: 0.9 % Sodium Chloride 500 ML IVC ONE (15:10)
[2017-08-20 15:32] LABS: Basophils # 0.1 K/mcL (0.0-0.2); Basophils % 0.5 %; Eosinophils # 0.2 K/mcL (0.0-0.6); Eosinophils % 1.8 %; Hematocrit 33.6 % (35.3-44.9); Hemoglobin 10.4 g/dL (11.5-15.4); Immature Granulocytes % 0.9 % (0-4); Lymphocytes # 1.1 K/mcL (0.6-4.6); Lymphocytes % 11.6 %; Mean Corpuscular Hemoglobin 25.7 pg (28.0-33.3); Mean Corpuscular Volume 83.2 fL (83.0-100.0); Mean Platelet Volume 11.6 fL (9.4-12.4); Monocytes # 0.8 K/mcL (0.0-1.3); Monocytes % 8.6 %; Neutrophils # 7.3 K/mcL (1.6-8.9); Platelet Count 218 K/mcL (140-400); Red Blood Count 4.04 M/mcL (3.82-4.97); Red Cell Distribution Width 19.1 % (11.5-14.5); Segmented Neutrophils % 76.6 %
[2017-08-20 15:54] LABS: Albumin 3.9 g/dL (3.5-5.7); Bilirubin,Total 0.3 mg/dL (0.3-1.0); Calcium 8.8 mg/dL (8.6-10.3); Globulin 3.8 g/dL (2.4-3.5); Potassium 5.3 mEq/L (3.5-5.1); Total Protein 7.7 g/dL (6.4-8.9)
[2017-08-20] MEDS ORDERED: Naloxone 0.4 MG/ML INJ IVP PRN (20:37)
[2017-08-20] MEDS ORDERED: Acetaminophen 325 MG TABLET PO PRN (20:37)
[2017-08-20] MEDS ORDERED: D5% in Water 1,000 ML IVC PRN (20:42)
[2017-08-20] MEDS ORDERED: *HR* Dextrose 50 % in Water (Syg) 50 ML SYRINGE IVP PRN (20:42)
[2017-08-20] MEDS ORDERED: Dextrose Gel 15 GM/37.5 ML TUBE PO PRN ×2 (20:42)
[2017-08-20] MEDS ORDERED: Furosemide 20 MG TABLET PO PRN (20:43)
[2017-08-20] MEDS ORDERED: Ipratropium/Albuterol Neb 3 ML IH PRN (20:43)
[2017-08-20] MEDS ORDERED: NON-FORMULARY MEDICATION 1 EACH EACH (Alendronate Sodium [Alendronate Sodium] 70 MG) PO SCH (20:45)
[2017-08-20] MEDS ORDERED: 0.9 % Sodium Chloride 1,000 ML IVC SCH (20:45)
[2017-08-20] MEDS ORDERED: Nitroglycerin 0.4 MG TAB.SUBL SL PRN (20:46)
[2017-08-20] MEDS: Gabapentin 300 MG CAPSULE PO SCH (22:39)
[2017-08-20] MEDS: Insulin LISPRO 300 UNITS/3 ML VIAL SQ SCH (22:41)
[2017-08-20] MEDS ORDERED: Ondansetron 4 MG/2 ML VIAL IVP PRN (23:40)
[2017-08-20] MEDS: *HR* HYDROcodone/Acet 5/325 mg TABLET PO PRN (23:56)
[2017-08-21 02:07] LABS: Basophils # 0.1 K/mcL (0.0-0.2); Basophils % 0.5 %; Eosinophils # 0.1 K/mcL (0.0-0.6); Eosinophils % 0.8 %; Hematocrit 35.8 % (35.3-44.9); Hemoglobin 10.9 g/dL (11.5-15.4); Immature Granulocytes % 1.6 % (0-4); Lymphocytes # 0.5 K/mcL (0.6-4.6); Lymphocytes % 4.9 %; Mean Corpuscular HGB Conc 30.4 g/dL (31.6-35.5); Mean Corpuscular Hemoglobin 25.5 pg (28.0-33.3); Mean Corpuscular Volume 83.8 fL (83.0-100.0); Mean Platelet Volume 11.5 fL (9.4-12.4); Monocytes # 0.8 K/mcL (0.0-1.3); Monocytes % 7.3 %; Neutrophils # 8.8 K/mcL (1.6-8.9); Platelet Count 239 K/mcL (140-400); Red Blood Count 4.27 M/mcL (3.82-4.97); Red Cell Distribution Width 19.1 % (11.5-14.5); Segmented Neutrophils % 84.9 %
[2017-08-21 02:23] LABS: Calcium 8.3 mg/dL (8.6-10.3); Magnesium 1.2 mg/dL (1.6-2.6); Potassium 4.7 mEq/L (3.5-5.1)
--- NOTE | 2017-08-21 04:04 | Internal Med History&Physical ---
Date of Encounter: 08/20/17 Time of Encounter: 20:00 Internal Medicine - H&P: HPI Chief complaint: Left leg redness and pain Admitted From: Long-term Nursing Facility Plans for Post Hospital Care: [facility] History of present illness: Ms. Beltrán is a 66 year old female present to ER for left leg redness and painful for 2 days. Past medical history is significant for diabetes, hypertension, CAD S/P CABG, COPD. Patient had left foot amputation surgery recently in Jun for left foot gangrene. Patient to follow-up with Wound Care. 2 days ago, patient noticed redness on inner site of left thigh, with warmth and tenderness. Patient took a by mouth antibiotic Levaquin and Bactrim for cellulitis. Symptoms not improved significantly on by mouth antibiotics. Recent wound culture from left foot shows proteus and group A strep, both of them not sensitive to Levaquin and Bactrim. Patient was started with Zosyn and admitted for cellulitis. Past Med Surg Social Fam HX - Past Medical History Medical history: CHF, coronary artery disease, diabetes, GERD, hyperlipidemia, hypertension, kidney stones, myocardial infarction, osteoporosis Psychiatric history: anxiety - Past Surgical History Surgical History: angioplasty/stent, appendectomy, cholecystectomy, coronary bypass (CABG), orthopedic, other - Social History Smoking Status: Former smoker Smokeless Tobacco Status: No Alcohol use: none Drug use: none - Family History Mother Adopted: [place]: Dary Age: 64 Family Member Ethnicity: Non- Twin of Family Member: Yes, Identical Living Status: Age at : 64 Hx Family Cardiac Disorders: Yes Hx Family Respiratory Disorders: No Hx Family Cancer: No Hx Family GI Disorders: No Hx Family Genitourinary Disorders: No Hx Family Endocrine Disorder: Yes Hx Family Musculoskeletal Disorders: No Hx Family Neuromuscular Disorders: No Hx Family Neurologic Disorders: No Hx Family HEENT Disorders: No Hx Family Autoimmune Disorders: No Hx Family Reproductive Disorders: No Hx Family Psychosocial Disorders: No Hx Family Medical Disorders: No Father Adopted: [place]: Kyle Age: 75 Family Member Ethnicity: Non- Living Status: Age at : 75 Cause of : vascular disease Hx Family Cardiac Disorders: Yes Hx Family Respiratory Disorders: No Hx Family Cancer: No Hx Family GI Disorders: No Hx Family Genitourinary Disorders: No Hx Family Endocrine Disorder: No Hx Family Musculoskeletal Disorders: No Hx Family Neuromuscular Disorders: No Hx Family Neurologic Disorders: No Hx Family HEENT Disorders: No Hx Family Autoimmune Disorders: No Hx Family Reproductive Disorders: No Hx Family Psychosocial Disorders: No Hx Family Medical Disorders: No Internal Medicine - H&P: Meds Alendronate Sodium 70 mg PO QWEEK 01/06/17 [History] Calcium Carbonate/Vitamin D3 [Calcium 500-Vit D3 200 Caplet] 1 each PO TID 01/06 [History] Clopidogrel Bisulfate [Plavix] 75 mg PO DAILY 01/06/17 [History] Clotrimazole 1% CRM [Lotrimin 1%] 1 appl TD BID 01/06/17 [History] Cyclobenzaprine [Flexeril] 10 mg PO DAILY 01/06/17 [History] Ergocalciferol (VITAMIN D2) [Vitamin D2] 50,000 unit PO QWEEK 01/06/17 [History] Folic Acid 1 mg PO DAILY 01/06/17 [History] Furosemide [Lasix] 20 mg PO DAILY PRN 01/06/17 [History] Gabapentin [Neurontin] 600 mg PO TID 01/06/17 [History] HYDROcodone/Acet 5/325 mg [[place] 5-325 mg] 1 tab PO Q8H PRN 01/06/17 [History] Insulin LISPRO [HumaLOG] 0 units SQ TIDWM PRN 01/06/17 [History] Isosorbide MONOnitrate (24 HR) [Imdur] 60 mg PO DAILY #30 tab.er.24h 01/06/17 [ Rx] Lovastatin [Mevacor] 20 mg PO DAILY 01/06/17 [History] Nitroglycerin [Nitrostat] 0.4 mg SL Q5-6MIN PRN 01/06/17 [History] Citalopram Hydrobromide [Citalopram HBr] 10 mg PO DAILY 06/21/17 [History] Ferrous Sulfate [Iron] 325 mg PO DAILY 06/21/17 [History] LORazepam [Ativan] 0.5 mg PO DAILY 06/21/17 [History] Metformin HCl [Metformin HCl ER] 1,000 mg PO BID 06/21/17 [History] Aspirin Enteric Coated [Aspirin EC] 81 mg PO DAILY tablet. 07/05/17 [Rx] Glucagon, Human Recombinant [Glucagen] 1 mg IM ONCE PRN vial 07/05/17 [Rx] Heparin 5,000 unit SQ Q8HCO vial 07/05/17 [Rx] Insulin DETEMIR [Levemir] 25 unit SQ HS [id number] 07/05/17 [Rx] Ipratropium/Albuterol Neb [Duoneb] 3 ml IH [id number] PRN inhsol 07/05/17 [Rx] SitaGLIPtin [Januvia] 50 mg PO DAILY tablet 07/05/17 [Rx] Furosemide [Lasix] 20 mg PO DAILY 08/20/17 [History] Gabapentin [Neurontin] 600 mg PO TID 08/20/17 [History] Glucagon,Human Recombinant [Glucagen] 1 mg SQ ONCE PRN 08/20/17 [History] HYDROcodone/Acet 5/325 mg [[place] 5-325 mg] 1 tab PO Q4H PRN 08/20/17 [History] Heparin 5,000 unit SQ Q8HR 08/20/17 [History] Insulin DETEMIR [Levemir] 25 unit SQ HS 08/20/17 [History] Lisinopril [Zestril] 10 mg PO DAILY 08/20/17 [History] Metoprolol Succinate [Toprol Xl] 50 mg PO DAILY 08/20/17 [History] Pantoprazole Sodium [Protonix] 40 mg PO DAILY 08/20/17 [History] Sulfamethoxazole/Trimeth DS [Bactrim DS] 2 tab PO BID 08/20/17 [History] levoFLOXacin [Levaquin] 500 mg PO DAILY 08/20/17 [History] 3 Allergy/AdvReac Type Severity Reaction Status Date / Time cephalexin [From Keflex] Allergy Hives Verified 07/19/17 16:33 codeine Allergy Headache Verified 07/19/17 16:33 Iodinated Contrast- Oral and Allergy Hives Verified 07/19/17 16:33 IV Dye All Systems PM: A 10-system review of systems was performed and is negative for pertinent findings except as documented above in the HPI. - Constitutional Vitals: Temp Pulse Resp BP Pulse Ox 97.8 F 74 15 128/79 99 08/20/17 23:14 08/20/17 23:14 08/20/17 23:14 08/20/17 23:14 08/20/17 23:14 General appearance: Present: A&O X 3, no acute distress, answers questions appropriately - Head Head exam: Present: atraumatic, normocephalic - Eye Eye exam: Present: PERRL, conjuntiva pink, sclera anicteric Pupils: Present: PERRL - Neck Neck exam general surgery: Present: supple, trachea midline. Absent: lymphadenopathy - Respiratory Respiratory exam: Present: CTAB. Absent: accessory muscle use, rales, rhonchi, wheezes - Cardiovascular Cardiovascular exam: Present: RRR, +S1, +S2. Absent: diastolic murmur, gallop, rubs, systolic murmur - GI/Abdominal GI/Abdominal exam: Present: normal bowel sounds, soft, no peritoneal signs. Absent: distended, tenderness - Extremities Exam Extremities exam: Present: warm, radial pulses palpable and symmetrical. Absent : calf tenderness, cyanotic, pedal edema Additional comments: Left thigh skin redness, warmth, and tenderness. Left foot S/P amputation - Neurological Exam Neurological exam: Present: CN II-XII intact, oriented X3, no focal deficits. Absent: pronater drift, facial droop, speech deficit - Skin Skin exam: Present: dry, intact Internal Med - H&P Results - Labs CBC & Chem 7: 08/21/17 01:28 08/21/17 01:28 Labs: Short CBC 08/21/17 Range/Units 01:28 WBC 10.3 (4.3-11.1) K/mcL Hgb 10.9 L (11.5-15.4) g/dL Hct 35.8 (35.3-44.9) % Plt Count 239 (140-400) K/mcL Neutrophils # 8.8 (1.6-8.9) K/mcL BMP 08/21/17 01:28 Sodium 131 L Potassium 4.7 Chloride 102 Carbon Dioxide 19 L BUN 28 H Creatinine 1.31 H Glucose 304 H Calcium 8.3 L - Assessment and plan (1) Cellulitis Current Visit: Yes Status: Acute Assessment and plan: Patient has cellulitis on left thigh. 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 Consult podiatry. Patient was placed on Zosyn, which cover the wound culture positive bacteria (5) CAD (coronary artery disease) Current Visit: No Status: Chronic Assessment and plan: No chest pain. Continue home medications Qualifiers: Coronary Disease-Associated Artery/Lesion type: bypass graft [place] vs. transplanted heart: [place] heart Associated angina: angina presence unspecified Qualified Code(s): I25.810 - Atherosclerosis of coronary artery bypass graft(s) without angina pectoris (6) Acute renal failure Current Visit: Yes Status: Acute Assessment and plan: Patient has a mild elevated creatinine level from baseline. Place patient on IV fluid, follow-up renal function. Avoid nephrotoxic medications. Qualifiers: Qualified Code(s): N17.9 - Acute kidney failure, unspecified - Time Spent With Patient Total time spent is greater than 50% in coordination of care (as documented) at patient's floor/unit and/or counseling patient: 40 min Greater than 35 minutes
[2017-08-21] MEDS: *HR* Heparin 5,000 UNIT/ML VIAL SQ SCH ×2 (05:47→18:38)
[2017-08-21] MEDS: Piperacillin/Tazobactam 3.375 GM in 0.9 % Sodium Chloride Mini Bag 100 ML IVPB SCH ×2 (05:47→18:40)
[2017-08-21] MEDS: *HR* HYDROcodone/Acet 5/325 mg TABLET PO PRN ×2 (05:51→19:54)
[2017-08-21] MEDS: Insulin LISPRO 300 UNITS/3 ML VIAL SQ SCH ×4 (08:11→22:19)
[2017-08-21] MEDS: Gabapentin 300 MG CAPSULE PO SCH ×3 (08:20→19:54)
[2017-08-21] MEDS: Aspirin Enteric Coated 81 MG Tablet PO SCH (08:20)
[2017-08-21] MEDS: Folic Acid 1 MG TABLET PO SCH (08:20)
[2017-08-21] MEDS: *HR* LORazepam 0.5 MG TABLET PO SCH (08:20)
[2017-08-21] MEDS ORDERED: Metoprolol XL (24 HR) Succ 50 MG TAB.ER.24H PO SCH (09:00)
[2017-08-21] MEDS ORDERED: Furosemide 20 MG TABLET PO SCH (09:00)
[2017-08-21] MEDS ORDERED: Isosorbide MONOnitrate (24 HR) 60 MG TAB.ER.24H PO SCH (09:00)
[2017-08-21] MEDS ORDERED: Ringers Solution, Lactated 1,000 ML IVC ONE (10:02)
--- NOTE | 2017-08-21 10:04 | Internal Med Progress Note ---
Date of Encounter: 08/21/17 Time of Encounter: 09:40 - Assessment and plan (1) Cellulitis Current Visit: Yes Status: Acute Assessment and plan: No significant improvement noted based on marking of site by prior physician Qualifiers: Site of cellulitis: extremity Site of cellulitis of extremity: lower extremity Laterality: left Qualified Code(s): L03.116 - Cellulitis of left lower limb (2) Left foot infection Current Visit: No Status: Acute Assessment and plan: Considering she had Proteus mirabilis and group A strep on cultures from 2017, vancomycin and Zosyn should provide adequate coverage. We will continue her IV antibodies at this point in time and follow the rash. Unlikely she has MRSA but will continue vancomycin for another day. She will benefit from oral regimen of Vantin closer to discharge. (3) Diabetes mellitus Current Visit: No Status: Acute Assessment and plan: Poorly controlled diabetes, will resume Levemir and give extra half dose now. Continue home Humalog. 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 transplanted heart: [place] heart Associated angina: angina presence unspecified Qualified Code(s): I25.810 - Atherosclerosis of coronary artery bypass graft(s) without angina pectoris (5) DVT prophylaxis Current Visit: No Status: Acute Assessment and plan: Heparin subcutaneously (6) Acute renal failure Current Visit: Yes Status: Acute Assessment and plan: Stop lisinopril and Lasix. Bolus IV fluids now. Entertain IV fluids and follow urine output. Likely etiology is pre-renal in the context of hypotension and ongoing use of nephrotoxic agents. Renal ultrasound results are as following: "FINDINGS: Kidneys: The right kidney measures 9.7 cm in length and the left kidney measures 8.7 cm in length. Kidneys demonstrate normal cortical echogenicity. No evidence of hydronephrosis. Right renal calculi are present measuring up to 1.6 cm in the lower pole. Bladder: Unremarkable appearance of the bladder. Prevoid volume measures 350 mL and postvoid volume is 175 mL. A left ureteral jet is visualized. US/US retroperitoneal comp IMPRESSION: No hydronephrosis. Right nephrolithiasis. Moderate postvoid residual." Qualifiers: Qualified Code(s): N17.9 - Acute kidney failure, unspecified - Time Spent With Patient Total time spent is greater than 50% in coordination of care (as documented) at patient's floor/unit and/or counseling patient: 25 - 35 minutes - Subjective Interval history: Patient reports she feels well. No events overnight. No nursing issues. - Constitutional Vitals: Temp Pulse Resp BP Pulse Ox 97.8 F 72 15 93/62 98 08/21/17 06:43 08/21/17 06:43 08/21/17 06:43 08/21/17 06:43 08/21/17 06:43 General appearance: Present: A&O X 3, no acute distress, answers questions appropriately Exam: HEENT: Normocephalic atraumatic, moist oral mucosa, no conjunctival icterus Neck: Supple Lungs clear to auscultation, no foreign sounds Heart: Normal S1-S2, no murmurs rubs or gallops Abdomen: soft, nondistended, no guarding rigidity or tenderness, normoactive bowel sounds Extremities: No significant peripheral edema Skin: Left foot tarsals absent. Clean-based 4 x 2 cm ulcer noted in the stump on the dorsal surface. Erythema tracking up the medial aspect of the left leg noted. This has been marked on the skin with a pen. Neuro: Alert oriented 3, no focal deficits Psych: Normal mood Internal Medicine: Result - Labs CBC & Chem 7: 08/21/17 01:28 08/21/17 01:28 Labs: Short CBC 08/21/17 Range/Units 01:28 WBC 10.3 (4.3-11.1) K/mcL Hgb 10.9 L (11.5-15.4) g/dL Hct 35.8 (35.3-44.9) % Plt Count 239 (140-400) K/mcL Neutrophils # 8.8 (1.6-8.9) K/mcL BMP 08/21/17 01:28 Sodium 131 L Potassium 4.7 Chloride 102 Carbon Dioxide 19 L BUN 28 H Creatinine 1.31 H Glucose 304 H Calcium 8.3 L Consult Discharge Plan - Plan Referrals: Sammy Pompa MD [Primary Care Provider] -
[2017-08-21] MEDS: Ringers Solution, Lactated 1,000 ML IVC SCH (12:35)
--- NOTE | 2017-08-21 12:47 | Podiatry Consult Note ---
Date of Encounter: 08/21/17 Time of Encounter: 11:40 Assessment and Plan (1) Foot ulcer due to secondary DM Current visit: No Status: Chronic Left diabetic foot ulceration dorsal aspect of distal TMA site. Patient admitted with worsening cellulitis of the thigh being managed by medicine. I had a thorough review with the patient regarding her history/condition, my findings, and recommendations for treatment. Patient reports the wound looks about the same and I do not find evidence of an underlying abscess and no evidence of osteomyelitis on the x-ray. She will continue with her current wound care which she was doing in the wound care center which is calcium alginate. Orders placed in [facility]. Elevation of the left foot. Medical management of thigh cellulitis, if surgical intervention was needed is out of our scope and General surgery would be to be consulted for the thigh. History of Present Illness HPI: Ms. Beltrán is a 66 year old female who was admitted with left thigh cellulitis. She says she this redness on her thigh got worse 2-3 days ago. Podiatry was consult at for evaluation and management of the left foot ulceration. She has had recent surgery by Dr. Coffey which included a transmetatarsal amputation. She does have a wound on the left foot which Dr. Coffey has been following regularly in the wound care center. She has been on oral antibiotics for that wound and having local wound care performed with calcium alginate. She says they wound on the foot looks about the same and it has been red for a long time on the left foot. She says she has a burning pain in her foot which she says is probably her neuropathy. Calcium alginate was being used on the wound and the wound care center. Denies fever, chills, vomiting, shortness of breath, chest pain. Does report nausea before she came to the hospital. Past Med Surg Social Fam HX - Past Medical History Medical history: CHF, coronary artery disease, diabetes, GERD, hyperlipidemia, hypertension, kidney stones, myocardial infarction, osteoporosis Psychiatric history: anxiety - Past Surgical History Surgical History: angioplasty/stent, appendectomy, cholecystectomy, coronary bypass (CABG), orthopedic, other - Social History Smoking Status: Former smoker Smokeless Tobacco Status: No Alcohol use: none Drug use: none - Family History Mother Adopted: [place]: Dary Age: 64 Family Member Ethnicity: Non- Twin of Family Member: Yes, Identical Living Status: Age at : 64 Hx Family Cardiac Disorders: Yes Hx Family Respiratory Disorders: No Hx Family Cancer: No Hx Family GI Disorders: No Hx Family Genitourinary Disorders: No Hx Family Endocrine Disorder: Yes Hx Family Musculoskeletal Disorders: No Hx Family Neuromuscular Disorders: No Hx Family Neurologic Disorders: No Hx Family HEENT Disorders: No Hx Family Autoimmune Disorders: No Hx Family Reproductive Disorders: No Hx Family Psychosocial Disorders: No Hx Family Medical Disorders: No Father Adopted: [place]: Kyle Age: 75 Family Member Ethnicity: Non- Living Status: Age at : 75 Cause of : vascular disease Hx Family Cardiac Disorders: Yes Hx Family Respiratory Disorders: No Hx Family Cancer: No Hx Family GI Disorders: No Hx Family Genitourinary Disorders: No Hx Family Endocrine Disorder: No Hx Family Musculoskeletal Disorders: No Hx Family Neuromuscular Disorders: No Hx Family Neurologic Disorders: No Hx Family HEENT Disorders: No Hx Family Autoimmune Disorders: No Hx Family Reproductive Disorders: No Hx Family Psychosocial Disorders: No Hx Family Medical Disorders: No Medications and Allergies Alendronate Sodium 70 mg PO QWEEK 01/06/17 [History] Calcium Carbonate/Vitamin D3 [Calcium 500-Vit D3 200 Caplet] 1 each PO TID 01/06 [History] Clopidogrel Bisulfate [Plavix] 75 mg PO DAILY 01/06/17 [History] Clotrimazole 1% CRM [Lotrimin 1%] 1 appl TD BID 01/06/17 [History] Cyclobenzaprine [Flexeril] 10 mg PO DAILY 01/06/17 [History] Ergocalciferol (VITAMIN D2) [Vitamin D2] 50,000 unit PO QWEEK 01/06/17 [History] Folic Acid 1 mg PO DAILY 01/06/17 [History] Furosemide [Lasix] 20 mg PO DAILY PRN 01/06/17 [History] Gabapentin [Neurontin] 600 mg PO TID 01/06/17 [History] HYDROcodone/Acet 5/325 mg [[place] 5-325 mg] 1 tab PO Q8H PRN 01/06/17 [History] Insulin LISPRO [HumaLOG] 0 units SQ TIDWM PRN 01/06/17 [History] Isosorbide MONOnitrate (24 HR) [Imdur] 60 mg PO DAILY #30 tab.er.24h 08/30/17 [ Rx] Lovastatin [Mevacor] 20 mg PO DAILY 01/06/17 [History] Nitroglycerin [Nitrostat] 0.4 mg SL Q5-6MIN PRN 01/06/17 [History] Citalopram Hydrobromide [Citalopram HBr] 10 mg PO DAILY 06/21/17 [History] Ferrous Sulfate [Iron] 325 mg PO DAILY 06/21/17 [History] LORazepam [Ativan] 0.5 mg PO DAILY 06/21/17 [History] Metformin HCl [Metformin HCl ER] 1,000 mg PO BID 06/21/17 [History] Aspirin Enteric Coated [Aspirin EC] 81 mg PO DAILY tablet. 07/05/17 [Rx] Glucagon, Human Recombinant [Glucagen] 1 mg IM ONCE PRN vial 07/05/17 [Rx] Heparin 5,000 unit SQ Q8HCO vial 07/05/17 [Rx] Insulin DETEMIR [Levemir] 25 unit SQ HS [id number] 07/05/17 [Rx] Ipratropium/Albuterol Neb [Duoneb] 3 ml IH [id number] PRN inhsol 07/05/17 [Rx] SitaGLIPtin [Januvia] 50 mg PO DAILY tablet 07/05/17 [Rx] Furosemide [Lasix] 20 mg PO DAILY 08/20/17 [History] Gabapentin [Neurontin] 600 mg PO TID 08/20/17 [History] Glucagon,Human Recombinant [Glucagen] 1 mg SQ ONCE PRN 08/20/17 [History] HYDROcodone/Acet 5/325 mg [[place] 5-325 mg] 1 tab PO Q4H PRN 08/20/17 [History] Heparin 5,000 unit SQ Q8HR 08/20/17 [History] Insulin DETEMIR [Levemir] 25 unit SQ HS 08/20/17 [History] Lisinopril [Zestril] 10 mg PO DAILY 08/20/17 [History] Metoprolol Succinate [Toprol Xl] 50 mg PO DAILY 08/20/17 [History] Pantoprazole Sodium [Protonix] 40 mg PO DAILY 08/20/17 [History] Sulfamethoxazole/Trimeth DS [Bactrim DS] 2 tab PO BID 08/20/17 [History] levoFLOXacin [Levaquin] 500 mg PO DAILY 08/20/17 [History] 3 Allergy/AdvReac Type Severity Reaction Status Date / Time cephalexin [From Keflex] Allergy Hives Verified 07/19/17 16:33 codeine Allergy Headache Verified 07/19/17 16:33 Iodinated Contrast- Oral and Allergy Hives Verified 07/19/17 16:33 IV Dye All Systems Reviewed: The remainder of the systems were reviewed and are negative - Constitutional Constitutional: other (nausea), no fever(s) - Cardiovascular Cardiovascular: no chest pain, no dyspnea - Respiratory Respiratory: no cough, no dyspnea - Musculoskeletal Musculoskeletal: other (left foot ulcer, pain) Physical Exam - Constitutional Vitals: Temp Pulse Resp BP Pulse Ox 98 F 77 18 116/72 96 08/21/17 11:00 08/21/17 11:00 08/21/17 11:00 08/21/17 11:00 08/21/17 11:00 Exam: Well-developed and nourished female in no acute distress, alert and oriented x 3. Vascular: Left foot is warm to touch. No necrosis. Mild edema. Dermatology: Skin is thin on the left foot. Dorsal lateral wound present measuring approximately [id number]. There is periwound erythema. There is no ascending erythema or lymphangitis. There is no streaking connecting the erythema of the foot to the inner thigh. There is no fluctuance or purulence able to be expressed from the wound. Musculokeletal: Equinus. No pain with palpation around the ulceration site. Neurology: Absent sensation to touch. X-ray left foot: No soft tissue gas or evidence of erosion or osteomyelitis. Results - Labs Result Diagrams: 08/21/17 01:28 08/21/17 01:28 Labs: Abnormal lab results Hgb 10.9 g/dL (11.5-15.4) L 08/21/17:28 MCH 25.5 pg (28.0-33.3) L 08/21/17:28 MCHC 30.4 g/dL (31.6-35.5) L 08/21/17 01:28 RDW 19.1 % (11.5-14.5) H 08/21/17 01:28 Lymphocytes # 0.5 K/mcL (0.6-4.6) L 08/21/17 01:28 Sodium 131 mEq/L (136-145) L 08/21/17 01:28 Carbon Dioxide 19 mEq/L (23-29) L 08/21/17 01:28 BUN 28 mg/dL (8-23) H 08/21/17 01:28 Creatinine 1.31 mg/dL (0.60-1.20) H 08/21/17 01:28 Est GFR ( Amer) 49 (> 60) L 08/21/17 01:28 Est GFR (Non-Af Amer) 41 (> 60) L 08/21/17 01:28 Glucose 304 mg/dL (70-105) H 08/21/17 01:28 POC Glucose 134 mg/dL (70-99) H 08/21/17 06:48 Lactic Acid 3.0 mmol/L (0.5-2.2) H 08/20/17 15:10 Calcium 8.3 mg/dL (8.6-10.3) L 08/21/17 01:28 Magnesium 1.2 mg/dL (1.6-2.6) L 08/21/17 01:28 ALT 6 Units/L (7-52) L 08/20/17 15:10 Globulin 3.8 g/dL (2.4-3.5) H 08/20/17 15:10 Albumin/Globulin Ratio 1.0 (1.1-2.2) L 08/20/17 15:10 H & H 08/21/17 Range/Units 01:28 Hgb 10.9 L (11.5-15.4) g/dL Hct 35.8 (35.3-44.9) % All other labs normal. Consult Discharge Plan - Plan Referrals: Sammy Pompa MD [Primary Care Provider] -
[2017-08-21] MEDS: Insulin DETEMIR 100 UNIT/ML X5UNITS SQ SCH (22:37)
[2017-08-22] MEDS: Piperacillin/Tazobactam 3.375 GM in 0.9 % Sodium Chloride Mini Bag 100 ML IVPB SCH (05:26)
[2017-08-22] MEDS: *HR* Heparin 5,000 UNIT/ML VIAL SQ SCH ×2 (05:27→17:40)
[2017-08-22] MEDS: Ringers Solution, Lactated 1,000 ML IVC SCH (05:27)
[2017-08-22] MEDS: Insulin LISPRO 300 UNITS/3 ML VIAL SQ SCH ×4 (08:46→21:17)
[2017-08-22] MEDS ORDERED: Aminoglycoside Consult 1 EACH MC ONE (09:05)
[2017-08-22] MEDS: *HR* LORazepam 0.5 MG TABLET PO SCH (09:33)
[2017-08-22] MEDS: Gabapentin 300 MG CAPSULE PO SCH ×3 (09:33→21:17)
[2017-08-22] MEDS: Folic Acid 1 MG TABLET PO SCH (09:33)
[2017-08-22] MEDS: Aspirin Enteric Coated 81 MG Tablet PO SCH (09:33)
[2017-08-22] MEDS: *HR* SitaGLIPtin 25 MG TABLET PO SCH (09:33)
--- NOTE | 2017-08-22 09:47 | Discharge Summary ---
- NOTES TO OUTPATIENT PROVIDER Notes to Outpatient Provider: Follow-up exam for left leg cellulitis to ensure clearance Orders not resulted at time of discharge: Pending orders 08/22/17 09:44 BMP [Basic Metabolic Panel] Stat Date of Encounter: 08/22/17 Time of Encounter: 09:45 - Discharge Diagnosis (1) Cellulitis Status: Acute Comments: Cultures positive for Proteus mirabilis and group A streptococcus pyogenes. She received 24 hours of vancomycin and Zosyn, and was D escalated to receive Vantin. A total of 10 days of therapy will be completed. Qualifiers: Site of cellulitis: extremity Site of cellulitis of extremity: lower extremity Laterality: left Qualified Code(s): L03.116 - Cellulitis of left lower limb (2) Left foot infection Status: Acute Comments: Podiatry evaluated patient. There is no evidence of any abscess. There is no evidence of osteo-myelitis on imaging of the foot. He will follow-up with podiatry outpatient and continue wound care with calcium alginate. We will follow with [facility] for further management of her wound. (3) Diabetes mellitus Status: Acute Comments: Adequately controlled Qualifiers: Diabetes mellitus type: type 2 Diabetes mellitus long term care pharmacist insulin use: with long term care pharmacist use Diabetes mellitus complication status: with neurologic complications Diabetes mellitus complication detail: with polyneuropathy Qualified Code(s): E11.42 - Type 2 diabetes mellitus with diabetic polyneuropathy; Z79.4 - intermediate (current) use of insulin; Z79.4 - termite inspector ( current) use of insulin; Z79.4 - intermediate (current) use of insulin; Z79.4 - termite inspector (current) use of insulin (4) CAD (coronary artery disease) Status: Chronic Qualifiers: Coronary Disease-Associated Artery/Lesion type: bypass graft [place] vs. transplanted heart: [place] heart Associated angina: angina presence unspecified Qualified Code(s): I25.810 - Atherosclerosis of coronary artery bypass graft(s) without angina pectoris (5) Acute renal failure Status: Resolved Hospital course: Ms. Beltrán is a 66 year old female with known diabetes and diabetic foot foot ulcer of the left foot who presented with left leg redness and pain for the last 2 days. 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 Outpatient, she was given Levaquin and Bactrim for cellulitis but on 08/18/2017 she was noted to have Proteus mirabilis and group A streptococcus in her wound, both resistant to these antibiotics. As such she was admitted to the hospital for management of cellulitis. Podiatry evaluate patient and consider there is no abscess or osteomyelitis no surgical intervention was recommended. She received mitomycin and Zosyn initially which was transitioned to Vantin prior to discharge. Patient will complete a cold and is about about asked. She will follow up with [facility] and her visual aid expert outpatient. Discharge discussed with: patient - Time Spent with Patient Total time spent providing and/or coordinating discharge services: Greater than 30 minutes Specific discharge activities: Continue wound care with calcium alginate. Finish antibiotic course as recommended - Discharge Medications Home Medications: Alendronate Sodium 70 mg PO QWEEK 01/06/17 [History] Calcium Carbonate/Vitamin D3 [Calcium 500-Vit D3 200 Caplet] 1 each PO TID 01/06 [History] Clopidogrel Bisulfate [Plavix] 75 mg PO DAILY 01/06/17 [History] Clotrimazole 1% CRM [Lotrimin 1%] 1 appl TD BID 01/06/17 [History] Cyclobenzaprine [Flexeril] 10 mg PO DAILY 01/06/17 [History] Ergocalciferol (VITAMIN D2) [Vitamin D2] 50,000 unit PO QWEEK 01/06/17 [History] Folic Acid 1 mg PO DAILY 01/06/17 [History] Furosemide [Lasix] 20 mg PO DAILY PRN 01/06/17 [History] Gabapentin [Neurontin] 600 mg PO TID 01/06/17 [History] HYDROcodone/Acet 5/325 mg [[place] 5-325 mg] 1 tab PO Q8H PRN 01/06/17 [History] Insulin LISPRO [HumaLOG] 0 units SQ TIDWM PRN 01/06/17 [History] Isosorbide MONOnitrate (24 HR) [Imdur] 60 mg PO DAILY #30 tab.er.24h 01/06/17 [ Rx] Lovastatin [Mevacor] 20 mg PO DAILY 01/06/17 [History] Nitroglycerin [Nitrostat] 0.4 mg SL Q5-6MIN PRN 01/06/17 [History] Citalopram Hydrobromide [Citalopram HBr] 10 mg PO DAILY 06/21/17 [History] Ferrous Sulfate [Iron] 325 mg PO DAILY 06/21/17 [History] LORazepam [Ativan] 0.5 mg PO DAILY 06/21/17 [History] Metformin HCl [Metformin HCl ER] 1,000 mg PO BID 06/21/17 [History] Aspirin Enteric Coated [Aspirin EC] 81 mg PO DAILY tablet. 07/05/17 [Rx] Glucagon, Human Recombinant [Glucagen] 1 mg IM ONCE PRN vial 07/05/17 [Rx] Heparin 5,000 unit SQ Q8HCO vial 07/05/17 [Rx] Insulin DETEMIR [Levemir] 25 unit SQ HS [id number] 07/05/17 [Rx] Ipratropium/Albuterol Neb [Duoneb] 3 ml IH [id number] PRN inhsol 07/05/17 [Rx] SitaGLIPtin [Januvia] 50 mg PO DAILY tablet 07/05/17 [Rx] Furosemide [Lasix] 20 mg PO DAILY 08/20/17 [History] Gabapentin [Neurontin] 600 mg PO TID 08/20/17 [History] Glucagon,Human Recombinant [Glucagen] 1 mg SQ ONCE PRN 08/20/17 [History] HYDROcodone/Acet 5/325 mg [[place] 5-325 mg] 1 tab PO Q4H PRN 08/20/17 [History] Heparin 5,000 unit SQ Q8HR 08/20/17 [History] Insulin DETEMIR [Levemir] 25 unit SQ HS 08/20/17 [History] Lisinopril [Zestril] 10 mg PO DAILY 08/20/17 [History] Metoprolol Succinate [Toprol Xl] 50 mg PO DAILY 08/20/17 [History] Pantoprazole Sodium [Protonix] 40 mg PO DAILY 08/20/17 [History] Sulfamethoxazole/Trimeth DS [Bactrim DS] 2 tab PO BID 08/20/17 [History] levoFLOXacin [Levaquin] 500 mg PO DAILY 08/20/17 [History] Allergies/Adverse Reactions: 3 Allergy/AdvReac Type Severity Reaction Status Date / Time cephalexin [From Keflex] Allergy Hives Verified 07/19/17 16:33 codeine Allergy Headache Verified 07/19/17 16:33 Iodinated Contrast- Oral and Allergy Hives Verified 07/19/17 16:33 IV Dye Date of admission: 08/20/17 21:53 Primary care physician: Sammy Pompa MD Consults: 08/20/17 23:04 Consult to Nutrition [CONS] Routine Comment: Consulting Provider: NUTRITION Reason for Dietary Consult: MST Score Consult to Gas Mask Inspector [CONS] Routine Reason for SW Consult: came from ECF may need to go back for therapy Discharging clinician: Gavino Nickerson Anticipated date of discharge: 08/22/17 - Constitutional Vitals: Temp Pulse Resp BP Pulse Ox 98.4 F 79 15 127/74 93 08/22/17 07:37 08/22/17 07:37 08/22/17 07:37 08/22/17 07:37 08/22/17 07:37 General appearance: Present: A&O X 3, no acute distress, answers questions appropriately Exam: HEENT: Normocephalic atraumatic, moist oral mucosa, no conjunctival icterus Neck: Supple Lungs clear to auscultation, no foreign sounds Heart: Normal S1-S2, no murmurs rubs or gallops Abdomen: soft, nondistended, no guarding rigidity or tenderness, normoactive bowel sounds Extremities: No significant peripheral edema Skin: Left foot tarsals absent. Clean-based 4 x 2 cm ulcer noted in the stump on the dorsal surface. Erythema tracking up the medial aspect of the left leg noted. This has been marked on the skin with a pen. Neuro: Alert oriented 3, no focal deficits Psych: Normal mood - Patient Status Condition: Fair Functional capacity at discharge: independent ambulation Overall status at discharge: patient is progressing back to baseline - Discharge Instructions Follow Up With: Sammy Pompa MD [Primary Care Provider] - Additional Instructions: Continue wound care with calcium alginate, follow wound care center and visual aid expert. - Diet and Activity Activity: resume usual activities as tolerated Diet: advance to your usual diet
[2017-08-22 10:48] LABS: Calcium 8.8 mg/dL (8.6-10.3); Potassium 4.6 mEq/L (3.5-5.1)
--- NOTE | 2017-08-22 13:18 | Internal Med Progress Note ---
Date of Encounter: 08/22/17 Time of Encounter: 09:00 - Assessment and plan (1) Cellulitis Current Visit: Yes Status: Acute Assessment and plan: Oral cefdinir with plan for ten-day course. This could have been on outpatient but considering resistance of the organisms noted and prior history of allergy to cephalexin, we will start this inpatient and if no reaction then discharge home tomorrow. (2) Left foot infection Current Visit: No Status: Acute Assessment and plan: Considering she had Proteus mirabilis and group A strep on cultures from 2017, we will start an oral regimen of Cefdinir x 10 days. Watch today for allergy. (3) Diabetes mellitus Current Visit: No Status: Acute Assessment and plan: Poorly controlled diabetes, will resume Levemir and give extra half dose now. Continue home Humalog. Qualifiers: Diabetes mellitus type: type 2 Diabetes mellitus snf insulin use: with snf use Diabetes mellitus complication status: with neurologic complications Diabetes mellitus complication detail: with polyneuropathy Qualified Code(s): E11.42 - Type 2 diabetes mellitus with diabetic polyneuropathy; Z79.4 - halfway (current) use of insulin; Z79.4 - electric installer ( current) use of insulin; Z79.4 - electric installer (current) use of insulin; Z79.4 - electric installer (current) use of insulin (4) CAD (coronary artery disease) Current Visit: No Status: Chronic Assessment and plan: Continue home medications, hold beta eugenie due to hypotension Qualifiers: Coronary Disease-Associated Artery/Lesion type: bypass graft [place] vs. transplanted heart: [place] heart Associated angina: angina presence unspecified Qualified Code(s): I25.810 - Atherosclerosis of coronary artery bypass graft(s) without angina pectoris (5) Acute renal failure Current Visit: Yes Status: Resolved Assessment and plan: Resolved with IV fluids and holding nephrotoxic agents. Qualifiers: Qualified Code(s): N17.9 - Acute kidney failure, unspecified - Time Spent With Patient Total time spent is greater than 50% in coordination of care (as documented) at patient's floor/unit and/or counseling patient: 25 - 35 minutes - Subjective Interval history: Patient reports she feels well. No events overnight. No nursing issues. The rash is still present without significant improvement. - Constitutional Vitals: Temp Pulse Resp BP Pulse Ox 98.4 F 78 14 120/76 92 08/22/17 11:29 08/22/17 11:29 08/22/17 11:29 08/22/17 11:29 08/22/17 11:29 General appearance: Present: A&O X 3, no acute distress, answers questions appropriately Exam: HEENT: Normocephalic atraumatic, moist oral mucosa, no conjunctival icterus Neck: Supple Lungs clear to auscultation, no foreign sounds Heart: Normal S1-S2, no murmurs rubs or gallops Abdomen: soft, nondistended, no guarding rigidity or tenderness, normoactive bowel sounds Extremities: No significant peripheral edema Skin: Left foot tarsals absent. Clean-based 4 x 2 cm ulcer noted in the stump on the dorsal surface. Erythema tracking up the medial aspect of the left leg noted. This has been marked on the skin with a pen. Neuro: Alert oriented 3, no focal deficits Psych: Normal mood Internal Medicine: Result - Labs CBC & Chem 7: 08/21/17 01:28 08/22/17 10:02 Labs: BMP 08/22/17 10:02 Sodium 135 L Potassium 4.6 Chloride 105 Carbon Dioxide 25 BUN 10 Creatinine 1.12 Glucose 180 H Calcium 8.8 Consult Discharge Plan - Plan Additional Instructions: Continue wound care with calcium alginate, follow wound care center and nurses assistant. Referrals: Sammy Pompa MD [Primary Care Provider] -
[2017-08-22] MEDS: Cefdinir 300 MG CAPSULE PO SCH ×2 (14:33→21:17)
[2017-08-22] MEDS: Insulin DETEMIR 100 UNIT/ML X5UNITS SQ SCH (21:17)
[2017-08-23 01:26] LABS: Basophils % 0.6 %; Eosinophils # 0.3 K/mcL (0.0-0.6); Eosinophils % 4.9 %; Hematocrit 30.9 % (35.3-44.9); Hemoglobin 9.7 g/dL (11.5-15.4); Immature Granulocytes % 1.4 % (0-4); Lymphocytes # 1.4 K/mcL (0.6-4.6); Lymphocytes % 21.3 %; Mean Corpuscular HGB Conc 31.4 g/dL (31.6-35.5); Mean Corpuscular Hemoglobin 26.6 pg (28.0-33.3); Mean Corpuscular Volume 84.7 fL (83.0-100.0); Monocytes # 0.6 K/mcL (0.0-1.3); Monocytes % 9.2 %; Platelet Count 237 K/mcL (140-400); Red Blood Count 3.65 M/mcL (3.82-4.97); Red Cell Distribution Width 18.7 % (11.5-14.5); Segmented Neutrophils % 62.6 %
[2017-08-23 01:45] LABS: BUN/Creatinine Ratio 11 (6-26); Blood Urea Nitrogen 10 mg/dL (8-23); Calcium 9.1 mg/dL (8.6-10.3); Carbon Dioxide 24 mEq/L (23-29); Chloride 105 mEq/L (98-107); Glucose 247 mg/dL (70-105); Osmolality,Calculated 287 (280-300); Potassium 4.3 mEq/L (3.5-5.1); Sodium 135 mEq/L (136-145); eGFR For African Americans > 60 (> 60); eGFR For Non-African Americans > 60 (> 60)
[2017-08-23] MEDS: *HR* Heparin 5,000 UNIT/ML VIAL SQ SCH ×2 (05:22→18:02)
[2017-08-23] MEDS: Insulin LISPRO 300 UNITS/3 ML VIAL SQ SCH ×4 (08:18→21:45)
[2017-08-23] MEDS: Aspirin Enteric Coated 81 MG Tablet PO SCH (08:22)
[2017-08-23] MEDS: *HR* SitaGLIPtin 25 MG TABLET PO SCH (08:22)
[2017-08-23] MEDS: Folic Acid 1 MG TABLET PO SCH (08:23)
[2017-08-23] MEDS: Gabapentin 300 MG CAPSULE PO SCH ×3 (08:23→21:46)
[2017-08-23] MEDS: *HR* LORazepam 0.5 MG TABLET PO SCH (08:23)
[2017-08-23] MEDS: Cefdinir 300 MG CAPSULE PO SCH ×2 (08:23→21:46)
--- NOTE | 2017-08-23 09:57 | Discharge Summary ---
- NOTES TO OUTPATIENT PROVIDER Notes to Outpatient Provider: Recent admitted with cellulitis. Improving. He will be discharged on oral antibiotics. Tolerated Omnicef here. We will continue the same Date of Encounter: 08/23/17 Time of Encounter: 09:54 - Discharge Diagnosis (1) Cellulitis Priority: Primary Status: Acute Comments: Improving cellulitis. Patient continues to have erythema in the left lower extremity just above the popliteal fossa. Margins of cellulitis has significantly decreased. Nontender to palpation. Does appear to have superficial dermatitis. Will complete antibiotic course. Qualifiers: Site of cellulitis: extremity Site of cellulitis of extremity: lower extremity Laterality: left Qualified Code(s): L03.116 - Cellulitis of left lower limb (2) Diabetes mellitus Priority: Secondary Status: Acute Qualifiers: Diabetes mellitus type: type 2 Diabetes mellitus oil heaterman insulin use: with oil heaterman use Diabetes mellitus complication status: with neurologic complications Diabetes mellitus complication detail: with polyneuropathy Qualified Code(s): E11.42 - Type 2 diabetes mellitus with diabetic polyneuropathy; Z79.4 - alf (current) use of insulin; Z79.4 - watermaster ( current) use of insulin; Z79.4 - alf (current) use of insulin; Z79.4 - watermaster (current) use of insulin (3) CAD (coronary artery disease) Priority: Secondary Status: Chronic Qualifiers: Coronary Disease-Associated Artery/Lesion type: bypass graft [place] vs. transplanted heart: [place] heart Associated angina: angina presence unspecified Qualified Code(s): I25.810 - Atherosclerosis of coronary artery bypass graft(s) without angina pectoris (4) Left foot infection Priority: Secondary Status: Acute (5) Acute renal failure Priority: Secondary Status: Resolved Qualifiers: Acute renal failure type: unspecified Qualified Code(s): N17.9 - Acute kidney failure, unspecified Hospital course: Ms. Beltrán is a 66 year old female patient with history of diabetes, hypertension , hyperlipidemia, coronary artery disease who was hospitalized here for erythema and swelling involving the left lower thigh. She had surgery with left foot amputation in June for left foot gangrene. She was diagnosed with cellulitis here and hospitalized. Recent wound culture from the left foot was growing Proteus and group A strep which were not sensitive to Levaquin and Bactrim. Patient had been receiving Levaquin and Bactrim as outpatient. These antibiotics were stopped and patient was then transitioned to Omnicef. She has had good response so far with improvement in the extent of cellulitis. She does appear to have topical dermatitis in the same region which makes the erythema more confluent in the area that it is confined to. It is nontender to palpation. No discharge noted at this time. Aspiration cellulitis is improving , she can be discharged back to skilled rehabilitation. She can follow up with her primary care provider there. If the cellulitis worsens, she can return to the ER. She expressed agreement with this treatment plan. Discharge discussed with: patient, nurse - Time Spent with Patient Total time spent providing and/or coordinating discharge services: Greater than 30 minutes (35 min) - Discharge Medications Prescriptions: HYDROcodone/Acet 5/325 mg [[place] 5-325 mg] 1 tab PO Q6HR PRN 5 Days #14 tablet PRN Reason: Moderate Pain Cefdinir [Omnicef] 300 mg PO BID #20 capsule Gabapentin [Neurontin] 600 mg PO TID #30 tablet LORazepam [Ativan] 0.5 mg PO DAILY 7 Days #7 tablet Home Medications: Alendronate Sodium 70 mg PO QWEEK 01/06/17 [History] Calcium Carbonate/Vitamin D3 [Calcium 500-Vit D3 200 Caplet] 1 each PO TID 01/06 [History] Clopidogrel Bisulfate [Plavix] 75 mg PO DAILY 01/06/17 [History] Clotrimazole 1% CRM [Lotrimin 1%] 1 appl TD BID 01/06/17 [History] Cyclobenzaprine [Flexeril] 10 mg PO DAILY 01/06/17 [History] Ergocalciferol (VITAMIN D2) [Vitamin D2] 50,000 unit PO QWEEK 01/06/17 [History] Folic Acid 1 mg PO DAILY 01/06/17 [History] Furosemide [Lasix] 20 mg PO DAILY PRN 01/06/17 [History] Insulin LISPRO [HumaLOG] 0 units SQ TIDWM PRN 01/06/17 [History] Isosorbide MONOnitrate (24 HR) [Imdur] 60 mg PO DAILY #30 tab.er.24h 01/06/17 [ Rx] Lovastatin [Mevacor] 20 mg PO DAILY 01/06/17 [History] Nitroglycerin [Nitrostat] 0.4 mg SL Q5-6MIN PRN 01/06/17 [History] Citalopram Hydrobromide [Citalopram HBr] 10 mg PO DAILY 06/21/17 [History] Ferrous Sulfate [Iron] 325 mg PO DAILY 06/21/17 [History] Metformin HCl [Metformin HCl ER] 1,000 mg PO BID 06/21/17 [History] Aspirin Enteric Coated [Aspirin EC] 81 mg PO DAILY tablet. 07/05/17 [Rx] Ipratropium/Albuterol Neb [Duoneb] 3 ml IH [id number] PRN inhsol 07/05/17 [Rx] SitaGLIPtin [Januvia] 50 mg PO DAILY tablet 07/05/17 [Rx] Glucagon,Human Recombinant [Glucagen] 1 mg SQ ONCE PRN 08/20/17 [History] Heparin 5,000 unit SQ Q8HR 08/20/17 [History] Insulin DETEMIR [Levemir] 25 unit SQ HS 08/20/17 [History] Lisinopril [Zestril] 10 mg PO DAILY 08/20/17 [History] Metoprolol Succinate [Toprol Xl] 50 mg PO DAILY 08/20/17 [History] Pantoprazole Sodium [Protonix] 40 mg PO DAILY 08/20/17 [History] Cefdinir [Omnicef] 300 mg PO BID #20 capsule 08/23/17 [Rx] Gabapentin [Neurontin] 600 mg PO TID #30 tablet 08/23/17 [Rx] HYDROcodone/Acet 5/325 mg [[place] 5-325 mg] 1 tab PO Q6HR PRN 5 Days #14 tablet 08/23/17 [Rx] LORazepam [Ativan] 0.5 mg PO DAILY 7 Days #7 tablet 08/23/17 [Rx] Allergies/Adverse Reactions: 3 Allergy/AdvReac Type Severity Reaction Status Date / Time cephalexin [From Keflex] Allergy Hives Verified 07/19/17 16:33 codeine Allergy Headache Verified 07/19/17 16:33 Iodinated Contrast- Oral and Allergy Hives Verified 07/19/17 16:33 IV Dye Date of admission: 08/20/17 21:53 Primary care physician: Sammy Pompa MD Consults: 08/20/17 23:04 Consult to Nutrition [CONS] Routine Comment: Consulting Provider: NUTRITION Reason for Dietary Consult: MST Score Consult to Bulk Station Agent [CONS] Routine Reason for SW Consult: came from ECF may need to go back for therapy Discharging clinician: Rosalba Ortega Anticipated date of discharge: 08/23/17 - Constitutional Vitals: Temp Pulse Resp BP Pulse Ox 98.0 F 69 16 137/75 97 08/23/17 06:40 08/23/17 06:40 08/23/17 06:40 08/23/17 06:40 08/23/17 06:40 General appearance: Present: A&O X 3, no acute distress, answers questions appropriately - Respiratory Respiratory exam: Present: CTAB. Absent: accessory muscle use, rales, rhonchi, wheezes - Cardiovascular Cardiovascular exam: Present: RRR, +S1, +S2. Absent: diastolic murmur, gallop, rubs, systolic murmur - GI/Abdominal GI/Abdominal exam: Present: normal bowel sounds, soft, no peritoneal signs. Absent: distended, tenderness - Extremities Exam Extremities exam: Present: warm, radial pulses palpable and symmetrical. Absent : calf tenderness, cyanotic, pedal edema Additional comments: Erythema improving overall. Now confined to a small region in the posterior lower thigh. Nontender to palpation. Does appear to have superficial dermatitis in addition to underlying cellulitis. - Neurological Exam Neurological exam: Present: alert, CN II-XII intact, oriented X3, no focal deficits. Absent: speech deficit - Patient Status Disposition: Transfer SNF Condition: Good Functional capacity at discharge: independent ambulation Overall status at discharge: patient is progressing back to baseline - Discharge Instructions Instructions: Cellulitis (DC), Acute Kidney Injury (DC) Follow Up With: Sammy Pompa MD [Primary Care Provider] - (In 1-2 weeks) Additional Instructions: Continue wound care with calcium alginate, follow wound care center and director data analytics. - Diet and Activity Activity: increase activity as tolerated, wear oxygen at all times Diet: diabetic diet, low fat, low cholesterol, low salt diet
--- NOTE | 2017-08-23 10:12 | Physician Discharge Referral ---
ExtendedCare Referral Info Provider in Charge after Transfer: PCP Institutional Level of Care: Skilled - Diagnosis (1) Cellulitis Priority: Primary Status: Acute (2) Diabetes mellitus Priority: Secondary Status: Acute (3) CAD (coronary artery disease) Priority: Secondary Status: Chronic (4) Left foot infection Priority: Secondary Status: Acute (5) Acute renal failure Priority: Secondary Status: Resolved Prognosis: Fair Aware of Diagnosis: Patient Aware of Prognosis: Patient - Transfer Medications Prescriptions: HYDROcodone/Acet 5/325 mg [[place] 5-325 mg] 1 tab PO Q6HR PRN 5 Days #14 tablet PRN Reason: Moderate Pain Cefdinir [Omnicef] 300 mg PO BID #20 capsule Gabapentin [Neurontin] 600 mg PO TID #30 tablet LORazepam [Ativan] 0.5 mg PO DAILY 7 Days #7 tablet Home Medications: Alendronate Sodium 70 mg PO QWEEK 01/06/17 [History] Calcium Carbonate/Vitamin D3 [Calcium 500-Vit D3 200 Caplet] 1 each PO TID 01/06 [History] Clopidogrel Bisulfate [Plavix] 75 mg PO DAILY 01/06/17 [History] Clotrimazole 1% CRM [Lotrimin 1%] 1 appl TD BID 01/06/17 [History] Cyclobenzaprine [Flexeril] 10 mg PO DAILY 01/06/17 [History] Ergocalciferol (VITAMIN D2) [Vitamin D2] 50,000 unit PO QWEEK 01/06/17 [History] Folic Acid 1 mg PO DAILY 01/06/17 [History] Furosemide [Lasix] 20 mg PO DAILY PRN 01/06/17 [History] Insulin LISPRO [HumaLOG] 0 units SQ TIDWM PRN 01/06/17 [History] Isosorbide MONOnitrate (24 HR) [Imdur] 60 mg PO DAILY #30 tab.er.24h 01/06/17 [ Rx] Lovastatin [Mevacor] 20 mg PO DAILY 01/06/17 [History] Nitroglycerin [Nitrostat] 0.4 mg SL Q5-6MIN PRN 01/06/17 [History] Citalopram Hydrobromide [Citalopram HBr] 10 mg PO DAILY 06/21/17 [History] Ferrous Sulfate [Iron] 325 mg PO DAILY 06/21/17 [History] Metformin HCl [Metformin HCl ER] 1,000 mg PO BID 06/21/17 [History] Aspirin Enteric Coated [Aspirin EC] 81 mg PO DAILY tablet. 07/05/17 [Rx] Ipratropium/Albuterol Neb [Duoneb] 3 ml IH [id number] PRN inhsol 07/05/17 [Rx] SitaGLIPtin [Januvia] 50 mg PO DAILY tablet 07/05/17 [Rx] Glucagon,Human Recombinant [Glucagen] 1 mg SQ ONCE PRN 08/20/17 [History] Heparin 5,000 unit SQ Q8HR 08/20/17 [History] Insulin DETEMIR [Levemir] 25 unit SQ HS 08/20/17 [History] Lisinopril [Zestril] 10 mg PO DAILY 08/20/17 [History] Metoprolol Succinate [Toprol Xl] 50 mg PO DAILY 08/20/17 [History] Pantoprazole Sodium [Protonix] 40 mg PO DAILY 08/20/17 [History] Cefdinir [Omnicef] 300 mg PO BID #20 capsule 08/23/17 [Rx] Gabapentin [Neurontin] 600 mg PO TID #30 tablet 08/23/17 [Rx] HYDROcodone/Acet 5/325 mg [[place] 5-325 mg] 1 tab PO Q6HR PRN 5 Days #14 tablet 08/23/17 [Rx] LORazepam [Ativan] 0.5 mg PO DAILY 7 Days #7 tablet 08/23/17 [Rx] Allergies/Adverse Reactions: 3 Allergy/AdvReac Type Severity Reaction Status Date / Time cephalexin [From Keflex] Allergy Hives Verified 07/19/17 16:33 codeine Allergy Headache Verified 07/19/17 16:33 Iodinated Contrast- Oral and Allergy Hives Verified 07/19/17 16:33 IV Dye - Respiratory Orders Oxygen / L per min (Keep sats greater than 90%) Smoking Cessation: Smoking cessation has been advised. For more information, call the [place] Tobacco Quit Line at 8-595-TNLF-NOW. - Ancillary Orders May consult with Dentist, Pellet Mill Operator, Field Sales Executive PRN - Advance Directives Code Status: Full Code - Mobility Orders Other (Per PT evaluation) - Rehabiliation Orders Rehab Potential: Good Rehab Orders: Evaluation for Physical Therapy, Evaluation for Occupational Therapy - Diet Orders No Concentrated Sweets (Diabetic), Cardiac CERTIFICATION: I certify that the transfer of the above named patient to an Extended Care Facility is necessary for the continuing treatment of the diagnosis listed. The above information is true and accurate reflection of patient's current condition. Confidential - Redisclosure prohibited without a patient's written consent.
--- NOTE | 2017-08-23 15:36 | Podiatry Progress Note ---
Date of Encounter: 08/23/17 Time of Encounter: 12:15 - Assessment and Plan (1) Cellulitis Current Visit: Yes Status: Acute Left diabetic foot ulceration dorsal aspect of distal TMA site. Cellulitis of the left thigh improving. Wound cultures of left foot from 08/18/17 isolated proteus mirabilis and strep pyogenes (Group A). Plan: Dressing changed at bedside, continue with current wound care which she was doing in the wound care center with calcium alginate. Elevation of the left foot. Medical management of thigh cellulitis, if surgical intervention was needed is out of our scope and General surgery would be to be consulted for the thigh. PT/OT consult ordered. Patient being discharged on oral Cefdinir. Follow up in wound care with Dr. Coffey, appointment already scheduled. Qualifiers: Site of cellulitis: extremity Site of cellulitis of extremity: lower extremity Laterality: left Qualified Code(s): L03.116 - Cellulitis of left lower limb Subjective Interval history: Patient is sitting up in bed with dressing dry and intact to the left foot. Patient denies any pain to her left thigh or left foot. Patient denies any fever or chills overnight. Patient states she is hoping to go home today. Objective - Vital Signs Vital Signs: Vital Signs Temp Pulse Resp BP Pulse Ox 08/23/17 11:40 98.4 F 79 16 125/79 93 08/23/17 06:40 98.0 F 69 16 137/75 97 08/22/17 23:47 98.8 F 89 18 132/53 95 08/22/17 19:41 90 08/22/17 18:48 99.2 F 99 15 143/82 90 08/22/17 17:14 98.9 F 78 16 138/75 93 Intake and Output 08/22/17 08/23/17 08/23/17 23:59 07:59 15:59 Intake Total 200 / 200 100 / 100 240 / 240 Output Total 800 / 800 Balance -600 / -600 100 / 100 240 / 240 Intake: Oral 200 / 200 100 / 100 240 / 240 Output: Urine 800 / 800 Other: Meal Breakfast Percent of Meal Consumed 85% Stool Size Moderate Moderate Stool Consistency soft loose formed soft Stool Characteristics Normal for Patient Stool Color Brown Brown # Voids 1 # Bowel Movements 1 1 Blood Glucose* 144 169 - Exam Exam: General appearance: alert awake oriented X 3. Calm and pleasant, no acute distress.. Vascular: No evidence of cyanosis, pallor or rubor, Edema graded at 1+/4, Skin Temperature warm, No calf pain with manual compression. capillary refill time is immediate Neurologic: Sensation intact with light touch to foot. Integument: Localized erythema to the medial left thigh, no tenderness, no open area, no fluctuance, no warmth, no streaking. Erythema has receded from outlined area. Postop Exam: Full thickness wound to the dorsum of the left foot measuring 1.5 cm in length x 4.5 cm in width, base of wound with red granulation tissue, no pus, no odor, no tunneling, no sinus tracts, no fluctuance, no exposed bone, ligament or tendon. Light periwound erythema, moderate amount of serosanguineous drainage observed to dressing. - Lab Result Diagrams: 08/23/17 00:49 08/23/17 00:49 Labs: Abnormal lab results RBC 3.65 M/mcL (3.82-4.97) L 08/23/17 00:49 Hgb 9.7 g/dL (11.5-15.4) L 08/23/17 00:49 Hct 30.9 % (35.3-44.9) L 08/23/17 00:49 MCH 26.6 pg (28.0-33.3) L 08/23/17 00:49 MCHC 31.4 g/dL (31.6-35.5) L 08/23/17 00:49 RDW 18.7 % (11.5-14.5) H 08/23/17 00:49 Sodium 135 mEq/L (136-145) L 08/23/17 00:49 Glucose 247 mg/dL (70-105) H 08/23/17 00:49 POC Glucose 129 mg/dL (70-99) H 08/23/17 08:00 Lactic Acid 3.0 mmol/L (0.5-2.2) H 08/20/17 15:10 Magnesium 1.2 mg/dL (1.6-2.6) L 08/21/17 01:28 ALT 6 Units/L (7-52) L 08/20/17 15:10 Globulin 3.8 g/dL (2.4-3.5) H 08/20/17 15:10 Albumin/Globulin Ratio 1.0 (1.1-2.2) L 08/20/17 15:10 Consult Discharge Plan - Plan Instructions: Acute Kidney Injury (DC), Cellulitis (DC) Additional Instructions: Continue wound care with calcium alginate, follow 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 Referrals: Sammy Pompa MD [Primary Care Provider] - (In 1-2 weeks) Prescriptions: HYDROcodone/Acet 5/325 mg [[place] 5-325 mg] 1 tab PO Q6HR PRN 5 Days #14 tablet PRN Reason: Moderate Pain Cefdinir [Omnicef] 300 mg PO BID #20 capsule Gabapentin [Neurontin] 600 mg PO TID #30 tablet LORazepam [Ativan] 0.5 mg PO DAILY 7 Days #7 tablet
[2017-08-23] MEDS: Insulin DETEMIR 100 UNIT/ML X5UNITS SQ SCH (21:45)
[2017-08-23] MEDS: *HR* HYDROcodone/Acet 5/325 mg TABLET PO PRN (21:49)
[2017-08-24] MEDS: *HR* Heparin 5,000 UNIT/ML VIAL SQ SCH ×2 (05:57→16:43)
[2017-08-24] MEDS: Gabapentin 300 MG CAPSULE PO SCH ×3 (08:57→20:27)
[2017-08-24] MEDS: Insulin LISPRO 300 UNITS/3 ML VIAL SQ SCH ×4 (08:57→21:15)
[2017-08-24] MEDS: Aspirin Enteric Coated 81 MG Tablet PO SCH (08:58)
[2017-08-24] MEDS: Folic Acid 1 MG TABLET PO SCH (08:58)
[2017-08-24] MEDS: *HR* LORazepam 0.5 MG TABLET PO SCH (08:58)
[2017-08-24] MEDS: *HR* SitaGLIPtin 25 MG TABLET PO SCH (08:58)
[2017-08-24] MEDS: Cefdinir 300 MG CAPSULE PO SCH ×2 (08:58→20:28)
--- NOTE | 2017-08-24 08:58 | Internal Med Progress Note ---
Date of Encounter: 08/24/17 Time of Encounter: 08:00 - Assessment and plan (1) Cellulitis Current Visit: Yes Status: Acute Assessment and plan: Improving. Complete cefdinir course. Awaiting placement. Pending PT evaluation. On subcutaneous heparin for DVT prophylaxis. Patient will be discharged once PT evaluation is completed and she has been accepted by skilled rehabilitation. (2) Diabetes mellitus Current Visit: Yes Status: Chronic Assessment and plan: Blood sugar 175 this morning. Continue current insulin regimen. Continue to monitor blood sugars closely. Qualifiers: Diabetes mellitus type: type 2 Diabetes mellitus alf insulin use: with nutrition partner use Diabetes mellitus complication status: with neurologic complications Diabetes mellitus complication detail: with polyneuropathy Qualified Code(s): E11.42 - Type 2 diabetes mellitus with diabetic polyneuropathy; Z79.4 - accounts receivable coordinator (current) use of insulin; Z79.4 - accounts receivable coordinator ( current) use of insulin; Z79.4 - halfway (current) use of insulin; Z79.4 - accounts receivable coordinator (current) use of insulin (3) CAD (coronary artery disease) Current Visit: Yes Status: Chronic Assessment and plan: Continue aspirin, Plavix and statin. Qualifiers: Coronary Disease-Associated Artery/Lesion type: bypass graft [place] vs. transplanted heart: [place] heart Associated angina: angina presence unspecified Qualified Code(s): I25.810 - Atherosclerosis of coronary artery bypass graft(s) without angina pectoris (4) Left foot infection Current Visit: Yes Status: Acute Assessment and plan: Appreciate podiatric input. Follow up with podiatry as outpatient (5) Acute renal failure Current Visit: Yes Status: Resolved Qualifiers: Acute renal failure type: unspecified Qualified Code(s): N17.9 - Acute kidney failure, unspecified - Time Spent With Patient Total time spent is greater than 50% in coordination of care (as documented) at patient's floor/unit and/or counseling patient: - Subjective Interval history: Patient is doing well. No new complaints today. Soreness and pain left thigh resolved. No fever or chills reported. Awaiting PT eval. - Constitutional Vitals: Temp Pulse Resp BP Pulse Ox 98.0 F 73 16 130/73 96 08/24/17 06:54 08/24/17 06:54 08/24/17 06:54 08/24/17 06:54 08/24/17 06:54 General appearance: Present: A&O X 3, no acute distress, answers questions appropriately - Respiratory Respiratory exam: Present: CTAB. Absent: accessory muscle use, rales, rhonchi, wheezes - Cardiovascular Cardiovascular exam: Present: RRR, +S1, +S2. Absent: diastolic murmur, gallop, rubs, systolic murmur - GI/Abdominal GI/Abdominal exam: Present: normal bowel sounds, soft, no peritoneal signs. Absent: distended, tenderness - Extremities Exam Extremities exam: Present: warm, radial pulses palpable and symmetrical. Absent : calf tenderness, cyanotic, pedal edema Additional comments: Erythema in left lower thigh improving. Now restricted to a small area which is red and nontender in the posterior lower thigh. Just above the popliteal fossa. No fluctuance. - Neurological Exam Neurological exam: Present: alert, oriented X3, no focal deficits. Absent: facial droop, speech deficit Internal Medicine: Result - Labs CBC & Chem 7: 08/23/17 00:49 08/23/17 00:49 Consult Discharge Plan - Plan Instructions: Acute Kidney Injury (DC), Cellulitis (DC) Additional Instructions: Continue wound care with calcium alginate, follow wound care center and special service officer. Referrals: Sammy Pompa MD [Primary Care Provider] - (In 1-2 weeks) Prescriptions: HYDROcodone/Acet 5/325 mg [[place] 5-325 mg] 1 tab PO Q6HR PRN 5 Days #14 tablet PRN Reason: Moderate Pain Cefdinir [Omnicef] 300 mg PO BID #20 capsule Gabapentin [Neurontin] 600 mg PO TID #30 tablet LORazepam [Ativan] 0.5 mg PO DAILY 7 Days #7 tablet
[2017-08-24] MEDS: Insulin DETEMIR 100 UNIT/ML X5UNITS SQ SCH (21:16)
[2017-08-25] MEDS: *HR* HYDROcodone/Acet 5/325 mg TABLET PO PRN ×2 (00:24→08:46)
[2017-08-25] MEDS: *HR* Heparin 5,000 UNIT/ML VIAL SQ SCH (05:04)
[2017-08-25 06:52] VITALS: BP 130/76
[2017-08-25] MEDS: Gabapentin 300 MG CAPSULE PO SCH (07:59)
[2017-08-25] MEDS: Aspirin Enteric Coated 81 MG Tablet PO SCH (07:59)
[2017-08-25] MEDS: Insulin LISPRO 300 UNITS/3 ML VIAL SQ SCH (08:00)
[2017-08-25] MEDS: *HR* LORazepam 0.5 MG TABLET PO SCH (08:00)
[2017-08-25] MEDS: Folic Acid 1 MG TABLET PO SCH (08:00)
[2017-08-25] MEDS: Cefdinir 300 MG CAPSULE PO SCH (08:00)
[2017-08-25] MEDS: *HR* SitaGLIPtin 25 MG TABLET PO SCH (08:00)
--- NOTE | 2017-08-25 11:38 | Internal Med Progress Note ---
Date of Encounter: 08/25/17 Time of Encounter: 10:30 - Assessment and plan (1) Cellulitis Status: Acute Assessment and plan: Complete oral antibiotic course. Discharge to Skilled rehab today. (2) Diabetes mellitus Status: Chronic Assessment and plan: Continue diabetic diet and insulin regimen. 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 Qualifiers: Coronary Disease-Associated Artery/Lesion type: bypass graft [place] vs. transplanted heart: [place] heart Associated angina: angina presence unspecified Qualified Code(s): I25.810 - Atherosclerosis of coronary artery bypass graft(s) without angina pectoris (4) Left foot infection Status: Acute Assessment and plan: s/p transmetatarsal amputation. F/u with Dr. Coffey as outpatient. (5) Acute renal failure Status: Resolved Qualifiers: Acute renal failure type: unspecified Qualified Code(s): N17.9 - Acute kidney failure, unspecified - Time Spent With Patient Total time spent is greater than 50% in coordination of care (as documented) at patient's floor/unit and/or counseling patient: - Subjective Interval history: Patient Continues to do well. Working with PT. No pain or tenderness in left thigh - Constitutional Vitals: Temp Pulse Resp BP Pulse Ox 98.0 F 74 16 130/76 94 08/25/17 06:49 08/25/17 06:49 08/25/17 06:49 08/25/17 06:49 08/25/17 06:49 General appearance: Present: A&O X 3, no acute distress, answers questions appropriately - Neck Neck exam general surgery: Present: supple, trachea midline. Absent: lymphadenopathy - Respiratory Respiratory exam: Present: CTAB. Absent: accessory muscle use, rales, rhonchi, wheezes - Cardiovascular Cardiovascular exam: Present: RRR, +S1, +S2. Absent: diastolic murmur, gallop, rubs, systolic murmur - GI/Abdominal GI/Abdominal exam: Present: normal bowel sounds, soft, no peritoneal signs. Absent: distended, tenderness - Extremities Exam Extremities exam: Present: warm, radial pulses palpable and symmetrical. Absent : calf tenderness, cyanotic, pedal edema Additional comments: Cellulitis involving left posterior thigh continues to resolve. Dermatitis also improving. Internal Medicine: Result - Labs CBC & Chem 7: 08/23/17 00:49 08/23/17 00:49 Consult Discharge Plan - Plan Instructions: Acute Kidney Injury (DC), Cellulitis (DC) Additional Instructions: Continue wound care with calcium alginate, follow wound care center and director of dance. Referrals: Sammy Pompa MD [Primary Care Provider] - (In 1-2 weeks) Prescriptions: HYDROcodone/Acet 5/325 mg [[place] 5-325 mg] 1 tab PO Q6HR PRN 5 Days #14 tablet PRN Reason: Moderate Pain Cefdinir [Omnicef] 300 mg PO BID #20 capsule Gabapentin [Neurontin] 600 mg PO TID #30 tablet LORazepam [Ativan] 0.5 mg PO DAILY 7 Days #7 tablet
--- NOTE | 2017-08-27 08:48 | Electrocardiograph Report ---
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
== END 2017-08-25 11:14 | DRG 383 ==
LOC: EMEROO 14:16 → 3NENU 14:16 → SUATTDRO 21:53 → 3NENU 22:16
PROVIDERS: ADMIT Internal Medicine; ATTEND Internal Medicine

== ENCOUNTER 2019-04-06 11:52 | Inpatient (IN) ==
[2019-04-06] MEDS ORDERED: Isovue-370 500 ML BOTTLE IVP ONE ×2 (12:03→12:08)
[2019-04-06] MEDS ORDERED: 0.9 % Sodium Chloride 1,000 ML IVC ONE ×3 (12:03→12:41)
[2019-04-06] MEDS: Furosemide 40 MG/4 ML VIAL IVP ONE ×2 (12:21→14:49)
[2019-04-06 12:37] LABS: Basophils % 0.1 %; Hematocrit 36.1 % (35.3-44.9); Hemoglobin 11.2 g/dL (11.5-15.4); Immature Granulocytes % 0.9 % (0-4); Lymphocytes # 0.5 K/mcL (0.6-4.6); Lymphocytes % 3.5 %; Mean Corpuscular Hemoglobin 26.6 pg (28.0-33.3); Mean Corpuscular Volume 85.7 fL (83.0-100.0); Mean Platelet Volume 11.6 fL (9.4-12.4); Monocytes # 1.4 K/mcL (0.0-1.3); Monocytes % 10.2 %; Neutrophils # 11.9 K/mcL (1.6-8.9); Platelet Count 294 K/mcL (140-400); Red Blood Count 4.21 M/mcL (3.82-4.97); Red Cell Distribution Width 19.5 % (11.5-14.5); Segmented Neutrophils % 85.3 %
[2019-04-06] MEDS ORDERED: Piperacillin/Tazobactam 3.375 GM in 0.9 % Sodium Chloride Mini Bag 100 ML IVPB ONE (12:43)
[2019-04-06 12:44] LABS: Bilirubin,Urine Small (Negative); Blood,Urine Negative (Negative); Clarity,Urine Clear (Clear); Color,Urine Yellow (Yellow); Glucose,Urine (UA) Normal (Normal); Ketones,Urine Negative (Negative); Leukocyte Esterase,Urine Small (Negative); Nitrite,Urine Negative (Negative); Protein,Urine Negative (Neg-Trace); Specific Gravity,Urine 1.024 (1.010-1.025); Urobilinogen,Urine Normal (Normal)
[2019-04-06 12:46] LABS: Bacteria,Urine None Seen per hpf (None-Few); RBC,Urine 0-3 per hpf (0-3); Squamous Epithelial Cell,Urine Many per lpf (None-Few)
[2019-04-06 13:00] LABS: Hyaline Casts,Urine Few per lpf (None-Few)
[2019-04-06 13:04] LABS: Alanine Aminotransferase 29 Units/L (7-52); Albumin 2.9 g/dL (3.5-5.7); Albumin/Globulin Ratio 0.8 (1.1-2.2); Alkaline Phosphatase 52 Units/L (34-104); Aspartate Amino Transferase 49 Units/L (13-39); BUN/Creatinine Ratio 13 (6-26); Bilirubin,Direct 0.1 mg/dL (0.0-0.2); Bilirubin,Indirect 0.2 mg/dL (0.0-1.0); Bilirubin,Total 0.3 mg/dL (0.3-1.0); Blood Urea Nitrogen 48 mg/dL (8-23); Calcium 8.4 mg/dL (8.6-10.3); Carbon Dioxide 7 mEq/L (23-29); Chloride 102 mEq/L (98-107); Globulin 3.5 g/dL (2.4-3.5); Glucose 128 mg/dL (70-105); Lipase 37 Units/L (11-82); Osmolality,Calculated 286 (280-300); Sodium 131 mEq/L (136-145); Total Protein 6.4 g/dL (6.4-8.9); Troponin I < 0.03 ng/mL (< 0.04); eGFR For African Americans 15 (> 60); eGFR For Non-African Americans 12 (> 60)
[2019-04-06] MEDS ORDERED: Insulin Regular, Human 100 UNIT/ML SQ ONE (13:15)
[2019-04-06] MEDS ORDERED: D5% in 0.9% NACL 1,000 ML IVC SCH (13:15)
[2019-04-06] MEDS ORDERED: methylPREDNISolone 125 MG/2 ML VIAL IVP ONE (13:34)
[2019-04-06 13:38] LABS: VBG HCO3 10 mEq/L (21-27); VBG PCO2 27 mmHg (41-51); VBG PH 7.16 pH Units (7.32-7.42); VBG PO2 234 mmHg (25-50)
[2019-04-06] MEDS ORDERED: Norepinephrine 4 MG in 0.9 % Sodium Chloride 250 ML IVC SCH (13:56)
[2019-04-06] MEDS ORDERED: Insulin Human Regular 10 UNIT in 0.9 % Sodium Chloride 10 ML IV ONE (14:02)
[2019-04-06] MEDS ORDERED: *HR* Dextrose 50 % in Water (Syg) 50 ML SYRINGE IVP ONE (14:02)
[2019-04-06] MEDS ORDERED: 0.9 % Sodium Chloride 250 ML ONE ×2 (14:09→18:28)
[2019-04-06] MEDS ORDERED: *HR* Norepinephrine 4 MG/4 ML VIAL IVC ONE (14:09)
[2019-04-06] MEDS ORDERED: Albuterol 2.5 MG/3 ML NEBULIZER IH ONE (14:10)
[2019-04-06] MEDS ORDERED: *HR* Dextrose 50 % in Water (Syg) 50 ML SYRINGE ONE (14:19)
[2019-04-06] MEDS ORDERED: Phenylephrine 10 MG in 0.9 % Sodium Chloride 250 ML IVC STA (15:05)
[2019-04-06] MEDS ORDERED: Hydrocortisone Sodium Succ 100 MG/2 ML VIAL IVP ONE (15:29)
[2019-04-06] MEDS ORDERED: 0.9 % Sodium Chloride 1,000 ML ONE (15:50)
[2019-04-06 16:19] LABS: Creatine Kinase 1912 Units/L (30-223); Ethanol < 10 mg/dL (Less than 10); Salicylate < 2.5 mg/dL (15.0-30.0)
[2019-04-06 16:49] LABS: BUN/Creatinine Ratio 14 (6-26); Blood Urea Nitrogen 42 mg/dL (8-23); Calcium 7.3 mg/dL (8.6-10.3); Chloride 108 mEq/L (98-107); Glucose 139 mg/dL (70-105); Osmolality,Calculated 293 (280-300); Potassium 4.4 mEq/L (3.5-5.1); Sodium 135 mEq/L (136-145); eGFR For African Americans 18 (> 60); eGFR For Non-African Americans 15 (> 60)
[2019-04-06] MEDS ORDERED: Vancomycin (wt based) 1,000 MG VIAL IV STA (17:05)
[2019-04-06] MEDS ORDERED: Phenylephrine 10 MG in 0.9 % Sodium Chloride 250 ML IVC SCH (17:10)
[2019-04-06] MEDS ORDERED: EPINEPHrine 1 MG/ML VIAL ONE (17:20)
[2019-04-06 17:38] LABS: ABG Base Excess -14 mEq/L (-2 to 3); ABG HCO3 11 mEq/L (21-27); ABG Oxygen Saturation 100 % (95-98); ABG PCO2 24 mmHg (35-45); ABG PH 7.28 pH Units (7.32-7.45); ABG PO2 214 mmHg (85-104); ABG TCO2 12 mEq/L (20-26)
[2019-04-06 17:44] LABS: Carbon Dioxide 9 mEq/L (23-29)
[2019-04-06] MEDS ORDERED: Naloxone 0.4 MG/ML INJ IVP ONE (18:41)
[2019-04-06] MEDS ORDERED: Naloxone 0.4 MG/ML INJ ONE (18:43)
[2019-04-06] MEDS: Phenylephrine 50 MG in 0.9 % Sodium Chloride 250 ML IVC SCH (20:26)
[2019-04-06 20:38] LABS: Amphetamine Screen,Urine Negative ng/mL (Cutoff=1000); Barbiturate Screen,Urine Negative ng/mL (Cutoff=200); Benzodiazepines Screen,Urine Negative ng/mL (Cutoff=200); Cannabinoid Screen,Urine Negative ng/mL (Cutoff = 50); Cocaine Screen,Urine Negative ng/mL (Cutoff= 300); Opiate Screen,Urine Positive ng/mL (Cutoff=300); Phencyclidine Screen,Urine Negative ng/mL (Cutoff=25)
[2019-04-06 21:04] LABS: Basophils % 0.1 %; Hematocrit 31.4 % (35.3-44.9); Hemoglobin 9.8 g/dL (11.5-15.4); Immature Granulocytes % 0.6 % (0-4); Lymphocytes # 0.4 K/mcL (0.6-4.6); Mean Corpuscular HGB Conc 31.2 g/dL (31.6-35.5); Mean Corpuscular Hemoglobin 26.9 pg (28.0-33.3); Mean Corpuscular Volume 86.3 fL (83.0-100.0); Mean Platelet Volume 10.8 fL (9.4-12.4); Monocytes # 0.2 K/mcL (0.0-1.3); Monocytes % 2.4 %; Platelet Count 226 K/mcL (140-400); Red Blood Count 3.64 M/mcL (3.82-4.97); Red Cell Distribution Width 19.5 % (11.5-14.5); Segmented Neutrophils % 91.9 %; White Blood Count 7.8 K/mcL (4.3-11.1)
[2019-04-06 21:06] LABS: Neutrophils # 7.2 K/mcL (1.6-8.9)
[2019-04-06 21:07] LABS: INR 1.2; Prothrombin Time 13.6 Seconds (9.4-12.1)
[2019-04-06 21:10] LABS: Activated Partial Thrombo Time 31.7 Seconds (26.0-36.0)
[2019-04-06 21:25] LABS: VBG HCO3 10 mEq/L (21-27); VBG Ionized Calcium 0.76 mmol/L (1.15-1.35); VBG PCO2 31 mmHg (41-51); VBG PO2 113 mmHg (25-50)
[2019-04-06 21:30] LABS: Calcium 6.9 mg/dL (8.6-10.3); Magnesium 1.2 mg/dL (1.6-2.6); Phosphorous 3.6 mg/dL (2.7-4.5); Potassium 4.5 mEq/L (3.5-5.1); Troponin I 0.28 ng/mL (< 0.04)
[2019-04-06 22:07] LABS: ABG Base Excess -19 mEq/L (-2 to 3); ABG HCO3 8 mEq/L (21-27); ABG Oxygen Saturation 95 % (95-98); ABG PCO2 23 mmHg (35-45); ABG PH 7.17 pH Units (7.32-7.45); ABG PO2 95 mmHg (85-104); ABG TCO2 9 mEq/L (20-26)
[2019-04-06] MEDS ORDERED: D5% in Water 1,000 ML IVC PRN (22:19)
[2019-04-06] MEDS ORDERED: Naloxone 0.4 MG/ML INJ IVP PRN (22:19)
[2019-04-06] MEDS ORDERED: Dextrose Gel 15 GM/37.5 ML TUBE PO PRN ×2 (22:19)
[2019-04-06] MEDS: 0.9 % Sodium Chloride 1,000 ML IVC SCH (23:12)
[2019-04-06] MEDS: MetroNIDAZOLE 500 MG/100 ML 500 MG/100 ML BAG IVPB SCH (23:13)
[2019-04-07] MEDS: Insulin LISPRO 300 UNITS/3 ML VIAL SQ SCH ×5 (00:34→23:57)
[2019-04-07] MEDS ORDERED: Cefepime HCl 2,000 MG in 0.9 % Sodium Chloride Mini Bag 100 ML IVPB SCH ×2 (01:00)
[2019-04-07] MEDS: Phenylephrine 50 MG in 0.9 % Sodium Chloride 250 ML IVC SCH ×2 (03:12→09:45)
[2019-04-07 03:58] LABS: ABG Base Excess -12 mEq/L (-2 to 3); ABG HCO3 12 mEq/L (21-27); ABG Oxygen Saturation 93 % (95-98); ABG PCO2 24 mmHg (35-45); ABG PH 7.31 pH Units (7.32-7.45); ABG PO2 71 mmHg (85-104); ABG TCO2 13 mEq/L (20-26)
[2019-04-07 04:11] LABS: Basophils % 0.1 %; Hematocrit 34.2 % (35.3-44.9); Hemoglobin 10.4 g/dL (11.5-15.4); Immature Granulocytes % 0.7 % (0-4); Lymphocytes # 1.1 K/mcL (0.6-4.6); Lymphocytes % 6.8 %; Mean Corpuscular HGB Conc 30.4 g/dL (31.6-35.5); Mean Corpuscular Hemoglobin 26.7 pg (28.0-33.3); Mean Corpuscular Volume 87.7 fL (83.0-100.0); Neutrophils # 14.4 K/mcL (1.6-8.9); Platelet Count 309 K/mcL (140-400); Red Cell Distribution Width 19.7 % (11.5-14.5); Segmented Neutrophils % 86.4 %
[2019-04-07 04:12] LABS: White Blood Count 16.7 K/mcL (4.3-11.1)
[2019-04-07 04:21] LABS: Albumin 2.5 g/dL (3.5-5.7); Albumin/Globulin Ratio 0.8 (1.1-2.2); Bilirubin,Total 0.2 mg/dL (0.3-1.0); Calcium 7.2 mg/dL (8.6-10.3); Globulin 3.1 g/dL (2.4-3.5); Potassium 4.4 mEq/L (3.5-5.1); Total Protein 5.6 g/dL (6.4-8.9)
[2019-04-07 04:25] LABS: Troponin I 0.96 ng/mL (< 0.04)
[2019-04-07] MEDS: Calcium Gluconate 1gm/50mL 1 GM/50 ML BAG IVPB SCH ×2 (04:44→06:16)
[2019-04-07 04:48] LABS: Magnesium 1.8 mg/dL (1.6-2.6)
[2019-04-07] MEDS ORDERED: Pantoprazole 40 MG VIAL IVP SCH (06:00)
[2019-04-07] MEDS: 0.9 % Sodium Chloride 1,000 ML IVC SCH (07:14)
[2019-04-07] MEDS: MetroNIDAZOLE 500 MG/100 ML 500 MG/100 ML BAG IVPB SCH ×3 (08:18→23:43)
[2019-04-07] MEDS ORDERED: Magnesium Sulfate 2 GM/100 ML PIGGYBACK IVPB ONE (08:45)
[2019-04-07 08:56] LABS: Estimated Average Glucose 131 mg/dl
[2019-04-07] MEDS ORDERED: Propofol 500 MG/50 ML INFUS..BTL ONE ×2 (09:14)
[2019-04-07] MEDS ORDERED: *HR* Succinylcholine 200 MG/10 ML VIAL IVP ONE (09:14)
[2019-04-07] MEDS ORDERED: *HR* Propofol 200 MG/20 ML VIAL IVP ONE (09:14)
[2019-04-07] MEDS ORDERED: Lidocaine -MPF 2% 2 ML VIAL ONE ×2 (09:14)
[2019-04-07 10:29] LABS: Hemoglobin 10.6 g/dL (11.5-15.4)
[2019-04-07] MEDS ORDERED: Perflutren Lipid Microsphere 1.3 ML in 0.9 % Sodium Chloride 8.7 ML IVP ONE (14:10)
[2019-04-07] MEDS: Nystatin POWDER 30 GM BOTTLE TP PRN (16:17)
[2019-04-07] MEDS: Vasopressin 40 UNIT in D5% in Water 100 ML IVC SCH (17:14)
[2019-04-07 17:17] LABS: Magnesium 2.7 mg/dL (1.6-2.6)
[2019-04-07] MEDS ORDERED: *HR* Heparin 5,000 UNIT/ML VIAL SQ SCH (18:00)
[2019-04-07] MEDS ORDERED: Furosemide 20 MG/2 ML VIAL IVP ONE (18:28)
[2019-04-07] MEDS: Cefepime HCl 2,000 MG in 0.9 % Sodium Chloride Mini Bag 100 ML IVPB SCH (23:09)
[2019-04-08] MEDS ORDERED: Furosemide 20 MG/2 ML VIAL IVP ONE ×4 (02:32→13:19)
[2019-04-08 03:22] LABS: Basophils % 0.2 %; Hematocrit 33.5 % (35.3-44.9); Hemoglobin 10.8 g/dL (11.5-15.4); Immature Granulocytes % 0.9 % (0-4); Lymphocytes # 0.7 K/mcL (0.6-4.6); Mean Corpuscular HGB Conc 32.2 g/dL (31.6-35.5); Mean Corpuscular Hemoglobin 27.1 pg (28.0-33.3); Mean Platelet Volume 10.7 fL (9.4-12.4); Monocytes # 0.8 K/mcL (0.0-1.3); Monocytes % 7.4 %; Neutrophils # 9.5 K/mcL (1.6-8.9); Nucleated Red Blood Cells 0.2 /100 WBC (0); Platelet Count 227 K/mcL (140-400); Red Blood Count 3.99 M/mcL (3.82-4.97); Red Cell Distribution Width 19.9 % (11.5-14.5); Segmented Neutrophils % 85.5 %; White Blood Count 11.1 K/mcL (4.3-11.1)
[2019-04-08 03:22] LABS: VBG HCO3 17 mEq/L (21-27); VBG Ionized Calcium 1.23 mmol/L (1.15-1.35); VBG PCO2 38 mmHg (41-51); VBG PH 7.27 pH Units (7.32-7.42); VBG PO2 63 mmHg (25-50)
[2019-04-08 03:41] LABS: BUN/Creatinine Ratio 19 (6-26); Blood Urea Nitrogen 21 mg/dL (8-23); Calcium 7.8 mg/dL (8.6-10.3); Carbon Dioxide 15 mEq/L (23-29); Chloride 117 mEq/L (98-107); Creatine Kinase 615 Units/L (30-223); Glucose 123 mg/dL (70-105); Osmolality,Calculated 306 (280-300); Phosphorous 1.7 mg/dL (2.7-4.5); Potassium 4.1 mEq/L (3.5-5.1); Sodium 146 mEq/L (136-145); eGFR For African Americans > 60 (> 60); eGFR For Non-African Americans 50 (> 60)
[2019-04-08] MEDS ORDERED: *HR* Heparin 5,000 UNIT/ML VIAL IVP PRN ×2 (04:40)
[2019-04-08 05:19] LABS: INR 1.1; Prothrombin Time 12.9 Seconds (9.4-12.1)
[2019-04-08 05:21] LABS: Heparin anti-factor XA UFH 0.04 IU/mL (0.30-0.70)
[2019-04-08] MEDS: Heparin 25,000 UNIT/250 ML D5W 25,000 UNIT/250 ML IV.SOLN IVC SCH ×2 (05:26→23:33)
[2019-04-08] MEDS: Insulin LISPRO 300 UNITS/3 ML VIAL SQ SCH ×4 (06:20→23:21)
[2019-04-08] MEDS ORDERED: *HR* Metoprolol 5 MG/5 ML VIAL IVP ONE ×2 (06:51→06:52)
[2019-04-08] MEDS: MetroNIDAZOLE 500 MG/100 ML 500 MG/100 ML BAG IVPB SCH ×3 (07:44→23:20)
[2019-04-08] MEDS: Pantoprazole 40 MG VIAL IVP SCH (07:45)
[2019-04-08] MEDS ORDERED: Ondansetron 4 MG/2 ML VIAL IVP PRN (07:56)
[2019-04-08] MEDS ORDERED: Ondansetron 4 MG/2 ML VIAL ONE (08:01)
[2019-04-08] MEDS ORDERED: Dexmedetomidine HCl 400 MCG/100 ML MLS IVC ONE (08:11)
[2019-04-08] MEDS: Dexmedetomidine HCl 400 MCG/100 ML MLS IVC SCH ×4 (08:16→20:49)
[2019-04-08 11:20] LABS: Hematocrit 34.9 % (35.3-44.9); Hemoglobin 10.5 g/dL (11.5-15.4); Mean Corpuscular HGB Conc 30.1 g/dL (31.6-35.5); Mean Corpuscular Hemoglobin 26.8 pg (28.0-33.3); Mean Platelet Volume 10.7 fL (9.4-12.4); Platelet Count 202 K/mcL (140-400); Red Blood Count 3.92 M/mcL (3.82-4.97); Red Cell Distribution Width 20.3 % (11.5-14.5); White Blood Count 12.1 K/mcL (4.3-11.1)
[2019-04-08 11:58] LABS: ABG Base Excess -12 mEq/L (-2 to 3); ABG HCO3 14 mEq/L (21-27); ABG Oxygen Saturation 83 % (95-98); ABG PCO2 32 mmHg (35-45); ABG PH 7.24 pH Units (7.32-7.45); ABG PO2 55 mmHg (85-104); ABG TCO2 15 mEq/L (20-26)
[2019-04-08] MEDS: Norepinephrine 4 MG in 0.9 % Sodium Chloride 250 ML IVC SCH (14:15)
[2019-04-08] MEDS: Nystatin POWDER 30 GM BOTTLE TP PRN ×2 (15:06→17:20)
[2019-04-08] MEDS: Vasopressin 40 UNIT in D5% in Water 100 ML IVC SCH ×2 (15:06→19:26)
[2019-04-08] MEDS: Cefepime HCl 2,000 MG in 0.9 % Sodium Chloride Mini Bag 100 ML IVPB SCH (21:00)
[2019-04-09] MEDS: Dexmedetomidine HCl 400 MCG/100 ML MLS IVC SCH ×5 (00:17→20:55)
[2019-04-09 03:52] LABS: Basophils % 0.3 %; Hematocrit 32.5 % (35.3-44.9); Immature Granulocytes % 1.5 % (0-4); Lymphocytes # 1.2 K/mcL (0.6-4.6); Lymphocytes % 10.6 %; Mean Corpuscular HGB Conc 30.8 g/dL (31.6-35.5); Mean Corpuscular Hemoglobin 26.9 pg (28.0-33.3); Mean Corpuscular Volume 87.4 fL (83.0-100.0); Mean Platelet Volume 11.1 fL (9.4-12.4); Monocytes # 0.7 K/mcL (0.0-1.3); Monocytes % 6.1 %; Neutrophils # 9.4 K/mcL (1.6-8.9); Nucleated Red Blood Cells 0.5 /100 WBC (0); Platelet Count 190 K/mcL (140-400); Red Blood Count 3.72 M/mcL (3.82-4.97); Red Cell Distribution Width 20.3 % (11.5-14.5); Segmented Neutrophils % 81.5 %; White Blood Count 11.6 K/mcL (4.3-11.1)
[2019-04-09 04:03] LABS: INR 1.6; Prothrombin Time 17.7 Seconds (9.4-12.1)
[2019-04-09 04:16] LABS: Alanine Aminotransferase 34 Units/L (7-52); Albumin 2.4 g/dL (3.5-5.7); Albumin/Globulin Ratio 0.8 (1.1-2.2); Alkaline Phosphatase 48 Units/L (34-104); Aspartate Amino Transferase 26 Units/L (13-39); BUN/Creatinine Ratio 24 (6-26); Bilirubin,Total 0.2 mg/dL (0.3-1.0); Blood Urea Nitrogen 24 mg/dL (8-23); Calcium 7.4 mg/dL (8.6-10.3); Carbon Dioxide 15 mEq/L (23-29); Chloride 116 mEq/L (98-107); Globulin 3.1 g/dL (2.4-3.5); Glucose 175 mg/dL (70-105); Magnesium 1.9 mg/dL (1.6-2.6); Osmolality,Calculated 308 (280-300); Phosphorous 2.6 mg/dL (2.7-4.5); Sodium 145 mEq/L (136-145); Total Protein 5.5 g/dL (6.4-8.9); eGFR For African Americans > 60 (> 60); eGFR For Non-African Americans 56 (> 60)
[2019-04-09 04:32] LABS: ABG Base Excess -11 mEq/L (-2 to 3); ABG HCO3 15 mEq/L (21-27); ABG Oxygen Saturation 90 % (95-98); ABG PCO2 29 mmHg (35-45); ABG PO2 64 mmHg (85-104); ABG TCO2 16 mEq/L (20-26); Blood Gas Modality NIV
[2019-04-09] MEDS: Insulin LISPRO 300 UNITS/3 ML VIAL SQ SCH (05:03)
[2019-04-09] MEDS ORDERED: Furosemide 20 MG/2 ML VIAL IVP ONE (08:17)
[2019-04-09] MEDS: MetroNIDAZOLE 500 MG/100 ML 500 MG/100 ML BAG IVPB SCH ×2 (08:52→16:24)
[2019-04-09] MEDS: Pantoprazole 40 MG VIAL IVP SCH (08:53)
[2019-04-09] MEDS ORDERED: Haloperidol Lactate 5 MG/ML VIAL ONE (09:27)
[2019-04-09] MEDS ORDERED: Haloperidol Lactate 5 MG/ML VIAL IVP ONE (09:31)
[2019-04-09] MEDS ORDERED: Artificial Tears SOLN 15 ML BOTTLE BOTH EYES PRN ×2 (12:07→12:08)
[2019-04-09] MEDS ORDERED: FentaNYL (PF) 1,000 MCG in 0.9 % Sodium Chloride 80 ML IVC SCH (12:15)
[2019-04-09 12:49] LABS: ABG Base Excess -22 mEq/L (-2 to 3); ABG HCO3 9 mEq/L (21-27); ABG Oxygen Saturation 100 % (95-98); ABG PCO2 37 mmHg (35-45); ABG PH 6.98 pH Units (7.32-7.45); ABG PO2 290 mmHg (85-104); ABG TCO2 10 mEq/L (20-26); Blood Gas Modality AF; Blood Gas VT 450 cc
[2019-04-09] MEDS: Sodium Bicarbonate 50 MEQ/50 ML VIAL ONE (12:57)
[2019-04-09] MEDS: Norepinephrine 4 MG in 0.9 % Sodium Chloride 250 ML IVC SCH (12:58)
[2019-04-09] MEDS ORDERED: *HR* Dextrose 50 % in Water (Syg) 50 ML SYRINGE IVP PRN (13:13)
[2019-04-09] MEDS ORDERED: Insulin Human Regular 100 UNIT in 0.9 % Sodium Chloride 100 ML IVC SCH (13:15)
[2019-04-09] MEDS: FentaNYL (PF) 1,000 MCG in 0.9 % Sodium Chloride 80 ML IVC SCH ×2 (13:27→20:48)
[2019-04-09 14:30] LABS: VBG Ionized Calcium 1.15 mmol/L (1.15-1.35)
[2019-04-09 14:41] LABS: BUN/Creatinine Ratio 20 (6-26); Blood Urea Nitrogen 19 mg/dL (8-23); Calcium 7.6 mg/dL (8.6-10.3); Carbon Dioxide 12 mEq/L (23-29); Chloride 115 mEq/L (98-107); Glucose 262 mg/dL (70-105); Magnesium 1.9 mg/dL (1.6-2.6); Osmolality,Calculated 319 (280-300); Phosphorous 3.4 mg/dL (2.7-4.5); Potassium 3.3 mEq/L (3.5-5.1); Sodium 149 mEq/L (136-145); eGFR For African Americans > 60 (> 60); eGFR For Non-African Americans 59 (> 60)
[2019-04-09] MEDS ORDERED: Potassium Chloride Elixir 20 MEQ/15 ML UDC GTUBE ONE (15:21)
[2019-04-09] MEDS ORDERED: Albuterol 2.5 MG/3 ML NEBULIZER IH PRN (15:27)
[2019-04-09] MEDS ORDERED: Artificial Tears SOLN 15 ML BOTTLE BOTH EYES SCH (16:00)
[2019-04-09] MEDS: Artificial Tears SOLN 15 ML BOTTLE BOTH EYES SCH ×4 (16:22→23:25)
[2019-04-09 16:31] LABS: ABG Base Excess -16 mEq/L (-2 to 3); ABG HCO3 13 mEq/L (21-27); ABG Oxygen Saturation 91 % (95-98); ABG PCO2 43 mmHg (35-45); ABG PO2 82 mmHg (85-104); ABG TCO2 15 mEq/L (20-26); Blood Gas Modality AF; Blood Gas VT 450 cc
[2019-04-09] MEDS ORDERED: Sodium Bicarbonate 50 MEQ/50 ML VIAL IVP ONE (17:15)
[2019-04-09 18:38] LABS: ABG Base Excess -3 mEq/L (-2 to 3); ABG HCO3 24 mEq/L (21-27); ABG Oxygen Saturation 100 % (95-98); ABG PCO2 46 mmHg (35-45); ABG PH 7.32 pH Units (7.32-7.45); ABG PO2 223 mmHg (85-104); ABG TCO2 25 mEq/L (20-26); Blood Gas Modality AF; Blood Gas VT 450 cc
[2019-04-09 18:42] LABS: VBG Ionized Calcium 1.14 mmol/L (1.15-1.35)
[2019-04-09 18:52] LABS: Acetaminophen < 10 mcg/mL (10-20); BUN/Creatinine Ratio 18 (6-26); Blood Urea Nitrogen 18 mg/dL (8-23); Calcium 7.5 mg/dL (8.6-10.3); Carbon Dioxide 20 mEq/L (23-29); Chloride 117 mEq/L (98-107); Glucose 133 mg/dL (70-105); Magnesium 1.7 mg/dL (1.6-2.6); Osmolality,Calculated 322 (280-300); Potassium 3.4 mEq/L (3.5-5.1); Salicylate < 2.5 mg/dL (15.0-30.0); Sodium 154 mEq/L (136-145); eGFR For African Americans > 60 (> 60); eGFR For Non-African Americans 55 (> 60)
[2019-04-09 20:03] LABS: Bilirubin,Urine Negative (Negative); Blood,Urine Moderate (Negative); Clarity,Urine Cloudy (Clear); Color,Urine Yellow (Yellow); Glucose,Urine (UA) Normal (Normal); Ketones,Urine 40 mg/dL (Negative); Leukocyte Esterase,Urine Negative (Negative); Nitrite,Urine Negative (Negative); Protein,Urine 30 mg/dL (Neg-Trace); Specific Gravity,Urine 1.016 (1.010-1.025); Urobilinogen,Urine Normal (Normal)
[2019-04-09 20:06] LABS: Hyaline Casts,Urine Few per lpf (None-Few); Squamous Epithelial Cell,Urine Many per lpf (None-Few)
[2019-04-09 20:15] LABS: Bacteria,Urine Few per hpf (None-Few)
[2019-04-09 20:16] LABS: Yeast,Urine Few per hpf (None Seen)
[2019-04-09] MEDS: Chlorhexidine Rinse 15 ML MOUTHWASH MM SCH (20:46)
[2019-04-09] MEDS ORDERED: Chlorhexidine Rinse 15 ML MOUTHWASH MM SCH (21:00)
[2019-04-09] MEDS: Vasopressin 40 UNIT in D5% in Water 100 ML IVC SCH (21:08)
[2019-04-09] MEDS: *HR* Dextrose 50 % in Water (Syg) 50 ML SYRINGE IVP PRN (21:43)
[2019-04-10] MEDS: Cefepime HCl 2,000 MG in 0.9 % Sodium Chloride Mini Bag 100 ML IVPB SCH ×2 (00:29→23:17)
[2019-04-10] MEDS: MetroNIDAZOLE 500 MG/100 ML 500 MG/100 ML BAG IVPB SCH ×4 (00:36→23:57)
[2019-04-10] MEDS ORDERED: D5 IVC SCH (01:00)
[2019-04-10] MEDS ORDERED: POTASSIUM CHLORIDE IVC SCH (01:00)
[2019-04-10] MEDS ORDERED: WATER IVC SCH (01:00)
[2019-04-10] MEDS: FentaNYL (PF) 1,000 MCG in 0.9 % Sodium Chloride 80 ML IVC SCH ×4 (01:53→17:30)
[2019-04-10 04:05] LABS: BUN/Creatinine Ratio 20 (6-26); Blood Urea Nitrogen 16 mg/dL (8-23); Calcium 7.2 mg/dL (8.6-10.3); Carbon Dioxide 20 mEq/L (23-29); Chloride 119 mEq/L (98-107); Glucose 222 mg/dL (70-105); Osmolality,Calculated 318 (280-300); Potassium 3.9 mEq/L (3.5-5.1); Sodium 150 mEq/L (136-145); eGFR For African Americans > 60 (> 60); eGFR For Non-African Americans > 60 (> 60)
[2019-04-10 04:06] LABS: Albumin 2.3 g/dL (3.5-5.7); Albumin/Globulin Ratio 0.9 (1.1-2.2); Bilirubin,Direct 0.1 mg/dL (0.0-0.2); Bilirubin,Indirect 0.2 mg/dL (0.0-1.0); Bilirubin,Total 0.3 mg/dL (0.3-1.0); Globulin 2.7 g/dL (2.4-3.5)
[2019-04-10] MEDS: Dexmedetomidine HCl 400 MCG/100 ML MLS IVC SCH ×4 (04:12→22:58)
[2019-04-10 05:44] LABS: ABG Base Excess -2 mEq/L (-2 to 3); ABG HCO3 23 mEq/L (21-27); ABG Oxygen Saturation 97 % (95-98); ABG PCO2 43 mmHg (35-45); ABG PH 7.34 pH Units (7.32-7.45); ABG PO2 101 mmHg (85-104); ABG TCO2 25 mEq/L (20-26); Blood Gas Modality AF; Blood Gas VT 450 cc
[2019-04-10] MEDS: *HR* Heparin 5,000 UNIT/ML VIAL SQ SCH ×2 (06:20→16:48)
[2019-04-10 06:42] LABS: Basophils % 0.3 %; Eosinophils % 0.1 %; Hematocrit 29.4 % (35.3-44.9); Hemoglobin 9.3 g/dL (11.5-15.4); Immature Granulocytes % 1.3 % (0-4); Lymphocytes # 0.9 K/mcL (0.6-4.6); Lymphocytes % 6.5 %; Mean Corpuscular HGB Conc 31.6 g/dL (31.6-35.5); Mean Corpuscular Hemoglobin 26.9 pg (28.0-33.3); Mean Platelet Volume 10.8 fL (9.4-12.4); Monocytes # 0.6 K/mcL (0.0-1.3); Monocytes % 4.2 %; Neutrophils # 11.5 K/mcL (1.6-8.9); Nucleated Red Blood Cells 0.6 /100 WBC (0); Platelet Count 221 K/mcL (140-400); Red Blood Count 3.46 M/mcL (3.82-4.97); Red Cell Distribution Width 20.4 % (11.5-14.5); Segmented Neutrophils % 87.6 %; White Blood Count 13.1 K/mcL (4.3-11.1)
[2019-04-10 07:01] LABS: BUN/Creatinine Ratio 17 (6-26); Blood Urea Nitrogen 15 mg/dL (8-23); Calcium 7.3 mg/dL (8.6-10.3); Carbon Dioxide 23 mEq/L (23-29); Chloride 117 mEq/L (98-107); Glucose 161 mg/dL (70-105); Osmolality,Calculated 318 (280-300); Potassium 3.7 mEq/L (3.5-5.1); Sodium 152 mEq/L (136-145); eGFR For African Americans > 60 (> 60); eGFR For Non-African Americans > 60 (> 60)
[2019-04-10] MEDS: Chlorhexidine Rinse 15 ML MOUTHWASH MM SCH ×2 (07:45→20:00)
[2019-04-10] MEDS: Artificial Tears SOLN 15 ML BOTTLE BOTH EYES SCH ×5 (07:45→23:21)
[2019-04-10] MEDS: Pantoprazole 40 MG VIAL IVP SCH (07:45)
[2019-04-10] MEDS: *HR* Dextrose 50 % in Water (Syg) 50 ML SYRINGE IVP PRN (09:32)
[2019-04-10 13:38] LABS: Troponin I 0.65 ng/mL (< 0.04)
[2019-04-10] MEDS ORDERED: Amiodarone Premix 360 MG/200 ML BAG IVC ONE (14:05)
[2019-04-10] MEDS: Insulin LISPRO 300 UNITS/3 ML VIAL SQ SCH ×2 (15:50→19:57)
[2019-04-10 16:49] LABS: BUN/Creatinine Ratio 16 (6-26); Blood Urea Nitrogen 14 mg/dL (8-23); Calcium 7.5 mg/dL (8.6-10.3); Carbon Dioxide 17 mEq/L (23-29); Chloride 116 mEq/L (98-107); Glucose 183 mg/dL (70-105); Osmolality,Calculated 313 (280-300); Potassium 4.2 mEq/L (3.5-5.1); Sodium 149 mEq/L (136-145); eGFR For African Americans > 60 (> 60); eGFR For Non-African Americans > 60 (> 60)
[2019-04-10] MEDS ORDERED: Amiodarone Premix 150 MG/100 ML BAG IVPB ONE ×2 (17:19→17:29)
[2019-04-10] MEDS ORDERED: *HR* Heparin 5,000 UNIT/ML VIAL IVP PRN ×2 (18:21)
[2019-04-10] MEDS ORDERED: *HR* Heparin 5,000 UNIT/ML VIAL IVP ONE (18:21)
[2019-04-10] MEDS: Norepinephrine 4 MG in 0.9 % Sodium Chloride 250 ML IVC SCH (18:36)
[2019-04-10] MEDS: Heparin 25,000 UNIT/250 ML D5W 25,000 UNIT/250 ML IV.SOLN IVC SCH (19:50)
[2019-04-10] MEDS: Amiodarone Premix 360 MG/200 ML BAG IVC SCH ×2 (20:00→22:28)
[2019-04-11] MEDS: Insulin LISPRO 300 UNITS/3 ML VIAL SQ SCH ×4 (00:04→12:01)
[2019-04-11 02:15] LABS: Hemoglobin 8.8 g/dL (11.5-15.4); Mean Corpuscular HGB Conc 31.4 g/dL (31.6-35.5); Mean Corpuscular Hemoglobin 27.3 pg (28.0-33.3); Mean Platelet Volume 11.3 fL (9.4-12.4); Platelet Count 213 K/mcL (140-400); Red Blood Count 3.22 M/mcL (3.82-4.97); Red Cell Distribution Width 20.5 % (11.5-14.5); White Blood Count 10.3 K/mcL (4.3-11.1)
[2019-04-11 02:27] LABS: INR 1.5; Prothrombin Time 17.2 Seconds (9.4-12.1)
[2019-04-11 02:45] LABS: Activated Partial Thrombo Time 227.6 Seconds (26.0-36.0)
[2019-04-11 02:46] LABS: Heparin anti-factor XA UFH 1.17 IU/mL (0.30-0.70)
[2019-04-11] MEDS: Artificial Tears SOLN 15 ML BOTTLE BOTH EYES SCH ×3 (03:59→12:01)
[2019-04-11 04:33] LABS: ABG Base Excess -2 mEq/L (-2 to 3); ABG HCO3 24 mEq/L (21-27); ABG Oxygen Saturation 96 % (95-98); ABG PCO2 42 mmHg (35-45); ABG PH 7.36 pH Units (7.32-7.45); ABG PO2 83 mmHg (85-104); ABG TCO2 25 mEq/L (20-26); Blood Gas VT 450 cc
[2019-04-11] MEDS: Dexmedetomidine HCl 400 MCG/100 ML MLS IVC SCH ×2 (05:01→20:02)
[2019-04-11] MEDS: Pantoprazole 40 MG VIAL IVP SCH (07:58)
[2019-04-11] MEDS: Chlorhexidine Rinse 15 ML MOUTHWASH MM SCH ×2 (07:58→20:27)
[2019-04-11] MEDS: MetroNIDAZOLE 500 MG/100 ML 500 MG/100 ML BAG IVPB SCH (07:59)
[2019-04-11] MEDS: Amiodarone Premix 360 MG/200 ML BAG IVC SCH (10:25)
[2019-04-11 11:05] LABS: BUN/Creatinine Ratio 15 (6-26); Blood Urea Nitrogen 12 mg/dL (8-23); Calcium 7.4 mg/dL (8.6-10.3); Carbon Dioxide 21 mEq/L (23-29); Chloride 115 mEq/L (98-107); Creatine Kinase 167 Units/L (30-223); Glucose 153 mg/dL (70-105); Osmolality,Calculated 307 (280-300); Potassium 3.5 mEq/L (3.5-5.1); Sodium 147 mEq/L (136-145); eGFR For African Americans > 60 (> 60); eGFR For Non-African Americans > 60 (> 60)
[2019-04-11] MEDS ORDERED: Furosemide 80 MG in 0.9 % Sodium Chloride 50 ML IVPB ONE (12:04)
[2019-04-11 13:17] LABS: % Iron Saturation 37 % (15-50); Iron 57 mcg/dL (50-170); Transferrin 109 mg/dL (203-362)
[2019-04-11] MEDS ORDERED: Furosemide 40 MG/4 ML VIAL IVP ONE ×2 (13:23→15:36)
[2019-04-11] MEDS ORDERED: Cefepime HCl 2,000 MG in 0.9 % Sodium Chloride Mini Bag 100 ML IVPB SCH (15:00)
[2019-04-11] MEDS: Vasopressin 40 UNIT in D5% in Water 100 ML IVC SCH (15:24)
[2019-04-11] MEDS: Norepinephrine 4 MG in 0.9 % Sodium Chloride 250 ML IVC SCH (15:25)
[2019-04-11] MEDS: Cefepime HCl 2,000 MG in Water for inj. (sterile) 20 ML IVP SCH (16:01)
[2019-04-11] MEDS ORDERED: Insulin LISPRO 300 UNITS/3 ML VIAL SQ SCH ×2 (16:30→21:00)
[2019-04-11] MEDS ORDERED: OLANZapine 10 MG VIAL IM PRN (18:04)
[2019-04-11] MEDS ORDERED: Aminoglycoside Consult 1 EACH MC ONE (18:59)
[2019-04-11] MEDS ORDERED: Furosemide 40 MG/4 ML VIAL IVP PRN (20:00)
[2019-04-11] MEDS: Heparin 25,000 UNIT/250 ML D5W 25,000 UNIT/250 ML IV.SOLN IVC SCH (22:08)
[2019-04-11] MEDS ORDERED: Acetaminophen IV 1,000 MG/100 ML INFUS..BTL IVPB ONE (22:30)
[2019-04-12] MEDS: Cefepime HCl 2,000 MG in Water for inj. (sterile) 20 ML IVP SCH ×2 (02:29→14:17)
[2019-04-12] MEDS: Insulin LISPRO 300 UNITS/3 ML VIAL SQ SCH ×4 (03:30→15:50)
[2019-04-12] MEDS: Vasopressin 40 UNIT in D5% in Water 100 ML IVC SCH (03:32)
[2019-04-12] MEDS: Dexmedetomidine HCl 400 MCG/100 ML MLS IVC SCH (03:32)
[2019-04-12 04:02] LABS: Basophils % 0.2 %; Eosinophils % 0.2 %; Hematocrit 27.6 % (35.3-44.9); Hemoglobin 8.4 g/dL (11.5-15.4); Immature Granulocytes % 3.5 % (0-4); Lymphocytes # 0.9 K/mcL (0.6-4.6); Lymphocytes % 9.3 %; Mean Corpuscular HGB Conc 30.4 g/dL (31.6-35.5); Mean Corpuscular Hemoglobin 26.8 pg (28.0-33.3); Mean Corpuscular Volume 87.9 fL (83.0-100.0); Mean Platelet Volume 11.8 fL (9.4-12.4); Monocytes # 0.8 K/mcL (0.0-1.3); Monocytes % 7.8 %; Neutrophils # 7.6 K/mcL (1.6-8.9); Nucleated Red Blood Cells 0.4 /100 WBC (0); Platelet Count 200 K/mcL (140-400); Red Blood Count 3.14 M/mcL (3.82-4.97); Red Cell Distribution Width 20.6 % (11.5-14.5); White Blood Count 9.7 K/mcL (4.3-11.1)
[2019-04-12 04:03] LABS: Alanine Aminotransferase 30 Units/L (7-52); Albumin 2.4 g/dL (3.5-5.7); Alkaline Phosphatase 46 Units/L (34-104); Aspartate Amino Transferase 17 Units/L (13-39); BUN/Creatinine Ratio 15 (6-26); Bilirubin,Total 0.4 mg/dL (0.3-1.0); Blood Urea Nitrogen 12 mg/dL (8-23); Calcium 7.5 mg/dL (8.6-10.3); Carbon Dioxide 16 mEq/L (23-29); Chloride 113 mEq/L (98-107); Chol/HDL Ratio 2.2 (0-4.9); Cholesterol 82 mg/dL (< 200); Globulin 2.5 g/dL (2.4-3.5); Glucose 249 mg/dL (70-105); HDL Cholesterol 37 mg/dL (40-59); LDL Cholesterol,Calculated 16 mg/dL (0-99); Osmolality,Calculated 308 (280-300); Potassium 3.3 mEq/L (3.5-5.1); Sodium 145 mEq/L (136-145); Total Protein 4.9 g/dL (6.4-8.9); Triglycerides 147 mg/dL (< 150); eGFR For African Americans > 60 (> 60); eGFR For Non-African Americans > 60 (> 60)
[2019-04-12] MEDS: Pantoprazole 40 MG VIAL IVP SCH (08:39)
[2019-04-12] MEDS: Chlorhexidine Rinse 15 ML MOUTHWASH MM SCH (08:39)
[2019-04-12] MEDS: Nystatin POWDER 30 GM BOTTLE TP PRN (08:42)
[2019-04-12] MEDS: Norepinephrine 4 MG in 0.9 % Sodium Chloride 250 ML IVC SCH (14:22)
[2019-04-12] MEDS ORDERED: E-Z-PAQUE (BARIUM SULF) SUSP 1 BOTTLE PO ONE (15:04)
[2019-04-12] MEDS ORDERED: E-Z-HD (BARIUM SULF) SUSPENSION PO ONE (15:04)
[2019-04-12] MEDS: Heparin 25,000 UNIT/250 ML D5W 25,000 UNIT/250 ML IV.SOLN IVC SCH (15:48)
[2019-04-12] MEDS ORDERED: *HR* Enoxaparin 80 MG/0.8 ML SYRINGE SQ SCH (18:00)
[2019-04-12 18:14] VITALS: BP 133/69
== END 2019-04-12 19:00 | disposition other institution (70) | DRG 720 ==
LOC: EMEROOARM 11:52 → ICNU 19:29
PROVIDERS: ADMIT Internal Medicine; ATTEND Internal Medicine

== ENCOUNTER 2021-06-11 12:36 | Inpatient (IN) ==
[2021-06-11 13:54] LABS: Bacteria,Urine Few per hpf (None-Few); Bilirubin,Urine Negative (Negative); Blood,Urine Negative (Negative); Clarity,Urine Clear (Clear); Color,Urine Yellow (Yellow); Glucose,Urine (UA) Normal (Normal); Hyaline Casts,Urine Few per lpf (None Seen); Ketones,Urine Trace mg/dL (Negative); Leukocyte Esterase,Urine Trace (Negative); Mucus,Urine Few per lpf (None-Few); Nitrite,Urine Negative (Negative); PH,Urine 5.5 pH Units (5.0-8.0); Protein,Urine 50 mg/dL (Neg-Trace); RBC,Urine 0-3 per hpf (0-3); Specific Gravity,Urine > 1.030 (1.010-1.025); Squamous Epithelial Cell,Urine Few per hpf (None-Few); Urobilinogen,Urine Normal (Normal)
[2021-06-11] MEDS ORDERED: 0.9 % Sodium Chloride 1,000 ML IVC ONE (14:08)
[2021-06-11 14:12] LABS: Influenza A PCR Negative (Negative); Influenza B PCR Negative (Negative); Resp. Syncytial Virus PCR Negative (Negative)
[2021-06-11 14:21] LABS: SARS-CoV-2 by PCR (In House) Negative (Negative)
[2021-06-11 16:37] LABS: Basophils % 0.7 %; Immature Granulocytes % 0.7 % (0-4)
[2021-06-11 16:39] LABS: Hemoglobin 9.9 g/dL (11.5-15.4)
[2021-06-11 16:47] LABS: Basophils # 0.1 K/mcL (0.0-0.2); Eosinophils % 0.4 %; Lymphocytes # 1.1 K/mcL (0.6-4.6); Lymphocytes % 14.8 %; Mean Corpuscular HGB Conc 28.3 g/dL (31.6-35.5); Mean Corpuscular Hemoglobin 21.5 pg (28.0-33.3); Mean Corpuscular Volume 76.1 fL (83.0-100.0); Monocytes # 0.6 K/mcL (0.0-1.3); Monocytes % 8.3 %; Neutrophils # 5.7 K/mcL (1.6-8.9); Platelet Count 198 K/mcL (140-400); Red Cell Distribution Width 22.5 % (11.5-14.5); Segmented Neutrophils % 75.1 %; White Blood Count 7.6 K/mcL (4.3-11.1)
[2021-06-11 17:30] LABS: Anisocytosis 2+ (Not Present); Hypochromasia Present (Not Present); Platelet Estimate Normal (Normal)
[2021-06-11 17:31] LABS: Albumin/Globulin Ratio 0.9 (1.1-2.2); Bilirubin,Total 0.4 mg/dL (0.3-1.0); Calcium 8.4 mg/dL (8.6-10.3); Globulin 3.4 g/dL (2.4-3.5); Microcytosis Present (Not Present); Potassium 4.1 mEq/L (3.5-5.1); Total Protein 6.4 g/dL (6.4-8.9); Troponin I 0.13 ng/mL (< 0.04)
[2021-06-11] MEDS ORDERED: Naloxone 0.4 MG/ML INJ IVP PRN (17:51)
[2021-06-11] MEDS ORDERED: *HR* HYDROcodone/Acet 5/325 mg TABLET PO PRN (17:51)
[2021-06-11] MEDS ORDERED: D5% in Water 1,000 ML IVC PRN (17:54)
[2021-06-11] MEDS ORDERED: *HR* Dextrose 50 % in Water (Syg) 50 ML SYRINGE IVP PRN (17:54)
[2021-06-11] MEDS ORDERED: Dextrose Gel 15 GM/37.5 ML TUBE PO PRN ×2 (17:54)
[2021-06-11] MEDS ORDERED: Ringers Solution, Lactated 1,000 ML IVC SCH (18:00)
[2021-06-11] MEDS ORDERED: Nitroglycerin 0.4 MG TAB.SUBL SL PRN (18:31)
[2021-06-11] MEDS: *HR* Heparin 5,000 UNIT/ML VIAL SQ SCH (21:13)
[2021-06-12 03:37] LABS: Basophils % 0.6 %; Immature Granulocytes % 0.6 % (0-4); Mean Corpuscular Volume 75.8 fL (83.0-100.0)
[2021-06-12 03:39] LABS: Eosinophils % 0.6 %; Hematocrit 34.2 % (35.3-44.9); Hemoglobin 9.7 g/dL (11.5-15.4); Immature Platelets 12.4 % (1.1-6.1); Lymphocytes # 1.1 K/mcL (0.6-4.6); Lymphocytes % 15.5 %; Mean Corpuscular HGB Conc 28.4 g/dL (31.6-35.5); Mean Corpuscular Hemoglobin 21.5 pg (28.0-33.3); Monocytes # 0.6 K/mcL (0.0-1.3); Monocytes % 8.8 %; Platelet Count 202 K/mcL (140-400); Red Blood Count 4.51 M/mcL (3.82-4.97); Red Cell Distribution Width 22.7 % (11.5-14.5); Segmented Neutrophils % 73.9 %; White Blood Count 6.8 K/mcL (4.3-11.1)
[2021-06-12 03:47] LABS: BUN/Creatinine Ratio 18 (6-26); Blood Urea Nitrogen 18 mg/dL (8-23); Carbon Dioxide 22 mEq/L (23-29); Chloride 107 mEq/L (98-107); Glucose 85 mg/dL (70-105); Magnesium 1.5 mg/dL (1.6-2.6); Osmolality,Calculated 287 (280-300); Phosphorous 2.2 mg/dL (2.7-4.5); Potassium 4.2 mEq/L (3.5-5.1); Sodium 138 mEq/L (136-145); eGFR For African Americans > 60 (> 60); eGFR For Non-African Americans 56 (> 60)
[2021-06-12 03:52] LABS: Troponin I 0.12 ng/mL (< 0.04)
[2021-06-12 04:03] LABS: INR 1.2; Prothrombin Time 13.6 Seconds (9.4-12.1)
[2021-06-12 04:06] LABS: Activated Partial Thrombo Time 31.1 Seconds (26.0-36.0)
[2021-06-12 04:47] LABS: Anisocytosis 3+ (Not Present); Hypochromasia Present (Not Present); Platelet Estimate Normal (Normal)
[2021-06-12] MEDS: *HR* Heparin 5,000 UNIT/ML VIAL SQ SCH ×3 (05:50→21:21)
[2021-06-12] MEDS: Aspirin Enteric Coated 81 MG Tablet PO SCH (07:55)
[2021-06-12] MEDS: Insulin LISPRO 300 UNITS/3 ML VIAL SUBQ SCH ×3 (09:01→16:22)
[2021-06-12] MEDS: levoFLOXacin 750 MG/150 ML 750 MG/150 ML BAG IVPB SCH (10:06)
[2021-06-12] MEDS: Melatonin 3 MG TABLET PO PRN (21:21)
[2021-06-12] MEDS: Magnesium Oxide 400 MG TABLET PO SCH (21:21)
[2021-06-12] MEDS: Gabapentin 300 MG CAPSULE PO SCH (21:21)
[2021-06-12] MEDS: Mirtazapine 15 MG TABLET PO SCH (21:22)
[2021-06-13] MEDS: *HR* Heparin 5,000 UNIT/ML VIAL SQ SCH (04:59)
[2021-06-13] MEDS: Insulin LISPRO 300 UNITS/3 ML VIAL SUBQ SCH ×3 (07:39→16:44)
[2021-06-13] MEDS: Isosorbide MONOnitrate (24 HR) 60 MG TAB.ER.24H PO SCH (07:49)
[2021-06-13] MEDS: levoFLOXacin 750 MG/150 ML 750 MG/150 ML BAG IVPB SCH (07:49)
[2021-06-13] MEDS: Gabapentin 300 MG CAPSULE PO SCH ×3 (07:49→20:37)
[2021-06-13] MEDS: Cyanocobalamin (B-12) 1,000 MCG TABLET PO SCH (07:49)
[2021-06-13] MEDS: Magnesium Oxide 400 MG TABLET PO SCH ×2 (07:49→20:37)
[2021-06-13] MEDS: Aspirin Enteric Coated 81 MG Tablet PO SCH (07:49)
[2021-06-13] MEDS: Folic Acid 1 MG TABLET PO SCH (07:49)
[2021-06-13] MEDS ORDERED: *HR* FentaNYL (PF) 100 MCG/2 ML VIAL ONE (12:30)
[2021-06-13] MEDS ORDERED: Lidocaine -MPF 4% 5 ML AMPUL ONE (12:30)
[2021-06-13] MEDS ORDERED: Ondansetron 4 MG/2 ML VIAL ONE (12:30)
[2021-06-13] MEDS ORDERED: Lidocaine -MPF 2% 5 ML VIAL ONE (12:30)
[2021-06-13] MEDS ORDERED: *HR* Propofol 200 MG/20 ML VIAL IVP ONE (12:30)
[2021-06-13 15:29] LABS: Appearance of Body Fluid Slightly Hazy (Clear); Volume of Body Fluid 18 mL
[2021-06-13] MEDS: Furosemide 20 MG/2 ML VIAL IVP SCH (15:45)
[2021-06-13] MEDS ORDERED: 0.9 % Sodium Chloride 500 ML IVC ONE (19:00)
[2021-06-13] MEDS ORDERED: 0.9 % Sodium Chloride 500 ML ONE (19:03)
[2021-06-13 19:43] LABS: Hemoglobin 8.8 g/dL (11.5-15.4)
[2021-06-13] MEDS: Melatonin 3 MG TABLET PO PRN (20:38)
[2021-06-13] MEDS: Apixaban 5 MG TABLET PO SCH (20:38)
[2021-06-13] MEDS: Mirtazapine 15 MG TABLET PO SCH (20:38)
[2021-06-14 07:38] LABS: Basophils % 0.7 %; Eosinophils # 0.1 K/mcL (0.0-0.6); Eosinophils % 1.8 %; Hematocrit 33.2 % (35.3-44.9); Immature Granulocytes % 0.5 % (0-4); Immature Platelets 12.3 % (1.1-6.1); Lymphocytes # 1.1 K/mcL (0.6-4.6); Lymphocytes % 17.8 %; Mean Corpuscular HGB Conc 27.1 g/dL (31.6-35.5); Mean Corpuscular Hemoglobin 21.4 pg (28.0-33.3); Mean Corpuscular Volume 78.9 fL (83.0-100.0); Monocytes # 0.7 K/mcL (0.0-1.3); Monocytes % 11.3 %; Platelet Count 183 K/mcL (140-400); Red Blood Count 4.21 M/mcL (3.82-4.97); Red Cell Distribution Width 23.2 % (11.5-14.5); Segmented Neutrophils % 67.9 %; White Blood Count 6.1 K/mcL (4.3-11.1)
[2021-06-14 07:46] LABS: BUN/Creatinine Ratio 9 (6-26); Blood Urea Nitrogen 9 mg/dL (8-23); Calcium 7.7 mg/dL (8.6-10.3); Carbon Dioxide 24 mEq/L (23-29); Chloride 112 mEq/L (98-107); Glucose 79 mg/dL (70-105); Magnesium 1.8 mg/dL (1.6-2.6); Osmolality,Calculated 282 (280-300); Phosphorous 1.8 mg/dL (2.7-4.5); Sodium 137 mEq/L (136-145); eGFR For African Americans > 60 (> 60); eGFR For Non-African Americans 57 (> 60)
[2021-06-14] MEDS: Insulin LISPRO 300 UNITS/3 ML VIAL SUBQ SCH ×3 (08:10→17:03)
[2021-06-14 08:14] LABS: Neutrophils # 4.1 K/mcL (1.6-8.9)
[2021-06-14 08:21] LABS: Anisocytosis 1+ (Not Present); Hypochromasia Present (Not Present); Platelet Estimate Normal (Normal); Polychromasia 1+ (Not Present)
[2021-06-14] MEDS: Furosemide 20 MG/2 ML VIAL IVP SCH ×2 (08:38→17:03)
[2021-06-14] MEDS: Isosorbide MONOnitrate (24 HR) 60 MG TAB.ER.24H PO SCH (09:37)
[2021-06-14] MEDS: Magnesium Oxide 400 MG TABLET PO SCH ×2 (09:37→20:08)
[2021-06-14] MEDS: Aspirin Enteric Coated 81 MG Tablet PO SCH (09:37)
[2021-06-14] MEDS: levoFLOXacin 750 MG/150 ML 750 MG/150 ML BAG IVPB SCH (09:37)
[2021-06-14] MEDS: Folic Acid 1 MG TABLET PO SCH (09:37)
[2021-06-14] MEDS: Gabapentin 300 MG CAPSULE PO SCH ×3 (09:37→20:08)
[2021-06-14] MEDS: Apixaban 5 MG TABLET PO SCH ×2 (09:37→20:08)
[2021-06-14] MEDS: Cyanocobalamin (B-12) 1,000 MCG TABLET PO SCH (09:37)
[2021-06-14] MEDS ORDERED: Perflutren Lipid Microsphere 1.3 ML in 0.9 % Sodium Chloride 8.7 ML IVP PRN (13:32)
[2021-06-14] MEDS: Albumin 25% 25gram/100mL 25 GM/100 ML IV.SOLN IVC SCH ×2 (13:41→15:46)
[2021-06-14] MEDS ORDERED: Isosorbide MONOnitrate (24 HR) 60 MG TAB.ER.24H PO SCH (14:01)
[2021-06-14 14:02] LABS: ABG Base Excess -1 mEq/L (-2 to 3); ABG HCO3 23 mEq/L (21-27); ABG Oxygen Saturation 92 % (95-98); ABG PCO2 37 mmHg (35-45); ABG PH 7.41 pH Units (7.32-7.45); ABG PO2 63 mmHg (85-104); ABG TCO2 25 mEq/L (20-26)
[2021-06-14] MEDS: Mirtazapine 15 MG TABLET PO SCH (20:08)
[2021-06-14] MEDS: Melatonin 3 MG TABLET PO PRN (20:09)
[2021-06-15] MEDS ORDERED: Acetaminophen 325 MG TABLET PO ONE (00:44)
[2021-06-15] MEDS: Furosemide 20 MG/2 ML VIAL IVP SCH ×2 (07:20→18:36)
[2021-06-15] MEDS: Folic Acid 1 MG TABLET PO SCH (08:33)
[2021-06-15] MEDS: Apixaban 5 MG TABLET PO SCH ×2 (08:34→23:14)
[2021-06-15] MEDS: Gabapentin 300 MG CAPSULE PO SCH ×3 (08:34→23:14)
[2021-06-15] MEDS: Aspirin Enteric Coated 81 MG Tablet PO SCH (08:35)
[2021-06-15] MEDS: Magnesium Oxide 400 MG TABLET PO SCH ×2 (08:35→23:14)
[2021-06-15] MEDS: levoFLOXacin 750 MG/150 ML 750 MG/150 ML BAG IVPB SCH (08:35)
[2021-06-15] MEDS: Insulin LISPRO 300 UNITS/3 ML VIAL SUBQ SCH ×3 (08:35→17:45)
[2021-06-15] MEDS: Cyanocobalamin (B-12) 1,000 MCG TABLET PO SCH (08:35)
[2021-06-15] MEDS ORDERED: Isovue-370 500 ML BOTTLE IVP ONE (18:29)
[2021-06-15] MEDS ORDERED: methylPREDNISolone 125 MG/2 ML VIAL IVP ONE (18:48)
[2021-06-15] MEDS: Mirtazapine 15 MG TABLET PO SCH (23:14)
[2021-06-16 07:16] LABS: Immature Granulocytes % 0.6 % (0-4); Mean Corpuscular Volume 76.7 fL (83.0-100.0); Platelet Count 197 K/mcL (140-400)
[2021-06-16 07:18] LABS: Basophils % 0.3 %; Hematocrit 32.2 % (35.3-44.9); Hemoglobin 8.9 g/dL (11.5-15.4); Immature Platelets 13.1 % (1.1-6.1); Lymphocytes # 0.5 K/mcL (0.6-4.6); Lymphocytes % 7.8 %; Mean Corpuscular HGB Conc 27.6 g/dL (31.6-35.5); Mean Corpuscular Hemoglobin 21.2 pg (28.0-33.3); Monocytes # 0.4 K/mcL (0.0-1.3); Monocytes % 6.5 %; Red Cell Distribution Width 23.2 % (11.5-14.5); Segmented Neutrophils % 84.8 %; White Blood Count 6.4 K/mcL (4.3-11.1)
[2021-06-16 07:21] LABS: Neutrophils # 5.4 K/mcL (1.6-8.9)
[2021-06-16 08:00] LABS: Anisocytosis 3+ (Not Present); Hypochromasia Present (Not Present); Large Platelets Present (Not Present); Microcytosis Present (Not Present); Platelet Estimate Normal (Normal)
[2021-06-16] MEDS: Aspirin Enteric Coated 81 MG Tablet PO SCH (08:16)
[2021-06-16] MEDS: Magnesium Oxide 400 MG TABLET PO SCH ×2 (08:16→19:54)
[2021-06-16] MEDS: Folic Acid 1 MG TABLET PO SCH (08:16)
[2021-06-16] MEDS: Gabapentin 300 MG CAPSULE PO SCH ×3 (08:16→19:55)
[2021-06-16] MEDS: Apixaban 5 MG TABLET PO SCH ×2 (08:16→19:54)
[2021-06-16] MEDS: Furosemide 20 MG/2 ML VIAL IVP SCH (08:29)
[2021-06-16] MEDS: levoFLOXacin 750 MG/150 ML 750 MG/150 ML BAG IVPB SCH (08:30)
[2021-06-16] MEDS: Cyanocobalamin (B-12) 1,000 MCG TABLET PO SCH (08:30)
[2021-06-16] MEDS: Insulin LISPRO 300 UNITS/3 ML VIAL SUBQ SCH ×3 (08:35→17:18)
[2021-06-16 09:40] LABS: Calcium 8.5 mg/dL (8.6-10.3); Phosphorous 2.5 mg/dL (2.7-4.5); Potassium 5.1 mEq/L (3.5-5.1)
[2021-06-16 11:23] LABS: Adenovirus Not Detected (Not Detect); Coronavirus 229E Not Detected (Not Detect); Coronavirus HKU1 Not Detected (Not Detect); Coronavirus NL63 Not Detected (Not Detect); Coronavirus OC43 Not Detected (Not Detect); Human Metapneumovirus Not Detected (Not Detect); Human Rhinovirus/Enterovirus Not Detected (Not Detect); Influenza A Subtype 2009 H1 Not Detected (Not Detect); Influenza B Not Detected (Not Detect); Parainfluenza Virus 1 Not Detected (Not Detect); SARS-CoV-2 Not Detected (Not Detect)
[2021-06-16 11:24] LABS: Bordetella Pertussis Not Detected (Not Detect); Chlamydophila pneumoniae Not Detected (Not Detect); Mycoplasma pneumoniae Not Detected (Not Detect); Parainfluenza Virus 2 Not Detected (Not Detect); Parainfluenza Virus 3 Not Detected (Not Detect); Parainfluenza Virus 4 Not Detected (Not Detect); Respiratory Syncytial Virus Not Detected (Not Detect)
[2021-06-16] MEDS: Mirtazapine 15 MG TABLET PO SCH (19:54)
[2021-06-16] MEDS: Doxycycline 100 MG in 0.9 % Sodium Chloride Mini Bag 100 ML IVPB SCH (19:54)
[2021-06-16] MEDS: hydrOXYzine pamoate 25 MG CAPSULE PO PRN (22:33)
[2021-06-16] MEDS: MethylPREDNISolone 40 MG/ML VIAL IVP SCH (23:05)
[2021-06-17 02:10] LABS: Red Cell Distribution Width 23.7 % (11.5-14.5)
[2021-06-17 02:12] LABS: Basophils % 0.4 %; Eosinophils % 0.3 %; Hematocrit 32.2 % (35.3-44.9); Hemoglobin 9.2 g/dL (11.5-15.4); Immature Granulocytes % 0.6 % (0-4); Immature Platelets 12.3 % (1.1-6.1); Lymphocytes # 0.7 K/mcL (0.6-4.6); Lymphocytes % 8.4 %; Mean Corpuscular HGB Conc 28.6 g/dL (31.6-35.5); Mean Corpuscular Hemoglobin 21.9 pg (28.0-33.3); Mean Corpuscular Volume 76.7 fL (83.0-100.0); Monocytes # 0.5 K/mcL (0.0-1.3); Monocytes % 6.8 %; Neutrophils # 6.6 K/mcL (1.6-8.9); Platelet Count 222 K/mcL (140-400); Segmented Neutrophils % 83.5 %; White Blood Count 7.9 K/mcL (4.3-11.1)
[2021-06-17 02:18] LABS: Anisocytosis 2+ (Not Present); Hypochromasia Present (Not Present); Platelet Estimate Normal (Normal)
[2021-06-17 02:19] LABS: Calcium 8.1 mg/dL (8.6-10.3); Magnesium 2.1 mg/dL (1.6-2.6); Phosphorous 2.1 mg/dL (2.7-4.5)
[2021-06-17] MEDS: Doxycycline 100 MG in 0.9 % Sodium Chloride Mini Bag 100 ML IVPB SCH ×2 (05:28→17:26)
[2021-06-17] MEDS: Gabapentin 300 MG CAPSULE PO SCH ×3 (09:06→20:01)
[2021-06-17] MEDS: Aspirin Enteric Coated 81 MG Tablet PO SCH (09:06)
[2021-06-17] MEDS: Magnesium Oxide 400 MG TABLET PO SCH ×2 (09:07→19:59)
[2021-06-17] MEDS: Apixaban 5 MG TABLET PO SCH ×2 (09:07→20:01)
[2021-06-17] MEDS: MethylPREDNISolone 40 MG/ML VIAL IVP SCH ×3 (09:08→23:37)
[2021-06-17] MEDS: Cyanocobalamin (B-12) 1,000 MCG TABLET PO SCH (09:08)
[2021-06-17] MEDS: Folic Acid 1 MG TABLET PO SCH (09:08)
[2021-06-17] MEDS: Furosemide 20 MG/2 ML VIAL IVP SCH ×2 (09:09→17:27)
[2021-06-17] MEDS: Insulin LISPRO 300 UNITS/3 ML VIAL SUBQ SCH ×3 (09:54→17:46)
[2021-06-17] MEDS: Piperacillin/Tazobactam 3.375 GM in 0.9 % Sodium Chloride Mini Bag 100 ML IVPB SCH ×2 (17:26→23:36)
[2021-06-17] MEDS: Mirtazapine 15 MG TABLET PO SCH (20:01)
[2021-06-17] MEDS: Melatonin 3 MG TABLET PO PRN (22:29)
[2021-06-17] MEDS: hydrOXYzine pamoate 25 MG CAPSULE PO PRN (22:29)
[2021-06-18] MEDS: Doxycycline 100 MG in 0.9 % Sodium Chloride Mini Bag 100 ML IVPB SCH ×2 (05:46→18:46)
[2021-06-18 06:16] LABS: Phosphorous 2.9 mg/dL (2.7-4.5)
[2021-06-18] MEDS: Furosemide 20 MG/2 ML VIAL IVP SCH ×3 (07:33→16:02)
[2021-06-18] MEDS: MethylPREDNISolone 40 MG/ML VIAL IVP SCH ×2 (07:46→16:02)
[2021-06-18] MEDS: Folic Acid 1 MG TABLET PO SCH (07:47)
[2021-06-18] MEDS: Piperacillin/Tazobactam 3.375 GM in 0.9 % Sodium Chloride Mini Bag 100 ML IVPB SCH ×2 (07:47→16:03)
[2021-06-18] MEDS: Gabapentin 300 MG CAPSULE PO SCH ×3 (07:47→20:38)
[2021-06-18] MEDS: Insulin LISPRO 300 UNITS/3 ML VIAL SUBQ SCH ×3 (07:47→16:03)
[2021-06-18] MEDS: Aspirin Enteric Coated 81 MG Tablet PO SCH (07:47)
[2021-06-18] MEDS: Apixaban 5 MG TABLET PO SCH ×2 (07:48→20:39)
[2021-06-18] MEDS: Cyanocobalamin (B-12) 1,000 MCG TABLET PO SCH (07:48)
[2021-06-18] MEDS: Magnesium Oxide 400 MG TABLET PO SCH ×2 (07:48→20:39)
[2021-06-18] MEDS ORDERED: levoFLOXacin 750 MG/150 ML 750 MG/150 ML BAG IVPB SCH (09:00)
[2021-06-18] MEDS: *HR* HYDROcodone/Acet 5/325 mg TABLET PO PRN ×2 (09:41→17:40)
[2021-06-18] MEDS: Ondansetron 4 MG/2 ML VIAL IVP PRN ×2 (09:42→17:41)
[2021-06-18] MEDS: Ipratropium/Albuterol Neb 3 ML IH SCH ×2 (15:48→20:23)
[2021-06-18] MEDS: Mirtazapine 15 MG TABLET PO SCH (20:38)
[2021-06-18] MEDS: hydrOXYzine pamoate 25 MG CAPSULE PO PRN (20:39)
[2021-06-18] MEDS: Melatonin 3 MG TABLET PO PRN (20:39)
[2021-06-19] MEDS: MethylPREDNISolone 40 MG/ML VIAL IVP SCH ×4 (00:37→23:31)
[2021-06-19] MEDS: Piperacillin/Tazobactam 3.375 GM in 0.9 % Sodium Chloride Mini Bag 100 ML IVPB SCH ×4 (00:37→23:31)
[2021-06-19] MEDS: Ipratropium/Albuterol Neb 3 ML IH SCH ×4 (03:13→19:45)
[2021-06-19 05:08] LABS: Basophils % 0.1 %
[2021-06-19 05:10] LABS: Hematocrit 33.8 % (35.3-44.9); Hemoglobin 9.6 g/dL (11.5-15.4); Immature Granulocytes % 0.6 % (0-4); Immature Platelets 13.6 % (1.1-6.1); Lymphocytes # 0.3 K/mcL (0.6-4.6); Lymphocytes % 3.9 %; Mean Corpuscular HGB Conc 28.4 g/dL (31.6-35.5); Mean Corpuscular Hemoglobin 21.5 pg (28.0-33.3); Mean Corpuscular Volume 75.8 fL (83.0-100.0); Monocytes # 0.4 K/mcL (0.0-1.3); Monocytes % 4.2 %; Platelet Count 195 K/mcL (140-400); Red Blood Count 4.46 M/mcL (3.82-4.97); Red Cell Distribution Width 23.8 % (11.5-14.5); Segmented Neutrophils % 91.2 %; White Blood Count 8.8 K/mcL (4.3-11.1)
[2021-06-19 05:28] LABS: Albumin 3.5 g/dL (3.5-5.7); Albumin/Globulin Ratio 1.3 (1.1-2.2); Bilirubin,Total 0.5 mg/dL (0.3-1.0); Calcium 8.1 mg/dL (8.6-10.3); Globulin 2.8 g/dL (2.4-3.5); Magnesium 2.1 mg/dL (1.6-2.6); Potassium 4.8 mEq/L (3.5-5.1); Total Protein 6.3 g/dL (6.4-8.9)
[2021-06-19 05:39] LABS: Anisocytosis 2+ (Not Present); Hypochromasia Present (Not Present); Platelet Estimate Normal (Normal)
[2021-06-19] MEDS: Doxycycline 100 MG in 0.9 % Sodium Chloride Mini Bag 100 ML IVPB SCH ×2 (06:09→16:49)
[2021-06-19] MEDS: Insulin LISPRO 300 UNITS/3 ML VIAL SUBQ SCH ×4 (08:54→20:29)
[2021-06-19] MEDS: Magnesium Oxide 400 MG TABLET PO SCH ×2 (08:55→20:27)
[2021-06-19] MEDS: Cyanocobalamin (B-12) 1,000 MCG TABLET PO SCH (08:55)
[2021-06-19] MEDS: *HR* HYDROcodone/Acet 5/325 mg TABLET PO PRN (08:55)
[2021-06-19] MEDS: Gabapentin 300 MG CAPSULE PO SCH ×3 (08:55→20:27)
[2021-06-19] MEDS: hydrOXYzine pamoate 25 MG CAPSULE PO PRN ×2 (08:56→16:47)
[2021-06-19] MEDS: Aspirin Enteric Coated 81 MG Tablet PO SCH (08:56)
[2021-06-19] MEDS: Apixaban 5 MG TABLET PO SCH ×2 (08:57→20:27)
[2021-06-19] MEDS: Furosemide 20 MG/2 ML VIAL IVP SCH (08:57)
[2021-06-19] MEDS: Folic Acid 1 MG TABLET PO SCH (09:01)
[2021-06-19] MEDS: *HR* HYDROcodone/Acet 10/325 mg TABLET PO PRN ×2 (13:08→20:27)
[2021-06-19 15:37] LABS: Adenovirus F 40/41 PCR Not detected (Not detect); Astrovirus PCR Not detected (Not detect); C.difficile Toxin A/B Gene PCR Not detected (Not detect); Campylobacter by PCR Not detected (Not detect); Cryptosporidium by PCR Not detected (Not detect); Cyclospora cayetanensis PCR Not detected (Not detect); E. coli O157 by PCR Not detected (Not detect); Entamoeba histolytica PCR Not detected (Not detect); Enteroaggregative E.coli(EAEC) Not detected (Not detect); Enteropathogenic E.coli(EPEC) Not detected (Not detect); Enterotoxigenic E.coli (ETEC) Not detected (Not detect); Giardia lamblia PCR Not detected (Not detect); Norovirus GI/GII PCR Not detected (Not detect); Plesiomonas shigelloides PCR Not detected (Not detect); Rotavirus A PCR Not detected (Not detect); Salmonella PCR Not detected (Not detect); Sapovirus PCR Not detected (Not detect); Shig/EnteroinvasiveE coli EIEC Not detected (Not detect); Shigalike tox-prod E coli STEC Not detected (Not detect); Vibrio PCR Not detected (Not detect); Vibrio cholerae PCR Not detected (Not detect); Yersinia enterocolitica PCR Not detected (Not detect)
[2021-06-19] MEDS: Insulin DETEMIR 100 UNIT/ML X5UNITS SUBQ SCH (20:28)
[2021-06-19] MEDS: Mirtazapine 15 MG TABLET PO SCH (20:28)
[2021-06-20 01:56] LABS: Immature Granulocytes % 0.7 % (0-4); Lymphocytes % 3.2 %; Mean Corpuscular Volume 75.8 fL (83.0-100.0)
[2021-06-20 01:58] LABS: Basophils % 0.2 %; Hematocrit 33.5 % (35.3-44.9); Hemoglobin 9.6 g/dL (11.5-15.4); Immature Platelets 15.7 % (1.1-6.1); Lymphocytes # 0.4 K/mcL (0.6-4.6); Mean Corpuscular HGB Conc 28.7 g/dL (31.6-35.5); Mean Corpuscular Hemoglobin 21.7 pg (28.0-33.3); Monocytes # 0.8 K/mcL (0.0-1.3); Monocytes % 7.1 %; Neutrophils # 10.1 K/mcL (1.6-8.9); Nucleated Red Blood Cells 0.3 /100 WBC (0); Platelet Count 195 K/mcL (140-400); Red Blood Count 4.42 M/mcL (3.82-4.97); Red Cell Distribution Width 23.6 % (11.5-14.5); Segmented Neutrophils % 88.8 %; White Blood Count 11.4 K/mcL (4.3-11.1)
[2021-06-20 02:09] LABS: Albumin 3.5 g/dL (3.5-5.7); Albumin/Globulin Ratio 1.3 (1.1-2.2); Bilirubin,Total 0.5 mg/dL (0.3-1.0); Calcium 8.1 mg/dL (8.6-10.3); Globulin 2.6 g/dL (2.4-3.5); Potassium 4.5 mEq/L (3.5-5.1); Total Protein 6.1 g/dL (6.4-8.9)
[2021-06-20 02:31] LABS: Anisocytosis 1+ (Not Present); Hypochromasia Present (Not Present); Platelet Estimate Normal (Normal)
[2021-06-20] MEDS: Ipratropium/Albuterol Neb 3 ML IH SCH ×4 (03:42→20:12)
[2021-06-20] MEDS: Doxycycline 100 MG in 0.9 % Sodium Chloride Mini Bag 100 ML IVPB SCH ×2 (05:12→17:04)
[2021-06-20] MEDS: Folic Acid 1 MG TABLET PO SCH (10:32)
[2021-06-20] MEDS: Gabapentin 300 MG CAPSULE PO SCH ×3 (10:32→20:11)
[2021-06-20] MEDS: Cyanocobalamin (B-12) 1,000 MCG TABLET PO SCH (10:32)
[2021-06-20] MEDS: Apixaban 5 MG TABLET PO SCH ×2 (10:32→20:12)
[2021-06-20] MEDS: Furosemide 20 MG/2 ML VIAL IVP SCH (10:32)
[2021-06-20] MEDS: Magnesium Oxide 400 MG TABLET PO SCH ×2 (10:32→20:11)
[2021-06-20] MEDS: Aspirin Enteric Coated 81 MG Tablet PO SCH (10:32)
[2021-06-20] MEDS: MethylPREDNISolone 40 MG/ML VIAL IVP SCH ×3 (10:35→23:47)
[2021-06-20] MEDS: Piperacillin/Tazobactam 3.375 GM in 0.9 % Sodium Chloride Mini Bag 100 ML IVPB SCH ×3 (10:37→23:46)
[2021-06-20] MEDS: Insulin LISPRO 300 UNITS/3 ML VIAL SUBQ SCH ×4 (10:38→20:14)
[2021-06-20] MEDS: Loratadine 10 MG TABLET PO SCH (17:04)
[2021-06-20] MEDS: allopurinoL 300 MG TABLET PO SCH (17:09)
[2021-06-20] MEDS: *HR* HYDROcodone/Acet 10/325 mg TABLET PO PRN (20:11)
[2021-06-20] MEDS: Melatonin 3 MG TABLET PO PRN (20:11)
[2021-06-20] MEDS: Mirtazapine 15 MG TABLET PO SCH (20:12)
[2021-06-20] MEDS: hydrOXYzine pamoate 25 MG CAPSULE PO PRN (20:13)
[2021-06-20] MEDS: Insulin DETEMIR 100 UNIT/ML X5UNITS SUBQ SCH (20:13)
[2021-06-21] MEDS ORDERED: Hydrocortisone Sodium Succ 100 MG/2 ML VIAL IVP PRN
[2021-06-21] MEDS ORDERED: CARBOplatin 220 MG in 0.9 % Sodium Chloride 250 ML IV SCH
[2021-06-21] MEDS ORDERED: Albuterol 2.5 MG/3 ML NEBULIZER IH PRN
[2021-06-21] MEDS ORDERED: ETOPOSIDE IV SCH
[2021-06-21] MEDS ORDERED: 0.9 % Sodium Chloride 500 ML IVC SCH
[2021-06-21] MEDS ORDERED: Prochlorperazine 10 MG/2 ML VIAL IVP PRN
[2021-06-21] MEDS ORDERED: Famotidine 20 MG/2 ML VIAL IVP PRN
[2021-06-21] MEDS ORDERED: EPINEPHrine 1 MG/ML VIAL SQ PRN
[2021-06-21] MEDS ORDERED: Fosaprepitant Dimeglumine 150 MG in 0.9 % Sodium Chloride 150 ML IVPB ONE
[2021-06-21] MEDS ORDERED: SODIUM CHLORIDE EXCEL BG 0.9% IV SCH
[2021-06-21] MEDS ORDERED: *HR* LORazepam 2 MG/ML VIAL IVP PRN
[2021-06-21] MEDS ORDERED: Dexamethasone Sodium Phos/PF 10 MG/ML VIAL IVP ONE
[2021-06-21] MEDS: Ipratropium/Albuterol Neb 3 ML IH SCH ×4 (03:18→19:39)
[2021-06-21 05:08] LABS: Basophils % 0.1 %; Hemoglobin 9.2 g/dL (11.5-15.4); Immature Granulocytes % 0.9 % (0-4); Immature Platelets 14.9 % (1.1-6.1); Lymphocytes # 0.4 K/mcL (0.6-4.6); Lymphocytes % 4.3 %; Mean Corpuscular HGB Conc 28.8 g/dL (31.6-35.5); Mean Corpuscular Hemoglobin 21.1 pg (28.0-33.3); Mean Corpuscular Volume 73.6 fL (83.0-100.0); Monocytes # 0.4 K/mcL (0.0-1.3); Monocytes % 5.2 %; Neutrophils # 7.3 K/mcL (1.6-8.9); Nucleated Red Blood Cells 0.2 /100 WBC (0); Platelet Count 158 K/mcL (140-400); Red Blood Count 4.35 M/mcL (3.82-4.97); Red Cell Distribution Width 23.1 % (11.5-14.5); Segmented Neutrophils % 89.5 %; White Blood Count 8.1 K/mcL (4.3-11.1)
[2021-06-21 05:18] LABS: Calcium 8.4 mg/dL (8.6-10.3); Potassium 4.4 mEq/L (3.5-5.1)
[2021-06-21] MEDS: Doxycycline 100 MG in 0.9 % Sodium Chloride Mini Bag 100 ML IVPB SCH ×2 (05:26→20:50)
[2021-06-21 06:32] LABS: Anisocytosis 2+ (Not Present)
[2021-06-21 06:33] LABS: Hypochromasia Present (Not Present); Platelet Estimate Normal (Normal); Poikilocytosis 1+ (Not Present); Polychromasia 1+ (Not Present)
[2021-06-21] MEDS: *HR* HYDROcodone/Acet 10/325 mg TABLET PO PRN ×2 (09:11→20:52)
[2021-06-21] MEDS: Furosemide 20 MG/2 ML VIAL IVP SCH (09:13)
[2021-06-21] MEDS: MethylPREDNISolone 40 MG/ML VIAL IVP SCH ×2 (09:13→16:13)
[2021-06-21] MEDS: Folic Acid 1 MG TABLET PO SCH (09:19)
[2021-06-21] MEDS: allopurinoL 300 MG TABLET PO SCH (09:19)
[2021-06-21] MEDS: Aspirin Enteric Coated 81 MG Tablet PO SCH (09:19)
[2021-06-21] MEDS: Loratadine 10 MG TABLET PO SCH (09:19)
[2021-06-21] MEDS: Cyanocobalamin (B-12) 1,000 MCG TABLET PO SCH (09:19)
[2021-06-21] MEDS: Magnesium Oxide 400 MG TABLET PO SCH ×2 (09:19→20:52)
[2021-06-21] MEDS: Apixaban 5 MG TABLET PO SCH ×2 (09:19→20:51)
[2021-06-21] MEDS: Gabapentin 300 MG CAPSULE PO SCH ×3 (09:19→20:52)
[2021-06-21] MEDS: Insulin LISPRO 300 UNITS/3 ML VIAL SUBQ SCH ×4 (09:20→20:51)
[2021-06-21] MEDS: Piperacillin/Tazobactam 3.375 GM in 0.9 % Sodium Chloride Mini Bag 100 ML IVPB SCH ×2 (09:21→16:13)
[2021-06-21] MEDS: Insulin DETEMIR 100 UNIT/ML X5UNITS SUBQ SCH (20:51)
[2021-06-21] MEDS: Mirtazapine 15 MG TABLET PO SCH (20:52)
[2021-06-21] MEDS: Melatonin 3 MG TABLET PO PRN (20:52)
[2021-06-21] MEDS: hydrOXYzine pamoate 25 MG CAPSULE PO PRN (20:53)
[2021-06-22] MEDS ORDERED: 0.9 % Sodium Chloride 500 ML IVC SCH
[2021-06-22] MEDS ORDERED: EPINEPHrine 1 MG/ML VIAL SQ PRN
[2021-06-22] MEDS ORDERED: ETOPOSIDE IV SCH
[2021-06-22] MEDS ORDERED: Hydrocortisone Sodium Succ 100 MG/2 ML VIAL IVP PRN
[2021-06-22] MEDS ORDERED: SODIUM CHLORIDE EXCEL BG 0.9% IV SCH
[2021-06-22] MEDS ORDERED: Famotidine 20 MG/2 ML VIAL IVP PRN
[2021-06-22] MEDS ORDERED: *HR* LORazepam 2 MG/ML VIAL IVP PRN
[2021-06-22] MEDS ORDERED: Albuterol 2.5 MG/3 ML NEBULIZER IH PRN
[2021-06-22] MEDS: Piperacillin/Tazobactam 3.375 GM in 0.9 % Sodium Chloride Mini Bag 100 ML IVPB SCH ×3 (00:16→16:18)
[2021-06-22] MEDS: MethylPREDNISolone 40 MG/ML VIAL IVP SCH ×3 (00:17→12:12)
[2021-06-22] MEDS: Ipratropium/Albuterol Neb 3 ML IH SCH ×4 (03:26→19:36)
[2021-06-22 04:55] LABS: Basophils % 0.1 %; Hematocrit 32.3 % (35.3-44.9); Hemoglobin 9.4 g/dL (11.5-15.4); Mean Corpuscular HGB Conc 29.1 g/dL (31.6-35.5); Mean Corpuscular Hemoglobin 21.4 pg (28.0-33.3); Mean Corpuscular Volume 73.6 fL (83.0-100.0); Red Blood Count 4.39 M/mcL (3.82-4.97); Red Cell Distribution Width 23.2 % (11.5-14.5)
[2021-06-22 04:57] LABS: Immature Granulocytes % 0.9 % (0-4); Immature Platelets 16.9 % (1.1-6.1); Lymphocytes # 0.4 K/mcL (0.6-4.6); Lymphocytes % 4.6 %; Monocytes # 0.4 K/mcL (0.0-1.3); Monocytes % 4.2 %; Neutrophils # 8.1 K/mcL (1.6-8.9); Platelet Count 153 K/mcL (140-400); Segmented Neutrophils % 90.2 %
[2021-06-22 05:15] LABS: Calcium 8.2 mg/dL (8.6-10.3); Magnesium 2.1 mg/dL (1.6-2.6)
[2021-06-22 05:56] LABS: Hypochromasia Present (Not Present)
[2021-06-22 05:57] LABS: Anisocytosis 2+ (Not Present); Microcytosis Present (Not Present); Platelet Estimate Normal (Normal); Poikilocytosis 1+ (Not Present); Target Cells 1+ (Not Present)
[2021-06-22] MEDS: Cyanocobalamin (B-12) 1,000 MCG TABLET PO SCH (08:27)
[2021-06-22] MEDS: Folic Acid 1 MG TABLET PO SCH (08:27)
[2021-06-22] MEDS: Loratadine 10 MG TABLET PO SCH (08:27)
[2021-06-22] MEDS: Magnesium Oxide 400 MG TABLET PO SCH ×2 (08:27→20:59)
[2021-06-22] MEDS: Aspirin Enteric Coated 81 MG Tablet PO SCH (08:27)
[2021-06-22] MEDS: allopurinoL 300 MG TABLET PO SCH (08:27)
[2021-06-22] MEDS: Apixaban 5 MG TABLET PO SCH ×2 (08:27→20:59)
[2021-06-22] MEDS: Gabapentin 300 MG CAPSULE PO SCH ×3 (08:27→20:58)
[2021-06-22] MEDS: Insulin LISPRO 300 UNITS/3 ML VIAL SUBQ SCH ×3 (08:28→16:15)
[2021-06-22] MEDS: Doxycycline 100 MG in 0.9 % Sodium Chloride Mini Bag 100 ML IVPB SCH (08:58)
[2021-06-22] MEDS: *HR* HYDROcodone/Acet 10/325 mg TABLET PO PRN (10:29)
[2021-06-22] MEDS: Furosemide 20 MG/2 ML VIAL IVP SCH ×2 (11:29→16:15)
[2021-06-22] MEDS: *HR* OxyCODONE Immed Rel 5 MG TABLET PO PRN ×2 (16:14→21:20)
[2021-06-22] MEDS: Mirtazapine 15 MG TABLET PO SCH (20:59)
[2021-06-23] MEDS ORDERED: Albuterol 2.5 MG/3 ML NEBULIZER IH PRN
[2021-06-23] MEDS ORDERED: SODIUM CHLORIDE EXCEL BG 0.9% IV SCH
[2021-06-23] MEDS ORDERED: Famotidine 20 MG/2 ML VIAL IVP PRN
[2021-06-23] MEDS ORDERED: Hydrocortisone Sodium Succ 100 MG/2 ML VIAL IVP PRN
[2021-06-23] MEDS ORDERED: ETOPOSIDE IV SCH
[2021-06-23] MEDS ORDERED: EPINEPHrine 1 MG/ML VIAL SQ PRN
[2021-06-23] MEDS ORDERED: *HR* LORazepam 2 MG/ML VIAL IVP PRN
[2021-06-23] MEDS ORDERED: 0.9 % Sodium Chloride 500 ML IVC SCH
[2021-06-23] MEDS: MethylPREDNISolone 40 MG/ML VIAL IVP SCH ×2 (00:01→10:23)
[2021-06-23] MEDS: Piperacillin/Tazobactam 3.375 GM in 0.9 % Sodium Chloride Mini Bag 100 ML IVPB SCH ×3 (00:04→14:53)
[2021-06-23] MEDS: Insulin LISPRO 300 UNITS/3 ML VIAL SUBQ SCH ×5 (00:06→20:00)
[2021-06-23] MEDS: Insulin DETEMIR 100 UNIT/ML X5UNITS SUBQ SCH (00:09)
[2021-06-23] MEDS ORDERED: Piperacillin/Tazobactam 3.375 GM VIAL ONE (01:48)
[2021-06-23] MEDS: Doxycycline 100 MG in 0.9 % Sodium Chloride Mini Bag 100 ML IVPB SCH ×3 (03:01→20:09)
[2021-06-23] MEDS: Ipratropium/Albuterol Neb 3 ML IH SCH ×4 (04:15→20:17)
[2021-06-23 04:58] LABS: Basophils % 0.2 %; Hematocrit 35.9 % (35.3-44.9); Hemoglobin 10.6 g/dL (11.5-15.4); Immature Granulocytes % 0.8 % (0-4); Lymphocytes # 0.5 K/mcL (0.6-4.6); Lymphocytes % 3.6 %; Mean Corpuscular HGB Conc 29.5 g/dL (31.6-35.5); Mean Corpuscular Hemoglobin 21.6 pg (28.0-33.3); Mean Corpuscular Volume 73.3 fL (83.0-100.0); Monocytes # 0.7 K/mcL (0.0-1.3); Monocytes % 5.2 %; Platelet Count 146 K/mcL (140-400); Red Cell Distribution Width 23.3 % (11.5-14.5); Segmented Neutrophils % 90.2 %; White Blood Count 13.2 K/mcL (4.3-11.1)
[2021-06-23 04:59] LABS: Neutrophils # 11.9 K/mcL (1.6-8.9)
[2021-06-23 05:17] LABS: Anisocytosis 1+ (Not Present); Calcium 8.5 mg/dL (8.6-10.3); Hypochromasia Present (Not Present); Platelet Estimate Normal (Normal); Polychromasia 1+ (Not Present); Potassium 4.7 mEq/L (3.5-5.1)
[2021-06-23] MEDS: Cyanocobalamin (B-12) 1,000 MCG TABLET PO SCH (08:38)
[2021-06-23] MEDS: Furosemide 20 MG/2 ML VIAL IVP SCH (08:39)
[2021-06-23] MEDS: Aspirin Enteric Coated 81 MG Tablet PO SCH (08:40)
[2021-06-23] MEDS: Apixaban 5 MG TABLET PO SCH ×2 (08:40→20:09)
[2021-06-23] MEDS: Gabapentin 300 MG CAPSULE PO SCH ×3 (08:40→20:09)
[2021-06-23] MEDS: Loratadine 10 MG TABLET PO SCH (08:40)
[2021-06-23] MEDS: Folic Acid 1 MG TABLET PO SCH (08:40)
[2021-06-23] MEDS: allopurinoL 300 MG TABLET PO SCH (08:40)
[2021-06-23] MEDS: Magnesium Oxide 400 MG TABLET PO SCH ×2 (08:41→20:08)
[2021-06-23] MEDS: *HR* OxyCODONE Immed Rel 5 MG TABLET PO PRN (10:24)
[2021-06-23] MEDS: Mirtazapine 15 MG TABLET PO SCH (20:08)
[2021-06-24] MEDS: hydrOXYzine pamoate 25 MG CAPSULE PO PRN (00:19)
[2021-06-24] MEDS: MethylPREDNISolone 40 MG/ML VIAL IVP SCH ×3 (00:38→23:11)
[2021-06-24 01:03] LABS: Basophils % 0.1 %; Hemoglobin 10.2 g/dL (11.5-15.4); Monocytes % 8.9 %
[2021-06-24 01:05] LABS: Hematocrit 34.6 % (35.3-44.9); Immature Granulocytes % 0.8 % (0-4); Lymphocytes # 0.9 K/mcL (0.6-4.6); Lymphocytes % 6.1 %; Mean Corpuscular HGB Conc 29.5 g/dL (31.6-35.5); Mean Corpuscular Hemoglobin 21.6 pg (28.0-33.3); Mean Corpuscular Volume 73.3 fL (83.0-100.0); Monocytes # 1.3 K/mcL (0.0-1.3); Neutrophils # 12.2 K/mcL (1.6-8.9); Nucleated Red Blood Cells 0.2 /100 WBC (0); Platelet Count 139 K/mcL (140-400); Red Blood Count 4.72 M/mcL (3.82-4.97); Red Cell Distribution Width 23.3 % (11.5-14.5); Segmented Neutrophils % 84.1 %; White Blood Count 14.5 K/mcL (4.3-11.1)
[2021-06-24 01:08] LABS: Anisocytosis 2+ (Not Present); Hypochromasia Present (Not Present)
[2021-06-24 01:09] LABS: Platelet Estimate Normal (Normal)
[2021-06-24 01:16] LABS: Calcium 8.2 mg/dL (8.6-10.3)
[2021-06-24] MEDS: Ipratropium/Albuterol Neb 3 ML IH SCH ×4 (03:38→19:44)
[2021-06-24] MEDS: Insulin LISPRO 300 UNITS/3 ML VIAL SUBQ SCH ×4 (08:25→20:06)
[2021-06-24] MEDS: Doxycycline 100 MG in 0.9 % Sodium Chloride Mini Bag 100 ML IVPB SCH (08:32)
[2021-06-24] MEDS: Cyanocobalamin (B-12) 1,000 MCG TABLET PO SCH (08:33)
[2021-06-24] MEDS: Magnesium Oxide 400 MG TABLET PO SCH ×2 (08:33→19:59)
[2021-06-24] MEDS: Loratadine 10 MG TABLET PO SCH (08:34)
[2021-06-24] MEDS: Gabapentin 300 MG CAPSULE PO SCH ×3 (08:34→19:59)
[2021-06-24] MEDS: Folic Acid 1 MG TABLET PO SCH (08:34)
[2021-06-24] MEDS: Aspirin Enteric Coated 81 MG Tablet PO SCH (08:34)
[2021-06-24] MEDS: Apixaban 5 MG TABLET PO SCH ×2 (08:35→20:00)
[2021-06-24] MEDS: Furosemide 20 MG/2 ML VIAL IVP SCH (08:36)
[2021-06-24] MEDS: *HR* OxyCODONE Immed Rel 5 MG TABLET PO PRN ×2 (09:36→17:48)
[2021-06-24] MEDS ORDERED: *HR* FentaNYL PATCH 12 MCG PATCH TD SCH (10:30)
[2021-06-24] MEDS: Mirtazapine 15 MG TABLET PO SCH (20:00)
[2021-06-25] MEDS: Ipratropium/Albuterol Neb 3 ML IH SCH ×3 (04:01→16:06)
[2021-06-25 06:35] LABS: Nucleated Red Blood Cells 0.1 /100 WBC (0)
[2021-06-25 06:36] LABS: Basophils % 0.2 %; Hematocrit 37.7 % (35.3-44.9); Hemoglobin 10.8 g/dL (11.5-15.4); Immature Granulocytes % 1.3 % (0-4); Immature Platelets 20.1 % (1.1-6.1); Lymphocytes # 0.5 K/mcL (0.6-4.6); Mean Corpuscular HGB Conc 28.6 g/dL (31.6-35.5); Mean Corpuscular Hemoglobin 21.4 pg (28.0-33.3); Mean Corpuscular Volume 74.7 fL (83.0-100.0); Monocytes # 0.6 K/mcL (0.0-1.3); Monocytes % 3.5 %; Neutrophils # 14.5 K/mcL (1.6-8.9); Platelet Count 136 K/mcL (140-400); Red Blood Count 5.05 M/mcL (3.82-4.97); Red Cell Distribution Width 23.5 % (11.5-14.5); White Blood Count 15.8 K/mcL (4.3-11.1)
[2021-06-25 06:52] LABS: Anisocytosis 2+ (Not Present); Hypochromasia Present (Not Present); Platelet Estimate Normal (Normal); Polychromasia 1+ (Not Present)
[2021-06-25] MEDS: Gabapentin 300 MG CAPSULE PO SCH ×2 (08:00→13:23)
[2021-06-25] MEDS: Folic Acid 1 MG TABLET PO SCH (08:01)
[2021-06-25] MEDS: *HR* OxyCODONE Immed Rel 5 MG TABLET PO PRN ×2 (08:01→15:55)
[2021-06-25] MEDS: Magnesium Oxide 400 MG TABLET PO SCH (08:01)
[2021-06-25] MEDS: Loratadine 10 MG TABLET PO SCH (08:01)
[2021-06-25] MEDS: Aspirin Enteric Coated 81 MG Tablet PO SCH (08:01)
[2021-06-25] MEDS: Apixaban 5 MG TABLET PO SCH (08:01)
[2021-06-25] MEDS: Cyanocobalamin (B-12) 1,000 MCG TABLET PO SCH (08:01)
[2021-06-25] MEDS: Furosemide 20 MG/2 ML VIAL IVP SCH (08:02)
[2021-06-25] MEDS: Insulin LISPRO 300 UNITS/3 ML VIAL SUBQ SCH ×2 (08:02→11:58)
[2021-06-25 09:48] LABS: Calcium 8.4 mg/dL (8.6-10.3); Potassium 5.1 mEq/L (3.5-5.1)
[2021-06-25 10:58] VITALS: BP 102/51; PULSE 97; TEMP 98.3; O2SAT 89
[2021-06-25] MEDS: MethylPREDNISolone 40 MG/ML VIAL IVP SCH (11:57)
== END 2021-06-25 17:00 | disposition hospice, home (50) | DRG 194 ==
LOC: EMEROOARM 12:36 → 3BNU 12:36 → SUATTDRO 18:08 → 3BNU 19:43 → SUATTDRO 06-13 14:02 → 2NENU 06-16 19:38
PROVIDERS: ADMIT Family Medicine; ATTEND Family Medicine